=== PATIENT | female | born 1940 | race Two or more races ===

== ENCOUNTER 2016-11-09 11:54 | Emergency (ER) | payer MEDICARE, MEDICAID ==
[~2016-11-09] VITALS: Ht 165.1 cm; Wt 62.1 kg
[~2016-11-09 11:54] MED LIST: ACET-868 PO; AMIN30LI2 PO; ASCO500C16 PO; BISA10SU61 RC; CARB-93 PO; DEXT1CAP3 PO; DOCU-25 PO; LORA1TAB82 PO; MAGN400O6 PO; MULT-213 PO; NA P133E RC; PANT40TA4 PO; RISP0.253 PO; TYL2T PO; ZINC220C8 PO; [UNRECOGNIZED DRUG - CODE] TP
--- NOTE | 2016-11-09 12:20 | NUR ---
PT BBI PA C/O DISLODGED GTUBE THIS MORNING FROM SNF. NAD NOTED. NO COMPLAINTS. RESP EVEN UNLABORED. IN ER BED 11.
[2016-11-09 12:32] LABS: BASOPHILS % (AUTO) 0.4 % (0.0-2.0); EOSINOPHILS # (AUTO) 0.2 /CMM (0.0-0.7); EOSINOPHILS % (AUTO) 1.9 % (0.0-6.0); HEMATOCRIT 43 % (33-45); HEMOGLOBIN 14.2 g/dL (11.5-14.8); LYMPHOCYTES # (AUTO) 2.1 /CMM (0.8-4.8); LYMPHOCYTES % (AUTO) 21.7 % (20.0-44.0); MEAN CORPUSCULAR HEMOGLOBIN 28 PG (26.0-33.0); MEAN CORPUSCULAR HGB CONC 33 g/dl (31.0-36.0); MEAN CORPUSCULAR VOLUME 87 fL (82-100); MONOCYTES # (AUTO) 0.4 /CMM (0.1-1.30); MONOCYTES % (AUTO) 4.5 % (2.0-12.0); NEUTROPHILS % (AUTO) 71.5 % (43.0-81.0); PLATELET COUNT (AUTO) 339 /CMM (150-450); RDW COEFFICIENT OF VARIATION 14.2 (11.5-15.0); RED BLOOD CELL COUNT(AUTO) 5.01 MIL/uL (4.0-5.2); WHITE BLOOD COUNT (AUTO) 9.7 K/uL (4.3-11.0)
[2016-11-09 12:41] LABS: CALCIUM, SERUM 9.2 mg/dL (8.5-10.1); CREATININE 0.6 mg/dL (0.6-1.3); POTASSIUM 4.6 mmol/L (3.5-5.1)
[2016-11-09] MEDS ORDERED: DIATR MEGLU/DIATRIZOATE SODIUM 30 ML BOTTLE (GASTROGRAPHIN) ONE (13:16)
--- NOTE | 2016-11-09 13:19 | NUR ---
CALLED [facility] FOR TRANSPORT BACK TO SNF, ETA 1400
--- NOTE | 2016-11-09 13:30 | NUR ---
XRAY AT BEDSIDE FOR KUB
--- NOTE | 2016-11-09 13:49 | NUR ---
AWAITING TRANSPORT. NAD NOTED.
[2016-11-09 13:55] VITALS: BP 135/93
--- NOTE | 2016-11-09 13:56 | NUR ---
PT DISCHARGED TO SNF VIA MEDRESPONSE IN STABLE CONDITION
== END 2016-11-09 13:55 ==
LOC: ER 12:09
DX: Z43.1 Encounter for attention to gastrostomy (principal); I10 Essential (primary) hypertension; E03.9 Hypothyroidism, unspecified; K21.9 Gastro-esophageal reflux disease without esophagitis; F29 Unspecified psychosis not due to a substance or known physiological condition; I99.8 Other disorder of circulatory system; Z88.6 Allergy status to analgesic agent
CPT/HCPCS: 36415; 43760; 74000; 80048; 85025; 99285; A4606; Q9963; Z7610

== ENCOUNTER 2017-06-13 11:32 | Inpatient (IN) | payer MEDICARE, MEDICAID ==
[~2017-06-13] VITALS: Ht 165.1 cm; Wt 65.8 kg
--- NOTE | 2017-06-13 07:30 | NUR ---
MS RN CLOSING NOTE SBAR REPORT GIVEN AT THE BEDSIDE. PATIENT IS ASLEEP IN BED. BED IS LOCKED IN LOWEST POSITION, SIDE RAILS UP X3, BED ALARM ON. CALL LIGHT WITHIN REACH. PATIENT'S ROOM NEXT TO HE NURSES STATION WITH A CONSTANT OBSERVATION. PATIENT IS NON VERBAL, NON COHERENT, UNABLE TO UNDERSTAND. NO S/S OF PAIN/DISCOMFORT/DISTRESS. CHEST IS RISING EQUALLY BILATERALLY. SPO2 97 %RA. VS WNL. ENDORSED TO HYDRAULIC MECHANIC NURSE FOR JOE.
[~2017-06-13 11:32] MED LIST changes: +ACET-868 GT; -ACET-868 PO; +CARB-93 GT; -CARB-93 PO; +MAGN400O6 GT; -MAGN400O6 PO
--- NOTE | 2017-06-13 11:46 | NUR ---
BIB EMS [facility] SNF C/O HEMATURIA SINCE THIS MORNING. PLACED ON MONITOR . AWAITING MD ORDER
--- NOTE | 2017-06-13 12:00 | NUR ---
RAC #20 IV ACCESS. BLOOD SAMPLE COLLECTED SENT TO LAB
[2017-06-13 12:13] LABS: BASOPHILS # (AUTO) 0.3 /CMM (0.0-0.2); BASOPHILS % (AUTO) 2.6 % (0.0-2.0); EOSINOPHILS # (AUTO) 0.2 /CMM (0.0-0.7); EOSINOPHILS % (AUTO) 1.7 % (0.0-6.0); HEMATOCRIT 38 % (33-45); HEMOGLOBIN 12.3 g/dL (11.5-14.8); LYMPHOCYTES # (AUTO) 2.2 /CMM (0.8-4.8); LYMPHOCYTES % (AUTO) 20.1 % (20.0-44.0); MEAN CORPUSCULAR HEMOGLOBIN 28 PG (26.0-33.0); MEAN CORPUSCULAR HGB CONC 33 g/dl (31.0-36.0); MEAN CORPUSCULAR VOLUME 86 fL (82-100); MONOCYTES # (AUTO) 0.3 /CMM (0.1-1.30); MONOCYTES % (AUTO) 2.9 % (2.0-12.0); NEUTROPHILS % (AUTO) 72.7 % (43.0-81.0); PLATELET COUNT (AUTO) 379 /CMM (150-450); RDW COEFFICIENT OF VARIATION 15.6 (11.5-15.0); RED BLOOD CELL COUNT(AUTO) 4.39 MIL/uL (4.0-5.2)
[2017-06-13 12:20] LABS: CARBON DIOXIDE 28 mmol/L (21-32); CHLORIDE 95 mmol/L (98-107); CREATININE 0.6 mg/dL (0.6-1.3); GLUCOSE 106 mg/dL (74-106); POTASSIUM 4.3 mmol/L (3.5-5.1); SODIUM SERUM 131 mmol/L (136-145); UREA NITROGEN, BLOOD 21 mg/dL (7-18)
[2017-06-13 12:24] LABS: PROTHROMBIN TIME 10.4 SECS (9.5-12.7)
[2017-06-13 12:26] LABS: ALANINE AMINOTRANSFERASE 7 U/L (12-78); ALBUMIN 2.9 g/dL (3.4-5.0); ALKALINE PHOSPHATASE 102 U/L (46-116); ASPARTATE AMINOTRANSFERASE 39 U/L (15-37); BILIRUBIN,DIRECT 0.1 mg/dL (0.0-0.2); BILIRUBIN,TOTAL 0.4 mg/dL (0.2-1.0); TOTAL PROTEIN, SERUM 7.3 g/dL (6.4-8.2)
[2017-06-13] MEDS ORDERED: IV NS 0.9% 500 ML BAG IV ONE (12:30)
--- NOTE | 2017-06-13 13:12 | NUR ---
URINE SAMPLE COLLECTED SENT TO LAB
[2017-06-13 13:21] LABS: APPEARANCE,URINE Turbid (CLEAR); BILIRUBIN,URINE LARGE (NEGATIVE); BLOOD, URINE Large Ery/uL (NEGATIVE); COLOR,URINE Red (YELLOW); KETONES,URINE 40 (NEGATIVE); LEUKOCYTE ESTERASE ,URINE Large (NEGATIVE); NITRITE, URINE Positive (NEGATIVE); PH,URINE 8.5 (5.0-8.0); PROTEIN,URINE >=300 mg/dl (NEGATIVE); UGLUCOSE 100 MG/DL mg/dL (NEGATIVE); UROBILINOGEN,URINE >=8.0 EU/dL (0.2)
[2017-06-13 13:42] LABS: BACTERIA,URINE Moderate /HPF (None Seen); RBC,URINE TOO NUMEROUS TO COUN /HPF (0-2); SQUAMOUS EPITHELIAL CELL,UR Few /HPF (None Seen)
[2017-06-13] MEDS ORDERED: CHLO15MO2 MM (13:42)
[2017-06-13] MEDS ORDERED: FLUD0.1T GT (13:42)
[2017-06-13] MEDS ORDERED: DOCU50LI GT (13:42)
[2017-06-13] MEDS ORDERED: LACT-209 GT (13:42)
[2017-06-13 13:43] LABS: WBC,URINE 21-50 /HPF (0-3)
[2017-06-13] MEDS ORDERED: CEFTRIAXONE 1GM BAG (ER ONLY) 50 ML IV ONE (13:45)
[2017-06-13] MEDS ORDERED: CEFTRIAXONE 1 G in IV D5W 50 ML IV ONE (14:00)
--- NOTE | 2017-06-13 14:54 | NUR ---
[facility]. [facility] PAYNE ADMITTING TRANSFER VIA ACLS PROTOCOL
--- NOTE | 2017-06-13 14:56 | NUR ---
CTO REPORT NOTE RECEIVED PHONE REPORT FROM ER NURSE. AWAITING PATIENT'S ARRIVAL TO THE UNIT.
[2017-06-13 15:30] VITALS: BP 124/81
--- NOTE | 2017-06-13 15:30 | NUR ---
MS RN ADMITTING NOTE PATIENT ARRIVED TO THE UNIT VIA GURNEY ACCOMPANIED BY THE ER NURSE AND TECH. PATIENT WAS SAFELY ASSISTED/TRANSFERRED TO THE BED. BED IS LOCKED IN LOWEST POSITION, SIDE RAILS UP X3, BED ALARM ON. CALL LIGHT WITHIN REACH. PATIENT'S ROOM NEXT TO HE NURSES STATION WITH A CONSTANT OBSERVATION. PATIENT IS NON VERBAL, NON COHERENT, UNABLE TO UNDERSTAND. CONSERVED. CONSERVATOR SKYE SWEET . ADMISSION INFORMATION OBTAINED FROM [facility] NURSE. PATIENT PRESENTS WITH MULTIPLE SKIN ABRASIONS. PICTURES ARE TAKEN AND PLACED IN THE CHART. WOUND CONSULTATION REFERRAL IS INITIATED. PATIENT HAS A G-TUBE. REFERRED TO REGISTERED DIETITIAN FOR ENTERAL FEEDING CONSULT. NO S/S OF PAIN/DISCOMFORT/DISTRESS. CHEST IS RISING EQUALLY BILATERALLY. SPO2 97 %RA. VS WNL. WILL CONTINUE TO MONITOR ASSESS THROUGHOUT THE SHIFT.
[2017-06-13 16:00] VITALS: BP 123/81
[2017-06-13] MEDS ORDERED: ZOLPIDEM TARTRATE 5 MG TABLET PO PRN (16:30)
[2017-06-13] MEDS ORDERED: ONDANSETRON HCL/PF 4 MG/2 ML VIAL IVP PRN (16:30)
[2017-06-13] MEDS ORDERED: HYDROCODONE/APAP 5/325MG 1 EACH TABLET PO PRN ×2 (16:30→17:00)
[2017-06-13] MEDS ORDERED: FIBERSOURCE HN 1,000 ML BOTTLE GT PRN (16:30)
[2017-06-13] MEDS ORDERED: ACETAMINOPHEN 325 MG TABLET PO PRN (16:30)
[2017-06-13] MEDS ORDERED: BISACODYL SUPP (10 MG) 10 MG/SUPP.RECT SUPP.RECT RC PRN (16:30)
[2017-06-13] MEDS ORDERED: NA PHOS,M-B/NA PHOS,DI-BA 1 EA ENEMA RC PRN (16:30)
[2017-06-13] MEDS ORDERED: MAGNESIUM HYDROXIDE 30 ML UDC GT PRN (16:30)
[2017-06-13] MEDS ORDERED: Z GUARD REMEDY 2 OZ OINT TP PRN (16:30)
[2017-06-13] MEDS: CARBIDOPA/LEVODOPA 25/100 MG 1 UDTAB GT SCH (17:20)
[2017-06-13] MEDS: CHLORHEXIDINE GLUCONATE 15 ML UDC MM SCH (17:20)
[2017-06-13] MEDS: ENOXAPARIN SODIUM 40 MG/0.4 ML DISP.SYRIN SQ SCH (17:20)
[2017-06-13] MEDS: IV NS 0.9% 1,000 ML IV PRN (18:54)
[2017-06-13 20:59] VITALS: BP 115/72
[2017-06-13] MEDS: DOCUSATE SODIUM LIQ 100 MG/10 ML UDC GT SCH (21:22)
[2017-06-13 21:54] VITALS: BP 115/72
[2017-06-14] VITALS: BP 115/62
[2017-06-14] MEDS: IV NS 0.9% 1,000 ML IV PRN ×2 (06:09→22:15)
--- NOTE | 2017-06-14 06:47 | NUR ---
END OF SHIFT SUMMERY: Pt is non-verbal ,contracted . on room air,saturating well. VSS. no signs of pain noticed . no episodes of N/V noticed throughout shift. pt has a G-Tube in place ,receiving fibersource @30 ml/hr. pt is on IV fluid NS 0.9% @ 75 ml/hr. pt is repositioned q 2 hr and as needed. still mild to moderate bloody urine noticed. fall and safety measures are implemented. POC: lab studies, wound consult. no acute respiratory/cardiac distress noted, will endorse patient and POC to the next RN to continue the care.
[2017-06-14 07:24] LABS: BASOPHILS # (AUTO) 0.1 /CMM (0.0-0.2); BASOPHILS % (AUTO) 0.7 % (0.0-2.0); EOSINOPHILS # (AUTO) 0.3 /CMM (0.0-0.7); EOSINOPHILS % (AUTO) 4.2 % (0.0-6.0); HEMATOCRIT 36 % (33-45); HEMOGLOBIN 12.2 g/dL (11.5-14.8); LYMPHOCYTES # (AUTO) 1.7 /CMM (0.8-4.8); LYMPHOCYTES % (AUTO) 21.1 % (20.0-44.0); MEAN CORPUSCULAR HEMOGLOBIN 29 PG (26.0-33.0); MEAN CORPUSCULAR HGB CONC 34 g/dl (31.0-36.0); MEAN CORPUSCULAR VOLUME 87 fL (82-100); MONOCYTES # (AUTO) 0.4 /CMM (0.1-1.30); MONOCYTES % (AUTO) 5.4 % (2.0-12.0); NEUTROPHILS # (AUTO) 5.5 /CMM (1.8-8.9); NEUTROPHILS % (AUTO) 68.6 % (43.0-81.0); PLATELET COUNT (AUTO) 308 /CMM (150-450); RDW COEFFICIENT OF VARIATION 16.7 (11.5-15.0); RED BLOOD CELL COUNT(AUTO) 4.16 MIL/uL (4.0-5.2)
--- NOTE | 2017-06-14 07:30 | NUR ---
RN OPENING NOTES RECEIVED PATIENT IN BED. NO ACUTE DISTRESS, NO SOB NOTED. RESPIRATIONS EVEN AND UNLABORED. IV SITE INTACT AND PATENT. GTUBE IN PLACE, FEEDING FIBERSOURCE @ 30ML/HR. SAFETY MEASURES IMPLEMENTED. BED LOCKED, LOW POSITION, SIDERAILS UPX2. CALL LIGHT IN REACH. WILL CONTINUE TO MONITOR ACCORDINGLY.
[2017-06-14 07:38] LABS: CALCIUM, SERUM 8.5 mg/dL (8.5-10.1); CARBON DIOXIDE 27 mmol/L (21-32); CHLORIDE 104 mmol/L (98-107); CREATININE 0.5 mg/dL (0.6-1.3); GLUCOSE 91 mg/dL (74-106); MAGNESIUM 1.8 mg/dL (1.8-2.4); PHOSPHORUS 3.4 mg/dL (2.5-4.9); POTASSIUM 3.9 mmol/L (3.5-5.1); SODIUM SERUM 139 mmol/L (136-145); UREA NITROGEN, BLOOD 14 mg/dL (7-18)
[2017-06-14 07:50] LABS: CHOLESTEROL 108 mg/dL (<200); HDL CHOLESTEROL 33 mg/dL (40-60); LDL 62 mg/dL (0-99); THYROID STIMULATING HORMONE 2.806 uIU/mL (0.358-3.74); TRIGLYCERIDES 80 mg/dL (30-150)
[2017-06-14 08:00] VITALS: BP 134/73
--- NOTE | 2017-06-14 09:00 | NUR ---
RN NOTES PER LEAFLET OR NEWSPAPER DELIVERERMIMI, INCREASE TF TO 55ML/HR TOLERATED.
[2017-06-14] MEDS: CHLORHEXIDINE GLUCONATE 15 ML UDC MM SCH ×2 (10:21→16:55)
[2017-06-14] MEDS: FLUDROCORTISONE 0.1 MG TABLET GT SCH (10:21)
[2017-06-14] MEDS: CARBIDOPA/LEVODOPA 25/100 MG 1 UDTAB GT SCH ×3 (10:21→16:55)
[2017-06-14] MEDS: PANTOPRAZOLE 40 MG TABLET.DR PO SCH (10:22)
[2017-06-14] MEDS: CEFTRIAXONE 1 G in IV D5W 50 ML IV SCH (14:09)
[2017-06-14 16:00] VITALS: BP 126/70
--- NOTE | 2017-06-14 19:00 | NUR ---
RN CLOSING NOTES PATIENT IN BED RESTING. NO ACUTE DISTRESS, NO SOB NOTED. ALL NEEDS ATTENDED AND PROVIDED. REPOSITIONED AND TURNED PATIENT EVERY 2 HOURS. KEPT PATIENT SAFE AND COMFORTABLE. BED IN LOW POSITION,LOCKED, HEAD OF BED ELEVATED, SIDERAILS UPX2. CALL LIGHT IN REACH. ENDORSED TO QUARTER BACKER RN FOR JOE.
--- NOTE | 2017-06-14 19:30 | NUR ---
RN OPENING NOTES RECEIVED REPORT FROM [facility]. FOUND Pt ASLEEP IN BED. NO S/S OF ACUTE DISTRESS OR SOB NOTED. EQUAL CHEST RISE AND FALL, WITH UNLABORED BREATHING. Pt IS NON-VERBAL, BUT IS ABLE TO MOVE EYES AND OPEN AND CLOSE THEM. ON GTF FIBERSOURCE @55ML/HR. IV ACCESS ON RAC #20G, IVF NS @75ML/HR, INFUSING WELL. SAFETY MEASURES IN PLACE. BED LOW, LOCKED, HOB ELEVATED, SIDE RAILS UP, CALL LIGHT WITHIN REACH. WILL CONTINUE TO MONITOR Pt THROUGHOUT THE NIGHT FOR SAFETY. Addendum: 06/14/17 at 2031 by MENG SAINZ RN [facility].
[2017-06-14 20:00] VITALS: BP 127/69
[2017-06-14] MEDS: DOCUSATE SODIUM LIQ 100 MG/10 ML UDC GT SCH (22:09)
[2017-06-14] MEDS: ENOXAPARIN SODIUM 40 MG/0.4 ML DISP.SYRIN SQ SCH (22:12)
[2017-06-14] MEDS: FIBERSOURCE HN 1,000 ML BOTTLE GT PRN (23:00)
--- NOTE | 2017-06-15 06:40 | NUR ---
RN CLOSING NOTES NO SIGNIFICANT CHANGES IN Pt's CONDITION DURING THE SHIFT. Pt REMAINS STABLE. NO S/S OF ACUTE DISTRESS OR SOB NOTED DURING THE NIGHT. ALL NEEDS MET AND ATTENDED TO. SAFETY MEASURES IN PLACE. WILL ENDORSE TO DAYSHIFT RN FOR Pt's JOE.
[2017-06-15 08:00] VITALS: BP 117/72
--- NOTE | 2017-06-15 08:00 | NUR ---
MS RN OPENING NOTE PATIENT IS ALERT AND ORIENTED x1. NON-VERBAL. OPENS EYES AND SMILES TO NAME. NO FACIAL GRIMACING NOTED FOR PAIN. NO SOB OR DISTRESS NOTED. ON ROOM AIR SATURATING AT 96%. BEDREST. PATIENT IS CONTRACTED. PATIENT HAS G-TUBE INTACT AND PATENT NO REDNESS OR SWELLING NOTED. G-TUBE RUNNING AT THIS TIME, FIBERSOURCE AT 55 ML/HR. TOLERATING WELL NO RESIDUAL NOTED. IV ON RIGHT AC INTACT AND PATENT NO REDNESS OR SWELLING NOTED, IV FLUIDS RUNNING AT THIS TIME AT 75 ML/HR. WILL CONTINUE TO MONITOR PATIENT
[2017-06-15] MEDS: CHLORHEXIDINE GLUCONATE 15 ML UDC MM SCH ×2 (09:05→16:25)
[2017-06-15] MEDS: CARBIDOPA/LEVODOPA 25/100 MG 1 UDTAB GT SCH ×3 (09:05→16:25)
[2017-06-15] MEDS: PANTOPRAZOLE 40 MG TABLET.DR PO SCH (09:05)
[2017-06-15] MEDS: FLUDROCORTISONE 0.1 MG TABLET GT SCH (09:05)
[2017-06-15] MEDS: IV NS 0.9% 1,000 ML IV PRN (13:12)
[2017-06-15] MEDS: CEFTRIAXONE 1 G in IV D5W 50 ML IV SCH (13:12)
[2017-06-15 16:00] VITALS: BP 114/70
--- NOTE | 2017-06-15 18:57 | NUR ---
MS RN CLOSING NOTE PATIENT IS ALERT AND ORIENTED x1. NONVERBAL, SMILES AT RESPONSE. NO FACIAL GRIMACING NOTED FOR PAIN. NO SOB OR DISTRESS NOTED. CALL LIGHT WITHIN REACH AT ALL TIMES. SAFETY MEASURES IMPLEMENTED. ALL DUE MEDICATIONS GIVEN ORDERED. G-TUBE INTACT AND PATENT NO REDNESS OR SWELLING NOTED, G-TUBE IN PLACE. FEEDING RUNNING AT 55 ML/HR TOLERATING WELL NO RESIDUAL NOTED. IV ON RIGHT AC INTACT AND PATENT, IV FLUIDS RUNNING AT 75 ML/HR TOLERATING WELL. NO LABS FOR TOMORROW. WILL ENDORSE TO FIBERGLASS GRINDER NURSE FOR JOE
--- NOTE | 2017-06-15 19:40 | NUR ---
MS RN OPENING NOTE PATIENT IS ALERT AND ORIENTED x1. NON-VERBAL. OPENS EYES AND SMILES TO NAME AND WHEN ASKED TO. NO SOB OR DISTRESS NOTED, BREATHING EVENLY AND UNLABORED ON RA. BEDREST. PATIENT IS CONTRACTED. PATIENT HAS G-TUBE INTACT AND PATENT NO REDNESS OR SWELLING NOTED. G-TUBE RUNNING AT THIS TIME, FIBERSOURCE AT 55 ML/HR. TOLERATING WELL NO RESIDUAL NOTED. IV ON RIGHT AC INTACT AND PATENT NO REDNESS OR SWELLING NOTED, IV FLUIDS RUNNING AT THIS TIME AT 75 ML/HR. WILL CONTINUE TO MONITOR PATIENT
[2017-06-15] MEDS: FIBERSOURCE HN 1,000 ML BOTTLE GT PRN (19:49)
[2017-06-15 20:00] VITALS: BP 119/68
[2017-06-15] MEDS: DOCUSATE SODIUM LIQ 100 MG/10 ML UDC GT SCH (21:59)
[2017-06-15] MEDS: ENOXAPARIN SODIUM 40 MG/0.4 ML DISP.SYRIN SQ SCH (21:59)
[2017-06-16] MEDS: IV NS 0.9% 1,000 ML IV PRN (02:49)
--- NOTE | 2017-06-16 06:18 | NUR ---
MS RN CLOSING NOTES PT IS IN BED RESTING A/O X1. NO SIGNS OF SOB OR DISTRESS, BREATHING EVENLY AND UNLABORED ON RA. WOUND CARE WAS RENDERED. GTUBE IS INTACT AND PATENT WITH FIBERSOURCE AT 55 MLA/ HR. ALL NEEDS WERE ANTICIPATED AT MET. WILL ENDORSE TO DAYSHIFT.
--- NOTE | 2017-06-16 07:05 | NUR ---
MS RN OPENING NOTES RECEIVED PT FROM NIGHTSHIFT NURSE IN STABLE CONDITION. PT IS A/O X1, NON VERBAL, AND OPENS HER EYES SPONTANEOUSLY. NO SOB OR SIGNS OF DISTRESS NOTED. BREATHING IS EVEN AND UNLABORED. GTUBE NOTED INFUSING FIBERSOURCE @55ML/HR. SITE NOTED TO BE DRY AND INTACT. PLACEMENT VERIFIED VIA AUSCULTATION. PT IS TOLERATING FEEDING WELL. NO RESIDUALS ASPIRATED AT THIS TIME. IV NOTED ON RIGHT AC 20G INFUSING NS @75ML/HR. PT IS TOLERATING INFUSION WELL. NO REDNESS OR SIGNS OF INFILTRATION NOTED. BED IN LOW LOCKED POSITION, SIDE RAILS UP X3, BED ALARM ON, CALL LIGHT WITHIN REACH. WILL CONTINUE TO MONITOR.
[2017-06-16 08:00] VITALS: BP 140/67
[2017-06-16] MEDS: CHLORHEXIDINE GLUCONATE 15 ML UDC MM SCH (08:47)
[2017-06-16] MEDS: CARBIDOPA/LEVODOPA 25/100 MG 1 UDTAB GT SCH (08:47)
[2017-06-16] MEDS: PANTOPRAZOLE 40 MG TABLET.DR PO SCH (08:47)
[2017-06-16] MEDS: FLUDROCORTISONE 0.1 MG TABLET GT SCH (08:47)
[2017-06-16] MEDS: FIBERSOURCE HN 1,000 ML BOTTLE GT PRN (08:47)
[2017-06-16] MEDS ORDERED: CEPH-570 PO (11:27)
--- NOTE | 2017-06-16 13:47 | NUR ---
MS SIDE BOSS NOTES REPORT CALLED AND GIVEN TO SENA THE NURSING LOCK PLATER AT [facility]. DISCHARGE INSTRUCTIONS WERE GIVEN TO HER. PT UNABLE TO SIGN DISCHARGE PAPERWORK DUE TO MENTAL STATUS. MYSELF AND A FELLOW RN SIGNED ALL DISCHARGE PAPERWORK AND GAVE COPIES TO THE EMT STAFF TO GIVE TO THE FACILITY. PT LEFT VIA AMBULANCE TRANSPORT IN STABLE CONDITION. ALL NEEDS WERE MET DURING SHIFT AND ORDERS CARRIED OUT ACCORDINGLY.
== END 2017-06-16 13:45 | DRG 690 ==
LOC: ER 11:34 → MED 14:56
DX: N30.91 Cystitis, unspecified with hematuria (principal); G20 Parkinson's disease; F02.80 Dementia in other diseases classified elsewhere, unspecified severity, without behavioral disturbance, psychotic disturbance, mood disturbance, and anxiety; F20.9 Schizophrenia, unspecified; E86.0 Dehydration; E03.9 Hypothyroidism, unspecified; Z73.6 Limitation of activities due to disability; Z88.5 Allergy status to narcotic agent; K21.9 Gastro-esophageal reflux disease without esophagitis; I10 Essential (primary) hypertension
CPT/HCPCS: 36415; 80048-TC; 80061-TC; 80076-TC; 81000-TC; 83605-TC; 83735-TC; 84100-TC; 84443-TC; 85025-TC; 85730-TC; 87040-TC; 87081-TC; 87086-TC; J0696; J1650; J7030; J7040; J7060; Z7610

== ENCOUNTER 2017-07-29 19:16 | Inpatient (IN) | payer MEDICARE, MEDICAID ==
[~2017-07-29] VITALS: Ht 160 cm; Wt 53.5 kg
[~2017-07-29 19:16] MED LIST changes: -AMIN30LI2 PO; -ASCO500C16 PO; +CEPH-570 PO; +CHLO15MO2 MM; -DEXT1CAP3 PO; -DOCU-25 PO; +DOCU50LI GT; +FLUD0.1T GT; +LACT-209 GT; -LORA1TAB82 PO; -MULT-213 PO; -PANT40TA4 PO; -RISP0.253 PO; -TYL2T PO; -ZINC220C8 PO; -[UNRECOGNIZED DRUG - CODE] TP
--- NOTE | 2017-07-29 19:25 | NUR ---
BB PRIVATE EMS FROM [facility] FOR WHEEZING AND CONGESTION SINCE FRIDAY. ALBUTEROL GIVEN PER SNF AT 6PM. PER EMS CXRAY WAS NEGATIVE ON FRIDAY. PT NONVERBAL, RESPONSIVE TO PAINFUL STIMULI. RR EVEN AND UNLABORED. NO SOB NOTED. NO WHEEZING NOTED. PT ON 2L NC AT SNF. PT LLE CONTRACTED. GTUBE INTACT WITH ABD BINDER, GT PATENT NO S/S INFECTION NO RESIDUAL NOTED. NAD NOTED. NO NVD AT THIS TIME. PT GOWNED AND PLACED ON MONITOR. DR. ALBA AT BEDSIDE FOR EVAL.
[2017-07-29] MEDS ORDERED: IV NS 0.9% 1,000 ML BAG IV ONE ×2 (19:30→21:00)
--- NOTE | 2017-07-29 19:46 | NUR ---
IV STARTED ON LEFT WRIST 20G, INTACT AND PATENT, GOOD BLOOD RETURNED. BLOOD AND BLOOD CX DRAWN AND SENT TO LAB
--- NOTE | 2017-07-29 19:52 | NUR ---
RADIOLOGY AT BEDSIDE FOR CXRAY
[2017-07-29 19:55] LABS: BASOPHILS # (AUTO) 0.1 /CMM (0.0-0.2); BASOPHILS % (AUTO) 0.7 % (0.0-2.0); EOSINOPHILS # (AUTO) 0.3 /CMM (0.0-0.7); EOSINOPHILS % (AUTO) 2.2 % (0.0-6.0); HEMATOCRIT 40 % (33-45); HEMOGLOBIN 12.9 g/dL (11.5-14.8); LYMPHOCYTES # (AUTO) 3.5 /CMM (0.8-4.8); LYMPHOCYTES % (AUTO) 22.3 % (20.0-44.0); MEAN CORPUSCULAR HEMOGLOBIN 28 PG (26.0-33.0); MEAN CORPUSCULAR HGB CONC 33 g/dl (31.0-36.0); MEAN CORPUSCULAR VOLUME 86 fL (82-100); MONOCYTES # (AUTO) 0.7 /CMM (0.1-1.30); MONOCYTES % (AUTO) 4.7 % (2.0-12.0); NEUTROPHILS # (AUTO) 10.9 /CMM (1.8-8.9); NEUTROPHILS % (AUTO) 70.1 % (43.0-81.0); PLATELET COUNT (AUTO) 384 /CMM (150-450); RDW COEFFICIENT OF VARIATION 14.9 (11.5-15.0); RED BLOOD CELL COUNT(AUTO) 4.59 MIL/uL (4.0-5.2); WHITE BLOOD COUNT (AUTO) 15.5 K/uL (4.3-11.0)
--- NOTE | 2017-07-29 20:03 | NUR ---
URINE COLLECTED. CALLED LAB FOR PASSENGER BOOKING CLERK.
[2017-07-29 20:06] LABS: CALCIUM, SERUM 9.4 mg/dL (8.5-10.1); CARBON DIOXIDE 27 mmol/L (21-32); CHLORIDE 98 mmol/L (98-107); CREATININE 0.7 mg/dL (0.6-1.3); GLUCOSE 106 mg/dL (74-106); POTASSIUM 4.4 mmol/L (3.5-5.1); SODIUM SERUM 134 mmol/L (136-145); UREA NITROGEN, BLOOD 26 mg/dL (7-18)
[2017-07-29 20:10] LABS: INR 1.05 (0.87-1.13); PROTHROMBIN TIME 10.9 SECS (9.5-12.7)
[2017-07-29 20:13] LABS: APPEARANCE,URINE Cloudy (CLEAR); BILIRUBIN,URINE Negative (NEGATIVE); BLOOD, URINE Moderate Ery/uL (NEGATIVE); COLOR,URINE Yellow (YELLOW); KETONES,URINE Trace (NEGATIVE); LEUKOCYTE ESTERASE ,URINE Large (NEGATIVE); NITRITE, URINE Negative (NEGATIVE); PH,URINE 8.5 (5.0-8.0); PROTEIN,URINE >=300 mg/dl (NEGATIVE); UGLUCOSE Negative (NEGATIVE); UROBILINOGEN,URINE 0.2 EU/dL (0.2)
[2017-07-29 20:14] LABS: TROPONIN I < 0.017 ng/mL (0.00-0.056)
[2017-07-29 20:18] LABS: ALANINE AMINOTRANSFERASE 9 U/L (12-78); ALBUMIN 3.3 g/dL (3.4-5.0); ALKALINE PHOSPHATASE 94 U/L (46-116); ASPARTATE AMINOTRANSFERASE 22 U/L (15-37); B-TYPE NATRIURETIC PEPTIDE 108 PG/ML (0-125); BILIRUBIN,DIRECT 0.1 mg/dL (0.0-0.2); BILIRUBIN,TOTAL 0.5 mg/dL (0.2-1.0); TOTAL PROTEIN, SERUM 7.9 g/dL (6.4-8.2)
[2017-07-29 20:23] LABS: BACTERIA,URINE Many /HPF (None Seen); WBC,URINE TOO NUMEROUS TO COUN /HPF (0-3)
[2017-07-29 20:25] LABS: HYALINE CASTS, URINE Few /LPF (None Seen); SQUAMOUS EPITHELIAL CELL,UR Moderate /HPF (None Seen)
[2017-07-29] MEDS ORDERED: PIPERACILLIN /TAZOBACTAM 3.375 G in IV D5W 50 ML IV ONE (21:00)
[2017-07-29] MEDS ORDERED: PIPERACILLIN /TAZOBACTAM 3.375 G VIAL IV ONE (21:16)
[2017-07-29] MEDS ORDERED: ACETAMINOPHEN 325 MG TABLET PO PRN (22:00)
[2017-07-29] MEDS ORDERED: MAG HYDROX/AL HYDROX/SIMETH 30 ML UDC GT PRN (22:00)
[2017-07-29] MEDS ORDERED: Z GUARD REMEDY 2 OZ OINT TP PRN (22:00)
[2017-07-29] MEDS ORDERED: BISACODYL SUPP (10 MG) 10 MG/SUPP.RECT SUPP.RECT RC PRN (22:00)
[2017-07-29] MEDS ORDERED: HYDROCODONE/APAP 5/325MG 1 EACH TABLET GT PRN (22:00)
[2017-07-29] MEDS ORDERED: ONDANSETRON HCL/PF 4 MG/2 ML VIAL IVP PRN (22:00)
[2017-07-29] MEDS: DOCUSATE SODIUM LIQ 100 MG/10 ML UDC GT SCH (22:00)
[2017-07-29] MEDS ORDERED: MAGNESIUM HYDROXIDE 30 ML UDC GT PRN (22:00)
--- NOTE | 2017-07-29 22:09 | NUR ---
REPORT GIVEN TO MIGNON Ibarra NURSE.
[2017-07-29 22:28] LABS: BAND % (MANUAL) 2 % (0.0-5.0); EOSINOPHILS % (MANUAL) 2 % (0-4); LYMPHOCYTES % (MANUAL) 27 % (16-48); MONOCYTES % (MANUAL) 8 % (0-11.0); NEUTROPHILS % (MANUAL) 61 (42-76)
[2017-07-29] MEDS ORDERED: CEFTRIAXONE 1GM BAG (ER ONLY) 50 ML IV ONE (22:49)
[2017-07-29] MEDS: CEFTRIAXONE 1 G in IV D5W 50 ML IV SCH ×2 (22:50→22:54)
--- NOTE | 2017-07-29 22:53 | NUR ---
REPORT CALLED TO FLOOR. IV ROCEPHIN STARTED.
[2017-07-29] MEDS: IV NS 0.9% 1,000 ML IV PRN (23:23)
[2017-07-29 23:30] VITALS: BP 119/53
--- NOTE | 2017-07-29 23:30 | NUR ---
TELE MEDICAL AFFAIRS SPECIALIST INITIAL NOTES ADMIT PT FROM ER ALVARADO ACCOMPANIED BY ER NURSE AND TECH. DX OF SEPSIS. PT IS AWAKE BUT NON-VERBAL NOT IN ANY ACUTE DISTRESS NOTED. RESPIRATION EVEN AND NON-LABORED. SKIN WARM AND DRY TO TOUCH NOTICED SOME ABRASION AND DISCOLORATION. SHE ALSO HAVE GALINDO TO GRAVITY WITH CLEAR YELLOW OUTPUT NOTED. MUSCLE WEAKNESS AND ABNORMAL CONTRACTURE NOTED. . VITAL SIGNS STABLE. TELE SR HEART RATE 86 PER MONITOR. BED BATH RENDERED AND APPLIED Z-GUARD TO SOME AFFECTED AREA. WOUND CONSULT ORDERED. REPOSITION HER FOR COMFORT. STARTED IVF OF NS AT 60ML/HR ORDERED. DVT PUMP ALSO APPLIED. KEPT HER WARM AND COMFORTABLE AT ALL TIMES. WILL CONTINUE TO MONITOR.
[2017-07-30] VITALS: BP 119/53
--- NOTE | 2017-07-30 03:00 | NUR ---
LEATHER CUTTER/NOTES PT CHECKED NOTICED CONGESTED AND GURGLING ORAL SUCTION DONE TOLERATED AND DEEP SUCTION DID BY RT . O2 SAT 96% WITH O2 AT 2 LITERS VIA NASAL CANULA. TELE SR HEART RATE 78 PER MONITOR. KEPT HER HOB ELEVATED AND ASPIRATION PRECAUTION IMPLEMENTED AND OBSERVED. WILL CONTINUE MONITORING.
[2017-07-30 04:00] VITALS: BP 133/68
[2017-07-30 04:21] VITALS: BP 133/68
--- NOTE | 2017-07-30 05:53 | NUR ---
SCREEN CLEANER/NOTES PT RESTING AT THIS TIME WITH EYES CLOSED, BREATHING EVEN AND UN-LABORED NOT IN ANY ACUTE DISTRESS NOTED. IVF NS AT 60ML/HR INFUSING AT THIS TIME. WILL CONTINUE MONITORING. TELE SR.
[2017-07-30 06:58] LABS: BASOPHILS % (AUTO) 0.2 % (0.0-2.0); EOSINOPHILS # (AUTO) 0.4 /CMM (0.0-0.7); EOSINOPHILS % (AUTO) 2.9 % (0.0-6.0); HEMATOCRIT 38 % (33-45); HEMOGLOBIN 12.4 g/dL (11.5-14.8); LYMPHOCYTES # (AUTO) 1.7 /CMM (0.8-4.8); LYMPHOCYTES % (AUTO) 13.6 % (20.0-44.0); MEAN CORPUSCULAR HEMOGLOBIN 28 PG (26.0-33.0); MEAN CORPUSCULAR HGB CONC 33 g/dl (31.0-36.0); MEAN CORPUSCULAR VOLUME 87 fL (82-100); MONOCYTES # (AUTO) 0.6 /CMM (0.1-1.30); MONOCYTES % (AUTO) 4.6 % (2.0-12.0); NEUTROPHILS # (AUTO) 9.7 /CMM (1.8-8.9); NEUTROPHILS % (AUTO) 78.7 % (43.0-81.0); PLATELET COUNT (AUTO) 307 /CMM (150-450); RDW COEFFICIENT OF VARIATION 16.1 (11.5-15.0); RED BLOOD CELL COUNT(AUTO) 4.36 MIL/uL (4.0-5.2); WHITE BLOOD COUNT (AUTO) 12.3 K/uL (4.3-11.0)
--- NOTE | 2017-07-30 07:07 | NUR ---
TELE LINUX SOLARIS ADMINISTRATOR CLOSING NOTES 'PT RESTING AT THSI TIME, STILL BREATHING CESAR HER MOUTH, NOT IN ANY ACUTE DISTRESS NOTED. IVF STILL INFUSING AND DUE MEDS GIVEN. SUCTIONED NEEDED. SR ON TELE MONITOR, GALINDO TO GRAVITY WITH CLEAR YELLOW OUTPUT 800ML/ KEPT HER WARM AND COMFORTABLE AT ALL TIMES. ENDORSE TO AM NURSE.
[2017-07-30 07:12] LABS: CHOLESTEROL 116 mg/dL (<200); HDL CHOLESTEROL 40 mg/dL (40-60); LDL 69 mg/dL (0-99); THYROID STIMULATING HORMONE 1.389 uIU/mL (0.358-3.74); TRIGLYCERIDES 50 mg/dL (30-150)
[2017-07-30 07:14] LABS: CALCIUM, SERUM 9.2 mg/dL (8.5-10.1); CARBON DIOXIDE 27 mmol/L (21-32); CHLORIDE 100 mmol/L (98-107); CREATININE 0.6 mg/dL (0.6-1.3); GLUCOSE 96 mg/dL (74-106); MAGNESIUM 1.9 mg/dL (1.8-2.4); POTASSIUM 4.1 mmol/L (3.5-5.1); SODIUM SERUM 134 mmol/L (136-145); UREA NITROGEN, BLOOD 18 mg/dL (7-18)
--- NOTE | 2017-07-30 07:30 | NUR ---
RN OPENING NOTES RECEIVED PATIENT IN BED RESTING, RESPONSIVE, NONVERBAL. NO ACUTE DISTRESS, NO SOB NOTED. NO S/S OF PAIN OR DISCOMFORT. IV SITE INTACT AND PATENT. GALINDO IN PLACE, DRAINING CLEAR YELLOW URINE. GTUBE IN PLACE. BED IN LOW, LOCKED POSITION, HOB ELEVATED, SIDERAILS UPX2. CALL LIGHT IN REACH. WILL CONTINUE TO MONITOR ACCORDINGLY.
[2017-07-30 08:00] VITALS: BP 134/59
[2017-07-30] MEDS ORDERED: FIBERSOURCE HN 1,000 ML BOTTLE GT PRN (09:00)
[2017-07-30] MEDS: CARBIDOPA/LEVODOPA 25/100 MG 1 UDTAB GT SCH ×3 (09:39→17:35)
[2017-07-30] MEDS: FLUDROCORTISONE 0.1 MG TABLET GT SCH (09:45)
[2017-07-30] MEDS: CHLORHEXIDINE GLUCONATE 15 ML UDC MM SCH ×2 (09:46→17:35)
[2017-07-30] MEDS: ALBUTEROL FS 2.5 MG/0.5 ML VIAL.NEB NEB SCH ×4 (13:52→22:48)
[2017-07-30 16:00] VITALS: BP 117/68
--- NOTE | 2017-07-30 16:00 | NUR ---
RN NOTES FOLLOWED UP WITH DR KING ABOUT PATIENT'S FEEDING. PER MD, OK TO RESUME TUBE FEEDING.
--- NOTE | 2017-07-30 19:15 | NUR ---
MS/ OXIDATION OPERATOR; RECEIVED PT'S REPORTS FROM THE DAY SHIFT RN FOR CONTINUITY OF CARE. AT THIS TIME PT IS AWAKE, EYES ARE OPENED BUT NON VERBALLY RESPONSIVE. HOB AT 45 DEGREES. PT APPEARED SLIGHT CONGESTED. WITH O2 2L NC ON. IVF ON PROGRESS. FC INTACT WITH YELLOW URINE .BED ON LOWER POSITION AND LOCKED FOR SAFETY. SIDE RAILS ARE UP FOR SAFETY. WILL CONTINUE TO MONITOR. CALL LIGHT WITHIN REACH.
--- NOTE | 2017-07-30 19:27 | NUR ---
RN CLOSING NOTES PATIENT IN BED RESTING. ON O2 2LPM, SATURATION OF 96%. NO ACUTE DISTRESS, NO SOB NOTED. NO S/S OF PAIN OR DISCOMFORT. ALL NEEDS ATTENDED AND PROVIDED. SUCTIONED PATIENT'S SECRETION NEEDED, TURNED AND REPOSITIONED EVERY 2HRS. KEPT PATIENT SAFE AND COMFORTABLE. BED IN LOCKED, LOW POSITION, SIDERAILS UPX2, HOB ELEVATED, CALL LIGHT IN REACH. ENDORSED TO NIGHT RN FOR JOE.
[2017-07-30 20:00] VITALS: BP 104/68
--- NOTE | 2017-07-30 20:15 | NUR ---
MS/GRADUATE ADVISOR; RT HAS BEEN INFORMED TO DO DEEP SUCTIONING TO THE PT DUE CONGESTION. HOB UP ELEVATED AT ALL TIMES.
[2017-07-30] MEDS: FIBERSOURCE HN 1,000 ML BOTTLE GT PRN (21:28)
[2017-07-30] MEDS ORDERED: CEFTRIAXONE 1 G in IV D5W 50 ML IV SCH (22:00)
[2017-07-30] MEDS: DOCUSATE SODIUM LIQ 100 MG/10 ML UDC GT SCH (22:13)
--- NOTE | 2017-07-31 02:20 | NUR ---
MS/CHUCKING AND SAWING MACHINE OPERATOR; RT AGAIN WAS CALLED TO DO DEEP SUCTIONING TO THIS PT. BREATHING TREATMENT ADMINISTERED BY RT.
[2017-07-31] MEDS: ALBUTEROL FS 2.5 MG/0.5 ML VIAL.NEB NEB SCH ×6 (02:47→23:33)
[2017-07-31] MEDS: IV NS 0.9% 1,000 ML IV PRN (05:43)
--- NOTE | 2017-07-31 06:36 | NUR ---
MS/RADAR SCIENTIST; SLEPT FAIRLY. IVF ON PROGRESS. GT FEEDING ON GOING. NO RESIDUAL. GT SITE WITH SOME DRAINAGE KEPT CLEAN AND ABDOMINAL BINDER APPLIED. FC INTACT YELLOW URINE COLOR SLIGHT CLOUDY. CONTINUE TO MONITOR. WILL ENDORSE TO THE DAY SHIFT NURSE .
--- NOTE | 2017-07-31 07:48 | NUR ---
RN OPEN NOTES RECEIVED REPORT FROM SENIOR TRIAL ATTORNEY NURSE. PATIENT IS IN BED, WITH HER EYES CLOSED, EASILY AROUSED TO LIGHT TOUCH. NO SIGNS OR SYMPTOMS OF DISTRESS. JAC IN LOW POSITION, LOCKED AND TWO SIDE RAILS ARE UP. CALL LIGHT WITHIN REACH FOR SAFETY. GASTRIC TUBE SET TO 50ML/HR, IV SITE IS INTACT AND PATENT AND CURRENTLY RUNNING IV FLUID AT 40ML/HR. WILL CONTINUE TO MONITOR AND ASSESS PATIENT
[2017-07-31 08:00] VITALS: BP 113/56
[2017-07-31] MEDS: CHLORHEXIDINE GLUCONATE 15 ML UDC MM SCH ×2 (08:25→16:57)
[2017-07-31] MEDS: FLUDROCORTISONE 0.1 MG TABLET GT SCH (08:25)
[2017-07-31] MEDS: CARBIDOPA/LEVODOPA 25/100 MG 1 UDTAB GT SCH ×3 (08:25→16:57)
--- NOTE | 2017-07-31 14:43 | NUR ---
MRSA NARES POSITIVE FOR MRSA./ CHARGE NURSE MADE AWARE. WILL PLACED PATIENT ON ISOLATION AND MOVE HER TO 304-2
--- NOTE | 2017-07-31 15:15 | NUR ---
PATIENT MOVED TO ROOM 304-2. PLACED ON ISOLATION
--- NOTE | 2017-07-31 15:50 | NUR ---
PATIENT IS OFF THE FLOOR FOR CT SCAN
[2017-07-31 15:58] VITALS: BP 117/65
--- NOTE | 2017-07-31 16:30 | NUR ---
PATIENT RETURNED TO FLOOR FROM CT
--- NOTE | 2017-07-31 18:26 | NUR ---
RN CLOSING NOTES PATIENT IS IN BED RESTING, NON VERBAL. NO ACUTE CHANGES THROUGHOUT THE SHIFT. PLACED ON ISOLATION FOR MRSA OF THE NARES. NO SIGNS AND SYMPTOMS OF DISTRESS OR SHORT OF BREATH. IV ACCESS IS INTACT. ALL NEEDS WERE ANTICIPATED AND MET. PATIENT KEPT DRY AND CLEAN. GALINDO IS DRAINING WELL. GASTRIC TUBE IS PATENT. BED IS IN LOW AND LOCKED POSITION, 2 SIDE RAILS ARE UP AND CALL LIGHT WITHIN REACH FOR SAFETY. WILL ENDORSE TO EXTENSION CLERK.
--- NOTE | 2017-07-31 19:30 | NUR ---
RN NOTES RECEIVED PATIENT IN BED WITH EYES OPEN, RESPONDS TO TOUCH; NON-VERBAL. NO ACUTE DISTRESS NOTED. NO SIGNS OF PAIN NOTED. IV SITE PATENT, INTACT; FLUSHED. GT SITE PATENT, INTACT; IN PLACE VIA AUSCULTATION. GALINDO CATH PATENT, INTACT; DRAINING YELLOW URINE WITH SOME SEDIMENT. ON LOW BED WITH BILATERAL UPPER SIDE RAILS UP. CALL LIGHT WITHIN EASY REACH. WILL CONTINUE TO MONITOR.
[2017-07-31 20:00] VITALS: BP 127/68
[2017-07-31] MEDS: DOCUSATE SODIUM LIQ 100 MG/10 ML UDC GT SCH (21:35)
[2017-07-31] MEDS: MEROPENEM 500 MG in IV NS 0.9% 50 ML IV SCH (21:35)
[2017-08-01] MEDS: FIBERSOURCE HN 1,000 ML BOTTLE GT PRN ×2 (00:06→21:19)
[2017-08-01] MEDS: ALBUTEROL FS 2.5 MG/0.5 ML VIAL.NEB NEB SCH ×6 (04:09→23:22)
[2017-08-01] MEDS: MEROPENEM 500 MG in IV NS 0.9% 50 ML IV SCH ×3 (04:50→21:19)
--- NOTE | 2017-08-01 06:27 | NUR ---
RN NOTES PATIENT AWAKE. RESPIRATIONS EVEN. NO SIGNS OF PAIN NOTED. DUE MEDS GIVEN WITH NO ASE NOTED. PATIENT TOLERATING GT FEEDING. HOB RAISED. NEEDS ATTENDED. KEPT CLEAN AND DRY. SAFETY PRECAUTIONS AND COMFORT MEASURES IN PLACE. CONTACT ISOLATION FOR MRSA NARES AND ESBL POS ECOLI IN URINE MAINTAINED. WILL GIVE REPORT TO DAY SHIFT FOR CONTINUITY OF CARE.
[2017-08-01 06:46] LABS: EOSINOPHILS # (AUTO) 0.4 /CMM (0.0-0.7); EOSINOPHILS % (AUTO) 5.8 % (0.0-6.0); HEMATOCRIT 34 % (33-45); HEMOGLOBIN 11.2 g/dL (11.5-14.8); LYMPHOCYTES # (AUTO) 1.5 /CMM (0.8-4.8); LYMPHOCYTES % (AUTO) 19.9 % (20.0-44.0); MEAN CORPUSCULAR HEMOGLOBIN 29 PG (26.0-33.0); MEAN CORPUSCULAR HGB CONC 33 g/dl (31.0-36.0); MEAN CORPUSCULAR VOLUME 87 fL (82-100); MONOCYTES # (AUTO) 0.4 /CMM (0.1-1.30); MONOCYTES % (AUTO) 5.7 % (2.0-12.0); NEUTROPHILS # (AUTO) 5.3 /CMM (1.8-8.9); NEUTROPHILS % (AUTO) 68.6 % (43.0-81.0); PLATELET COUNT (AUTO) 245 /CMM (150-450); RDW COEFFICIENT OF VARIATION 15.9 (11.5-15.0); RED BLOOD CELL COUNT(AUTO) 3.89 MIL/uL (4.0-5.2); WHITE BLOOD COUNT (AUTO) 7.8 K/uL (4.3-11.0)
[2017-08-01 06:57] LABS: CALCIUM, SERUM 8.8 mg/dL (8.5-10.1); CARBON DIOXIDE 30 mmol/L (21-32); CHLORIDE 105 mmol/L (98-107); CREATININE 0.6 mg/dL (0.6-1.3); GLUCOSE 124 mg/dL (74-106); MAGNESIUM 1.9 mg/dL (1.8-2.4); PHOSPHORUS 2.7 mg/dL (2.5-4.9); POTASSIUM 3.9 mmol/L (3.5-5.1); SODIUM SERUM 140 mmol/L (136-145); UREA NITROGEN, BLOOD 20 mg/dL (7-18)
[2017-08-01 08:00] VITALS: BP 124/70
--- NOTE | 2017-08-01 08:00 | NUR ---
m/s finished cloth checker: initial assessment received pt in bed with eyes open, non-verbal and unable to comprehend. hob elevated. continue on g-tube feeding of fibersource at 65ml/hr. prerna. well. no residual obtained. placement patent. kept comfortable and repositioned. will continue to monitor.
[2017-08-01] MEDS: CARBIDOPA/LEVODOPA 25/100 MG 1 UDTAB GT SCH ×3 (08:53→17:23)
[2017-08-01] MEDS: FLUDROCORTISONE 0.1 MG TABLET GT SCH (08:53)
--- NOTE | 2017-08-01 09:49 | NUR ---
WOUND CARE CONSULT: PT PRESENTS WITH MULTIPLE DRY ABRASIONS AND SCARS. PT SCRATCHES HER SKIN. RECOMMENDATIONS MADE FOR SKIN PROTECTION. DISCUSSED WITH NURSING STAFF. PT ON ANKITA ISOFLEX LOW AIRLOSS BED. WILL SEE PRN. WILSON IN AGREEMENT WITH PLAN OF CARE. Addendum: 08/01/17 at 0950 by YUNG TRONCOSO WNDNU Amended: Links added.
[2017-08-01] MEDS: CHLORHEXIDINE GLUCONATE 15 ML UDC MM SCH ×2 (10:44→17:23)
--- NOTE | 2017-08-01 12:00 | NUR ---
m/s third steel pourer: notes turned and repositioned, kept comfortable. will continue to monitor.
[2017-08-01 16:00] VITALS: BP 120/69
--- NOTE | 2017-08-01 18:00 | NUR ---
m/s naval inspector: notes in bed with eyes open, remains non-verbal. turned and repositioned q2 hrs and prn. appears comfortable. needs attended. no apparent distress noted.
--- NOTE | 2017-08-01 19:30 | NUR ---
RN INITIAL NOTES: RECEIVED REPORT FROM CARY SILVESTRE. PT IN BED, AWAKE, NON VERBAL, ON 2L VIA NC, RESPIRATION EVEN AND UNLABORED, NO FACIAL GRIMACE NOTED, APPEARS CALM AND COMFORTABLE. LEFT WRIST IV ACCESS PATENT AND FLUSHING WELL, ON HL. PT HAS GTUBE IN PLACED CURRENTLY CLAMPED, FEEDING ORDERED FOR 20HRS, OFF AT 1500, ON AT 2100. PT NOTED TO HAVE CONTRACTURES ON BLE, AND RIGHT FOOT FOOTDROP,BLE KEPT OFFLOADED, SAFETY PRECAUTIONS FOR FALL INITIATED CALL LIGHT IN REACH, WILL CONTINUE TO MONITOR
[2017-08-01 20:00] VITALS: BP 121/76
--- NOTE | 2017-08-01 21:00 | NUR ---
GTUBE FEEDING RESTARTED: GTUBE FEEDING ADMINISTERED ORDERED, ON AT 2100, TO BE TURN OFF AT 1500. FIBERSOURCE HN [id number]
--- NOTE | 2017-08-01 21:20 | NUR ---
GTUBE RESIDUAL CHECK: ABDOMEN SOFT TO TOUVH WITH ACTIVE BOWEL SOUND HEARD UPON AUSCULTATION. NO GTUBE RESIDUAL OBTAINED, (0 ML), GTUBE FLUSHING WELL, NO RESISTANCE NOTED, NOTED GTUYBE SITE IRRITATION AND REDNESS, EXCORIATION, CLEANSED AREA WITH NS, PAT DRY, KEPT CLEAN AND DRY, 4X4 GAUZE APPLIED, RECEIVED WITH ABDOMINAL BINDER IN PLACED FOR PROTECTION, PT TENDS TO PULL GTUBE. DUE MEDS GIVEN, WILL CONTINUE TO MONITOR
--- NOTE | 2017-08-01 21:21 | NUR ---
RN NOTES: KEPT HOB 30 DEGREE TO PREVENT ASPIRATION
--- NOTE | 2017-08-01 21:30 | NUR ---
RN NOTES: DECIDED TO REMOVED ABDOMINAL BINDER BECAUSE ITS WET AND SMELLS , PT CURRENTLY CALM AND NOT PULLING ANYTHING, DECIDED TO PLACED A BATH TOWEL TO COVER FOR GTUBE, WILL CHECK ON PT Q2HRS AND NEEDED,
[2017-08-01] MEDS: MUPIROCIN OINT 2% 22 GM TUBE SCH (21:40)
--- NOTE | 2017-08-01 22:00 | NUR ---
RN NOTES: ORAL CARE PROVIDED, SUCTION SET UP SECURED
[2017-08-01] MEDS: DOCUSATE SODIUM LIQ 100 MG/10 ML UDC GT SCH (22:27)
[2017-08-02] MEDS: ALBUTEROL FS 2.5 MG/0.5 ML VIAL.NEB NEB SCH ×5 (03:03→19:34)
[2017-08-02] MEDS: MEROPENEM 500 MG in IV NS 0.9% 50 ML IV SCH ×3 (04:06→21:13)
--- NOTE | 2017-08-02 06:55 | NUR ---
RN CLOSING NOTES: PT IN BED, AWAKE, NO SOB NOTED, ON 2L VIA NC, REMAINS CALM AND COOPERATIVE THROUGHOUT THE SHIFT, NO FACIAL GRIMACE NOTED, APPEARS COMFORTABLE. IV ACCESS REMAINS PATENT AND FLUSHING WELL, ON HL. GTUBE FEEDING ONGOING ORDERED. HOB REMAINS 30 DEGREE. BLE KEPT OFFLOADED. VSS. NEEDS ATTENDED. SAFETY PRECAUTIONS FOR FALL REMAINS ENGAGED, CALL LIGHT IN REACH, POSSIBLE DC TODAY, EXIT CARE COMPLETED. WILL ENDORSE TO DAY RN FOR JOE.
--- NOTE | 2017-08-02 07:30 | NUR ---
MSRN RECEIVED PATIENT ON BED, NONVERBAL, NO DISTRESS NOTED, GTUBE FEEDING ON TOLERATED WELL, REPOSITIONED FOR COMFORT, WILL MONITOR PATIENT'S CONDITION.
[2017-08-02 08:00] VITALS: BP 141/79
--- NOTE | 2017-08-02 10:00 | NUR ---
MS RN DUE MEDS GIVEN VIA G TUBE,TOLERATED WELL W/O RESIDUAL.
[2017-08-02 10:12] LABS: BASOPHILS % (AUTO) 0.3 % (0.0-2.0); EOSINOPHILS # (AUTO) 0.3 /CMM (0.0-0.7); EOSINOPHILS % (AUTO) 3.1 % (0.0-6.0); HEMATOCRIT 37 % (33-45); HEMOGLOBIN 12.1 g/dL (11.5-14.8); LYMPHOCYTES # (AUTO) 1.6 /CMM (0.8-4.8); LYMPHOCYTES % (AUTO) 18.6 % (20.0-44.0); MEAN CORPUSCULAR HEMOGLOBIN 28 PG (26.0-33.0); MEAN CORPUSCULAR HGB CONC 32 g/dl (31.0-36.0); MEAN CORPUSCULAR VOLUME 87 fL (82-100); MONOCYTES # (AUTO) 0.4 /CMM (0.1-1.30); MONOCYTES % (AUTO) 4.8 % (2.0-12.0); NEUTROPHILS # (AUTO) 6.4 /CMM (1.8-8.9); NEUTROPHILS % (AUTO) 73.2 % (43.0-81.0); PLATELET COUNT (AUTO) 281 /CMM (150-450); RDW COEFFICIENT OF VARIATION 15.8 (11.5-15.0); RED BLOOD CELL COUNT(AUTO) 4.29 MIL/uL (4.0-5.2); WHITE BLOOD COUNT (AUTO) 8.8 K/uL (4.3-11.0)
[2017-08-02 10:31] LABS: CALCIUM, SERUM 9.6 mg/dL (8.5-10.1); CARBON DIOXIDE 30 mmol/L (21-32); CHLORIDE 105 mmol/L (98-107); CREATININE 0.5 mg/dL (0.6-1.3); GLUCOSE 108 mg/dL (74-106); POTASSIUM 4.4 mmol/L (3.5-5.1); SODIUM SERUM 142 mmol/L (136-145); UREA NITROGEN, BLOOD 16 mg/dL (7-18)
[2017-08-02] MEDS: CARBIDOPA/LEVODOPA 25/100 MG 1 UDTAB GT SCH ×3 (10:51→16:27)
[2017-08-02] MEDS: FLUDROCORTISONE 0.1 MG TABLET GT SCH (10:51)
[2017-08-02] MEDS: MUPIROCIN OINT 2% 22 GM TUBE SCH ×2 (10:52→21:13)
[2017-08-02] MEDS: CHLORHEXIDINE GLUCONATE 15 ML UDC MM SCH ×2 (11:11→16:27)
[2017-08-02 16:00] VITALS: BP 131/78
[2017-08-02] MEDS: FIBERSOURCE HN 1,000 ML BOTTLE GT PRN (16:30)
--- NOTE | 2017-08-02 18:31 | NUR ---
MS RN ON BED, NO DISTRESS NOTED, GTUBE ON TOLERATING WELL.WILL ENDORSE TO COOK CHILL TECHNICIAN FOR JOE.
--- NOTE | 2017-08-02 19:30 | NUR ---
RN NOTES RECEIVED PT. AWAKE ON BED, NON-VERBAL, G-TUBE FEEDING RUNNING @ 565ML/HR, NO PAIN NOTED, NO SOB, SIDERAILS UPX2, CONTINUE TO MONITOR
[2017-08-02 20:00] VITALS: BP 126/68
[2017-08-02] MEDS: DOCUSATE SODIUM LIQ 100 MG/10 ML UDC GT SCH (21:13)
--- NOTE | 2017-08-02 22:00 | NUR ---
RN NOTES ASKED RT TO DO DEEP SUCTION . NO SOB NOTED
[2017-08-03] MEDS: ALBUTEROL FS 2.5 MG/0.5 ML VIAL.NEB NEB SCH ×5 (00:03→15:04)
[2017-08-03] MEDS: MEROPENEM 500 MG in IV NS 0.9% 50 ML IV SCH ×2 (04:58→13:51)
--- NOTE | 2017-08-03 06:28 | NUR ---
RN NOTES AWAKE, G-TUBE FEEDING RUNNING - NO RESIDUAL NOTED, IV LINE PATENT NO REDNESS OR SWOLLEN, SUCTION THE PT., MORNING CARE RENDERED, SIDERAILSUPX2, PT. NEEDS ATTENDED
[2017-08-03 07:35] LABS: BASOPHILS % (AUTO) 0.3 % (0.0-2.0); EOSINOPHILS # (AUTO) 0.4 /CMM (0.0-0.7); EOSINOPHILS % (AUTO) 4.1 % (0.0-6.0); HEMATOCRIT 35 % (33-45); HEMOGLOBIN 11.4 g/dL (11.5-14.8); LYMPHOCYTES # (AUTO) 2.1 /CMM (0.8-4.8); LYMPHOCYTES % (AUTO) 19.7 % (20.0-44.0); MEAN CORPUSCULAR HEMOGLOBIN 28 PG (26.0-33.0); MEAN CORPUSCULAR HGB CONC 32 g/dl (31.0-36.0); MEAN CORPUSCULAR VOLUME 87 fL (82-100); MONOCYTES # (AUTO) 0.5 /CMM (0.1-1.30); MONOCYTES % (AUTO) 4.9 % (2.0-12.0); NEUTROPHILS # (AUTO) 7.5 /CMM (1.8-8.9); PLATELET COUNT (AUTO) 261 /CMM (150-450); RDW COEFFICIENT OF VARIATION 15.7 (11.5-15.0); RED BLOOD CELL COUNT(AUTO) 4.03 MIL/uL (4.0-5.2); WHITE BLOOD COUNT (AUTO) 10.6 K/uL (4.3-11.0)
[2017-08-03 07:55] LABS: CALCIUM, SERUM 9.3 mg/dL (8.5-10.1); CARBON DIOXIDE 31 mmol/L (21-32); CHLORIDE 103 mmol/L (98-107); CREATININE 0.5 mg/dL (0.6-1.3); GLUCOSE 132 mg/dL (74-106); SODIUM SERUM 139 mmol/L (136-145); UREA NITROGEN, BLOOD 18 mg/dL (7-18)
[2017-08-03 08:00] VITALS: BP 123/84
[2017-08-03 08:26] VITALS: BP 123/84
[2017-08-03] MEDS: CHLORHEXIDINE GLUCONATE 15 ML UDC MM SCH (09:21)
[2017-08-03] MEDS: FLUDROCORTISONE 0.1 MG TABLET GT SCH (09:21)
[2017-08-03] MEDS: CARBIDOPA/LEVODOPA 25/100 MG 1 UDTAB GT SCH ×2 (09:21→13:52)
[2017-08-03] MEDS: MUPIROCIN OINT 2% 22 GM TUBE SCH (09:22)
--- NOTE | 2017-08-03 10:32 | NUR ---
RN OPENING NOTES RECEIVED PT. PT IS STABLE AND RESTING IN BED. PT IS NON VERBAL. PT DOES NOT APPEAR TO BE IN PAIN AT THIS MOMENT. PT REQUIRES FREQUENT SUCTIONING IN ORDER TO MAINTAIN PATENT AIRWAY. PT IS ON GT FEEDING OF FIBERSOURCE AT 65 ML H/HR AND IS TO BE STOPPED AT 1500 AND RESTARTED AT 2100, PER INFUSION PHARMACIST REPORT. IV ACCESS LOCATED ON LEFT WRIST 20 G, CURRENTLY SL. SAFETY MEASURES IN PLACE, CALL LIGHT WITHIN REACH. WILL CONTINUE TO MONITOR.
[2017-08-03 15:45] VITALS: BP 125/85
--- NOTE | 2017-08-03 18:51 | NUR ---
DISCHARGE NOTE PT DISCHARGED TO [facility]. DISCHARGE INSTRUCTIONS AND PAPERWORK PROVIDED. PT CAN NOT VERBALIZE UNDERSTANDING OF D/C TEACHING. D/C INSTRUCTIONS AND BELONGINGS FORM SIGNED AND COPIED BY TWO RNS. COPIES PLACED IN PT'S CHART. IV ACCESS AND GALINDO CATH LEFT IN PLACE PER SNF REQUEST. PHOTOS OF WOUND TAKEN AND PLACED IN CHART. MED RECON PLACED IN PT DOCUMENTS. PT LEFT IN PRIVATE AMBULANCE TO SNF.
== END 2017-08-03 18:50 | DRG 871 ==
LOC: ER 19:18 → TELE 21:13 → MED 07-30 09:31
PROVIDERS: ADMIT Nurse Practitioner Acute Care; ATTEND Nurse Practitioner Acute Care
DX: A41.9 Sepsis, unspecified organism (principal); N17.0 Acute kidney failure with tubular necrosis; J96.00 Acute respiratory failure, unspecified whether with hypoxia or hypercapnia; G93.40 Encephalopathy, unspecified; R13.10 Dysphagia, unspecified; E87.2 Acidosis; E44.1 Mild protein-calorie malnutrition; E87.1 Hypo-osmolality and hyponatremia; N39.0 Urinary tract infection, site not specified; E03.9 Hypothyroidism, unspecified; I10 Essential (primary) hypertension; G20 Parkinson's disease; R65.20 Severe sepsis without septic shock; Z88.5 Allergy status to narcotic agent; Z79.899 Other long term (current) drug therapy; F02.80 Dementia in other diseases classified elsewhere, unspecified severity, without behavioral disturbance, psychotic disturbance, mood disturbance, and anxiety; B96.20 Unspecified Escherichia coli [E. coli] as the cause of diseases classified elsewhere; Z16.12 Extended spectrum beta lactamase (ESBL) resistance; Z22.322 Carrier or suspected carrier of Methicillin resistant Staphylococcus aureus; Z86.59 Personal history of other mental and behavioral disorders; E86.1 Hypovolemia
CPT/HCPCS: 31720; 36415; 70486-TC; 71010-TC; 80048-TC; 80061-TC; 80076-TC; 81000-TC; 83605-TC; 83735-TC; 83880; 84100-TC; 84443-TC; 84484-TC; 85025-TC; 85730-TC; 87040-TC; 87081-TC; 87086-TC; 87186-TC; 87400; 94799-TC; A4216; A4606; A6253; A6402; J0696; J2185; J2543; J7030; J7060

== ENCOUNTER 2017-09-13 21:58 | Emergency (ER) | payer MEDICARE, MEDICAID ==
[~2017-09-13] VITALS: Ht 160 cm; Wt 59.0 kg
[2017-09-13] MEDS ORDERED: DIATR MEGLU/DIATRIZOATE SODIUM 30 ML BOTTLE (GASTROGRAPHIN) ONE (22:22)
--- NOTE | 2017-09-13 22:25 | NUR ---
RADIOLOGY AT BEDSIDE FOR KUB
--- NOTE | 2017-09-13 22:51 | NUR ---
REQUESTED [facility] FOR TRANSPORT BACK TO [facility], ETA [phone]
--- NOTE | 2017-09-13 23:25 | NUR ---
CALLED NEO AT [facility] FOR REPORT
[2017-09-13 23:26] VITALS: BP 129/78
== END 2017-09-14 00:14 | disposition home or self-care (01) ==
LOC: ER 21:59
DX: Z43.1 Encounter for attention to gastrostomy (principal); E03.9 Hypothyroidism, unspecified; F03.90 Unspecified dementia, unspecified severity, without behavioral disturbance, psychotic disturbance, mood disturbance, and anxiety; I10 Essential (primary) hypertension; Z46.59 Encounter for fitting and adjustment of other gastrointestinal appliance and device; Z88.5 Allergy status to narcotic agent
CPT/HCPCS: 74018; A4606; Q9963; Z7610

== ENCOUNTER 2017-09-15 06:08 | Emergency (ER) | payer MEDICARE, MEDICAID ==
[~2017-09-15] VITALS: Ht 165.1 cm; Wt 45.4 kg
--- NOTE | 2017-09-15 06:23 | NUR ---
PT TO ER BED 7. PT BIBPA C/O PT PULLED OUT GTUBE, PT HERE YESTERDAY FOR SAME. PT PLACED ON IMPORT COORDINATOR. VSS/RESP EVEN UNLABORED/NAD NOTED/SKIN WARM AND DRY/DENIES N-V-D. AT BEDSIDE.
--- NOTE | 2017-09-15 06:27 | NUR ---
AT BEDSIDE FOR G TUBE PLACEMENT.
[2017-09-15] MEDS ORDERED: DIATR MEGLU/DIATRIZOATE SODIUM 30 ML BOTTLE (GASTROGRAPHIN) PO ONE (07:00)
--- NOTE | 2017-09-15 07:00 | NUR ---
XRAY AT BEDSIDE TO VERIFY GTUBE PLACEMENT.
--- NOTE | 2017-09-15 07:12 | NUR ---
ENDORSED TO MARIAA VELÁSQUEZ FOR JOE.
--- NOTE | 2017-09-15 07:13 | NUR ---
RECEIVED REPORT FOR JOE.
--- NOTE | 2017-09-15 08:01 | NUR ---
[facility]ICHO[facility] GLEASON, ETA 9-9:30. CONFIRMATION # [id number]
[2017-09-15 09:57] VITALS: BP 147/82
--- NOTE | 2017-09-15 09:58 | NUR ---
Patient discharged to SNF in stable condition. Written and verbal after care instructions given. Report EMT at bedside, left with ambulance.
== END 2017-09-15 09:58 ==
LOC: ER 06:10
DX: K94.23 Gastrostomy malfunction (principal); E03.9 Hypothyroidism, unspecified; F03.90 Unspecified dementia, unspecified severity, without behavioral disturbance, psychotic disturbance, mood disturbance, and anxiety; G20 Parkinson's disease; I10 Essential (primary) hypertension; F20.9 Schizophrenia, unspecified; Z88.5 Allergy status to narcotic agent
CPT/HCPCS: 74018; A4606; A6402; Q9963; Z7610

== ENCOUNTER 2017-10-08 06:32 | Emergency (ER) | payer MEDICARE, OTHER ==
[~2017-10-08] VITALS: Ht 160 cm; Wt 59.0 kg
--- NOTE | 2017-10-08 06:50 | NUR ---
PT BB PA FOR G-TUBE EVAL. G-TUBE IN PLACE WITH REDNESS/IRRITATION NOTED AT INSERTION SITE. PT IS AAOX0. PT IS BEDBOUND. RESP EVEN AND UNLABORED. SKIN WNL. NO S/S OF ACUTE DISTRESS NOTED. PT CATINA BY PA FROM FACILITY WITH NC 2L IN PLACE. VSS. BEDSIDE FOR EVAL.
--- NOTE | 2017-10-08 08:00 | NUR ---
[facility] ETA [phone]
--- NOTE | 2017-10-08 08:01 | NUR ---
Patient is resting comfortably in bed with eyes closed. Easily aroused. VSS
--- NOTE | 2017-10-08 08:56 | NUR ---
SPOKE WITH [facility] REGARDING DISCHARGE PLAN
--- NOTE | 2017-10-08 09:08 | NUR ---
Patient discharged to home VIA AMBULANCE in stable condition. Written and verbal after care instructions given. [facility] verbalized understanding of instruction.
[2017-10-08 09:09] VITALS: BP 100/62
== END 2017-10-08 08:52 | disposition home or self-care (01) ==
LOC: ER 06:33
DX: K94.21 Gastrostomy hemorrhage (principal); F79 Unspecified intellectual disabilities; F03.90 Unspecified dementia, unspecified severity, without behavioral disturbance, psychotic disturbance, mood disturbance, and anxiety; G20 Parkinson's disease; I10 Essential (primary) hypertension; E03.9 Hypothyroidism, unspecified; Z88.5 Allergy status to narcotic agent
CPT/HCPCS: 74018; A4606; A6403; Z7610

== ENCOUNTER 2017-10-13 09:37 | Inpatient (IN) | payer MEDICARE, OTHER ==
[~2017-10-13] VITALS: Ht 162.6 cm; Wt 49.9 kg
--- NOTE | 2017-10-13 09:54 | NUR ---
RECIEVED PT AT THIS TIME. BREANNE BARROW FROM [facility] FOR INFECTED GT STOMA. STOMA NOTED WITH REDNESS, NO DISCHARGE NOTED. PER EMS, THEY WERE CALLED INITIALLY FOR LOW BP IN THE SNF BUT BP WAS STABLE WHEN THEY ASSESSED THE PT. PT ASSISTED TO ED BED 09. GOWNED AND PLACED ON CONT MONITORING
--- NOTE | 2017-10-13 10:18 | NUR ---
CALLED PHARMACY FOR MELITON DELGADILLO
[2017-10-13 10:30] LABS: BASOPHILS % (AUTO) 0.3 % (0.0-2.0); EOSINOPHILS # (AUTO) 0.4 /CMM (0.0-0.7); EOSINOPHILS % (AUTO) 3.9 % (0.0-6.0); HEMATOCRIT 33 % (33-45); HEMOGLOBIN 11.1 g/dL (11.5-14.8); LYMPHOCYTES # (AUTO) 1.8 /CMM (0.8-4.8); LYMPHOCYTES % (AUTO) 18.8 % (20.0-44.0); MEAN CORPUSCULAR HEMOGLOBIN 28 PG (26.0-33.0); MEAN CORPUSCULAR HGB CONC 34 g/dl (31.0-36.0); MEAN CORPUSCULAR VOLUME 84 fL (82-100); MONOCYTES # (AUTO) 0.4 /CMM (0.1-1.30); MONOCYTES % (AUTO) 4.4 % (2.0-12.0); NEUTROPHILS % (AUTO) 72.6 % (43.0-81.0); PLATELET COUNT (AUTO) 315 /CMM (150-450); RDW COEFFICIENT OF VARIATION 15.7 (11.5-15.0); RED BLOOD CELL COUNT(AUTO) 3.91 MIL/uL (4.0-5.2); WHITE BLOOD COUNT (AUTO) 9.6 K/uL (4.3-11.0)
[2017-10-13] MEDS ORDERED: VANCOMYCIN 1 GM in IV D5W 250 ML IV ONE (10:30)
[2017-10-13] MEDS ORDERED: IV NS 0.9% 1,000 ML BAG IV ONE (10:30)
[2017-10-13 10:42] LABS: CALCIUM, SERUM 9.1 mg/dL (8.5-10.1); CARBON DIOXIDE 32 mmol/L (21-32); CHLORIDE 101 mmol/L (98-107); CREATININE 0.7 mg/dL (0.6-1.3); GLUCOSE 105 mg/dL (74-106); POTASSIUM 4.5 mmol/L (3.5-5.1); SODIUM SERUM 136 mmol/L (136-145); UREA NITROGEN, BLOOD 21 mg/dL (7-18)
[2017-10-13 10:44] LABS: INR 1.01 (0.85-1.15)
[2017-10-13 10:48] LABS: ALANINE AMINOTRANSFERASE 6 U/L (12-78); ALBUMIN 2.7 g/dL (3.4-5.0); ALKALINE PHOSPHATASE 83 U/L (46-116); ASPARTATE AMINOTRANSFERASE 38 U/L (15-37); BILIRUBIN,DIRECT 0.2 mg/dL (0.0-0.2); BILIRUBIN,TOTAL 0.4 mg/dL (0.2-1.0); TOTAL PROTEIN, SERUM 7.8 g/dL (6.4-8.2)
--- NOTE | 2017-10-13 12:08 | NUR ---
CALLED NURSE SUP FOR MEDSURG BED
--- NOTE | 2017-10-13 12:09 | NUR ---
PAGED EPIC FOR PANEL
[2017-10-13] MEDS ORDERED: ALBU2.5V38 IH (12:19)
[2017-10-13] MEDS ORDERED: CRAN450T3 GT (12:19)
--- NOTE | 2017-10-13 12:55 | NUR ---
208-[facility]
--- NOTE | 2017-10-13 13:52 | NUR ---
REPORT GIVEN TO MATIAS LEROY FOR CONT OF CARE
--- NOTE | 2017-10-13 14:03 | NUR ---
MS RN NOTES RECEIVED PT FROM ER NURSE IN STABLE CONDITION . PT IS OBTUNDED AND RESPONDS TO LIGHT PAIN. ROGELIO THE DOCUMENTUM CONSULTANT ALERTED OF ADMISSION. PT WILL BE ADMITTED FOR GTUBE CELLULITIS. GTUBE NOTED TO BE LEAKING. PLACEMENT VERIFIED VIA AUSCULTATION. MULTIPLE WOUND AND SKIN ISSUES NOTED. BED IN LOW LOCKED POSITION, SIDE RAILS UP X3, CALL LIGHT WITHIN REACH. WILL BEGIN ADMISSION PROCESS AND AWAIT FURTHER ORDERS FROM THE DOCUMENTUM CONSULTANT.
[2017-10-13] MEDS ORDERED: ONDANSETRON HCL/PF 4 MG/2 ML VIAL IVP PRN (16:30)
[2017-10-13] MEDS ORDERED: Z GUARD REMEDY 2 OZ OINT TP PRN (16:30)
[2017-10-13] MEDS ORDERED: ACETAMINOPHEN 325 MG TABLET PO PRN (16:30)
[2017-10-13] MEDS ORDERED: ZOLPIDEM TARTRATE 5 MG TABLET PO PRN (16:30)
[2017-10-13] MEDS ORDERED: HYDROCODONE/APAP 5/325MG 1 EACH TABLET PO PRN (16:30)
[2017-10-13] MEDS ORDERED: ZOLPIDEM TARTRATE 5 MG TABLET GT PRN (17:36)
--- NOTE | 2017-10-13 17:39 | NUR ---
MS RN CLOSING NOTES PT REMAINS STABLE SINCE ADMISSION. ALL NEEDS MET DURING SHIFT AND ORDERS CARRIED OUT ACCORDINGLY. GTUBE SITE WAS CLEANED AND NEW DRESSING APPLIED. IV PATENT AND INTACT INFUSING NS ORDERED. PT WAS CLEANED AND REPOSITIONED PER PROTOCOL. SAFETY MEASURE REMAIN IN PLACE. WILL ENDORSE TO NIGHTSHIFT NURSE FOR JOE
[2017-10-13] MEDS ORDERED: FEE PK DOSING 1 MIN EA MC ONE (17:48)
--- NOTE | 2017-10-13 19:15 | NUR ---
RN OPEN NOTES RECEIVED PATIENT RESTING IN BED, EASILY AROUSABLE. A/O X1. NON VERBAL. NO SIGNS OF DISTRESS OR DISCOMFORT. BREATHING EVEN AND UNLABORED. ON 2LPM O2 VIA NC. IV ACCESS IN RAC AND LFA WITH NS INFUSING, PATENT AND INTACT, NO SIGNS OF REDNESS OR INFILTRATION. BED IN LOW LOCKED POSITION WITH SIDE RAILS X2. CALL LIGHT WITHIN REACH. WILL CONTINUE TO MONITOR. Addendum: 10/14/17 at 0618 by OLAMIDE LUGO RN HAS YIUBE INTACT.
[2017-10-13] MEDS: IV NS 0.9% 1,000 ML IV PRN (19:36)
[2017-10-13] MEDS: CARBIDOPA/LEVODOPA 25/100 MG 1 UDTAB GT SCH (19:36)
[2017-10-13] MEDS: ENOXAPARIN SODIUM 40 MG/0.4 ML DISP.SYRIN SQ SCH (19:43)
[2017-10-13 20:00] VITALS: BP 133/69
[2017-10-13] MEDS: FIBERSOURCE HN 1,000 ML BOTTLE GT PRN (22:57)
[2017-10-14] MEDS: VANCOMYCIN 1 GM in IV D5W 250 ML IV SCH ×2 (05:52→22:38)
[2017-10-14 06:36] LABS: BASOPHILS % (AUTO) 0.3 % (0.0-2.0); EOSINOPHILS # (AUTO) 0.5 /CMM (0.0-0.7); EOSINOPHILS % (AUTO) 5.6 % (0.0-6.0); HEMATOCRIT 32 % (33-45); HEMOGLOBIN 10.8 g/dL (11.5-14.8); LYMPHOCYTES # (AUTO) 1.9 /CMM (0.8-4.8); LYMPHOCYTES % (AUTO) 22.6 % (20.0-44.0); MEAN CORPUSCULAR HEMOGLOBIN 29 PG (26.0-33.0); MEAN CORPUSCULAR HGB CONC 33 g/dl (31.0-36.0); MEAN CORPUSCULAR VOLUME 86 fL (82-100); MONOCYTES # (AUTO) 0.4 /CMM (0.1-1.30); NEUTROPHILS # (AUTO) 5.7 /CMM (1.8-8.9); NEUTROPHILS % (AUTO) 66.5 % (43.0-81.0); PLATELET COUNT (AUTO) 275 /CMM (150-450); RDW COEFFICIENT OF VARIATION 16.4 (11.5-15.0); RED BLOOD CELL COUNT(AUTO) 3.75 MIL/uL (4.0-5.2); WHITE BLOOD COUNT (AUTO) 8.6 K/uL (4.3-11.0)
[2017-10-14 06:40] LABS: CALCIUM, SERUM 8.7 mg/dL (8.5-10.1); CARBON DIOXIDE 28 mmol/L (21-32); CHLORIDE 104 mmol/L (98-107); CREATININE 0.5 mg/dL (0.6-1.3); GLUCOSE 116 mg/dL (74-106); MAGNESIUM 1.9 mg/dL (1.8-2.4); PHOSPHORUS 3.7 mg/dL (2.5-4.9); POTASSIUM 3.8 mmol/L (3.5-5.1); SODIUM SERUM 139 mmol/L (136-145); UREA NITROGEN, BLOOD 14 mg/dL (7-18)
[2017-10-14 06:42] LABS: APPEARANCE,URINE CLOUDY (CLEAR); BILIRUBIN,URINE NEGATIVE (NEGATIVE); BLOOD, URINE 1+ Ery/uL (NEGATIVE); COLOR,URINE YELLOW (YELLOW); KETONES,URINE NEGATIVE (NEGATIVE); LEUKOCYTE ESTERASE ,URINE 2+ (NEGATIVE); NITRITE, URINE NEGATIVE (NEGATIVE); PH,URINE 7.5 (5.0-8.0); PROTEIN,URINE NEGATIVE (NEGATIVE); UGLUCOSE NEGATIVE (NEGATIVE); UROBILINOGEN,URINE 0.2 EU/dL (0.2)
[2017-10-14 06:48] LABS: CHOLESTEROL 98 mg/dL (<200); HDL CHOLESTEROL 32 mg/dL (40-60); LDL 61 mg/dL (0-99); TRIGLYCERIDES 80 mg/dL (30-150)
--- NOTE | 2017-10-14 07:15 | NUR ---
RN CLOSING NOTES PATIENT RESTING IN BED, EASILY AROUSABLE. A/O X1. NON VERBAL. NO SIGNS OF DISTRESS OR DISCOMFORT. BREATHING EVEN AND UNLABORED. ON 2LPM O2 VIA NC. IV ACCESS IN RAC AND LFA WITH NS INFUSING, PATENT AND INTACT, NO SIGNS OF REDNESS OR INFILTRATION. HAS GTUBE INTACT, WITH FEEDING RUNNING, PATIENT TOLERATING WELL. ALL NEEDS MET. NO SIGNIFICANT CHANGES THROUGH THE NIGHT. PATIENT REPOSITIONED Q2H AND PRN. BED IN LOW LOCKED POSITION WITH SIDE RAILS X2. CALL LIGHT WITHIN REACH. WILL ENDORSE TO AM SHIFT FOR JOE.
--- NOTE | 2017-10-14 07:30 | NUR ---
MS RN NOTES RECEIVED PATIENT IN BED, ALERT ORIENTED X1, NON VERBAL. NO ACUTE DISTRESS NOTED. BREATHING UNLABORED. ON O2 2LPM VIA NC. IV ACCESS PATENT AND INTACT, NO REDNESS OR SWELLING ON THE SITE. G TUBE IN PLACE. HOB ELEVATED. SAFETY MEASURES IN PLACE. CALL LIGHT WITHIN REACH. WILL CONTINUE TO MONITOR ACCORDINGLY.
[2017-10-14 08:00] VITALS: BP 120/55
[2017-10-14 08:05] LABS: BACTERIA,URINE Few /HPF (None Seen); WBC,URINE 81-100 /HPF (0-3)
[2017-10-14 08:06] LABS: SQUAMOUS EPITHELIAL CELL,UR Many /HPF (None Seen)
[2017-10-14] MEDS: DOCUSATE SODIUM LIQ 100 MG/10 ML UDC GT SCH (09:30)
[2017-10-14] MEDS: CARBIDOPA/LEVODOPA 25/100 MG 1 UDTAB GT SCH ×3 (09:30→17:57)
[2017-10-14] MEDS: FLUDROCORTISONE 0.1 MG TABLET GT SCH (09:30)
[2017-10-14] MEDS: IV NS 0.9% 1,000 ML IV PRN (10:48)
[2017-10-14] MEDS: CEFTRIAXONE 1 G in IV D5W 50 ML IV SCH (14:26)
[2017-10-14 16:00] VITALS: BP 118/68
--- NOTE | 2017-10-14 17:58 | NUR ---
Patient resides at [facility] [phone], requires mod-max assist with adl's. Cynthia Padron is patient public guardian/conservator [phone] . Current plan is to dc back to SNF when discharge. Addendum: 10/14/17 at 1758 by SEAN JIM RN Amended: Links added.
--- NOTE | 2017-10-14 18:30 | NUR ---
MS RN NOTES PATIENT IN BED, ALERT ORIENTED X1, NON VERBAL. NO SOB NOTED.NO ACUTE DISTRESS NOTED. BREATHING UNLABORED. ON O2 2LPM VIA NC. IV ACCESS PATENT AND INTACT, NO REDNESS OR SWELLING ON THE SITE. G TUBE IN PLACE. DUE MEDICATIONS GIVEN, NO ASE NOTED. NEEDS ATTENDED AND ANTICIPATED. HOB ELEVATED. SAFETY MEASURES IN PLACE. CALL LIGHT WITHIN REACH. WILL CONTINUE TO MONITOR ACCORDINGLY.WILL ENDORSE TO FOX RAISER FOR CONTINUITY OF CARE.
--- NOTE | 2017-10-14 19:30 | NUR ---
RN NOTES RECEIVED PATIENT IN BED AWAKE, AO X 1, NONVERBAL. NO ACUTE DISTRESS NOTED. NO SIGNS OF PAIN NOTED. IV SITE PATENT, INTACT; IVF INFUSING ORDERED. GT PATENT, INTACT; IN PLACE VIA AUSCULTATION. 5 ML GTF RESIDUAL NOTED. ON LOW BED WITH BILATERAL UPPER SIDE RAILS UP. CALL OBANDO WITHIN EASY REACH. WILL CONTINUE TO MONITOR.
[2017-10-14 20:00] VITALS: BP 135/74
[2017-10-14] MEDS: PANTOPRAZOLE 40 MG VIAL IV SCH (21:18)
[2017-10-14] MEDS: ENOXAPARIN SODIUM 40 MG/0.4 ML DISP.SYRIN SQ SCH (21:23)
[2017-10-14] MEDS: FIBERSOURCE HN 1,000 ML BOTTLE GT PRN (23:06)
--- NOTE | 2017-10-15 07:54 | NUR ---
MS/RN OPENING NOTE PATIENT IN BED IN STABLE CONDITION. A/O X 1, NON VERBAL. NO SIGNS OF ACUTE DISTRESS. NO COMPLAIN OF PAIN OR DISCOMFORT. ON G TUBE FEEDING, TOLERATING WELL. HOB ELEVATED FOR ASPIRATION PRECAUTION. ALL NEEDS ATTENDED TO. CALL LIGHT WITHIN REACH. WILL CONTINUE TO MONITOR TO ENSURE SAFETY.
[2017-10-15 07:55] LABS: CALCIUM, SERUM 8.7 mg/dL (8.5-10.1); CARBON DIOXIDE 34 mmol/L (21-32); CHLORIDE 103 mmol/L (98-107); CREATININE 0.5 mg/dL (0.6-1.3); GLUCOSE 94 mg/dL (74-106); POTASSIUM 3.6 mmol/L (3.5-5.1); SODIUM SERUM 138 mmol/L (136-145); UREA NITROGEN, BLOOD 13 mg/dL (7-18)
[2017-10-15 08:00] VITALS: BP 120/57
[2017-10-15] MEDS: CARBIDOPA/LEVODOPA 25/100 MG 1 UDTAB GT SCH ×3 (09:32→17:07)
[2017-10-15] MEDS: NEOMY SULF/BACITRAC ZN/POLY 15 GM TUBE TP SCH (09:32)
[2017-10-15] MEDS: DOCUSATE SODIUM LIQ 100 MG/10 ML UDC GT SCH (09:33)
[2017-10-15] MEDS: FLUDROCORTISONE 0.1 MG TABLET GT SCH (09:33)
[2017-10-15] MEDS: CEFTRIAXONE 1 G in IV D5W 50 ML IV SCH (14:24)
[2017-10-15 16:00] VITALS: BP 130/70
[2017-10-15] MEDS: IV NS 0.9% 1,000 ML IV PRN (17:07)
[2017-10-15] MEDS: LACTOBACILLUS RHAMNOSUS GG 1 EACH CAP.SPRINK GT SCH (17:07)
[2017-10-15] MEDS: VANCOMYCIN 1 GM in IV D5W 250 ML IV SCH (17:07)
--- NOTE | 2017-10-15 17:57 | NUR ---
MS/RN NG TUBE INSERTION NG TUBE INSERTED. PATIENT TOLERATED WELL. CONFIRMED PLACEMENT, AWAITING FOR CXR RESULTS TO CONFIRM PLACEMENT.
--- NOTE | 2017-10-15 18:42 | NUR ---
MS/RN CLOSING NOTE PATIENT IN BED IN STABLE CONDITION. A/O X 1, NON VERBAL. NO SIGNS OF ACUTE DISTRESS. NO COMPLAIN OF PAIN OR DISCOMFORT. ON NG TUBE FEEDING. HOB ELEVATED FOR ASPIRATION PRECAUTION. AWAITING FOR PLACEMENT CONFIRMATION VIA CXR RESULTS. ALL NEEDS ATTENDED TO. CALL LIGHT WITHIN REACH. WILL ENDORSE TO NEXT SHIFT FOR CONTINUITY OF CARE.
--- NOTE | 2017-10-15 19:06 | NUR ---
MS/RN SPOKE WITH AUNDREA MUSIC DEPARTMENT CHAIR SPOKE WITH AUNDREA LING AND RECEIVED ORDER FOR NPO POST MIDNIGHT. OBTAIN CONSENT FOR EGD WITH PEG PROCEDURE FOR TOMORROW.
--- NOTE | 2017-10-15 19:10 | NUR ---
MS/RN OPENING NOTE RECEIVED PATIENT IN BED IN STABLE CONDITION. A/O X 1, NON VERBAL. NO SIGNS OF ACUTE DISTRESS. NO S/S OF PAIN OR DISCOMFORT. NGTF ON HOLD . HOB ELEVATED FOR ASPIRATION PRECAUTION. ALL NEEDS ATTENDED TO. CALL LIGHT WITHIN REACH. WILL ENDORSE TO NEXT SHIFT FOR JOE. Addendum: 10/16/17 at 0808 by TERRENCE WINTERS RN INCORRECT DOCUMENTATION
--- NOTE | 2017-10-15 19:10 | NUR ---
MS/RN OPENING NOTE RECEIVED PATIENT IN BED IN STABLE CONDITION. A/O X 1, NON VERBAL. NO SIGNS OF ACUTE DISTRESS. NO S/S OF PAIN OR DISCOMFORT. NGTF ON HOLD . HOB ELEVATED FOR ASPIRATION PRECAUTION. ALL NEEDS ATTENDED TO. CALL LIGHT WITHIN REACH. WILL CONTINUE TO MONITOR.
[2017-10-15 20:00] VITALS: BP 123/70
--- NOTE | 2017-10-15 20:55 | NUR ---
PLACED A CALL TO PT'S CONSERVATOR , MARTIN CHEUNG TO OBTAIN CONSENT FOR EGD WITH PEG PLACEMENT X 3 TO [phone] AND [phone], NO ANSWER. PLACED A CALL TO PT'S BROTHER JAMIE MILAN AND SPOKE WITH JAMIE'S , ACCDG TO THE JAMIE IS STILL AT WORK AND WILL BE HOME AFTER 9PM HOW EVER SHE WILL TELL JAMIE TO CALL US BACK.
[2017-10-15] MEDS: ENOXAPARIN SODIUM 40 MG/0.4 ML DISP.SYRIN SQ SCH (21:00)
--- NOTE | 2017-10-15 21:28 | NUR ---
RECEIVED A CALL BACK FROM JAMIE MILAN ( BROTHER), VERBAL CONSENT OBTAINED VIA PHONE FOR EGD WITH PEG PLACEMENT AND CONSENRT FOR BLOOD TRANSFUSION OBTAINED WELL. , VERIFIED AND WITNESSED BY MARIAA WAY.
[2017-10-15] MEDS: PANTOPRAZOLE 40 MG VIAL IV SCH (21:36)
[2017-10-15] MEDS: MUPIROCIN OINT 2% 22 GM TUBE SCH (21:37)
--- NOTE | 2017-10-16 06:50 | NUR ---
RN NOTES PATIENT IN BED IN STABLE CONDITION. A/O X 1, NON VERBAL. NO SIGNS OF ACUTE DISTRESS. NO S/S OF PAIN OR DISCOMFORT. NGTF ON HOLD . HOB ELEVATED FOR ASPIRATION PRECAUTION. ALL NEEDS ATTENDED TO. CALL LIGHT WITHIN REACH. WILL ENDORSE TO NEXT SHIFT FOR JOE.
[2017-10-16 07:11] LABS: CALCIUM, SERUM 8.7 mg/dL (8.5-10.1); CARBON DIOXIDE 31 mmol/L (21-32); CHLORIDE 105 mmol/L (98-107); CREATININE 0.6 mg/dL (0.6-1.3); GLUCOSE 90 mg/dL (74-106); POTASSIUM 3.2 mmol/L (3.5-5.1); SODIUM SERUM 142 mmol/L (136-145); UREA NITROGEN, BLOOD 12 mg/dL (7-18)
--- NOTE | 2017-10-16 07:43 | NUR ---
PLACED A CALL TO MARTIN CHEUNG CONSERVATOR. REGARDING CONSENT FOR EGD WITH PEG TUBE PLACEMENT, UNABLE TO OBTAIN CONSENT FOR EGD WITH PEG TUBE, VERIFIED WITH MARIAA ANDREA . PER MARTIN CHEUNG SHE STILL NEEDS TO GET A COURT APPROVAL AND NO EXACT DAYS WHEN IT WILL BE DONE BUT IF THE PROCEDURE IS AN EMERGENCY WE HAVE TO FOLLOW THE HOSPITAL PROTOCOL. FAX NUMBER GIVEN TO HER, SHE'LL FAX PAPERS TO US THAT'S NEED TO BE FILLED OUT. ENDORSED TO MARIAA ANDREA ACCORDINGLY. CALLED SURGERY/ OR AND INFORMED THEM THAT CONSENT WASN'T DONE YET.
[2017-10-16 08:00] VITALS: BP 139/74
[2017-10-16] MEDS: DOCUSATE SODIUM LIQ 100 MG/10 ML UDC GT SCH (08:44)
[2017-10-16] MEDS: LACTOBACILLUS RHAMNOSUS GG 1 EACH CAP.SPRINK GT SCH ×2 (08:45→17:04)
[2017-10-16] MEDS: CARBIDOPA/LEVODOPA 25/100 MG 1 UDTAB GT SCH ×3 (08:45→17:04)
[2017-10-16] MEDS: FLUDROCORTISONE 0.1 MG TABLET GT SCH (08:45)
[2017-10-16] MEDS: MUPIROCIN OINT 2% 22 GM TUBE SCH ×2 (09:09→21:14)
[2017-10-16] MEDS: NEOMY SULF/BACITRAC ZN/POLY 15 GM TUBE TP SCH (09:09)
[2017-10-16] MEDS: VANCOMYCIN 1 GM in IV D5W 250 ML IV SCH (11:07)
[2017-10-16] MEDS: CEFTRIAXONE 1 G in IV D5W 50 ML IV SCH (13:16)
[2017-10-16] MEDS: POTASSIUM CL. PREMIX PERIPHER. 50 ML IV SCH ×4 (14:15→17:52)
[2017-10-16 16:00] VITALS: BP 148/80
--- NOTE | 2017-10-16 19:16 | NUR ---
M/S RN - Notes Patient awake, alert to self, no s/s of pain, remain afebrile, no apparent distress, on 2 lpm via NC. IVF infusing well on the RFA with no s/s of infiltration. NGT in place on the left nostril, tolerating tube feeding well. Potassium repleted with KCl 10 meq IV x 4 bags. All needs anticipated and met. Fall and aspiration precautions maintained. Still awaiting for conservator to faxed the necessary documents for PEG placement for Md to fill out. GTube will be removed tomorrow by GI. Will continue with current treatment plan. Endorsed accordingly.
--- NOTE | 2017-10-16 19:22 | NUR ---
MS RN NOTES Received pt in bed, awake, alert to self, no s/s of pain, no apparent distress nor sob noted. on 2 lpm via NC. IVF infusing well on the RFA with no s/s of infiltration. NGT in place on the left nostril, patent and intact. ngtf to be turned on @ 11pm. All needs anticipated and met. Safety and aspiration precautions observed. Still awaiting for conservator to faxed the necessary documents for PEG placement for Md to fill out. Call light within reach. Will continue to monitor.
[2017-10-16 20:00] VITALS: BP 122/66
[2017-10-16] MEDS: PANTOPRAZOLE 40 MG VIAL IV SCH (21:14)
[2017-10-16] MEDS: ENOXAPARIN SODIUM 40 MG/0.4 ML DISP.SYRIN SQ SCH (21:15)
[2017-10-17] MEDS: VANCOMYCIN 1 GM in IV D5W 250 ML IV SCH ×2 (04:29→23:39)
[2017-10-17] MEDS: IV NS 0.9% 1,000 ML IV PRN (04:29)
[2017-10-17 06:26] LABS: BASOPHILS % (AUTO) 0.2 % (0.0-2.0); EOSINOPHILS # (AUTO) 0.4 /CMM (0.0-0.7); EOSINOPHILS % (AUTO) 4.7 % (0.0-6.0); HEMATOCRIT 32 % (33-45); HEMOGLOBIN 10.6 g/dL (11.5-14.8); LYMPHOCYTES # (AUTO) 1.3 /CMM (0.8-4.8); LYMPHOCYTES % (AUTO) 16.8 % (20.0-44.0); MEAN CORPUSCULAR HEMOGLOBIN 29 PG (26.0-33.0); MEAN CORPUSCULAR HGB CONC 33 g/dl (31.0-36.0); MEAN CORPUSCULAR VOLUME 86 fL (82-100); MONOCYTES # (AUTO) 0.4 /CMM (0.1-1.30); MONOCYTES % (AUTO) 5.3 % (2.0-12.0); NEUTROPHILS # (AUTO) 5.6 /CMM (1.8-8.9); PLATELET COUNT (AUTO) 289 /CMM (150-450); RED BLOOD CELL COUNT(AUTO) 3.71 MIL/uL (4.0-5.2); WHITE BLOOD COUNT (AUTO) 7.7 K/uL (4.3-11.0)
[2017-10-17 06:28] LABS: CALCIUM, SERUM 9.1 mg/dL (8.5-10.1); CARBON DIOXIDE 27 mmol/L (21-32); CHLORIDE 104 mmol/L (98-107); CREATININE 0.6 mg/dL (0.6-1.3); GLUCOSE 136 mg/dL (74-106); POTASSIUM 3.4 mmol/L (3.5-5.1); SODIUM SERUM 141 mmol/L (136-145); UREA NITROGEN, BLOOD 11 mg/dL (7-18)
--- NOTE | 2017-10-17 07:07 | NUR ---
MS RN NOTES Pt in bed, resting comfortably at this time, arouses easily alert to self, no s/s of pain, no apparent distress nor sob noted. IVF infusing well on the RFA with no s/s of infiltration. NGT in place on the left nostril, patent and intact. All needs anticipated and met. Safety and aspiration precautions observed. MD needs to fill out papers that conservator faxed for egd with peg placement. Call light within reach. Will endorse to day shift accordingly.
--- NOTE | 2017-10-17 07:30 | NUR ---
RN OPEN NOTES RECEIVED REPORT FROM PBX REPAIRER NURSE. PATIENT IS IN BED, NON-VERBAL. NG TUBE AT 65CM. BED IN LOW POSITION, LOCKED AND TWO SIDE RAILS ARE UP. CALL LIGHT WITHIN REACH FOR SAFETY. NO SIGNS AND SYMPTOMS OF DISTRESS. WILL CONTINUE TO MONITOR AND ASSESS PATIENT.
[2017-10-17 08:00] VITALS: BP 133/72
[2017-10-17] MEDS: FLUCONAZOLE (100 MG) 100 MG TABLET PO SCH (08:59)
[2017-10-17] MEDS: FLUDROCORTISONE 0.1 MG TABLET GT SCH (08:59)
[2017-10-17] MEDS: CARBIDOPA/LEVODOPA 25/100 MG 1 UDTAB GT SCH ×3 (08:59→16:37)
[2017-10-17] MEDS: LACTOBACILLUS RHAMNOSUS GG 1 EACH CAP.SPRINK GT SCH ×2 (08:59→16:38)
[2017-10-17] MEDS: NEOMY SULF/BACITRAC ZN/POLY 15 GM TUBE TP SCH (08:59)
[2017-10-17] MEDS: DOCUSATE SODIUM LIQ 100 MG/10 ML UDC GT SCH (08:59)
[2017-10-17] MEDS: MUPIROCIN OINT 2% 22 GM TUBE SCH ×2 (08:59→22:20)
[2017-10-17] MEDS: POTASSIUM CL. PREMIX PERIPHER. 50 ML IV SCH ×2 (12:03→13:15)
--- NOTE | 2017-10-17 12:24 | NUR ---
Pt. is awaiting peg placement, however needs consent for peg from public guardian's office. JACKI contacted Cynthia Padron public guardian , however, she is not available. JACKI then spoke to Martita who transferred JACKI's call to the custody officer. JACKI left a voicemail message for the custody officer requesting a call back. JACKI updated MARIAA Magana with the aforementioned information.
[2017-10-17] MEDS: CEFTRIAXONE 1 G in IV D5W 50 ML IV SCH (14:48)
--- NOTE | 2017-10-17 14:59 | NUR ---
JACKI contacted public Guardian Cynthia Padron and inquired as to why pt. needed this particular form completed by Doctor when other pt's who are conserved only required a consent. 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 JACKI updated MARIAA Magana and director of district office [facility] with the aforementioned information.
[2017-10-17 16:00] VITALS: BP 123/71
--- NOTE | 2017-10-17 19:42 | NUR ---
RN CLOSING NOTES REPORT GAVE TO MANAGER GARAGE NURSE FOR JOE. PATIENT KEPT CLEAN AND DRY AND SAFE. NO NEW CONCERNS DURING THE SHIFT. BED IN LOW POSITION, LOCKED AND TWO SIDE RAILS ARE UP. CALL LIGHT WITHIN REACH FOR SAFETY.
[2017-10-17 20:00] VITALS: BP 125/90
--- NOTE | 2017-10-17 20:19 | NUR ---
MS2/RN RECEIVED PATIENT AWAKE, ALERT, NON VERBAL, FLAT AFFECT, APPEAR COMFORTABLE, NO DISTRESS NOTED, HOB ELEVATED WITH NGT, POSITIVE PLACEMENT NOTED. WILL MONITOR.
[2017-10-17] MEDS: ENOXAPARIN SODIUM 40 MG/0.4 ML DISP.SYRIN SQ SCH (21:00)
[2017-10-17] MEDS: PANTOPRAZOLE 40 MG VIAL IV SCH (22:20)
--- NOTE | 2017-10-17 22:34 | NUR ---
upon scanning lovenox sq medication, shows [facility] number unknown. placed a call to ac, after hours pharmacy, according to her there's nothing that she can do at this time, we can administer the medication, and she'll put a note in their system regarding it, and to call our pharmacy in the morning and let them know as well.
--- NOTE | 2017-10-18 00:50 | NUR ---
MS2/RN NURSING CARE DONE. GOOD SKIN CARE DONE, TOTAL LINEN CHANGE RENDERED, MOUTH CARE DONE, REPOSITIONED TO SIDE LYING POSITION TO PREVENT SALIVA ASPIRATION. WILL CONTINUE TO MONITOR.
[2017-10-18] MEDS: FIBERSOURCE HN 1,000 ML BOTTLE GT PRN (01:54)
--- NOTE | 2017-10-18 03:23 | NUR ---
MS2/RN PATIENT IS SLEEPING AT THIS TIME, AROUSABLE, APPEAR COMFORTABLE, NO DISTRESS NOTED, HOB ELEVATED, WILL CONTINUE TO MONITOR.
[2017-10-18 04:00] VITALS: BP 128/71
[2017-10-18] MEDS: IV NS 0.9% 1,000 ML IV PRN (05:06)
--- NOTE | 2017-10-18 05:30 | NUR ---
MS2/RN FOUND IV AND NGT PULLED OUT. INSERTED NEW IV AT LEFT F/A G 22 AND RESTARTED THE IV. NGT INSERTED. AND HAVE STAT CXR DONE TO VERIFY PLACEMENT.
[2017-10-18 06:42] LABS: CALCIUM, SERUM 8.6 mg/dL (8.5-10.1); CARBON DIOXIDE 26 mmol/L (21-32); CHLORIDE 104 mmol/L (98-107); CREATININE 0.6 mg/dL (0.6-1.3); GLUCOSE 121 mg/dL (74-106); MAGNESIUM 1.8 mg/dL (1.8-2.4); POTASSIUM 3.2 mmol/L (3.5-5.1); SODIUM SERUM 139 mmol/L (136-145); UREA NITROGEN, BLOOD 12 mg/dL (7-18)
--- NOTE | 2017-10-18 07:30 | NUR ---
MS2/RN PATIENT SLEEPING AT THIS TIME, APPEAR COMFORTABLE, NO DISTRESS NOTED, ALL NEEDS ATTENDED AT THIS TIME. ENDORSED TO NEXT RN ABOUT NGT PLACEMENT AND CXR RESULT.
--- NOTE | 2017-10-18 07:35 | NUR ---
RN OPEN NOTES RECEIVED REPORT FROM TREE CUTTER NURSE. PATIENT IS IN BED, WITH HER EYES OPEN. NON VERBAL. PER PM NURSE, PATIENT PULLED HER IV AND NG TUBE. BOTH REINSERTED. BASED ON XRAY RESULT, NG TUBE NEEDS TO BE ADJUSTED. NO SIGNS AND SYMPTOMS OF DISTRESS. BREATHING IS NON LABOR AND EQUAL. BED IN LOW POSITION, LOCKED AND TWO SIDE RAILS ARE UP FOR SAFETY. CALL LIGHT WITHIN REACH. WILL CONTINUE TO MONITOR AND ASSESS PATIENT
--- NOTE | 2017-10-18 07:43 | NUR ---
NG ADJUSTED. CHEST XRAY ORDERED
[2017-10-18 08:00] VITALS: BP 122/70
--- NOTE | 2017-10-18 08:57 | NUR ---
PER CHEST XRAY: GASTRIC TUBE IS IN THE STOMACH. WILL RESUME FEEDING AND MEDICATION
[2017-10-18] MEDS: LACTOBACILLUS RHAMNOSUS GG 1 EACH CAP.SPRINK GT SCH ×2 (09:08→16:44)
[2017-10-18] MEDS: DOCUSATE SODIUM LIQ 100 MG/10 ML UDC GT SCH (09:08)
[2017-10-18] MEDS: CARBIDOPA/LEVODOPA 25/100 MG 1 UDTAB GT SCH ×3 (09:08→16:44)
[2017-10-18] MEDS: FLUDROCORTISONE 0.1 MG TABLET GT SCH (09:08)
[2017-10-18] MEDS: NEOMY SULF/BACITRAC ZN/POLY 15 GM TUBE TP SCH (09:09)
[2017-10-18] MEDS: FLUCONAZOLE (100 MG) 100 MG TABLET PO SCH (09:09)
[2017-10-18] MEDS: MUPIROCIN OINT 2% 22 GM TUBE SCH ×2 (09:09→20:54)
--- NOTE | 2017-10-18 10:00 | NUR ---
DMITRIY IS AT BEDSIDE. MADE AWARE OF POTASSIUM LEVEL.
[2017-10-18] MEDS: CEFTRIAXONE 1 G in IV D5W 50 ML IV SCH (13:33)
--- NOTE | 2017-10-18 15:13 | NUR ---
DRESSING CHANGE COMPLETED PER WOUND CARE INSTRUCTIONS AND HOSPITAL POLICY
[2017-10-18] MEDS: VANCOMYCIN 1 GM in IV D5W 250 ML IV SCH (16:44)
[2017-10-18] MEDS: POTASSIUM CL. PREMIX PERIPHER. 50 ML IV SCH ×4 (18:08→22:30)
--- NOTE | 2017-10-18 19:25 | NUR ---
MS/RN NOTES RECEIVED PT. LYING IN BED. PT. IS AWAKE AND NON-VERBAL. BREATHING EVEN AND UNLABORED ON 2LPM O2 VIA NC. NO SOB, RESPIRATORY DISTRESS OR S/S OF PAIN NOTED AT THIS TIME. PT. WITH NG TUBE PRESENT, PATENT AND INTACT ADMINISTERING TO PT. FIBERSOURCE @ 65 ML/HR. PT. TOLERATING FEEDING WELL. NO RESIDUAL NOTED AT THIS TIME. PT. WITH LEFT WRIST 20 GAUGE PERIPHERAL IV PRESENT, PATENT AND INTACT ADMINISTERING TO PT. NS @ 50ML/HR. PT. WITH LEFT FOREARM 22 GAUGE IV SALINE LOCK PRESENT, PATENT AND INTACT. PT. WITH BILATERAL SOFT WRIST RESTRAINTS PRESENT AND INTACT. CIRCULATION CHECK DONE. BED LOCKED AND IN LOWEST POSITION, SIDE RAILS UP X3, BED ALARM ON, WILL CONTINUE TO MONITOR.
--- NOTE | 2017-10-18 19:28 | NUR ---
RN CLOSING NOTES REPORT ENDORSED TO UNIFORM FORCE CAPTAIN NURSE. PATIENT IS IN BED. ALERT AND ORIENTED TO NAME, PLACE AND TIME. NO SIGNS AND SYMPTOMS OF DISTRESS. BREATHING IN NON LABOR AND EQUAL. PATIENT KEPT CLEAN DRY AND SAFE. ALL NURSING CARE ANTICIPATED AND ATTENDED FOR. BED IN LOW POSITION, LOCKED AND TWO SIDE RAILS ARE UP. CALL LIGHT WITHIN REACH FOR SAFETY. Addendum: 10/18/17 at 1929 by SHIMA ALMARAZ RN AMENDED RN CLOSING NOTES REPORT ENDORSED TO UNIFORM FORCE CAPTAIN NURSE. PATIENT IS IN BED. NON VERBAL. NG TUBE. NO SIGNS AND SYMPTOMS OF DISTRESS. BREATHING IN NON LABOR AND EQUAL. PATIENT KEPT CLEAN DRY AND SAFE. ALL NURSING CARE ANTICIPATED AND ATTENDED FOR. BED IN LOW POSITION, LOCKED AND TWO SIDE RAILS ARE UP. CALL LIGHT WITHIN REACH FOR SAFETY.
[2017-10-18 20:00] VITALS: BP 124/70
[2017-10-18] MEDS: PANTOPRAZOLE 40 MG VIAL IV SCH (20:54)
--- NOTE | 2017-10-18 22:21 | NUR ---
MS/RN NOTES CLARIFIED WITH EPIC BOAT MOTOR MECHANIC SUSHIL MECRADO ABOUT ADMINISTERING LOVENOX MEDICATION. PT. HAS ORDER TO OBTAIN CONSENT FOR EGD WITH PEG PLACEMENT, PT. IS NOT ON THE SURGERY SCHEDULE FOR TOMORROW AND PER FRESH FOODS CAKE DECORATOR NOTES DUE TO LEGAL ISSUES UNABLE TO OBTAIN CONSENT AT THIS TIME. PER SUSHIL MERCADO OK TO ADMINISTER TO PT. LOVENOX MEDICATION ORDERED. WILL ADMINISTER MEDICATION. WILL CONTINUE TO MONITOR.
[2017-10-18] MEDS: ENOXAPARIN SODIUM 40 MG/0.4 ML DISP.SYRIN SQ SCH (22:32)
[2017-10-19 04:00] VITALS: BP 147/81
[2017-10-19] MEDS: FIBERSOURCE HN 1,000 ML BOTTLE GT PRN (04:51)
[2017-10-19 06:43] LABS: CALCIUM, SERUM 8.9 mg/dL (8.5-10.1); CARBON DIOXIDE 28 mmol/L (21-32); CHLORIDE 107 mmol/L (98-107); CREATININE 0.5 mg/dL (0.6-1.3); GLUCOSE 110 mg/dL (74-106); POTASSIUM 3.4 mmol/L (3.5-5.1); SODIUM SERUM 145 mmol/L (136-145); UREA NITROGEN, BLOOD 10 mg/dL (7-18)
--- NOTE | 2017-10-19 06:50 | NUR ---
MS/RN NOTES PT. IS LYING IN BED, AWAKE AND NON-VERBAL. BREATHING EVEN AND UNLABORED ON 2LPM O2 VIA NC. NO SOB, RESPIRATORY DISTRESS OR S/S OF PAIN NOTED AT THIS TIME AND THROUGHOUT SHIFT. PT. WITH NG TUBE PRESENT, PATENT AND INTACT ADMINISTERING TO PT. FIBERSOURCE @ 65 ML/HR. PT. TOLERATING FEEDING WELL. NO RESIDUAL NOTED AT THIS TIME AND THROUGHOUT SHIFT. PT. WITH LEFT WRIST 20 GAUGE PERIPHERAL IV PRESENT, PATENT AND INTACT ADMINISTERING TO PT. NS @ 50ML/HR. PT. WITH LEFT FOREARM 22 GAUGE IV SALINE LOCK PRESENT, PATENT AND INTACT. PT. WITH BILATERAL SOFT WRIST RESTRAINTS PRESENT AND INTACT. CIRCULATION CHECK DONE. ALL PT. NEEDS MET. PT. OFFLOADED, TURNED AND REPOSITIONED Q2H AND NEEDED. BED LOCKED AND IN LOWEST POSITION, SIDE RAILS UP X3, BED ALARM ON, WILL ENDORSE TO DAYSHIFT NURSE FOR CONTINUITY OF CARE.
[2017-10-19 06:54] LABS: BASOPHILS % (AUTO) 0.2 % (0.0-2.0); EOSINOPHILS # (AUTO) 0.3 /CMM (0.0-0.7); HEMATOCRIT 32 % (33-45); HEMOGLOBIN 10.7 g/dL (11.5-14.8); LYMPHOCYTES # (AUTO) 1.5 /CMM (0.8-4.8); LYMPHOCYTES % (AUTO) 17.3 % (20.0-44.0); MEAN CORPUSCULAR HEMOGLOBIN 29 PG (26.0-33.0); MEAN CORPUSCULAR HGB CONC 33 g/dl (31.0-36.0); MEAN CORPUSCULAR VOLUME 86 fL (82-100); MONOCYTES # (AUTO) 0.5 /CMM (0.1-1.30); MONOCYTES % (AUTO) 5.3 % (2.0-12.0); NEUTROPHILS # (AUTO) 6.4 /CMM (1.8-8.9); NEUTROPHILS % (AUTO) 73.2 % (43.0-81.0); PLATELET COUNT (AUTO) 278 /CMM (150-450); RDW COEFFICIENT OF VARIATION 16.6 (11.5-15.0); RED BLOOD CELL COUNT(AUTO) 3.74 MIL/uL (4.0-5.2); WHITE BLOOD COUNT (AUTO) 8.8 K/uL (4.3-11.0)
--- NOTE | 2017-10-19 07:30 | NUR ---
RN OPEN NOTES RECEIVED REPORT FROM CASH MANAGEMENT ASSOCIATE NURSE. PATIENT IS AWAKE IN BED. NON VERBAL. NG TUBE FEEDING AT 65ML/HR, NS IS RUNNING AT 50ML/HR, IV SITE INTACT AND PATENT. NO SIGNS AND SYMPTOMS OF DISTRESS. BED IN LOW POSITION, LOCKED AND TWO SIDE RAILS ARE UP. CALL LIGHT WITHIN REACH FOR SAFETY. WILL CONTINUE TO MONITOR AND ASSESS PATIENT
[2017-10-19 08:00] VITALS: BP 147/72
[2017-10-19] MEDS: CARBIDOPA/LEVODOPA 25/100 MG 1 UDTAB GT SCH ×3 (08:13→16:50)
[2017-10-19] MEDS: FLUCONAZOLE (100 MG) 100 MG TABLET PO SCH (08:13)
[2017-10-19] MEDS: FLUDROCORTISONE 0.1 MG TABLET GT SCH (08:13)
[2017-10-19] MEDS: LACTOBACILLUS RHAMNOSUS GG 1 EACH CAP.SPRINK GT SCH ×2 (08:13→16:50)
[2017-10-19] MEDS: DOCUSATE SODIUM LIQ 100 MG/10 ML UDC GT SCH (08:13)
[2017-10-19] MEDS: NEOMY SULF/BACITRAC ZN/POLY 15 GM TUBE TP SCH (08:14)
[2017-10-19] MEDS: MUPIROCIN OINT 2% 22 GM TUBE SCH ×2 (08:14→21:47)
--- NOTE | 2017-10-19 09:52 | NUR ---
CALLED PHARMACY TO VERIFY VANCO DOSE SINCE LAST TROUGH WAS ON 10/17 AND NO NEW TROUGH SCHEDULED. PER PHARMACY, ADMINISTER THE VANCO SCHEDULED
[2017-10-19] MEDS ORDERED: POTASSIUM CHLORIDE 20 MEQ POWDER PACKET GT ONE (10:00)
[2017-10-19] MEDS: VANCOMYCIN 1 GM in IV D5W 250 ML IV SCH (10:00)
[2017-10-19] MEDS: IV NS 0.9% 1,000 ML IV PRN (10:55)
[2017-10-19] MEDS: CEFTRIAXONE 1 G in IV D5W 50 ML IV SCH (12:59)
[2017-10-19 16:00] VITALS: BP 138/70
--- NOTE | 2017-10-19 16:30 | NUR ---
DRESSING CHANGED COMPLETED PER WOUND CARE NURSE AND HOSPITAL POLICY
--- NOTE | 2017-10-19 18:35 | NUR ---
RN CLOSING NOTES PATIENT IN IN BED WITH HER EYES OPEN. NON-VERBAL. NG TUBE AT 58CM. NO SIGNS AND SYMPTOMS OF DISTRESS. BREATHING IS BILATERALLY EQUAL. KEPT PATIENT CLEAN, DRY AND SAFE. NO ACUTE CHANGES DURING MY SHIFT. ALL NURSING CARE ANTICIPATED AND ATTENDED FOR. BED IN LOW POSITION, LOCKED AND TWO SIDE RAILS ARE UP. CALL LIGHT WITHIN REACH FOR SAFETY. WILL ENDORSE TO MATERIALS SCIENTIST RN FOR JOE.
--- NOTE | 2017-10-19 19:15 | NUR ---
MS/RN NOTES RECEIVED PT. LYING IN BED, AWAKE WITH EYES OPEN AND PT. IS NON-VERBAL. BREATHING EVEN AND UNLABORED ON 2LPM O2 VIA NC. NO SOB, RESPIRATORY DISTRESS OR S/S OF PAIN NOTED AT THIS TIME. PT. WITH NG TUBE PRESENT, PATENT AND INTACT ADMINISTERING TO PT. FIBERSOURCE @ 65 ML/HR. PT. TOLERATING FEEDING WELL. NO RESIDUAL NOTED AT THIS TIME. PT. WITH LEFT WRIST 20 GAUGE PERIPHERAL IV PRESENT, PATENT AND INTACT ADMINISTERING TO PT. NS @ 50ML/HR. PT. WITH LEFT FOREARM 22 GAUGE IV SALINE LOCK PRESENT, PATENT AND INTACT. PT. WITH BILATERAL SOFT WRIST RESTRAINTS PRESENT AND INTACT. CIRCULATION CHECK DONE. BED LOCKED AND IN LOWEST POSITION, SIDE RAILS UP X3, BED ALARM ON, WILL CONTINUE TO MONITOR.
[2017-10-19 20:00] VITALS: BP 132/69
[2017-10-19] MEDS: PANTOPRAZOLE 40 MG VIAL IV SCH (21:47)
--- NOTE | 2017-10-19 22:57 | NUR ---
MS/RN NOTES CALLED [facility] RAILROAD BRAKE OPERATOR TO CLARIFY ADMINISTERING PT. 2100 LOVENOX. AWAITING CALL BACK FROM SUSHIL MERCADO. WILL CONTINUE TO MONITOR.
--- NOTE | 2017-10-19 23:32 | NUR ---
MS/RN NOTES CLARIFIED WITH EPIC SURFACING TECHNICIAN SUSHIL MERCADO ABOUT ADMINISTERING LOVENOX MEDICATION. PT. HAS ORDER TO OBTAIN CONSENT FOR EGD WITH PEG PLACEMENT, PT. IS NOT ON THE SURGERY SCHEDULE FOR TOMORROW AND PER PUNCH PRESS OPERATOR HELPER UNABLE TO OBTAIN CONSENT AT THIS TIME DUE TO LEGAL ISSUES. PER SUSHIL MERCADO OK TO ADMINISTER TO PT. LOVENOX MEDICATION ORDERED. WILL ADMINISTER MEDICATION. WILL CONTINUE TO MONITOR.
[2017-10-20] MEDS: ENOXAPARIN SODIUM 40 MG/0.4 ML DISP.SYRIN SQ SCH ×2 (00:13→21:27)
[2017-10-20] MEDS: VANCOMYCIN 1 GM in IV D5W 250 ML IV SCH ×2 (05:13→23:18)
[2017-10-20] MEDS: FIBERSOURCE HN 1,000 ML BOTTLE GT PRN (05:13)
[2017-10-20 06:48] LABS: CALCIUM, SERUM 8.6 mg/dL (8.5-10.1); CARBON DIOXIDE 30 mmol/L (21-32); CHLORIDE 102 mmol/L (98-107); CREATININE 0.6 mg/dL (0.6-1.3); GLUCOSE 165 mg/dL (74-106); SODIUM SERUM 137 mmol/L (136-145); UREA NITROGEN, BLOOD 10 mg/dL (7-18)
--- NOTE | 2017-10-20 06:59 | NUR ---
MS/RN NOTES PT. IS LYING IN BED, AWAKE WITH EYES OPEN AND PT. IS NON-VERBAL. BREATHING EVEN AND UNLABORED ON 2LPM O2 VIA NC. NO SOB, RESPIRATORY DISTRESS OR S/S OF PAIN NOTED AT THIS TIME. PT. WITH NG TUBE PRESENT, PATENT AND INTACT ADMINISTERING TO PT. FIBERSOURCE @ 65 ML/HR. PT. TOLERATING FEEDING WELL. NO RESIDUAL NOTED AT THIS TIME AND THROUGHOUT SHIFT. PT. WITH LEFT WRIST 20 GAUGE PERIPHERAL IV PRESENT, PATENT AND INTACT ADMINISTERING TO PT. NS @ 50ML/HR. PT. WITH LEFT FOREARM 22 GAUGE IV SALINE LOCK PRESENT, PATENT AND INTACT. PT. WITH BILATERAL SOFT WRIST RESTRAINTS PRESENT AND INTACT. CIRCULATION CHECK DONE. ALL PT. NEEDS MET. BED LOCKED AND IN LOWEST POSITION, SIDE RAILS UP X3, BED ALARM ON, WILL ENDORSE TO DAYSHIFT NURSE FOR CONTINUITY OF CARE.
[2017-10-20 08:00] VITALS: BP 148/87
--- NOTE | 2017-10-20 08:18 | NUR ---
MS RN: INITIAL NOTE RECEIVED PT AWAKE. NON-VERBAL. ON CONTACT ISOLATION FOR MRSA NARES. ON NG TUBE FEEDING. INCONTINENT. USES DIAPER. CONTRACTED IN LOWE EXTREMITIES. BED BOUND. NPI. ON FIBERSOURCE RUNNING AT 65ML/HR. NO DISTRESS NOTED. NO PAIN NOTED USING FLACC SCALE. NO SOB NOTED. RESTING COMFORTABLY IN BED.
[2017-10-20] MEDS: CARBIDOPA/LEVODOPA 25/100 MG 1 UDTAB GT SCH ×3 (08:55→16:18)
[2017-10-20] MEDS: DOCUSATE SODIUM LIQ 100 MG/10 ML UDC GT SCH (08:55)
[2017-10-20] MEDS: LACTOBACILLUS RHAMNOSUS GG 1 EACH CAP.SPRINK GT SCH ×2 (08:55→16:18)
[2017-10-20] MEDS: FLUCONAZOLE (100 MG) 100 MG TABLET PO SCH (08:55)
[2017-10-20] MEDS: FLUDROCORTISONE 0.1 MG TABLET GT SCH (08:55)
[2017-10-20] MEDS: NEOMY SULF/BACITRAC ZN/POLY 15 GM TUBE TP SCH (08:56)
[2017-10-20] MEDS: MUPIROCIN OINT 2% 22 GM TUBE SCH ×2 (08:56→21:15)
[2017-10-20] MEDS: IV NS 0.9% 1,000 ML IV PRN (09:04)
[2017-10-20] MEDS: POTASSIUM CHLORIDE 20 MEQ POWDER PACKET NG SCH ×3 (10:14→12:30)
[2017-10-20] MEDS: CEFTRIAXONE 1 G in IV D5W 50 ML IV SCH (14:28)
[2017-10-20 16:00] VITALS: BP 134/81
--- NOTE | 2017-10-20 18:39 | NUR ---
MS RN: CLOSING NOTE PT ON 2L NC. NONVERBAL. OPEN EYES. TURNED AND REPOSITIONED Q 2HOURS. INCONTINENT. USES DIAPER. WOUND CARE DONE ORDERED. NPO. ON NG TUNE RUNNING FIBERSOURCE AT 65ML/HR. SITE CLEAR AND PATENT. L FA HL RUNNING NS AT 50ML/HR. IV HL ON L WORST #22. SITES CLEAR AND PATENT. SOFT RESTRAINTS ON BUE. PROTOCOLS FOLLOWED ORDERED. RESTRAINTS WILL BE RENEWED PER MD ORDER AT 0700 TONIGHT. RESTING COMFORTABLY IN BED. CALL LIGHT WITHIN REACH.
--- NOTE | 2017-10-20 19:30 | NUR ---
RN NOTE; RECEIVED PT IN BED AWAKE . BREATHING EVENLY. NO OSB. NAD .SKIN WARM AND DRY. NG IN PLACE TF SERENITY WELL. HOB ELEVATED. BILAT SOFT WRIST IN PLACE W/ NO SKIN BREAK DOWN. NEEDS ATTENDED. BED LOW LOCKED. CALL LIGHT WITHIN REACH. SRX2. WILL CONT TO MONITOR AND WILL ENDORSE TO AM SHIFT FOR JOE.
[2017-10-20 20:00] VITALS: BP 128/66
[2017-10-20] MEDS: PANTOPRAZOLE 40 MG VIAL IV SCH (21:15)
[2017-10-21] MEDS: Magnesium 1GM/D5W 100ML PREMIX PIGGYBACK IV SCH ×3 (00:28→03:13)
[2017-10-21] MEDS: FIBERSOURCE HN 1,000 ML BOTTLE GT PRN (05:36)
[2017-10-21 06:51] LABS: CALCIUM, SERUM 8.3 mg/dL (8.5-10.1); CARBON DIOXIDE 28 mmol/L (21-32); CHLORIDE 99 mmol/L (98-107); CREATININE 0.6 mg/dL (0.6-1.3); GLUCOSE 116 mg/dL (74-106); POTASSIUM 3.3 mmol/L (3.5-5.1); SODIUM SERUM 134 mmol/L (136-145); UREA NITROGEN, BLOOD 9 mg/dL (7-18)
--- NOTE | 2017-10-21 06:55 | NUR ---
RN NOTE; PT IN BED . AWAKE. BREATHING EVENLY. NO SOB. NO ACUTE EVENT DURING THE NIGHT . NG TUBE IN PLACE. GTF SERENITY WELL. W/ MINIMAL DISCHARGE FROM THE OLD GT STOMA. NO S/S OF PAIN OR DISCOMFORT. NEEDS ATTENDED .CLEANED AND DRIED. REPOSITIONED ROUTINELY. BED LOW LOCKED . CALL LIGHT WITHIN REACH. HOB ELEVATED. WILL CONT TO MONITOR AND WILL ENDORSE TO AM SHIFT FOR JOE.
--- NOTE | 2017-10-21 07:51 | NUR ---
MS RN: INITIAL NOTE RECEIVED PT ON-VERBAL. OPENS EYES. INCONTINENT. BEDREST. TURNED AND REPOSITIONED Q 2HOURS. USES DIAPER. LFA #22 HL. L WRIST #20 RUNNING NS AT 50ML/HR. SITE CLEAR AND PATENT. NO REDNESS OR BLEEDING NOTED. NO DISTRESS NOTED. NO PAIN NOTED ON FLACC SCALE. NO SOB NOTED. ON2L NC SATING AT 100%. RESTING COMFORTABLY IN BED. CALL LIGHT WITHIN REACH.
[2017-10-21 08:00] VITALS: BP 136/75
[2017-10-21] MEDS: FLUCONAZOLE (100 MG) 100 MG TABLET PO SCH (09:11)
[2017-10-21] MEDS: FLUDROCORTISONE 0.1 MG TABLET GT SCH (09:11)
[2017-10-21] MEDS: LACTOBACILLUS RHAMNOSUS GG 1 EACH CAP.SPRINK GT SCH ×2 (09:11→16:55)
[2017-10-21] MEDS: DOCUSATE SODIUM LIQ 100 MG/10 ML UDC GT SCH (09:11)
[2017-10-21] MEDS: CARBIDOPA/LEVODOPA 25/100 MG 1 UDTAB GT SCH ×3 (09:11→16:56)
[2017-10-21] MEDS: IV NS 0.9% 1,000 ML IV PRN (09:12)
[2017-10-21] MEDS: NEOMY SULF/BACITRAC ZN/POLY 15 GM TUBE TP SCH (09:12)
[2017-10-21] MEDS: MUPIROCIN OINT 2% 22 GM TUBE SCH ×2 (09:12→21:06)
--- NOTE | 2017-10-21 09:35 | NUR ---
ADMINISTERED TYLENOL FOR SLIGHT FEVER OF 99.9. WILL REASSESS.
--- NOTE | 2017-10-21 10:35 | NUR ---
REASSESSED TEMPERATURE. REDUCED TO 98.7
[2017-10-21] MEDS ORDERED: POTASSIUM CHLORIDE 20 MEQ TAB.PRT.SR PO SCH (11:30)
[2017-10-21] MEDS: CEFTRIAXONE 1 G in IV D5W 50 ML IV SCH (13:32)
[2017-10-21 16:00] VITALS: BP 133/71
[2017-10-21] MEDS: VANCOMYCIN 1 GM in IV D5W 250 ML IV SCH (16:55)
--- NOTE | 2017-10-21 18:36 | NUR ---
MS RN: CLOSING NOTE ADMINISTERED ALL MEDICATIONS ON TIME. NO ADVERSE REACTIONS NOTED. NO PAIN NOTED PT NON-VERBAL. OPENS EYES, AWAKE. INCONTINENT. USES DIAPER. ON BEDREST. TURNED AND REPOSITIONED Q 2 HOURS. ON SOFT RESTRAINTS. BUE RESTRAINTS. ALL RESTRAINTS PROTOCOLS FOLLOWED AND DOCUMENTED. ON NG TUBE FEEDING. FIBERSOURCE AT 65ML/HR. SITE CLEAR AND PATENT. TO TURN OFF AT 0000 AND ON AT 0400AM EVERYDAY. L FA #22 RUNNING NS AT 50 ML.HR. SITE CLEAR AND PATENT. L WRIST #22 IV HL. SITE CLEAR AND PATENT. ON CONTACT ISOLATION FOR MRSA NARES. WOUND CARE DONE ORDERED. RESTRAINTS TO BE RENEWED Q 24 HRS AT 1900 EVERY DAY. RESTING COMFORTABLY IN BED. CALL LIGHT WITHIN REACH.
--- NOTE | 2017-10-21 19:45 | NUR ---
MS RN NOTES RECEIVED ON BED NON VERBAL.WITH NGT FEEDING FIBERSOURCE AT 65ML/HR RATE TOLERATED WELL.10ML RESIDUAL VOLUME.HOB ELEVATED.ISOLATION PRECAUTION FOR MRSA NARES AND WOUND.IVF NS AT 50ML/HR RATE IN PROGRESS VIA LEFT WRIST,SITE PATENT.ON BILATERAL SOFT WRIST RESTRAINT FOR SAFETY,AVOID PULLING OF TUBINGS.REPOSITION PER PROTOCOL.CALL LIGHT IN REACH,WILL CONTINUE TO MONITOR STATUS.
[2017-10-21 20:23] VITALS: BP 143/77
[2017-10-21] MEDS: PANTOPRAZOLE 40 MG VIAL IV SCH (21:05)
[2017-10-21] MEDS: ENOXAPARIN SODIUM 40 MG/0.4 ML DISP.SYRIN SQ SCH (21:12)
[2017-10-21 22:00] VITALS: BP 143/77
--- NOTE | 2017-10-22 | NUR ---
MS RN NOTES NGT FEEDING OFF AT THIS TIME.WILL RESUME AT 4AM
[2017-10-22] MEDS: FIBERSOURCE HN 1,000 ML BOTTLE GT PRN (03:59)
--- NOTE | 2017-10-22 04:00 | NUR ---
MS RN NOTES NGT FEEDING RESUMED.NO RESIDUAL VOLUME NOTED.HOB KEPT ELEVATED FOR ASPIRATION PRECAUTION.IV SITE REMAINS PATENT.STILL WAITING FOR CONSENT,PLANNED EGD WITH PEG TUBE PLACEMENT.AWAITING COURT APPROVAL PER STEVEN KAPLAN.WILL ENDORSE TO DAY NURSE FOR JOE.
[2017-10-22 06:46] LABS: CARBON DIOXIDE 28 mmol/L (21-32); CHLORIDE 102 mmol/L (98-107); CREATININE 0.6 mg/dL (0.6-1.3); GLUCOSE 150 mg/dL (74-106); SODIUM SERUM 138 mmol/L (136-145); UREA NITROGEN, BLOOD 12 mg/dL (7-18)
--- NOTE | 2017-10-22 07:30 | NUR ---
RN MS NOTES PT IN BED, AWAKE, NO SIGN OF PAIN OR DISTRESS, NGT FEEDING INFUSING WELL, IV FLUIDS INFUSING WELL, SUCTIONED ORAL SECRETIONS NEEDED, KEPT HOB ELEVATED, TURNED AND REPOSITIONED, KEPT WARM AND COMFORTABLE, ISOLATION PRECAUTIONS OBSERVED.
[2017-10-22 08:00] VITALS: BP 147/78
[2017-10-22] MEDS: CARBIDOPA/LEVODOPA 25/100 MG 1 UDTAB GT SCH ×3 (08:54→16:55)
[2017-10-22] MEDS: FLUCONAZOLE (100 MG) 100 MG TABLET PO SCH (08:54)
[2017-10-22] MEDS: LACTOBACILLUS RHAMNOSUS GG 1 EACH CAP.SPRINK GT SCH ×2 (08:54→16:55)
[2017-10-22] MEDS: DOCUSATE SODIUM LIQ 100 MG/10 ML UDC GT SCH (08:54)
[2017-10-22] MEDS: IV NS 0.9% 1,000 ML IV PRN (08:54)
[2017-10-22] MEDS: MUPIROCIN OINT 2% 22 GM TUBE SCH ×2 (08:59→20:54)
[2017-10-22] MEDS: NEOMY SULF/BACITRAC ZN/POLY 15 GM TUBE TP SCH (08:59)
[2017-10-22] MEDS: FLUDROCORTISONE 0.1 MG TABLET GT SCH (09:23)
[2017-10-22] MEDS: VANCOMYCIN 1 GM in IV D5W 250 ML IV SCH (11:19)
[2017-10-22] MEDS: POTASSIUM CHLORIDE 20 MEQ POWDER PACKET GT SCH ×3 (12:09→14:51)
--- NOTE | 2017-10-22 13:00 | NUR ---
RN MS NOTES PT IN BED, ASLEEP, EASY TO AROUSE, ALERT TO SELF, NON VERBAL, IV FLUIDS INFUSING WELL, TOLERATING NGT FEEDING WELL, TURNED AND REPOSITIONED Q2 HOURS, KEPT SKIN CLEAN AND DRY, KEPT RABBET OPERATOR BED, SUCTIONED ORAL SECRETIONS NEEDED, KEPT HOB ELEVATED.
[2017-10-22] MEDS: CEFTRIAXONE 1 G in IV D5W 50 ML IV SCH (13:20)
[2017-10-22 16:00] VITALS: BP 137/69
--- NOTE | 2017-10-22 18:19 | NUR ---
RN MS NOTES PT IN BED, SLEEPS INTERMITTENTLY, RESPIRATIONS REGULAR, NO SIGN OF PAIN OR DISTRESS, SECRETIONS SUCTIONED NEEDED, KEPT HOB ELEVATED, TOLERATING TUBE FEEDINGS WELL, TURNED AND REPISITIONED S2 HOURS, KEPT CLEAN AND DRY, PM MEDS GIVEN ORDERED, KEPT WARM AND COMFORTABLE IN BED, STILL AWAITING FOR CONSENT FOR EGD WITH PEG THROUGH CONSERVATOR, AUNDREA STOCK WETTER AWARE, ORDERED TO CONTINUE TUBE FEEDINGS.
--- NOTE | 2017-10-22 19:58 | NUR ---
MS RN NOTES ON BED WITH HOB ELEVATED, NGT FEEDING IN PROGRESS AT 65ML/HR RATE,TOLERATED WELL,NO RESIDUAL THIS TIME.IVF NS AT 50ML/HR RATE IN PROGRESS VIA IV PUMP.ON BILATERAL WRIST SOFT RESTRAINT FOR SAFETY,AVOID PULLING OF TUBINGS.REPOSITION PER PROTOCOL.WILL CONTINUE TO MONITOR STATUS.
[2017-10-22 20:00] VITALS: BP 135/70
[2017-10-22] MEDS: PANTOPRAZOLE 40 MG VIAL IV SCH (20:50)
[2017-10-22] MEDS: ENOXAPARIN SODIUM 40 MG/0.4 ML DISP.SYRIN SQ SCH (20:55)
--- NOTE | 2017-10-22 21:00 | NUR ---
MS RN NOTES EVENING CARE RENDERED,TOLERATED WELL.
--- NOTE | 2017-10-23 04:00 | NUR ---
MS RN NOTES VANCO THROUGH WAS 8,DUE VANCOMYCIN ADMINISTERED VIA NEW SALINE LOCK ON RIGHT AC #22.LEFT ARM SALINE LOCK REMOVED,INFILTRATED. WILL RE START NGT FEEDING.IN NO ACUTE DISTRESS.WILL ENDORSE TO DAY NURSE FOR JOE.
[2017-10-23 04:18] LABS: BASOPHILS % (AUTO) 0.3 % (0.0-2.0); EOSINOPHILS # (AUTO) 0.1 /CMM (0.0-0.7); EOSINOPHILS % (AUTO) 0.7 % (0.0-6.0); HEMATOCRIT 31 % (33-45); HEMOGLOBIN 10.4 g/dL (11.5-14.8); LYMPHOCYTES # (AUTO) 1.3 /CMM (0.8-4.8); LYMPHOCYTES % (AUTO) 14.3 % (20.0-44.0); MEAN CORPUSCULAR HEMOGLOBIN 28 PG (26.0-33.0); MEAN CORPUSCULAR HGB CONC 33 g/dl (31.0-36.0); MEAN CORPUSCULAR VOLUME 85 fL (82-100); MONOCYTES # (AUTO) 0.5 /CMM (0.1-1.30); MONOCYTES % (AUTO) 5.2 % (2.0-12.0); NEUTROPHILS # (AUTO) 7.3 /CMM (1.8-8.9); NEUTROPHILS % (AUTO) 79.5 % (43.0-81.0); PLATELET COUNT (AUTO) 252 /CMM (150-450); RDW COEFFICIENT OF VARIATION 16.5 (11.5-15.0); RED BLOOD CELL COUNT(AUTO) 3.68 MIL/uL (4.0-5.2); WHITE BLOOD COUNT (AUTO) 9.2 K/uL (4.3-11.0)
[2017-10-23 04:27] LABS: CALCIUM, SERUM 8.5 mg/dL (8.5-10.1); CARBON DIOXIDE 30 mmol/L (21-32); CHLORIDE 103 mmol/L (98-107); CREATININE 0.5 mg/dL (0.6-1.3); GLUCOSE 112 mg/dL (74-106); POTASSIUM 3.7 mmol/L (3.5-5.1); SODIUM SERUM 138 mmol/L (136-145); UREA NITROGEN, BLOOD 10 mg/dL (7-18)
[2017-10-23] MEDS: VANCOMYCIN 1 GM in IV D5W 250 ML IV SCH (04:47)
[2017-10-23] MEDS: FIBERSOURCE HN 1,000 ML BOTTLE GT PRN (04:50)
--- NOTE | 2017-10-23 07:32 | NUR ---
RN MS NOTES PT IN BED, ASLEEP, EASILY AROUSABLE, NOT IN DISTRESS, NO FACIAL GRIMACING OR MOANING, NGT FEEDING INFUSING WELL, TOLERATING WELL, IV FLUIDS INFUSING WELL, WITH BILATERAL SOFT WRIST RESTRAINT ON, CHECKED FOR SKIN INTEGRITY, KEPT HOB ELEVATED, REPOSITIONED FOR COMFORT.
[2017-10-23 08:00] VITALS: BP 123/67
[2017-10-23] MEDS: LACTOBACILLUS RHAMNOSUS GG 1 EACH CAP.SPRINK GT SCH ×2 (09:08→17:27)
[2017-10-23] MEDS: FLUDROCORTISONE 0.1 MG TABLET GT SCH (09:08)
[2017-10-23] MEDS: CARBIDOPA/LEVODOPA 25/100 MG 1 UDTAB GT SCH ×3 (09:08→17:27)
[2017-10-23] MEDS: FLUCONAZOLE (100 MG) 100 MG TABLET PO SCH (09:08)
[2017-10-23] MEDS: DOCUSATE SODIUM LIQ 100 MG/10 ML UDC GT SCH (09:08)
[2017-10-23] MEDS: NEOMY SULF/BACITRAC ZN/POLY 15 GM TUBE TP SCH (09:09)
[2017-10-23] MEDS: MUPIROCIN OINT 2% 22 GM TUBE SCH ×2 (09:09→22:04)
--- NOTE | 2017-10-23 13:00 | NUR ---
RN MS NOTES PT IN BED, SLEEPS INTERMITTENTLY, NOT IN DISTRESS, NO SIGN OF PAIN OR DISCOMFORT, TOLERATING CURRENT DIET WELL, SEEN BY AUBREE LING, TURNED AND REPOSITIONED Q2HRS.
[2017-10-23] MEDS: CEFTRIAXONE 1 G in IV D5W 50 ML IV SCH (14:13)
[2017-10-23 16:00] VITALS: BP 136/73
[2017-10-23] MEDS: VANCOMYCIN 0.75 GM in IV D5W 250 ML IV SCH (17:26)
[2017-10-23] MEDS: IV NS 0.9% 1,000 ML IV PRN (17:28)
--- NOTE | 2017-10-23 18:00 | NUR ---
RN MS NOTES PER IVONNE LYNNE, PHYSICIAN STATEMENT AND PSYCHIATRIST STATEMENT FORMS NEED TO BE SUBMITTED BACK TO [facility] DEPT OF MENTAL HEALTH TO BE ABLE TO PROCESS CONSENT FOR PEG PLACEMENT FOR PT, FORMS IN CHART.
--- NOTE | 2017-10-23 18:44 | NUR ---
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
--- NOTE | 2017-10-23 19:27 | NUR ---
MS/RN OPENING NOTE RECEIVED PATIENT IN BED IN STABLE CONDITION. A/O X 1, NON VERBAL. NO SIGNS OF ACUTE DISTRESS. NO S/S OF PAIN OR DISCOMFORT. NGTF ONGOING, SERENITY WELL. HOB ELEVATED FOR ASPIRATION PRECAUTION. ALL NEEDS ATTENDED TO. CALL LIGHT WITHIN REACH. WILL CONTINUE TO MONITOR.
[2017-10-23 20:00] VITALS: BP 136/85
[2017-10-23] MEDS: PANTOPRAZOLE 40 MG VIAL IV SCH (22:04)
[2017-10-23] MEDS: ENOXAPARIN SODIUM 40 MG/0.4 ML DISP.SYRIN SQ SCH (22:10)
[2017-10-24] MEDS: VANCOMYCIN 0.75 GM in IV D5W 250 ML IV SCH ×2 (05:47→16:48)
[2017-10-24] MEDS: FIBERSOURCE HN 1,000 ML BOTTLE GT PRN ×2 (05:49→16:48)
--- NOTE | 2017-10-24 06:40 | NUR ---
RN NOTES PATIENT IN BED IN STABLE CONDITION. A/O X 1, NON VERBAL. NO SIGNS OF ACUTE DISTRESS. NO S/S OF PAIN OR DISCOMFORT. NGTF ON HOLD . HOB ELEVATED FOR ASPIRATION PRECAUTION. ALL NEEDS ATTENDED TO. SAFETY PRECAUTIONS OBSERVED. CALL LIGHT WITHIN REACH. WILL ENDORSE TO NEXT SHIFT FOR JOE.
[2017-10-24 07:06] LABS: CALCIUM, SERUM 8.7 mg/dL (8.5-10.1); CARBON DIOXIDE 31 mmol/L (21-32); CHLORIDE 102 mmol/L (98-107); CREATININE 0.6 mg/dL (0.6-1.3); GLUCOSE 100 mg/dL (74-106); POTASSIUM 2.9 mmol/L (3.5-5.1); SODIUM SERUM 139 mmol/L (136-145); UREA NITROGEN, BLOOD 11 mg/dL (7-18)
[2017-10-24 08:00] VITALS: BP 136/69
[2017-10-24] MEDS: DOCUSATE SODIUM LIQ 100 MG/10 ML UDC GT SCH (08:35)
[2017-10-24] MEDS: LACTOBACILLUS RHAMNOSUS GG 1 EACH CAP.SPRINK GT SCH ×2 (08:35→16:48)
[2017-10-24] MEDS: CARBIDOPA/LEVODOPA 25/100 MG 1 UDTAB GT SCH ×3 (08:35→16:48)
[2017-10-24] MEDS: FLUCONAZOLE (100 MG) 100 MG TABLET PO SCH (08:35)
[2017-10-24] MEDS: FLUDROCORTISONE 0.1 MG TABLET GT SCH (08:35)
[2017-10-24] MEDS: MUPIROCIN OINT 2% 22 GM TUBE SCH ×2 (08:36→21:59)
[2017-10-24] MEDS: NEOMY SULF/BACITRAC ZN/POLY 15 GM TUBE TP SCH (08:36)
[2017-10-24] MEDS: POTASSIUM CHLORIDE 20 MEQ TAB.PRT.SR PO SCH ×3 (10:25→13:26)
[2017-10-24] MEDS: VALPROATE 125 MG in IV D5W 100 ML IV SCH ×2 (13:26→21:56)
[2017-10-24] MEDS: CEFTRIAXONE 1 G in IV D5W 50 ML IV SCH (14:59)
--- NOTE | 2017-10-24 15:23 | NUR ---
Social Work Note: Spoke with public guardian, Nikki Padron [phone], and she clarified that unless the attending psychiatrist completes the 7-point form their office will not be able to get a court order to authorize PEG or GTube. This bond writer asked if the attending law clerk could do this and the PG said it has to be the treating psychiatrist. This social research assistant left Dr Nguyen a voicemail message about this at 1515 and requested her help in facilitating this. Called and advised Bautista Sanchez, case therapist, and CNO, Wintson Norwood.at 1528, Dr Nguyen advsied this bond writer she will complete the form tomorrow morning.
[2017-10-24 16:00] VITALS: BP 130/71
--- NOTE | 2017-10-24 18:00 | NUR ---
M/S RN - Notes Patient awake, alert to self, no s/s of pain, remain afebrile, no apparent distress, on 2 lpm via NC. IVF infusing well on the RFA with no s/s of infiltration. NGT in place on the left nostril, tolerating tube feeding well. Potassium level 2.9, replaced. Wound treatment done as ordered. All needs anticipated and met. Fall and aspiration precautions maintained. Still awaiting consent for EGD with PEG. Will continue with current treatment plan. Endorsed accordingly.
--- NOTE | 2017-10-24 19:10 | NUR ---
MS/RN OPENING NOTE RECEIVED PATIENT RESTING IN BED, APPEARS COMFORTABLE. AROUSES EASILY, A/O X 1, NON VERBAL. NO SIGNS OF ACUTE DISTRESS. NO S/S OF PAIN OR DISCOMFORT. NGTF ONGOING, SERENITY WELL. HOB ELEVATED FOR ASPIRATION PRECAUTION. IV SITE ON RAC AND LEFT HAND INTACT AND PATENT. IVF CONNECTED TO LEFT HAND INFUSING WELL. NO S/S OF PAIN OR DISCOMFORT AT THIS TIME. SAFETY PRECAUTIONS OBSERVED. ALL NEEDS ATTENDED AND MET. CALL LIGHT WITHIN REACH. WILL CONTINUE TO MONITOR.
[2017-10-24 20:00] VITALS: BP_SYST 111; BP_DIAS 56; BP_DIAS 66
--- NOTE | 2017-10-24 20:45 | NUR ---
PLACED A CALL TO PHARMACY AND SPOKE WITH ROSARIO , REGARDING DEPACON IV MEDICATION , MEDICATION WAS NOT IN THE CASETTE AND MED ROOM, PER ROSARIO SHE'LL SEND THE MEDICINE.
[2017-10-24] MEDS: PANTOPRAZOLE 40 MG VIAL IV SCH (21:56)
[2017-10-24] MEDS: ENOXAPARIN SODIUM 40 MG/0.4 ML DISP.SYRIN SQ SCH (21:57)
[2017-10-25] MEDS: IV NS 0.9% 1,000 ML IV PRN (02:43)
[2017-10-25 04:51] LABS: CALCIUM, SERUM 8.7 mg/dL (8.5-10.1); CARBON DIOXIDE 30 mmol/L (21-32); CHLORIDE 101 mmol/L (98-107); CREATININE 0.5 mg/dL (0.6-1.3); GLUCOSE 97 mg/dL (74-106); POTASSIUM 3.3 mmol/L (3.5-5.1); SODIUM SERUM 138 mmol/L (136-145); UREA NITROGEN, BLOOD 11 mg/dL (7-18)
[2017-10-25] MEDS: VALPROATE 125 MG in IV D5W 100 ML IV SCH ×3 (05:00→21:28)
[2017-10-25] MEDS: VANCOMYCIN 0.75 GM in IV D5W 250 ML IV SCH ×2 (05:06→16:31)
[2017-10-25] MEDS ORDERED: VALPROATE 500 MG/5 ML VIAL IV ONE (05:07)
--- NOTE | 2017-10-25 06:53 | NUR ---
MS RN NOTES PATIENT RESTING IN BED, APPEARS COMFORTABLE. AROUSES EASILY, A/O X 1, NON VERBAL. NO SIGNS OF ACUTE DISTRESS. NO S/S OF PAIN OR DISCOMFORT. NGTF ONGOING, SERENITY WELL. ASPIRATION PRECAUTION OBSERVED. IV SITE ON RAC AND LEFT HAND INTACT AND PATENT. IVF CONNECTED TO LEFT HAND INFUSING WELL. NO S/S OF PAIN OR DISCOMFORT AT THIS TIME. SAFETY PRECAUTIONS OBSERVED. ALL DUE MEDS GIVEN, MORNING CARE DONE. ALL NEEDS ATTENDED AND MET. CALL LIGHT WITHIN REACH. WILL ENDORSE TO NEXT SHIFT FOR OJE.
--- NOTE | 2017-10-25 07:30 | NUR ---
AM RN NOTE Received patient sleeping comfortably in her bed, no acute distress noted. On O2 2L/min via NC. Resp even and non-labored. IV site intact and patent. Continue on NGT feeding tolerated well. Dar arms soft restraints on, will continue to monitor pt closely for safety.
[2017-10-25 08:00] VITALS: BP 129/63
[2017-10-25] MEDS: DOCUSATE SODIUM LIQ 100 MG/10 ML UDC GT SCH (08:21)
[2017-10-25] MEDS: FLUCONAZOLE (100 MG) 100 MG TABLET PO SCH (08:21)
[2017-10-25] MEDS: LACTOBACILLUS RHAMNOSUS GG 1 EACH CAP.SPRINK GT SCH ×2 (08:21→16:31)
[2017-10-25] MEDS: CARBIDOPA/LEVODOPA 25/100 MG 1 UDTAB GT SCH ×3 (08:21→16:31)
[2017-10-25] MEDS: MUPIROCIN OINT 2% 22 GM TUBE SCH ×2 (08:22→21:29)
[2017-10-25] MEDS: NEOMY SULF/BACITRAC ZN/POLY 15 GM TUBE TP SCH (08:22)
[2017-10-25] MEDS: FLUDROCORTISONE 0.1 MG TABLET GT SCH (08:26)
[2017-10-25] MEDS ORDERED: POTASSIUM CHLORIDE 20 MEQ POWDER PACKET GT SCH (14:00)
[2017-10-25] MEDS: CEFTRIAXONE 1 G in IV D5W 50 ML IV SCH (15:13)
[2017-10-25 16:00] VITALS: BP 121/70
--- NOTE | 2017-10-25 18:26 | NUR ---
AM RN NOTE Pt resting in her bed, no acute distress noted. All needs met and attended in timely manner. IV site intact and patent. NGT feeding tolerated well. Will endorse care to next shift.
--- NOTE | 2017-10-25 19:55 | NUR ---
MS RN NOTES ON BED A/O X1,OPEN EYES,NON VERBA,NGT TUBE IN PLACE,WITH FIBERSOURCE FEEDING [id number]/HR RATE TOLERATED WELL.O RESIDUAL VOLUME NOTED.HOB ELEVATED FOR ASPIRATION PRECAUTION.ABDOMEN OLD GT SITE WITH MEPILEX IN PLACE,CONTRACTED.O3 IN USED AT 2 LITERS TO KEEP O2 SAT ABOVE 90%.REPOSITION PER PROTOCOL.WILL CONTINUE TO MONITOR STATUS.
[2017-10-25 20:00] VITALS: BP 134/77
[2017-10-25] MEDS: PANTOPRAZOLE 40 MG VIAL IV SCH (21:29)
[2017-10-25] MEDS: ENOXAPARIN SODIUM 40 MG/0.4 ML DISP.SYRIN SQ SCH (21:33)
--- NOTE | 2017-10-26 | NUR ---
MS RN NOTES NGT FEEDING OFF AT THIS TIME.
[2017-10-26] MEDS: VANCOMYCIN 0.75 GM in IV D5W 250 ML IV SCH ×2 (04:17→17:44)
[2017-10-26] MEDS: FIBERSOURCE HN 1,000 ML BOTTLE GT PRN (04:22)
[2017-10-26] MEDS: IV NS 0.9% 1,000 ML IV PRN (04:31)
[2017-10-26] MEDS: VALPROATE 125 MG in IV D5W 100 ML IV SCH ×3 (05:19→20:59)
--- NOTE | 2017-10-26 07:11 | NUR ---
MS RN NOTES NO CHANGE IN STATUS.NEW SALINE LOCK PLACE ON RIGHT HAND #22,IVF INFUSING.NGT FEEDING TOLERATED WELL.HOB ELEVATED.AWAITING CONSENT FOR EGD/PEG PLACEMENT.CONSERVATOR MARTIN CHEUNG AWAITING COURT APPROVAL IN ORDER TO SIGN CONSENT.WILL ENDORSE TO DAY NURSE FOR JOE.
[2017-10-26 07:24] LABS: BASOPHILS % (AUTO) 0.1 % (0.0-2.0); EOSINOPHILS # (AUTO) 0.3 /CMM (0.0-0.7); EOSINOPHILS % (AUTO) 3.7 % (0.0-6.0); HEMATOCRIT 27 % (33-45); HEMOGLOBIN 8.9 g/dL (11.5-14.8); LYMPHOCYTES # (AUTO) 1.9 /CMM (0.8-4.8); LYMPHOCYTES % (AUTO) 24.7 % (20.0-44.0); MEAN CORPUSCULAR HEMOGLOBIN 29 PG (26.0-33.0); MEAN CORPUSCULAR HGB CONC 34 g/dl (31.0-36.0); MEAN CORPUSCULAR VOLUME 86 fL (82-100); MONOCYTES # (AUTO) 0.3 /CMM (0.1-1.30); MONOCYTES % (AUTO) 4.6 % (2.0-12.0); NEUTROPHILS # (AUTO) 5.1 /CMM (1.8-8.9); NEUTROPHILS % (AUTO) 66.9 % (43.0-81.0); PLATELET COUNT (AUTO) 259 /CMM (150-450); RDW COEFFICIENT OF VARIATION 16.1 (11.5-15.0); WHITE BLOOD COUNT (AUTO) 7.6 K/uL (4.3-11.0)
[2017-10-26 07:55] LABS: CALCIUM, SERUM 8.4 mg/dL (8.5-10.1); CARBON DIOXIDE 30 mmol/L (21-32); CHLORIDE 102 mmol/L (98-107); CREATININE 0.5 mg/dL (0.6-1.3); GLUCOSE 111 mg/dL (74-106); MAGNESIUM 1.8 mg/dL (1.8-2.4); PHOSPHORUS 3.1 mg/dL (2.5-4.9); SODIUM SERUM 140 mmol/L (136-145); UREA NITROGEN, BLOOD 10 mg/dL (7-18)
[2017-10-26 08:00] VITALS: BP 129/71
--- NOTE | 2017-10-26 08:00 | NUR ---
RN NOTES RECEIVED PATIENT IN THE BED , CONFUSED, NO VERBAL, ON NG TUBE , FEEDING FIBERSOURCE 65 ML/HR INTACT, PLACEMENT AND RESIDUAL CHECKED, PATIENT HAS NO RESPIRATORY DISTRESS, ON O2-2L NC, IV LINE ON RIGHT WRIST INFUSING NS AT 50 ML/HR, DRESSING CHANGED, ASSIST TURN AND REPOSTION Q 2 HR. PATIENT HAS A SOFT BILATERAL WRIST RESTRAIN CHECKED Q 2 HR FOR CIRCULATION, V/S STABLE, HOB KEEP ELEVATED. PATIENT ON MRSA OF NARES, CONTINUED MONITORING.
[2017-10-26 08:14] LABS: POTASSIUM 2.8 mmol/L (3.5-5.1)
[2017-10-26] MEDS: FLUCONAZOLE (100 MG) 100 MG TABLET PO SCH (09:59)
[2017-10-26] MEDS: DOCUSATE SODIUM LIQ 100 MG/10 ML UDC GT SCH (09:59)
[2017-10-26] MEDS: LACTOBACILLUS RHAMNOSUS GG 1 EACH CAP.SPRINK GT SCH ×2 (09:59→17:42)
[2017-10-26] MEDS: FLUDROCORTISONE 0.1 MG TABLET GT SCH (09:59)
[2017-10-26] MEDS: CARBIDOPA/LEVODOPA 25/100 MG 1 UDTAB GT SCH ×3 (09:59→17:42)
[2017-10-26] MEDS: MUPIROCIN OINT 2% 22 GM TUBE SCH ×2 (10:00→21:00)
[2017-10-26] MEDS: NEOMY SULF/BACITRAC ZN/POLY 15 GM TUBE TP SCH (10:00)
--- NOTE | 2017-10-26 12:00 | NUR ---
RN NOTES PATIENT STABLE AT THIS TIME, SCHEDULED MEDICATION GIVEN VIA NG TUBE, PATIENT TOLERATED WELL, ASSIST TURN AND REPOSTION Q 2 HR. CONTINUED MONITORING.
[2017-10-26] MEDS: POTASSIUM CHLORIDE 20 MEQ POWDER PACKET NG SCH ×2 (12:04→12:28)
[2017-10-26] MEDS: CEFTRIAXONE 1 G in IV D5W 50 ML IV SCH (15:57)
[2017-10-26 16:00] VITALS: BP 120/81
--- NOTE | 2017-10-26 17:00 | NUR ---
RN NOTES SCHEDULED MEDICATION ADMINISTERED, V/S STABLE CONCERT OR LECTURE HALL MANAGER FEEDING FIBERSOURCE 65 ML.HR, ALSO IV ON RIGHT WRIST INTACT, ASSIST TURN AND REPOSTION Q 2HR, CHECKED BILATERAL SOFT RESTRAIN FOR CIRCULATION Q 2 HR. CALL LIGHT WITHIN TO REACH, CONTINUED MONITORING.
--- NOTE | 2017-10-26 18:30 | NUR ---
RN NOTES PATIENT STABLE AT THIS TIME , NO RESPIRATORY DISTRESS, ENDORSED ONCOMING NURSE FOR JOE.
--- NOTE | 2017-10-26 19:30 | NUR ---
RN NOTES RECEIVED PATIENT IN BED AWAKE, NON-VERBAL, OPENS EYES SPONTANEOUSLY. NO ACUTE DISTRESS NOTED. NO SIGNS OF PAIN NOTED. IV SITE PATENT, INTACT; IVF INFUSING ORDERED. NGT PATENT, INTACT; IN PLACE VIA AUSCULTATION; FLUSHED. NO RESIDUAL ASPIRATED. ON LOW BED WITH BILATERAL UPPER SIDE RAILS UP. ON CONTACT ISOLATION FOR MRSA. WILL CONTINUE TO MONITOR.
[2017-10-26 20:00] VITALS: BP 146/84
[2017-10-26] MEDS: PANTOPRAZOLE 40 MG VIAL IV SCH (20:59)
[2017-10-26] MEDS: ENOXAPARIN SODIUM 40 MG/0.4 ML DISP.SYRIN SQ SCH (22:00)
[2017-10-27] MEDS: VANCOMYCIN 0.75 GM in IV D5W 250 ML IV SCH ×2 (04:18→17:57)
[2017-10-27] MEDS: FIBERSOURCE HN 1,000 ML BOTTLE GT PRN (04:31)
[2017-10-27] MEDS: VALPROATE 125 MG in IV D5W 100 ML IV SCH ×3 (05:50→20:45)
[2017-10-27 06:34] LABS: EOSINOPHILS # (AUTO) 0.3 /CMM (0.0-0.7); EOSINOPHILS % (AUTO) 4.1 % (0.0-6.0); HEMATOCRIT 26 % (33-45); HEMOGLOBIN 8.8 g/dL (11.5-14.8); LYMPHOCYTES # (AUTO) 1.5 /CMM (0.8-4.8); LYMPHOCYTES % (AUTO) 19.9 % (20.0-44.0); MEAN CORPUSCULAR HEMOGLOBIN 29 PG (26.0-33.0); MEAN CORPUSCULAR HGB CONC 34 g/dl (31.0-36.0); MEAN CORPUSCULAR VOLUME 85 fL (82-100); MONOCYTES # (AUTO) 0.4 /CMM (0.1-1.30); NEUTROPHILS # (AUTO) 5.2 /CMM (1.8-8.9); PLATELET COUNT (AUTO) 281 /CMM (150-450); RDW COEFFICIENT OF VARIATION 16.1 (11.5-15.0); RED BLOOD CELL COUNT(AUTO) 3.07 MIL/uL (4.0-5.2); WHITE BLOOD COUNT (AUTO) 7.3 K/uL (4.3-11.0)
[2017-10-27 06:47] LABS: CARBON DIOXIDE 33 mmol/L (21-32); CHLORIDE 100 mmol/L (98-107); CREATININE 0.5 mg/dL (0.6-1.3); GLUCOSE 172 mg/dL (74-106); MAGNESIUM 1.6 mg/dL (1.8-2.4); PHOSPHORUS 2.6 mg/dL (2.5-4.9); POTASSIUM 3.1 mmol/L (3.5-5.1); SODIUM SERUM 137 mmol/L (136-145); UREA NITROGEN, BLOOD 9 mg/dL (7-18)
[2017-10-27 06:56] LABS: CALCIUM, SERUM 8.2 mg/dL (8.5-10.1)
--- NOTE | 2017-10-27 07:02 | NUR ---
RN NOTES PATIENT ASLEEP, EASILY AROUSABLE. RESPIRATIONS EVEN. NO SIGNS OF PAIN NOTED. DUE MEDS GIVEN WITH NO ASE NOTED. NEEDS ATTENDED. SAFETY PRECAUTIONS AND COMFORT MEASURES IN PLACE. WILL GIVE REPORT TO DAY SHIFT FOR CONTINUITY OF CARE.
[2017-10-27 07:25] LABS: INR 1.12 (0.87-1.13)
[2017-10-27 08:00] VITALS: BP 147/74
--- NOTE | 2017-10-27 08:00 | NUR ---
RN NOTES RECEIVED PATIENT IN THE BED ON O2- 2LNC, NO ACUTE DISTRESS, NON VERBAL, TOTAL CARE, NG TUBE FEEDING FIBERSOURCE 65 ML/HR, IV LINE ON RIGHT WRIST AT 50 ML/HR, SCHEDULED MEDICATION ADMINISTERED, V/S STABLE, ASSIST TURN AND REPOSTION Q 2 HR. DRESSING CHANGED, CALL LIGHT WITHIN TO REACH, CONTINUED MONITORING.
[2017-10-27] MEDS: NEOMY SULF/BACITRAC ZN/POLY 15 GM TUBE TP SCH (10:50)
[2017-10-27] MEDS: Magnesium 1GM/D5W 100ML PREMIX 100 ML IV SCH ×2 (10:50→11:25)
[2017-10-27] MEDS: MUPIROCIN OINT 2% 22 GM TUBE SCH ×2 (10:50→20:46)
--- NOTE | 2017-10-27 11:00 | NUR ---
RN NOTES PATIENT STABLE AT THIS TIME, ASSIST TURN AND REPOSITION Q 2 HR, PATIENT TOLERATED NG TUBBING, HOB KEEP ELEVATED, PATIENT ASPIRATION PRECAUTION, CONTINUED MONITORING.
[2017-10-27] MEDS: LACTOBACILLUS RHAMNOSUS GG 1 EACH CAP.SPRINK GT SCH ×2 (11:24→16:41)
[2017-10-27] MEDS: DOCUSATE SODIUM LIQ 100 MG/10 ML UDC GT SCH (11:24)
[2017-10-27] MEDS: POTASSIUM CHLORIDE 20 MEQ POWDER PACKET GT SCH ×2 (11:24→11:28)
[2017-10-27] MEDS: FLUCONAZOLE (100 MG) 100 MG TABLET PO SCH (11:24)
[2017-10-27] MEDS: FLUDROCORTISONE 0.1 MG TABLET GT SCH (11:24)
[2017-10-27] MEDS: CARBIDOPA/LEVODOPA 25/100 MG 1 UDTAB GT SCH ×3 (11:24→16:41)
[2017-10-27] MEDS: IV NS 0.9% 1,000 ML IV PRN (11:40)
[2017-10-27] MEDS: CEFTRIAXONE 1 G in IV D5W 50 ML IV SCH (14:12)
--- NOTE | 2017-10-27 14:14 | NUR ---
as per MD and SUSHIL King, patient will require emergency PEG placement for feedings and nutrition.Currently patient is NPO,has NGT for temporary use. Public guardian Cytnhia Padron is out of office today. Spoke with Pola Brown [phone] duty worker covering , stated that the procedure is considered invasive and thus require court approval that usually takes months process. But if the procedure is considered emergent need, it wont need approval and hospital has to follow hospital protocol. Pola Brown at [facility] provided faxed copy of the policy for emergency medical treatment. Addendum: 10/27/17 at 1415 by SEAN JIM RN Amended: Links added.
[2017-10-27 16:00] VITALS: BP 115/74
--- NOTE | 2017-10-27 17:57 | NUR ---
RN NOTES PER PHARMACIST KHOI OH TO ADMINISTERED VANCOMYCIN 250 MG/ML IV DRIP AT THIS TIME. , VANCOMYCIN TROUGH WILL DONE TOMORROW BY LAB. CONTINUED MONITORING.
--- NOTE | 2017-10-27 18:51 | NUR ---
RN NOTES PATIENT IN THE BED, NO ACUTE RESPIRATORY DISTRESS, PATIENT ASPIRATION PRECAUTION, NG TUBE FEEDING TOLERATED WELL, HOB KEEP ELEVATED, INFUSING NS AT 50 ML/HR, NEEDS ATTENDED AND ANTICIPATED, ASSIST TURN AND REPOSTION Q 2 HR, CALL LIGHT WITHIN TO REACH, CONTINUED MONITORING. ENDORSED ONCOMING NURSE FOR JOE.
--- NOTE | 2017-10-27 19:34 | NUR ---
MS RN OPENING NOTES: RECEIVED PT IN BED IN SEMI MARROQUIN'S POSITION. PT ON 2LPM VIA NC. PT ON CONTACT ISOLATION WELL. PT HAS BILATERAL SOFT WRIST RESTRAINTS. PT HAS NGTUBE NOTED. PT TO BE RESUMED ON FIBERSOURCE AT 65ML/HR. PT HAS IV ON R WRIST #22G AND IS BEING INFUSED WITH NS AT 50ML/HR. BED ALARM ACTIVATED. CALL LIGHT WITHIN PT'S REACH. BED KEPT IN LOW, LOCKED POSITION, AND SIDE RAILS X 2UP. WILL CONTINUE TO MONITOR PT.
[2017-10-27 20:00] VITALS: BP 143/66
--- NOTE | 2017-10-27 20:03 | NUR ---
MS RN NOTES: DR. MANN AT BEDSIDE.
--- NOTE | 2017-10-27 20:43 | NUR ---
MS RN NOTES: PER ALTHEA SYED TO GIVE LOVENOX FOR TONIGHT.
[2017-10-27] MEDS: PANTOPRAZOLE 40 MG VIAL IV SCH (20:56)
[2017-10-27] MEDS: ENOXAPARIN SODIUM 40 MG/0.4 ML DISP.SYRIN SQ SCH (21:28)
[2017-10-27] MEDS: IPRATROPIUM NEB FS 0.5 MG/2.5 ML AMPUL.NEB NEB PRN (22:31)
[2017-10-27] MEDS: ALBUTEROL FS 2.5 MG/0.5 ML VIAL.NEB NEB PRN (22:31)
[2017-10-28] MEDS: VALPROATE 125 MG in IV D5W 100 ML IV SCH (04:02)
[2017-10-28] MEDS: VANCOMYCIN 0.75 GM in IV D5W 250 ML IV SCH (05:13)
[2017-10-28 05:40] LABS: CALCIUM, SERUM 9.1 mg/dL (8.5-10.1); CARBON DIOXIDE 30 mmol/L (21-32); CHLORIDE 99 mmol/L (98-107); CREATININE 0.5 mg/dL (0.6-1.3); GLUCOSE 133 mg/dL (74-106); MAGNESIUM 2.3 mg/dL (1.8-2.4); POTASSIUM 3.4 mmol/L (3.5-5.1); SODIUM SERUM 138 mmol/L (136-145); UREA NITROGEN, BLOOD 9 mg/dL (7-18)
--- NOTE | 2017-10-28 07:20 | NUR ---
RN NOTES PT IS SLEEPING IN BED WITH HOB ELEVATED. PT ON 2L O2, RESPIRATIONS ARE EVEN AND UNLABORED. IV ON R HAND INTACT AND RUNNING NS @ 50ML/HR. N-G TUBE IS IN PLACE, FEEDING HELD FOR POSSIBLE SURGERY. SAFETY MEASURES ARE IN PLACE, CALL LIGHT IS IN REACH. WILL CONTINUE TO MONITOR.
--- NOTE | 2017-10-28 07:32 | NUR ---
MS RN CLOSING NOTES: ALL NEEDS WERE ATTENDED AND ANTICIPATED FOR. PT NOTED WITH NG TUBE FEEDING. PT ON 2LPM VIA NC AND IS TOLERATING WELL. CONTACT ISOLATION PRECAUTIONS MADE. PT HAS BILATERAL SOFT WRIST RESTRAINTS. 2 HOUR CHECKS WERE PERFORMED. PT TURNED AND REPOSITIONED Q2HRS. WOUND TREATMENT PERFORMED ORDERED. PT HAS IV AND IS BEING INFUSED WITH NS AT 50ML/HR. BED ALARM ACTIVATED. CALL LIGHT WITHIN PT'S REACH. BED KEPT IN LOW, LOCKED POSITION, AND SIDE RAILS X 2UP. ENDORSED TO AM NURSE FOR JOE.
[2017-10-28 08:00] VITALS: BP 150/78
[2017-10-28] MEDS: DOCUSATE SODIUM LIQ 100 MG/10 ML UDC GT SCH (08:16)
[2017-10-28] MEDS: LACTOBACILLUS RHAMNOSUS GG 1 EACH CAP.SPRINK GT SCH ×2 (08:16→16:27)
[2017-10-28] MEDS: FLUCONAZOLE (100 MG) 100 MG TABLET PO SCH (08:17)
[2017-10-28] MEDS: CARBIDOPA/LEVODOPA 25/100 MG 1 UDTAB GT SCH ×3 (08:17→16:27)
[2017-10-28] MEDS: FLUDROCORTISONE 0.1 MG TABLET GT SCH (08:17)
[2017-10-28] MEDS: NEOMY SULF/BACITRAC ZN/POLY 15 GM TUBE TP SCH (08:26)
[2017-10-28] MEDS: MUPIROCIN OINT 2% 22 GM TUBE SCH ×2 (08:26→21:15)
--- NOTE | 2017-10-28 10:04 | NUR ---
RN NOTES SPOKE WITH ROGELIO HERNANDEZ NP ABOUT PEG PLACEMENT. POSSIBLE PLACEMENT FOR TOMORROW WITH DR. MANN. WILL FOLLOW UP
[2017-10-28] MEDS ORDERED: POTASSIUM CHLORIDE 20 MEQ POWDER PACKET GT SCH (12:00)
[2017-10-28] MEDS: VALPROIC ACID 250 MG/5 ML UDC GT SCH ×2 (12:02→21:15)
--- NOTE | 2017-10-28 13:00 | NUR ---
RN NOTES NG TUBE PLACEMENT CHECKED BY AUSCULTATION PRIOR TO ADMINISTERING MEDICATIONS THROUGH IT AND STARTING THE FEEDING.
[2017-10-28] MEDS: ALBUTEROL FS 2.5 MG/0.5 ML VIAL.NEB NEB PRN (13:09)
[2017-10-28] MEDS: IPRATROPIUM NEB FS 0.5 MG/2.5 ML AMPUL.NEB NEB PRN (13:10)
--- NOTE | 2017-10-28 14:00 | NUR ---
RN NOTES PT STOMA SITE WAS LEAKING FEEDING GIVEN. MAGDALENA TECHNICIAN SUBMARINE CABLE EQUIPMENT AND AUNDREA TECHNICIAN SUBMARINE CABLE EQUIPMENT WERE MADE AWARE. COLOSTOMY BAG WAS PLACED OVER STOMA SITE TO CONTROL LEAKING AND FEEDING WAS STOPPED.
[2017-10-28 16:00] VITALS: BP 132/68
[2017-10-28] MEDS: IV NS 0.9% 1,000 ML IV PRN (16:27)
--- NOTE | 2017-10-28 18:33 | NUR ---
RN NOTES PT IS SITTING UP IN BED, RESTING COMFORTABLY. PT ON 2L O2, RESPIRATIONS ARE EVEN AND UNLABORED. N-G TUBE PLACEMENT CHECKED THROUGHOUT THE DAY, PATENT. PT NPO PER AUNDREA FIRE SPRINKLER INSPECTOR DUE TO LEAKING STOMA. IV ON R HAND INTACT AND RUNNING NS @ 50ML/HR. BREATHING TX DONE PRN AND DEEP SUCTION WELL ORAL SUCTIONING. PT WAS KEPT CLEAN AND REPOSITIONED Q2HRS THROUGHOUT THE SHIFT. SOFT WRIST RESTRAINTS ARE ON, SKIN CHECKED AND NO SIGNS OF SKIN BREAKDOWN OR IRRITATION NOTED. STOMA COVERED WITH COLOSTOMY TO PREVENT LEAKING ONTO PT. SAFETY MEASURES ARE IN PLACE, CALL LIGHT IS IN REACH. WILL ENDORSE TO GEOGRAPHIC AREA INTELLIGENCE OFFICER RN FOR CONTINUITY OF CARE.
--- NOTE | 2017-10-28 19:00 | NUR ---
RN NOTES RECEIVE PT IN BED OPENS EYES, NON VERBAL, NO S/S OF DISTRESS, STABLE, SAFETY MEASURES IN PLACE, CALL LIGHT WITHIN REACH, WILL CONTINUE TO MONITOR.
[2017-10-28 20:00] VITALS: BP 148/76
[2017-10-28] MEDS: ENOXAPARIN SODIUM 40 MG/0.4 ML DISP.SYRIN SQ SCH (21:00)
[2017-10-28] MEDS: PANTOPRAZOLE 40 MG VIAL IV SCH (21:15)
--- NOTE | 2017-10-28 22:00 | NUR ---
NON ADMINISTRATION OF LOVENOX PER HOSPITALIST SPOKE TO SAAD LEGGETT, SUSHIL HOLD FOR TONIGHT'S DOSE. POSSIBLE PEG PLACEMENT TOMORROW 10/29/17
[2017-10-29] MEDS: VALPROIC ACID 250 MG/5 ML UDC GT SCH ×3 (04:58→21:10)
--- NOTE | 2017-10-29 05:24 | NUR ---
HOLD FOR NOW (NON ADMINISTRATION) OF VALPROIC ACID SCHEDULED AT 0500 TODAY PAGED HOSPITALIST SPOKE TO SAAD LEGGETT, SUSHIL POSSIBLE SURGERY TODAY PER SAAD HOLD MEDICATION NPO SURGERY
--- NOTE | 2017-10-29 06:18 | NUR ---
MS RN CLOSING NOTES PT ASLEEP IN BED AND EASILY AWAKEN, HEAD OF BED ELEVATED AT ALL TIMES FOR BETTER LUNG EXPANSION AND GOOD CIRCULATION ON 2LPM VIA NC 02 SAT AT 98% . AFEBRILE. NOT IN RESPIRATORY DISTRESS, STABLE, NURSING CARE RENDERED. NEEDS ATTENDED AND ANTICIPATED. KEPT CLEAN AND DRY AND COMFORTABLE. SOFT WRIST RESTRAINTS ARE ON, SKIN CHECKED AND NO SIGNS OF SKIN BREAKDOWN OR IRRITATION NOTED. STOMA COVERED WITH COLOSTOMY TO PREVENT LEAKING ONTO PT. ASSISTED REPOSITION PT Q2H. TREATMENT ORDERED. GOOD SKIN CARE PROVIDED. ON LOW BED TO ENSURE SAFETY, CALL LIGHT WITHIN REACH, WILL ENDORSE TO THE NEXT SHIFT CONTINUE PLAN OF CARE
[2017-10-29 07:22] LABS: BASOPHILS % (AUTO) 0.3 % (0.0-2.0); EOSINOPHILS # (AUTO) 0.3 /CMM (0.0-0.7); EOSINOPHILS % (AUTO) 3.5 % (0.0-6.0); HEMATOCRIT 31 % (33-45); HEMOGLOBIN 10.1 g/dL (11.5-14.8); LYMPHOCYTES # (AUTO) 1.4 /CMM (0.8-4.8); LYMPHOCYTES % (AUTO) 18.9 % (20.0-44.0); MEAN CORPUSCULAR HEMOGLOBIN 29 PG (26.0-33.0); MEAN CORPUSCULAR HGB CONC 33 g/dl (31.0-36.0); MEAN CORPUSCULAR VOLUME 86 fL (82-100); MONOCYTES # (AUTO) 0.5 /CMM (0.1-1.30); NEUTROPHILS # (AUTO) 5.4 /CMM (1.8-8.9); NEUTROPHILS % (AUTO) 71.3 % (43.0-81.0); PLATELET COUNT (AUTO) 330 /CMM (150-450); RDW COEFFICIENT OF VARIATION 15.9 (11.5-15.0); RED BLOOD CELL COUNT(AUTO) 3.57 MIL/uL (4.0-5.2); WHITE BLOOD COUNT (AUTO) 7.5 K/uL (4.3-11.0)
[2017-10-29 07:38] LABS: CARBON DIOXIDE 33 mmol/L (21-32); CHLORIDE 100 mmol/L (98-107); CREATININE 0.5 mg/dL (0.6-1.3); GLUCOSE 92 mg/dL (74-106); POTASSIUM 3.1 mmol/L (3.5-5.1); SODIUM SERUM 141 mmol/L (136-145); UREA NITROGEN, BLOOD 8 mg/dL (7-18)
--- NOTE | 2017-10-29 07:44 | NUR ---
MS/RN OPENING NOTE PATIENT IN BED IN STABLE CONDITION . A/O X 1, NO SIGNS OF ACUTE DISTRESS. NO COMPLAIN OF PAIN OR DISCOMFORT. ON ISOLATION FOR MRSA NARES AND WOUND. TOLERATING WELL. ON NG TUBE, NPO AT THIS TIME SECONDARY TO POSSIBLE PROCEDURE SCHEDULED TODAY AND ALSO NOTED FEEDING LEAKING FROM PREVIOUS G TUBE STOMA SITE. ALL NEEDS ATTENDED TO. CALL LIGHT WITHIN REACH. WILL CONTINUE TO MONITOR TO ENSURE SAFETY.
[2017-10-29 08:00] VITALS: BP 138/78
[2017-10-29] MEDS: MUPIROCIN OINT 2% 22 GM TUBE SCH ×2 (08:40→21:10)
[2017-10-29] MEDS: NEOMY SULF/BACITRAC ZN/POLY 15 GM TUBE TP SCH (08:40)
[2017-10-29] MEDS: LACTOBACILLUS RHAMNOSUS GG 1 EACH CAP.SPRINK GT SCH ×2 (08:47→16:22)
[2017-10-29] MEDS: FLUCONAZOLE (100 MG) 100 MG TABLET PO SCH (08:47)
[2017-10-29] MEDS: FLUDROCORTISONE 0.1 MG TABLET GT SCH (08:47)
[2017-10-29] MEDS: DOCUSATE SODIUM LIQ 100 MG/10 ML UDC GT SCH (08:47)
[2017-10-29] MEDS: CARBIDOPA/LEVODOPA 25/100 MG 1 UDTAB GT SCH ×3 (08:47→16:23)
--- NOTE | 2017-10-29 10:30 | NUR ---
MS/RN SPOKE WITH SUSHIL GUILLAUME SPOKE WITH SUSHIL GUILLAUME IN REGARDS IF PATIENT IS SCHEDULE TO HAVE G TUBE PLACEMENT AND MADE AWARE PATIENT NPO STATUS AT THIS TIME. PER SUSHIL GUILLAUME KEEP NPO AND PLACING G TUBE IS THE PLAN FOR TODAY, WILL UPDATE FOR FURTHER ORDERS.
[2017-10-29] MEDS: Potassium Chloride 10 MEQ in IV D5W 50 ML IV SCH ×4 (12:22→15:36)
[2017-10-29] MEDS: IV NS 0.9% 1,000 ML IV PRN (14:21)
[2017-10-29 16:00] VITALS: BP 139/69
[2017-10-29] MEDS ORDERED: ANESTHESIA TRAY IN PYXIS 1 EA TRAY MC ONE (17:53)
--- NOTE | 2017-10-29 18:50 | NUR ---
MS/RN CLOSING NOTE PATIENT IN BED IN STABLE CONDITION. A/O X 1, NON VERBAL, OPEN EYES. NO SIGNS OF ACUTE DISTRESS. NO COMPLAIN OF PAIN OR DISCOMFORT. NPO SECONDARY TO G TUBE REPLACEMENT PROCEDURE SCHEDULED. ALL NEEDS ATTENDED TO. CALL LIGHT WITHIN REACH. WILL ENDORSE TO NEXT SHIFT FOR CONTINUITY OF CARE.
[2017-10-29 20:00] VITALS: BP 141/69
--- NOTE | 2017-10-29 20:00 | NUR ---
MS RN NOTES RECEIVED ON BED SLEEPING,AROUSABLE TO VERBAL STIMULI.OPEN EYES,NON VERBAL,NGT IN PLACE,FEEDING ON HOLD,GOING FOR EGD WITH PEG PLACEMENT TOMORROW,THREE DOCTORS AGREED FOR THE PROCEDURES,DR SADIE SANTORO,ROGELIO HERNANDEZ ACNP, AND DR DIPAK SIMMS,[facility] PROTOCOL.WITH SEVEN POINT LETTERS AND EMERGENCY CONSENT PROCEDURES FROM DEPARTMENT OF HEALTH ON CHART.KEPT NPO ORDERED.ISOLATION PRECAUTION FOR MRSA NARES AND WOUND.PRESENT IVF NS AT 50ML/HR RATE IN PROGRESS ON THE RIGHT HAND VIA IV PUMP.REPOSITION PER PROTOCOL.WILL CONTINUE TO MONITOR STATUS.
[2017-10-29] MEDS: ENOXAPARIN SODIUM 40 MG/0.4 ML DISP.SYRIN SQ SCH (21:00)
[2017-10-29] MEDS: PANTOPRAZOLE 40 MG VIAL IV SCH (21:10)
[2017-10-30] MEDS: VALPROIC ACID 250 MG/5 ML UDC GT SCH ×3 (04:40→21:10)
[2017-10-30 06:30] LABS: CALCIUM, SERUM 9.3 mg/dL (8.5-10.1); CARBON DIOXIDE 34 mmol/L (21-32); CHLORIDE 101 mmol/L (98-107); CREATININE 0.5 mg/dL (0.6-1.3); GLUCOSE 78 mg/dL (74-106); POTASSIUM 3.6 mmol/L (3.5-5.1); SODIUM SERUM 143 mmol/L (136-145); UREA NITROGEN, BLOOD 10 mg/dL (7-18)
--- NOTE | 2017-10-30 07:21 | NUR ---
MS RN NOTES KEPT NPO ORDERED.NGT FEEDING HELD.IVF INFUSING.POSSIBLE EGD WITH PEG TODAY.IN NO ACUTE DISTRESS.ENDORSED TO AFSATU RN FOR JOE.
--- NOTE | 2017-10-30 07:22 | NUR ---
MS RN OPENING NOTES RECEIVED PT FROM NIGHTSHIFT NURSE IN STABLE CONDITION. PT IS OBTUNDENT. NO SOB OR SIGNS OF DISTRESS NOTED. BREATHING IS EVEN AND UNLABORED. PT IS ON 2 L VIA NC AND SATING WELL. NG TUBE NOTED. FEEDINGS HELD AT THIS TIME PT IS SCHEDULED FOR AND EGD AND PEG PLACEMENT LATER THIS AFTERNOON. IV TO RIGHT HAND NOTED TO BE PATENT AND INTACT. NO REDNESS OR SIGNS OF INFILTRATION NOTED. BED IN LOW LOCKED POSITION, SIDE RAILS UP X3, CALL LIGHT WITHIN REACH, BED ALARM ON. WILL CONTINUE TO MONITOR
[2017-10-30 08:00] VITALS: BP 140/85
[2017-10-30] MEDS: DOCUSATE SODIUM LIQ 100 MG/10 ML UDC GT SCH ×2 (08:06→10:39)
[2017-10-30] MEDS: LACTOBACILLUS RHAMNOSUS GG 1 EACH CAP.SPRINK GT SCH ×3 (08:06→17:18)
[2017-10-30] MEDS: CARBIDOPA/LEVODOPA 25/100 MG 1 UDTAB GT SCH ×4 (08:07→17:18)
[2017-10-30] MEDS: FLUDROCORTISONE 0.1 MG TABLET GT SCH ×2 (08:07→09:00)
[2017-10-30] MEDS: FLUCONAZOLE (100 MG) 100 MG TABLET PO SCH ×2 (08:07→10:39)
[2017-10-30] MEDS: MUPIROCIN OINT 2% 22 GM TUBE SCH ×2 (09:47→21:10)
[2017-10-30] MEDS: NEOMY SULF/BACITRAC ZN/POLY 15 GM TUBE TP SCH (09:47)
--- NOTE | 2017-10-30 10:12 | NUR ---
MS RN NOTES Hugo PAREDES CALLED TO INFORM THAT PT WILL NOT BE SCHEDULED FOR PEG PROCEDURE TODAY. IT WILL BE TOMORROW. WILL RESUME FEEDINGS AND MEDICATION ADMINISTRATION
--- NOTE | 2017-10-30 11:15 | NUR ---
MS RN NOTES PT'S TUBE FEEDINGS WERE DISCONTINUED. ROGELIO THE PROCESS ARTIST NOTIFIED AND GAVE TELEPHONE ORDER TO RESUME FIBERSOURCE @ 65ML/HR.
[2017-10-30] MEDS: FIBERSOURCE HN 1,000 ML BOTTLE GT PRN (12:45)
[2017-10-30 16:00] VITALS: BP 120/69
[2017-10-30] MEDS: IV NS 0.9% 1,000 ML IV PRN (17:19)
--- NOTE | 2017-10-30 18:43 | NUR ---
MS RN CLOSING NOTES PT REMAINS IN STABLE CONDITION. ALL NEEDS WERE ANTICIPATED FOR AND MET THROUGHOUT SHIFT. WOUND AND SKIN CARE WAS RENDERED ORDERED. ALL DUE MEDS GIVEN. TUBE FEEDINGS RESUMED PER MD ORDER. PT WILL BE NPO POST MIDNIGHT FOR EGD/PEG PLACEMENT TOMORROW. PT TOLERATED FEEDINGS WELL. NO RESIDUALS ASPIRATED AT THIS TIME AND NO EPISODES OF DIARRHEA. NG TUBE REMAINS IN PLACE, PATENT, AND INTACT. IV TO RIGHT FOREARM REMAINS PATENT AND INTACT. NO REDNESS OR SIGNS OF INFILTRATION NOTED. PT WAS REPOSITIONED AND TURNED Q2HRS PER PROTOCOL. BILATERAL SOFT WRIST RESTRAINTS REMAIN ON PT IS PULLING AT INVASIVE LINES. RESTRAINT PROTOCOL FOLLOWED THROUGHOUT SHIFT. SAFETY MEASURES REMAIN IN PLACE. WILL ENDORSE TO NIGHTSHIFT NURSE FOR JOE.
--- NOTE | 2017-10-30 19:40 | NUR ---
MS RN NOTES ON BED,OPEN EYES TO VERBAL STIMULI,NO VERBAL.NGT TUBE IN PLACE FOR FEEDING,PLANNED EGD WITH PEG CANCELLED TODAY,RE SCHEDULED FOR TOMORROW.NPO POST MIDNIGHT.ISOLATION PRECAUTION PRECAUTION FOR MRSA NARES AND WOUND,REPOSITION PER PROTOCOL,HOB ELEVATED FOR ASPIRATION PRECAUTION.CALL LIGHT IN REACH.WILL CONTINUE TO MONITOR STATUS.
[2017-10-30 20:00] VITALS: BP 126/63
[2017-10-30] MEDS: ENOXAPARIN SODIUM 40 MG/0.4 ML DISP.SYRIN SQ SCH (21:00)
[2017-10-30] MEDS: PANTOPRAZOLE 40 MG VIAL IV SCH (21:09)
--- NOTE | 2017-10-30 21:30 | NUR ---
MS RN NOTES REPOSITION TO LEFT SIDE,HOB ELEVATED.DUE DEPAKENE SYRUP 125MG/GT GIVEN.LOVENOX HELD,GOING FOR PEG PLACEMENT TOMORROW.
[2017-10-31] MEDS: VALPROIC ACID 250 MG/5 ML UDC GT SCH ×2 (05:00→12:08)
--- NOTE | 2017-10-31 06:24 | NUR ---
MS RN NOTES KEPT NPO FOR PEG PLACEMENT TODAY AROUND NOONTIME BY DR QUESADA.ORAL SUCTION NEEDED.REPOSITION PER PROTOCOL.CALL LIGHT IN REACH,NEEDS ATTENDED.WILL ENDORSE TO DAY NURSE FOR JOE.
--- NOTE | 2017-10-31 07:21 | NUR ---
MS RN OPENING NOTES RECEIVED PT FROM NIGHTSHIFT NURSE IN STABLE CONDITION. PT IS OBTUNDENT. NO SOB OR SIGNS OF DISTRESS NOTED. BREATHING IS EVEN AND UNLABORED. PT IS ON 3 L VIA NC AND SATING WELL. NG TUBE NOTED. FEEDINGS HELD AT THIS TIME PT IS SCHEDULED FOR AND EGD AND PEG PLACEMENT LATER AT 12:30. IV TO RIGHT FOREARM NOTED TO BE PATENT AND INTACT. NO REDNESS OR SIGNS OF INFILTRATION NOTED. BED IN LOW LOCKED POSITION, SIDE RAILS UP X3, CALL LIGHT WITHIN REACH, BED ALARM ON. WILL CONTINUE TO MONITOR
[2017-10-31 08:00] VITALS: BP 153/83
[2017-10-31] MEDS: CARBIDOPA/LEVODOPA 25/100 MG 1 UDTAB GT SCH ×3 (08:34→17:00)
[2017-10-31] MEDS: DOCUSATE SODIUM LIQ 100 MG/10 ML UDC GT SCH (08:34)
[2017-10-31] MEDS: FLUDROCORTISONE 0.1 MG TABLET GT SCH (08:34)
[2017-10-31] MEDS: LACTOBACILLUS RHAMNOSUS GG 1 EACH CAP.SPRINK GT SCH ×2 (08:34→17:00)
[2017-10-31] MEDS: FLUCONAZOLE (100 MG) 100 MG TABLET PO SCH (08:35)
[2017-10-31] MEDS: NEOMY SULF/BACITRAC ZN/POLY 15 GM TUBE TP SCH (09:31)
[2017-10-31] MEDS: MUPIROCIN OINT 2% 22 GM TUBE SCH ×2 (09:31→20:54)
--- NOTE | 2017-10-31 11:35 | NUR ---
MS RN NOTE OR NURSE CALLED AND STATED THE PT WILL BE PICKED UP AROUND 12:15 FOR SCHEDULED PROCEDURE. CONSENTS ARE COMPLETE, ALONG WITH SURGICAL CHECKLIST. PT STABLE AND READY FOR PROCEDURE
--- NOTE | 2017-10-31 13:03 | NUR ---
MS RN NOTES OR WAS CALLED IN REGARDS TO PT'S PROCEDURE IT IS NOW ALMOST AN HR PASSED THE SCHEDULED TIME. PER OR NURSE "DR GRANT HAD AN EMERGENCY CASE AND HAS RESCHEDULED THE PROCEDURE FOR 1430". MADE AWARE
--- NOTE | 2017-10-31 15:09 | NUR ---
MS RN NOTES OR CALLED AGAIN IN REGARDS TO PROCEDURE. PER OR NURSE "DR. GRANT HAS PUSHED BACK THE PROCEDURE TO 1530 NOW"
--- NOTE | 2017-10-31 15:59 | NUR ---
RN NOTES PT TAKEN TO OR IN STABLE CONDITION
[2017-10-31 17:12] VITALS: BP 126/74
--- NOTE | 2017-10-31 17:13 | NUR ---
MS RN NOTES PT BACK FROM PEG PROCEDURE IN STABLE CONDITION. ABDOMINAL BINDER NOTED TO KEEP PEG IN PLACE AND PREVENT PT FROM PULLING IT OUT. VITALS STABLE AT THIS TIME. PT IN NO DISTRESS. NO NEW ORDERS FROM DR. GRANT. ROGELIO THE MANAGER RFID MADE AWARE. PER ROGELIO "START FEEDINGS AND MEDICATION ADMINISTRATION 6 HRS POST OP". WILL INPUT MISCELLANEOUS ORDER FOR INCOMING NURSE.
[2017-10-31] MEDS: IV NS 0.9% 1,000 ML IV PRN (18:05)
--- NOTE | 2017-10-31 18:50 | NUR ---
MS RN CLOSING NOTES PT REMAINS IN STABLE CONDITION AFTER PROCEDURE. VITALS STABLE. ALL NEEDS WERE ANTICIPATED FOR AND MET THROUGHOUT SHIFT. WOUND AND SKIN CARE WAS RENDERED ORDERED. ALL DUE MEDS GIVEN. ABDOMINAL BINDER REMAINS IN PLACE. IV TO RIGHT FOREARM REMAINS PATENT AND INTACT. NO REDNESS OR SIGNS OF INFILTRATION NOTED. PT WAS REPOSITIONED AND TURNED Q2HRS PER PROTOCOL. BILATERAL SOFT WRIST RESTRAINTS REMAIN ON PT IS PULLING AT INVASIVE LINES. RESTRAINT PROTOCOL FOLLOWED THROUGHOUT SHIFT. SAFETY MEASURES REMAIN IN PLACE. WILL ENDORSE TO NIGHTSHIFT NURSE FOR JOE.
--- NOTE | 2017-10-31 19:50 | NUR ---
RN INITIAL NOTES: RECEIVED REPORT FROM AFSATU, PT S/P PEG PLACEMENT TODAY, GTUBE CURRENTLY CLAMPED, ABDOMEN SOFT TO TOUCH WITH ACTIVE BOWEL SOUND NOTED, ABDOMINAL BINDER IN PLACED, PATIENT AWAKE, NON VERBAL ON 3L VIA NC. RESPIRATION EVEN AND UNLABORED, IV ACCESS NOTED TO BE INFILTRATED WILL START NEW IV. BILATERAL SOFT WRIST RESTRAINT IN PLACED, NOTED WITH GOOD CAPILLARY, AND RADIAL PULSES PALPABLE AND INTACT, RESTRAINT PROTOCOL FOLLOWED, NO S/S OF IMPEDIMENT IN CIRCULATION NOTED. BLE OFFLOADED. SAFETY PRECAUTIONS FOR FALL INITIATED, CALL LIGHT IN REACH, WILL CONTINUE TO MONITOR
[2017-10-31 20:00] VITALS: BP 131/82
[2017-10-31] MEDS: PANTOPRAZOLE 40 MG VIAL IV SCH (20:54)
[2017-10-31] MEDS: ENOXAPARIN SODIUM 40 MG/0.4 ML DISP.SYRIN SQ SCH (21:01)
[2017-11-01] MEDS: VALPROIC ACID 250 MG/5 ML UDC GT SCH ×3 (00:31→13:07)
--- NOTE | 2017-11-01 00:32 | NUR ---
LATE ADMIN OF DEPAKENE: PT S/P PEG PLACEMENT WITH ORDER FROM MD TO RESUME EMERGENCY MEDICAL TECHNICIAN/DRIVER VIA PEG 6HRS POST OP,
--- NOTE | 2017-11-01 04:00 | NUR ---
AM CARE/WOUND CARE: BED BATH PROVIDED TO THE PT, WOUND CARE DONE ORDERED
[2017-11-01] MEDS: FIBERSOURCE HN 1,000 ML BOTTLE GT PRN (04:51)
--- NOTE | 2017-11-01 04:52 | NUR ---
RN NOTES: RESTARTED GTUBE FEEDING, FIBERSOURCE AT 30CC/HR, NO RESIDUAL OBTAINED PRIOR TO ADMINISTRATION OF FEEDING, ABDOMEN SOFT TOT OUCH WITH ACTIVE BOWEL SOUND NOTED, NO BLEEDING ON GTUBE SITE, WILL INCREASE AT DESIRED RATE WHEN PT TOLERATED GTUBE FEEDS, GOAL IS 65ML/HR.
--- NOTE | 2017-11-01 05:02 | NUR ---
NON ADMIN OF DEPAKENE FOR 0500AM: DEPAKENE NOT ADMINISTERED AT THIS TIME, LAST DEPAKENE ADMINISTERED AT 0000MN,PT S/P PEG AND OKAY TO CONTINUE MEDS 6HRS AFTER PROCEDURE, MEDS IS Q8HRS, NEXT DUE SHOULD BE 0800AM, WILL RELAY TO PHARMACY
[2017-11-01 06:26] LABS: BASOPHILS % (AUTO) 0.2 % (0.0-2.0); EOSINOPHILS # (AUTO) 0.1 /CMM (0.0-0.7); EOSINOPHILS % (AUTO) 1.3 % (0.0-6.0); HEMATOCRIT 30 % (33-45); HEMOGLOBIN 10.1 g/dL (11.5-14.8); LYMPHOCYTES # (AUTO) 1.5 /CMM (0.8-4.8); LYMPHOCYTES % (AUTO) 22.3 % (20.0-44.0); MEAN CORPUSCULAR HEMOGLOBIN 28 PG (26.0-33.0); MEAN CORPUSCULAR HGB CONC 33 g/dl (31.0-36.0); MEAN CORPUSCULAR VOLUME 85 fL (82-100); MONOCYTES # (AUTO) 0.4 /CMM (0.1-1.30); MONOCYTES % (AUTO) 5.7 % (2.0-12.0); NEUTROPHILS # (AUTO) 4.8 /CMM (1.8-8.9); NEUTROPHILS % (AUTO) 70.5 % (43.0-81.0); PLATELET COUNT (AUTO) 329 /CMM (150-450); RDW COEFFICIENT OF VARIATION 15.8 (11.5-15.0); RED BLOOD CELL COUNT(AUTO) 3.55 MIL/uL (4.0-5.2); WHITE BLOOD COUNT (AUTO) 6.8 K/uL (4.3-11.0)
--- NOTE | 2017-11-01 06:42 | NUR ---
RN CLOSING NOTES: PT PEG REMAINS PATENT AND FLUSHING WELL, INFUSING WITH FIBERSOURCE AT 30ML/HR, NO RESIDUAL NOTED SO FAR, WILL INCREASE RATE AT 65ML/HR (GOAL) ONCE PT TOLERATED FEEDING, ABDOMEN SOFT TO TOUCH WITH ACTIVE BOWEL SOUND NOTED, ABDOMINAL BINDER IN PLACED, PATIENT AWAKE, NON VERBAL ON 3L VIA NC. RESPIRATION EVEN AND UNLABORED, IV ACCESS REMAINS INFUSING WITH NS AT 50ML/HR. BILATERAL SOFT WRIST RESTRAINT IN PLACED, NOTED WITH GOOD CAPILLARY, AND RADIAL PULSES PALPABLE AND INTACT, RESTRAINT PROTOCOL FOLLOWED, NO S/S OF IMPEDIMENT IN CIRCULATION NOTED. BLE OFFLOADED. SAFETY PRECAUTIONS FOR FALL INITIATED, CALL LIGHT IN REACH, VS REMAINS STABLE, NEEDS ATTENDED, WILL ENDORSE TO DAY RN FOR JOE.
[2017-11-01 06:49] LABS: CALCIUM, SERUM 8.6 mg/dL (8.5-10.1); CARBON DIOXIDE 33 mmol/L (21-32); CHLORIDE 101 mmol/L (98-107); CREATININE 0.5 mg/dL (0.6-1.3); GLUCOSE 81 mg/dL (74-106); MAGNESIUM 1.6 mg/dL (1.8-2.4); SODIUM SERUM 144 mmol/L (136-145); UREA NITROGEN, BLOOD 7 mg/dL (7-18)
[2017-11-01 06:57] LABS: POTASSIUM 2.7 mmol/L (3.5-5.1)
--- NOTE | 2017-11-01 07:00 | NUR ---
CRITICAL LAB K 2.7: RECEIVED CRITICAL LAB RESULT FOR K 2.7, REPORTED BY JOSIAS FROM LAB, CONTACTED [facility] FIBERGLASS TUBE MOLDER, AWAITING FOR CALLBACK
--- NOTE | 2017-11-01 07:15 | NUR ---
REPORT RECEIVED AT THE BEDSIDE. PATIENT IS SLEEPING. NO SOB OR DISTRESS NOTED AT THIS TIME. PATIENT DOES NOT APPEAR TO BE IN PAIN, NO FACIAL GRIMACE NOTED. BED IN A LOW POSITION, CALL LIGHT WITHIN PATIENT REACH. WILL CONTINUE TO MONITOR. Addendum: 11/01/17 at 0744 by JAVON MATTHEWS RN NICHOLE MERCADO NP TO REPORT CRITICAL LAB VALUE. WAITING FOR RETURN CALL.
[2017-11-01 08:00] VITALS: BP 128/72
--- NOTE | 2017-11-01 08:10 | NUR ---
SPOKE TO SUSHIL MERCADO, VIA PHONE AND INFORMED HER OF MAG AND POTASSIUM VALUES. SUSHIL STATES TO GIVE 60 OF POTASSIUM VIA GTUBE AND 3G MAG IV. ORDERS PLACED, WILL CARRY OUT.
[2017-11-01] MEDS ORDERED: POTASSIUM CHLORIDE 20 MEQ TAB.PRT.SR PO ONE (08:30)
[2017-11-01] MEDS: Magnesium 1GM/D5W 100ML PREMIX 100 ML IV SCH ×3 (08:32→10:59)
[2017-11-01] MEDS: LACTOBACILLUS RHAMNOSUS GG 1 EACH CAP.SPRINK GT SCH ×2 (08:33→17:07)
[2017-11-01] MEDS: FLUCONAZOLE (100 MG) 100 MG TABLET PO SCH (08:33)
[2017-11-01] MEDS: DOCUSATE SODIUM LIQ 100 MG/10 ML UDC GT SCH (08:33)
[2017-11-01] MEDS: CARBIDOPA/LEVODOPA 25/100 MG 1 UDTAB GT SCH ×3 (08:33→17:07)
[2017-11-01] MEDS: FLUDROCORTISONE 0.1 MG TABLET GT SCH (08:33)
[2017-11-01] MEDS: MUPIROCIN OINT 2% 22 GM TUBE SCH (08:34)
[2017-11-01] MEDS: NEOMY SULF/BACITRAC ZN/POLY 15 GM TUBE TP SCH (08:34)
[2017-11-01] MEDS ORDERED: LACT1CAP72 GT (13:33)
[2017-11-01] MEDS ORDERED: Fibersource Hn GT (13:33)
[2017-11-01] MEDS ORDERED: NEOM15OI3 TP (13:33)
[2017-11-01] MEDS ORDERED: VALP250S22 GT (13:33)
--- NOTE | 2017-11-01 13:46 | NUR ---
CALLED ROGELIO AND INFORMED HER THAT THE RESIDUAL CHECK, TWO HOURS POST INCREASE OF FEEDING FROM 40 TO 50 ML/HR, IS 120ML. FIELD SALES SPECIALIST STATES TO RETURN THE CONTENTS AND CONTINUE THE FEEDING SHE WILL ADD REGLAN TO THE PATIENT'S MEDICATIONS.
[2017-11-01] MEDS ORDERED: METO10TA3 PO (15:17)
[2017-11-01 16:00] VITALS: BP 148/76
[2017-11-01] MEDS ORDERED: METOCLOPRAMIDE HCL 10 MG TABLET PO SCH (18:00)
--- NOTE | 2017-11-01 18:40 | NUR ---
DISCHARGE REPORT CALLED TO [facility], MARIAA BERNAL. BELONGINGS LIST CHECKED AND NO BELONGINGS. PAPERWORK SIGNED BY TWO RNS. INFORMED GABE OF PATIENT CONDITION, WOUNDS, AND MEDICATION. GTUBE FLUSHED AND CLAMPED FOR TRANSPORT. IV REMOVED AND PRESSURE APPLIED, NO BLEEDING NOTED AT THE SITE. PNEUMONIA SHOT GIVEN IN 2014. COUND NOT CONFIRM PATIENT FLU VACCINATION STATUS. PATIENT LEFT IN STABLE CONDITION, VIA AMBULANCE. NO SOB OR DISTRESS NOTED.
== END 2017-11-01 18:30 | DRG 393 ==
LOC: ER 09:39 → MEDSG2 13:33
PROC: 3E0G76Z Introduction of Nutritional Substance into Upper GI, Via Natural or Artificial Opening (ICD-10-PCS; 2017-10-31)
PROC: 0DH63UZ Insertion of Feeding Device into Stomach, Percutaneous Approach (ICD-10-PCS; principal; 2017-10-31 12:30)
DX: K94.22 Gastrostomy infection (principal); R53.2 Functional quadriplegia; R65.20 Severe sepsis without septic shock; A41.9 Sepsis, unspecified organism; G93.41 Metabolic encephalopathy; K31.6 Fistula of stomach and duodenum; L89.229 Pressure ulcer of left hip, unspecified stage; E44.0 Moderate protein-calorie malnutrition; E87.2 Acidosis; G81.91 Hemiplegia, unspecified affecting right dominant side; L03.311 Cellulitis of abdominal wall; D68.59 Other primary thrombophilia; N39.0 Urinary tract infection, site not specified; F05 Delirium due to known physiological condition; G20 Parkinson's disease; F02.80 Dementia in other diseases classified elsewhere, unspecified severity, without behavioral disturbance, psychotic disturbance, mood disturbance, and anxiety; E03.9 Hypothyroidism, unspecified; D63.8 Anemia in other chronic diseases classified elsewhere; E78.5 Hyperlipidemia, unspecified; E87.6 Hypokalemia; I10 Essential (primary) hypertension; R13.10 Dysphagia, unspecified; Z86.73 Personal history of transient ischemic attack (TIA), and cerebral infarction without residual deficits; Z88.5 Allergy status to narcotic agent; F20.9 Schizophrenia, unspecified; Z79.899 Other long term (current) drug therapy; Z73.6 Limitation of activities due to disability; M24.571 Contracture, right ankle; L89.892 Pressure ulcer of other site, stage 2; Y83.3 Surgical operation with formation of external stoma as the cause of abnormal reaction of the patient, or of later complication, without mention of misadventure at the time of the procedure; Y82.9 Unspecified medical devices associated with adverse incidents; Y92.129 Unspecified place in nursing home as the place of occurrence of the external cause; X83.8XXA Intentional self-harm by other specified means, initial encounter; L98.9 Disorder of the skin and subcutaneous tissue, unspecified; Z22.322 Carrier or suspected carrier of Methicillin resistant Staphylococcus aureus; B37.2 Candidiasis of skin and nail; B96.4 Proteus (mirabilis) (morganii) as the cause of diseases classified elsewhere
CPT/HCPCS: 36415; 71045-TC; 80048-TC; 80061-TC; 80076-TC; 80164-TC; 80202-TC; 81000-TC; 83605-TC; 83735-TC; 84100-TC; 85025-TC; 85730-TC; 86850-TC; 87040-TC; 87070-TC; 87081-TC; 87086-TC; 87186-TC; 94799-TC; A4606; A6253; A6402; A6403; C9113; J0696; J1650; J3370; J3475; J3480; J3490; J7030; J7060; J8597; Z7610

== ENCOUNTER 2017-11-10 10:53 | Inpatient (IN) | payer MEDICARE, OTHER ==
[~2017-11-10] VITALS: Ht 152.4 cm; Wt 54.9 kg
[2017-11-10] VITALS (19 sets, daily range): BP systolic 80–122; BP diastolic 45–80
[~2017-11-10 10:53] MED LIST changes: -BISA10SU61 RC; -CEPH-570 PO; -CHLO15MO2 MM; +CRAN450T3 GT; +Fibersource Hn GT; +LACT1CAP72 GT; -MAGN400O6 GT; +METO10TA3 PO; -NA P133E RC; +NEOM15OI3 TP; +VALP250S22 GT
[2017-11-10] MEDS ORDERED: ROCURONIUM BROMIDE 50 MG/5 ML IV ONE (10:55)
[2017-11-10] MEDS ORDERED: ETOMIDATE 2 MG/ML VIAL IV ONE (10:55)
--- NOTE | 2017-11-10 11:00 | NUR ---
ASSUME PT CARE. BIBRA FROM SNF TO ER BED 15. PER REPORT, ACUTE RESPIRATORY DISTRESS PROGRESSIVELY GETTING WORST SINCE THIS MORNING. PT IS ON A NON REBREATHER AT 15L/MIN EXERCISE PHYSIOLOGIST SATTING AT LOW 80'S. GOWNED AND PLACED ON MONITOR. AWAITING MD CHING.
--- NOTE | 2017-11-10 11:10 | NUR ---
PT CODED, DR SOMERS AT BEDSIDE. CPR INITIATED. 1113- EPI GIVEN 1113- PT INTUBATED, USING ET 7.0, 25 AT THE LIP, POSITIVE COLOR CHANGE ON THE CAPNOMETER. EQUAL CHEST RISE AND FALL NOTED.
--- NOTE | 2017-11-10 11:12 | NUR ---
SEE CODE BLUE SHEET
[2017-11-10] MEDS ORDERED: MIDAZOLAM HCL 5 MG/5ML VIAL ONE (11:21)
[2017-11-10] MEDS ORDERED: VANCOMYCIN 1 GM in IV D5W 250 ML IV ONE (11:30)
[2017-11-10] MEDS ORDERED: PIPERACILLIN /TAZOBACTAM 3.375 G in IV D5W 50 ML IV ONE (11:30)
[2017-11-10] MEDS ORDERED: IV NS 0.9% 1,000 ML BAG IV ONE (11:30)
--- NOTE | 2017-11-10 11:38 | NUR ---
RADIOLOGY AT BEDSIDE FOR CHEST XRAY.
[2017-11-10 11:39] LABS: BASOPHILS # (AUTO) 0.1 /CMM (0.0-0.2); BASOPHILS % (AUTO) 0.4 % (0.0-2.0); EOSINOPHILS % (AUTO) 0.5 % (0.0-6.0); HEMATOCRIT 28 % (33-45); HEMOGLOBIN 9.4 g/dL (11.5-14.8); LYMPHOCYTES # (AUTO) 3.6 /CMM (0.8-4.8); LYMPHOCYTES % (AUTO) 22.3 % (20.0-44.0); MEAN CORPUSCULAR HGB CONC 33 g/dl (31.0-36.0); MEAN CORPUSCULAR VOLUME 84 fL (82-100); MONOCYTES # (AUTO) 0.7 /CMM (0.1-1.30); MONOCYTES % (AUTO) 4.5 % (2.0-12.0); NEUTROPHILS # (AUTO) 11.6 /CMM (1.8-8.9); NEUTROPHILS % (AUTO) 72.3 % (43.0-81.0); PLATELET COUNT (AUTO) 415 /CMM (150-450); RDW COEFFICIENT OF VARIATION 15.4 (11.5-15.0); RED BLOOD CELL COUNT(AUTO) 3.35 MIL/uL (4.0-5.2); WHITE BLOOD COUNT (AUTO) 16.1 K/uL (4.3-11.0)
[2017-11-10 11:51] LABS: CALCIUM, SERUM 8.7 mg/dL (8.5-10.1); CARBON DIOXIDE 26 mmol/L (21-32); CHLORIDE 101 mmol/L (98-107); CREATININE 0.9 mg/dL (0.6-1.3); GLUCOSE 257 mg/dL (74-106); POTASSIUM 3.6 mmol/L (3.5-5.1); SODIUM SERUM 139 mmol/L (136-145); UREA NITROGEN, BLOOD 21 mg/dL (7-18)
[2017-11-10 11:55] LABS: APPEARANCE,URINE Cloudy (CLEAR); BILIRUBIN,URINE Negative (NEGATIVE); BLOOD, URINE Moderate Ery/uL (NEGATIVE); COLOR,URINE Yellow (YELLOW); KETONES,URINE Negative (NEGATIVE); LEUKOCYTE ESTERASE ,URINE Large (NEGATIVE); NITRITE, URINE Positive (NEGATIVE); PROTEIN,URINE 100 mg/dl (NEGATIVE); UGLUCOSE Negative (NEGATIVE)
[2017-11-10 11:56] LABS: INR 1.09 (0.85-1.15)
[2017-11-10 11:57] LABS: ALANINE AMINOTRANSFERASE 20 U/L (12-78); ALBUMIN 2.3 g/dL (3.4-5.0); ALKALINE PHOSPHATASE 70 U/L (46-116); ASPARTATE AMINOTRANSFERASE 137 U/L (15-37); BILIRUBIN,DIRECT 0.1 mg/dL (0.0-0.2); BILIRUBIN,TOTAL 0.3 mg/dL (0.2-1.0); TOTAL PROTEIN, SERUM 7.5 g/dL (6.4-8.2)
[2017-11-10] MEDS ORDERED: VALP250S3 GT (11:58)
[2017-11-10] MEDS ORDERED: METO-295 GT (11:58)
[2017-11-10] MEDS ORDERED: SACC250C PO (11:58)
[2017-11-10] MEDS ORDERED: MAGN400O6 GT (11:58)
[2017-11-10 11:59] LABS: TROPONIN I < 0.017 ng/mL (0.00-0.056)
[2017-11-10] MEDS ORDERED: BISA10SU8 RC (11:59)
[2017-11-10] MEDS ORDERED: NA P133E RC (11:59)
[2017-11-10] MEDS ORDERED: PROPOFOL 100 ML IV PRN ×2 (12:00→16:30)
[2017-11-10 12:08] LABS: BACTERIA,URINE Many /HPF (None Seen); SQUAMOUS EPITHELIAL CELL,UR Many /HPF (None Seen); WBC,URINE TOO NUMEROUS TO COUN /HPF (0-3)
--- NOTE | 2017-11-10 12:11 | NUR ---
Ivelisse salgado in [facility] - 11/10/17 at 1213 by HEYDI ET CANDELARIO ADJUSTED 27 TO THE LIP.
--- NOTE | 2017-11-10 12:13 | NUR ---
ET TUBE ADJUSTED. 23 TO THE LIP.
[2017-11-10] MEDS ORDERED: PROPOFOL 100 ML ONE (12:17)
--- NOTE | 2017-11-10 12:21 | NUR ---
RT NOTE PT INTUBATED PER MD ORDER. 7.0 ETT 23 CM @ LIP. SETTINGS FOLLOW AC 16 400 +5. ALARMS SET PER PROTOCOL AND AUDIBLE. VENT PLUGGED IN TO RED OUTLET. AMBU BAG AT BED SIDE. Addendum: 11/10/17 at 1223 by MIGDALIA UREÑA RT Amended: Links added.
--- NOTE | 2017-11-10 12:24 | NUR ---
[id number]
--- NOTE | 2017-11-10 12:47 | NUR ---
REPORT GIVEN TO NICK LEROY. PPT AWAITING TRANSFER TO FLOOR.
--- NOTE | 2017-11-10 13:08 | NUR ---
PT TAKEN TO RADIOLOGY FOR HEAD CT SCAN.
[2017-11-10] MEDS ORDERED: MIDAZOLAM HCL 2 MG/2ML VIAL IV ONE (13:30)
--- NOTE | 2017-11-10 14:07 | NUR ---
PT TRANSFERED TO ICU. STABLE GUARDED.
--- NOTE | 2017-11-10 14:30 | NUR ---
ICU/RN: Pt received, intubated with ETT 7.0 at 23cm lip line, tolerating current vent settings, sedated, opens eyes to tactile stimuli, unable to follow commands. Pt reaching for ETT and lines. Bilat lower ext weakness noted, L leg contracted. For full assessment, refer to flowsheet. IV HL patent, flushed. FC draining min urine to gravity. Alarm sounds audible. Will cont to monitor pt.
--- NOTE | 2017-11-10 15:18 | NUR ---
PATIENT REC'D TRANSFER FROM ER, ORALLY INTUBATED WITH A 7.0 ETT SECURED AT 22CM MID LIP VIA ANCHOR FAST. VENT SETTINGS SET PER MD ORDER SERENITY WELL. FIO2 TITRATED TO 50% RN AWARE. VENT ALARMS CHECKED + AUDIBLE. CUFF PRESSURE CHECKED FLOUR WORKER. SUCTIONED AIRWAY WITH SMALL MEDINA SEMITHICK SECRETIONS. AMBU BAG AT [facility]. PATIENT SEDATED AND IN NO DISTRESS AT THIS TIME. Addendum: 11/10/17 at 1520 by SUSAN LACKEY RT Amended: Links added.
[2017-11-10] MEDS ORDERED: METOCLOPRAMIDE HCL 10 MG/10 ML UDC GT PRN (16:30)
[2017-11-10] MEDS ORDERED: ONDANSETRON 4 MG TAB.RAPDIS GT PRN (17:00)
[2017-11-10] MEDS ORDERED: ONDANSETRON 4 MG TAB.RAPDIS PO PRN (17:00)
[2017-11-10] MEDS: CARBIDOPA/LEVODOPA 25/100 MG 1 UDTAB GT SCH (17:01)
[2017-11-10] MEDS: PROPOFOL 100 ML IV PRN (17:02)
[2017-11-10] MEDS: ENOXAPARIN SODIUM 40 MG/0.4 ML DISP.SYRIN SQ SCH (17:02)
[2017-11-10] MEDS ORDERED: IV NS 0.9% 500 ML BAG IV ONE (17:30)
[2017-11-10] MEDS ORDERED: NOREPINEPHRINE 8 MG in IV D5W 500 ML IV PRN (17:30)
--- NOTE | 2017-11-10 17:30 | NUR ---
ICU/RN: Pt noted with gradual drop in SBP from 100's to 80's, Kj Bedolla, SECURITY PATROL DRIVER notified with orders to give NS 500 ml bolus x1, and to start levophed if bolus ineffective. Improvement in SBP noted in 100's upon reassessment. air surveillance operator updated.
[2017-11-10] MEDS ORDERED: FEE PK DOSING 1 MIN EA MC ONE (17:59)
[2017-11-10] MEDS ORDERED: IV NS 0.9% 500 ML IV ONE (18:00)
[2017-11-10 18:20] LABS: ABG BASE EXCESS 2.9 mmol/L; ABG OXYGEN SATURATION 99.1 % (92.0-98.5); ABG PCO2 38.5 mmHg (35.0-45.0); ABG PH 7.462 (7.350-7.450); AaDO2 125.2 mmHg; MetHb 0.3 % (0.0-1.5); O2Hb 97.8 % (94.0-97.0); PEEP,BG 5 cm H2O; SITE, ABG Right Radial; VENT MODE, BG AC 16 400 50% +5; VT, ABG 400 mL
[2017-11-10] MEDS: IV NS 0.9% 1,000 ML IV PRN (18:42)
--- NOTE | 2017-11-10 19:17 | NUR ---
ICU/RN: Pt remains in stable condition, no distress noted, awaiting delivery of TF. Bedside report given to Maura LEROY for JOE.
--- NOTE | 2017-11-10 19:20 | NUR ---
RN NOTES PT RESTING ON BED. WITH ETT @ LIP CONNECTED TO VENT SETTING AC 16 TV 400 FIO2 40% PEEP 5 TOLERATED WELL NO ACUTE RESP DISTRESS. SR HR 63 ON TELE MONITOR. SATING 100% IV SITE ON LH G 20 WITH DIPRIVAN @ 5 MCG/KG/MIN, RAC G 18 RUNNING WITH NS @ 75 CC/HR AND RIGHT WRIST G 22 INTACT AND PATENT. WITH GT INTACT PATENCY CHECKED NO RESIDUAL PRESENT. . WITH GALINDO CATH DRAINED VIA GRAVITY WITH YELLOW COLOR URINE. BILATERAL WRIST RESTRAINT KEPT ON CIRCULATION CHECKED. WITH 2 FINGERS SPACE NO BRUISES. OFFLOADED EXT WITH PILLOWS. LATEST SBP 115. KEPT PT CLEAN AND COMFORTABLE IN BED. REPOSITIONED FOR SKIN MANAGEMENT PT COMFORTABLE. WILL CLOSELY MONITOR.
[2017-11-10] MEDS: ZOSYN IVPB 2.25 G in IV D5W 50ml IV SCH (20:50)
[2017-11-10] MEDS: VALPROIC ACID 250 MG/5 ML UDC GT SCH (20:52)
[2017-11-10] MEDS ORDERED: PIPERACILLIN /TAZOBACTAM 3.375 G in IV D5W 100 ML IV SCH (21:00)
[2017-11-10] MEDS: FIBERSOURCE HN 1,000 ML BOTTLE GT PRN (21:41)
[2017-11-11] VITALS (37 sets, daily range): BP systolic 86–127; BP diastolic 46–84
[2017-11-11] MEDS: VANCOMYCIN 0.75 GM in IV NS 0.9% 250 ML IV SCH ×2 (01:03→15:12)
[2017-11-11] MEDS: ZOSYN IVPB 2.25 G in IV D5W 50ml IV SCH ×4 (02:08→20:29)
[2017-11-11] MEDS: IV NS 0.9% 1,000 ML IV PRN ×2 (04:05→17:18)
[2017-11-11 05:05] LABS: BASOPHILS % (AUTO) 0.2 % (0.0-2.0); EOSINOPHILS % (AUTO) 1.2 % (0.0-6.0); HEMATOCRIT 23 % (33-45); HEMOGLOBIN 7.6 g/dL (11.5-14.8); LYMPHOCYTES # (AUTO) 1.2 /CMM (0.8-4.8); LYMPHOCYTES % (AUTO) 16.6 % (20.0-44.0); MEAN CORPUSCULAR HGB CONC 33 g/dl (31.0-36.0); MEAN CORPUSCULAR VOLUME 85 fL (82-100); MONOCYTES # (AUTO) 0.7 /CMM (0.1-1.30); MONOCYTES % (AUTO) 9.3 % (2.0-12.0); NEUTROPHILS # (AUTO) 5.4 /CMM (1.8-8.9); NEUTROPHILS % (AUTO) 72.7 % (43.0-81.0); PLATELET COUNT (AUTO) 240 /CMM (150-450); RDW COEFFICIENT OF VARIATION 16.6 (11.5-15.0); RED BLOOD CELL COUNT(AUTO) 2.72 MIL/uL (4.0-5.2); WHITE BLOOD COUNT (AUTO) 7.4 K/uL (4.3-11.0)
[2017-11-11] MEDS: VALPROIC ACID 250 MG/5 ML UDC GT SCH ×3 (05:16→20:29)
[2017-11-11 05:36] LABS: CHOLESTEROL 82 mg/dL (<200); HDL CHOLESTEROL 31 mg/dL (40-60); LDL 49 mg/dL (0-99); THYROID STIMULATING HORMONE 1.173 uIU/mL (0.358-3.74); TRIGLYCERIDES 68 mg/dL (30-150)
[2017-11-11 05:38] LABS: ALANINE AMINOTRANSFERASE 29 U/L (12-78); ALBUMIN 1.9 g/dL (3.4-5.0); ALKALINE PHOSPHATASE 56 U/L (46-116); ASPARTATE AMINOTRANSFERASE 76 U/L (15-37); BILIRUBIN,TOTAL 0.4 mg/dL (0.2-1.0); CARBON DIOXIDE 29 mmol/L (21-32); CHLORIDE 105 mmol/L (98-107); CREATININE 0.6 mg/dL (0.6-1.3); GLUCOSE 94 mg/dL (74-106); MAGNESIUM 1.9 mg/dL (1.8-2.4); PHOSPHORUS 2.7 mg/dL (2.5-4.9); POTASSIUM 3.1 mmol/L (3.5-5.1); SODIUM SERUM 140 mmol/L (136-145); TOTAL PROTEIN, SERUM 6.1 g/dL (6.4-8.2); UREA NITROGEN, BLOOD 23 mg/dL (7-18)
[2017-11-11] MEDS: PROPOFOL 100 ML IV PRN ×2 (06:42→17:17)
--- NOTE | 2017-11-11 07:10 | NUR ---
RN NOTES PT STILL ON DIPRIVAN FOR SEDATION @ 20 MCG/KG/MIN. PT SEDATED AT THIS TIME. NO SIGNIFICANT CHANGE OF CONDITION TOLERATED ETT AND VENT SETTING ORDERED. KEPT CLEAN AND DRY. F/C DRAINED WELL VIA GRAVITY. ENDORSED CONTINUITY OF CARE TO AM NURSE.
--- NOTE | 2017-11-11 07:15 | NUR ---
TEAM SUPERVISOR NOTES RECEIVED PATIENT SEDATED , RESPONSIVE TO TACTILE STIMULI , OPENS EYES , DOESNT FOLLOW COMMANDS , NOT IN ACUTE DISTRESS , RESPIRATIONS EVEN AND UNLABORED WITH SPO2 OF 100% VIA MECHANICAL VENTILATOR SETTINGS ORDERED , ETT 7.0 / IN PLACE , SR 68 ON BEDSIDE MONITOR , FC DRAINING VIA GRAVITY , BILATERAL SOFT WRIST RESTRAINTS IN PLACE , GT PATENT AND INTACT WITH FIBERSOURCE @ 60ML/HR INFUSING WELL WITH NO RESIDUALS NOTED , L HAND # 20 PATENT AND INTACT WITH DIPRIVAN @ 20MCG/KG/MIN INFUSING WELL , R AC # 18 PATENT AND INTACT WITH NS @ 75ML/HR , ALL NEEDS ATTENDED , BED ON LOW AND LOCKED POSITION , SIDE RAILS X2 ,CALL LIGHT WITHIN REACH , HOB @ 45 , WILL CONTINUE TO MONITOR .
--- NOTE | 2017-11-11 07:31 | NUR ---
ELECTRIC HOIST OPERATOR NOTES RECEIVED A CALL FROM [facility] URINE CULTURE IS GROWING WITH 8 ORGANISM , RECOMMENDING TO RE DO URINE COLLECTION ORDERED .
--- NOTE | 2017-11-11 07:32 | NUR ---
PT ORALLY INTUBATED VIA A 7.0 ETT SECURE BY AN ANCHOR FAST AT 22CM AT THE LIP. VENT SETTINGS CHARTED. VENT ALARMS SET AND AUDIBLE PER POLICY. SX'D SMALL AMT OF SEMI-THICK, CLEAR/WHITE SECRETIONS. VENT PLUGGED INTO RED OUTLET. AMBU BAG AT [facility]. NO RESP. DISTRESS NOTED AT THIS TIME. Addendum: 11/11/17 at 0737 by NICOLE SHORT RT Amended: Links added.
--- NOTE | 2017-11-11 07:58 | NUR ---
WOUND CARE CONSULT: PT PRESENTS WITH LOWER EXTREMITY CONTRACTURES, IMMOBILITY, INTUBATED WITH LEFT FOOT DEEP TISSUE INJURY (INTACT) AND ESCHAR, PRESENT ON ADMISSION. PT HAS MULTIPLE SCARS TO LOWER EXTREMITES, HEELS, ANKLES AND SACRAL/BUTTOCKS AREAS. CURRENT DAVID SCORE IS 12. PT ON FIRST STEP MATTRESS. ALL SKIN PROTECTION AND WOUND CARE RECOMMENDATIONS DISCUSSED WITH NURSING STAFF. WILL SEE PRN. WILSON IN AGREEMENT WITH PLAN OF CARE. Addendum: 11/11/17 at 0800 by YUNG TRONCOSO WNDNU Amended: Links added.
[2017-11-11] MEDS: CARBIDOPA/LEVODOPA 25/100 MG 1 UDTAB GT SCH ×3 (08:12→16:12)
[2017-11-11] MEDS: FLUDROCORTISONE 0.1 MG TABLET GT SCH (08:12)
--- NOTE | 2017-11-11 09:00 | NUR ---
FIELD AIDE NOTES SEDATION VACATION ON GOING , PT OPENS EYES , DOESN'T FOLLOW COMMANDS , NOT IN ACUTE DISTRESS , TOLERATING CURRENT VENT SETTINGS WITH SPO2 OF 100% , BILATERAL SOFT WRIST RESTRAINS IN PLACE , WILL CONTINUE TO MONITOR
--- NOTE | 2017-11-11 09:38 | NUR ---
FLATWORK TIER NOTES SEEN AND EVALUATED BY DR CHASE , DISCUSSED HISOTRY AND CHIEF COMPLAIN , LABS , CHEST XRAY , CURRENT V/S , AFEBRILE , TOLERATING CURRENT VENT SETTINGS WITH SPO2 OF 100% , OFF SEDATION @ 0900 , OPENS EYES , DOESN'T FOLLOW COMMANDS , WITH GOOD URINE OUTPUT , TOLERATING GT FEEDING , MD AWARE .
[2017-11-11] MEDS: POTASSIUM CHLORIDE 20 MEQ POWDER PACKET NG SCH ×2 (10:20→12:32)
[2017-11-11] MEDS: NEOMY SULF/BACITRAC ZN/POLY 15 GM TUBE TP SCH (14:37)
[2017-11-11] MEDS: IPRATROPIUM NEB FS 0.5 MG/2.5 ML AMPUL.NEB NEB SCH ×2 (15:54→19:39)
[2017-11-11] MEDS: ALBUTEROL HALF STRENGTH 1.25 MG/3 ML VIAL.NEB NEB SCH ×2 (15:54→19:39)
[2017-11-11] MEDS: LACTOBACILLUS RHAMNOSUS GG 1 EACH CAP.SPRINK PO SCH (16:12)
[2017-11-11] MEDS: FIBERSOURCE HN 1,000 ML BOTTLE GT PRN (17:17)
--- NOTE | 2017-11-11 19:25 | NUR ---
RN NOTES PT ON BED. OPEND EYES BUT NOT FOLLOWING COMMAND. RESPONSIVE TO PAIN .WITH ETT @ LIP CONNECTED TO VENT SETTING AC 16 TV 400 FIO2 40% PEEP 5 TOLERATED WELL NO ACUTE RESP DISTRESS. SR HR 660'S ON TELE MONITOR. SATING 100% IV SITE ON LH G 20 WITH DIPRIVAN @ 5 MCG/KG/MIN, RAC G 18 WITH NS @ 75 CC/HR AND RIGHT WRIST G 22 INTACT AND PATENT. WITH GTF FIBERSOURCE INTACT , PATENCY CHECKED NO RESIDUAL PRESENT. GALINDO CATH DRAINED VIA GRAVITY WITH YELLOW COLOR URINE. BILATERAL WRIST RESTRAINT KEPT ON CIRCULATION CHECKED. NO BRUISES. OFFLOADED EXT WITH PILLOWS. WILL CLOSELY MONITOR.
[2017-11-11] MEDS: ENOXAPARIN SODIUM 40 MG/0.4 ML DISP.SYRIN SQ SCH (20:30)
--- NOTE | 2017-11-11 21:43 | NUR ---
PT RECEIVED INTUBATED ON VENT. 7.0 ETT SECURED AT 22CM AT THE LIP. PT TOLERATING VENT SETTINGS. SX'D FOR MOD AMT OF THICK TINGED SECRETIONS. VENT ALARMS SET AND AUDIBLE. AMBU BAG AT [facility]. VENT PLUGGED INTO RED OUTLET. WILL CONTINUE TO MONITOR. Addendum: 11/11/17 at 2146 by DARYA ROA RT Amended: Links added.
[2017-11-12] VITALS (52 sets, daily range): BP systolic 90–145; BP diastolic 23–94
[2017-11-12] MEDS: ALBUTEROL HALF STRENGTH 1.25 MG/3 ML VIAL.NEB NEB SCH ×4 (00:57→19:42)
[2017-11-12] MEDS: IPRATROPIUM NEB FS 0.5 MG/2.5 ML AMPUL.NEB NEB SCH ×4 (00:57→19:42)
[2017-11-12] MEDS: ZOSYN IVPB 2.25 G in IV D5W 50ml IV SCH ×4 (02:06→20:05)
[2017-11-12] MEDS: VANCOMYCIN 0.75 GM in IV NS 0.9% 250 ML IV SCH (02:07)
[2017-11-12] MEDS: PROPOFOL 100 ML IV PRN (02:22)
[2017-11-12 05:16] LABS: CALCIUM, SERUM 7.8 mg/dL (8.5-10.1); CARBON DIOXIDE 26 mmol/L (21-32); CHLORIDE 106 mmol/L (98-107); CREATININE 0.6 mg/dL (0.6-1.3); GLUCOSE 146 mg/dL (74-106); SODIUM SERUM 138 mmol/L (136-145); UREA NITROGEN, BLOOD 19 mg/dL (7-18)
[2017-11-12] MEDS: VALPROIC ACID 250 MG/5 ML UDC GT SCH ×3 (05:53→20:05)
--- NOTE | 2017-11-12 07:15 | NUR ---
RN NOTES PT REMAINED IN SEDATION ON DIPRIVAN 20 MCG/KG/MIN. ETT WITH VENT TOLERATED WELL SATING >92% NO RESP DISTRESS. NO SIGNIFICANT CHANGES SHOWS. REMAINED ON SR HR ON 60'S. OGTF TOLERATED WELL NO N/V/D/. AFEBRILE THROUGHOUT THE SHIFT. F/C DRAINED WELL WITH ADEQUATE OUTPUT. IV SITE INTACT AND PATENT. WILL ENDORSED CONTINUITY OF CARE TO AM NURSE.
--- NOTE | 2017-11-12 07:39 | NUR ---
RT PT RECEIVED ORALLY INTUBATED WITH A 7.0 ETT SECURED AT 22CM AT THE LIP LINE ON THE VENT WITH NOTED SETTINGS. PT IS CURRENTLY SEDATED AT THIS TIME. VENT ALARMS ARE SET AND AUDIBLE WITH BVM BY BEDSIDE. MILK CONDENSER CUFF PRESSURE NOTED. VENT IS PLUGGED INTO RED OUTLET. NO RESPIRATORY DISTRESS NOTED AT THIS TIME, WILL CONTINUE TO MONITOR. Addendum: 11/12/17 at 1808 by AUGUSTINE MENENDEZ RT Amended: Links added.
--- NOTE | 2017-11-12 08:00 | NUR ---
DIPRIVAN TITRATED OFF PER PROTOCOL FOR SIMV MODE TRIAL.
[2017-11-12] MEDS ORDERED: POTASSIUM CHLORIDE 20 MEQ POWDER PACKET GT ONE ×2 (08:30→14:00)
[2017-11-12] MEDS: CARBIDOPA/LEVODOPA 25/100 MG 1 UDTAB GT SCH ×3 (08:32→17:07)
[2017-11-12] MEDS: FLUDROCORTISONE 0.1 MG TABLET GT SCH (08:32)
[2017-11-12] MEDS: LACTOBACILLUS RHAMNOSUS GG 1 EACH CAP.SPRINK PO SCH ×2 (08:32→17:07)
[2017-11-12] MEDS: NEOMY SULF/BACITRAC ZN/POLY 15 GM TUBE TP SCH (08:36)
--- NOTE | 2017-11-12 09:20 | NUR ---
RT PT IS OFF SEDATION AND WAKING UP, PT SWITCHED TO WEANING. TOLERATING WELL AT THIS TIME, WILL CONTINUE TO MONITOR. Addendum: 11/12/17 at 1809 by AUGUSTINE MENENDEZ RT Amended: Links added.
[2017-11-12 10:45] LABS: ABG BASE EXCESS 2.1 mmol/L; ABG OXYGEN SATURATION 98.4 % (92.0-98.5); ABG PCO2 35.6 mmHg (35.0-45.0); ABG PH 7.476 (7.350-7.450); ABG PO2 130.1 mmHg (75.0-100.0); AaDO2 114.2 mmHg; MetHb 0.5 % (0.0-1.5); O2Hb 96.9 % (94.0-97.0); PEEP,BG 5 cm H2O; SITE, ABG Right Radial; VENT MODE, BG SIMV 4 / PS 12; VT, ABG 400 mL
[2017-11-12] MEDS: MORPHINE SULFATE INJ 4 MG/ML DISP.SYRIN IV PRN (13:10)
[2017-11-12] MEDS: FIBERSOURCE HN 1,000 ML BOTTLE GT PRN (13:27)
[2017-11-12] MEDS: IV NS 0.9% 1,000 ML IV PRN (13:28)
--- NOTE | 2017-11-12 13:30 | NUR ---
PT FAWNING FREQUENTLY. PT PREMEDICATED FOR BED/BATH AND SKIN CARE WITH 2 MG OF MORPHINE. WAIST WITNESSED BY MARIAA AYALA. THE VIAL ACCIDENTALLY DISCARDED INTO PHARMACEUTICAL WEST CONTAINER BEFORE SCANNING.
[2017-11-12] MEDS: VANCOMYCIN 500 MG in IV NS 0.9% 100 ML IV SCH (15:36)
[2017-11-12] MEDS: ENOXAPARIN SODIUM 40 MG/0.4 ML DISP.SYRIN SQ SCH (20:06)
--- NOTE | 2017-11-12 20:26 | NUR ---
received pt from day shift, alert, does not follow commands, SR, on the vent, SIMV mode, tolerates well, lungs partially congested, no edema, GT to feeding tolerates well, f/c good output, restraints on, v/s stable, no pain, pt turned and repositioned.
[2017-11-13] VITALS (43 sets, daily range): BP systolic 78–177; BP diastolic 51–86
--- NOTE | 2017-11-13 | NUR ---
pt is resting in the bed, v/s stable, no pain, pt turned and repositioned q2hrs.
[2017-11-13] MEDS: IPRATROPIUM NEB FS 0.5 MG/2.5 ML AMPUL.NEB NEB SCH ×4 (01:12→19:52)
[2017-11-13] MEDS: ALBUTEROL HALF STRENGTH 1.25 MG/3 ML VIAL.NEB NEB SCH ×4 (01:12→19:52)
[2017-11-13] MEDS: ZOSYN IVPB 2.25 G in IV D5W 50ml IV SCH ×2 (01:26→08:10)
[2017-11-13] MEDS: VANCOMYCIN 500 MG in IV NS 0.9% 100 ML IV SCH ×2 (02:30→15:25)
--- NOTE | 2017-11-13 04:07 | NUR ---
pt is resting in the bed, SR, no acute distress overnight, tolerates feeding, good urine output, v/s stable, no pain, pt cleaned, changed and repositioned q2hrs.
[2017-11-13] MEDS: VALPROIC ACID 250 MG/5 ML UDC GT SCH ×3 (04:23→20:34)
[2017-11-13] MEDS: MORPHINE SULFATE INJ 4 MG/ML DISP.SYRIN IV PRN (04:54)
[2017-11-13 05:40] LABS: CALCIUM, SERUM 7.6 mg/dL (8.5-10.1); CARBON DIOXIDE 28 mmol/L (21-32); CHLORIDE 107 mmol/L (98-107); CREATININE 0.5 mg/dL (0.6-1.3); GLUCOSE 94 mg/dL (74-106); POTASSIUM 3.7 mmol/L (3.5-5.1); SODIUM SERUM 141 mmol/L (136-145); UREA NITROGEN, BLOOD 11 mg/dL (7-18)
[2017-11-13] MEDS: IV NS 0.9% 1,000 ML IV PRN ×2 (06:03→23:18)
--- NOTE | 2017-11-13 07:40 | NUR ---
ICU/RN PT IS INTUBATED ON THE VENT SIMV MODE.V/S STABLE,AFEBRILE.OPEN EYES.QUADRIPLEGIC,STATUS POST CVA,CARDIO-PULMONARY ARREST.IV INFUSING ORDERED.G-TUBE INFUSING WITH FIBERSOURCE,NO RESIDUAL NOTED.SUCTION PROVIDED.REPOSITION FOR COMFORT.
[2017-11-13] MEDS: CARBIDOPA/LEVODOPA 25/100 MG 1 UDTAB GT SCH ×3 (08:10→16:38)
[2017-11-13] MEDS: FLUDROCORTISONE 0.1 MG TABLET GT SCH (08:10)
[2017-11-13] MEDS: LACTOBACILLUS RHAMNOSUS GG 1 EACH CAP.SPRINK PO SCH ×2 (08:10→16:38)
[2017-11-13] MEDS: Z GUARD REMEDY 2 OZ OINT TP PRN (08:11)
[2017-11-13] MEDS: NEOMY SULF/BACITRAC ZN/POLY 15 GM TUBE TP SCH (08:11)
--- NOTE | 2017-11-13 09:30 | NUR ---
ICU/RN DUE MEDS ARE GIVEN ORDERED.PT PLACE ON COOL AEROSOL FIO2-40%.CONTINUE MONITORING.
[2017-11-13] MEDS: FIBERSOURCE HN 1,000 ML BOTTLE GT PRN (10:52)
--- NOTE | 2017-11-13 10:58 | NUR ---
ICU/RN PT UNABLE TO TOLERATE T-TUBE ,PLACED BACK ON THE VENT SIMV MODE.
[2017-11-13] MEDS: PIPERACILLIN /TAZOBACTAM 3.375 G in IV D5W 50 ML IV SCH ×3 (11:33→23:10)
--- NOTE | 2017-11-13 20:09 | NUR ---
received pt from day shift, alert, does not follow commands, SR, on the vent, SIMV mode, tolerates well, lungs partially congested, no edema, GT to feeding, tolerates well, f/c good output, restraints on, v/s stable, no pain, pt turned and repositioned.
[2017-11-13] MEDS: ENOXAPARIN SODIUM 40 MG/0.4 ML DISP.SYRIN SQ SCH (20:35)
[2017-11-14] VITALS (29 sets, daily range): BP systolic 115–156; BP diastolic 61–107
--- NOTE | 2017-11-14 00:15 | NUR ---
pt is resting in the bed, v/s stable, no pain, pt turned and repositioned q2hrs.
[2017-11-14] MEDS: IPRATROPIUM NEB FS 0.5 MG/2.5 ML AMPUL.NEB NEB SCH ×4 (02:14→20:15)
[2017-11-14] MEDS: ALBUTEROL HALF STRENGTH 1.25 MG/3 ML VIAL.NEB NEB SCH ×4 (02:14→20:15)
[2017-11-14] MEDS: VANCOMYCIN 500 MG in IV NS 0.9% 100 ML IV SCH ×2 (02:54→15:39)
--- NOTE | 2017-11-14 04:09 | NUR ---
pt is resting in the bed, no acute distress overnight, alert, does not follow commands, SR, v/s stable, no pain, tolerates feeding, good urine output, pt cleaned, changed and repositioned q2hrts.
[2017-11-14] MEDS: VALPROIC ACID 250 MG/5 ML UDC GT SCH ×3 (04:14→20:49)
[2017-11-14 04:43] LABS: BASOPHILS % (AUTO) 0.1 % (0.0-2.0); EOSINOPHILS % (AUTO) 2.9 % (0.0-6.0); HEMATOCRIT 22 % (33-45); HEMOGLOBIN 7.4 g/dL (11.5-14.8); LYMPHOCYTES # (AUTO) 1.3 /CMM (0.8-4.8); LYMPHOCYTES % (AUTO) 17.5 % (20.0-44.0); MEAN CORPUSCULAR HGB CONC 33 g/dl (31.0-36.0); MEAN CORPUSCULAR VOLUME 85 fL (82-100); MONOCYTES # (AUTO) 0.4 /CMM (0.1-1.30); MONOCYTES % (AUTO) 5.2 % (2.0-12.0); NEUTROPHILS # (AUTO) 5.7 /CMM (1.8-8.9); NEUTROPHILS % (AUTO) 74.3 % (43.0-81.0); PLATELET COUNT (AUTO) 240 /CMM (150-450); RDW COEFFICIENT OF VARIATION 16.7 (11.5-15.0); RED BLOOD CELL COUNT(AUTO) 2.62 MIL/uL (4.0-5.2); WHITE BLOOD COUNT (AUTO) 7.7 K/uL (4.3-11.0)
[2017-11-14 04:59] LABS: CALCIUM, SERUM 7.7 mg/dL (8.5-10.1); CARBON DIOXIDE 32 mmol/L (21-32); CHLORIDE 104 mmol/L (98-107); CREATININE 0.5 mg/dL (0.6-1.3); GLUCOSE 133 mg/dL (74-106); MAGNESIUM 1.7 mg/dL (1.8-2.4); PHOSPHORUS 3.1 mg/dL (2.5-4.9); SODIUM SERUM 141 mmol/L (136-145); UREA NITROGEN, BLOOD 9 mg/dL (7-18)
[2017-11-14] MEDS: PIPERACILLIN /TAZOBACTAM 3.375 G in IV D5W 50 ML IV SCH ×4 (05:01→23:59)
--- NOTE | 2017-11-14 05:03 | NUR ---
PT RECEIVED ORALLY INTUBATED 7.0 ETT SECURED AT 22CM AT THE LIP. NO RESP DISTRESS NOTED. PT TOERATING VENT SETTINGS. VENT ALARMS SET AND AUDIBLE. AMBU BAG AT BEDSIDE. VENT PLUGGED INTO RED OUTLET. WILL CONTINUE TO MONITOR. Addendum: 11/14/17 at 0532 by MAURICE MALDONADO RT Amended: Links added.
[2017-11-14 05:45] LABS: POTASSIUM 2.6 mmol/L (3.5-5.1)
[2017-11-14] MEDS ORDERED: POTASSIUM CL. PREMIX PERIPHER. 50 ML ONE (06:08)
[2017-11-14] MEDS: POTASSIUM CL. PREMIX PERIPHER. 50 ML IV SCH ×6 (06:11→12:57)
--- NOTE | 2017-11-14 07:30 | NUR ---
ICU/RN: Pt received in bed, intubated, no distress, breathing even and unlabored, tolerating current vent settings with periods of restlessness. IVF infusing well. Awaiting delivery of remainder of IV KCL replacement doses.
--- NOTE | 2017-11-14 07:55 | NUR ---
Intubated pt received on mechanical vent. Pt 7.0 ETT is secured at 22cm@ the lip. Vent is plugged into a red outlet, alarms are set and audible, and BVM is at bedside. Addendum: 11/14/17 at 1124 by KATHERIN GILLESPIE RT Amended: Links added.
[2017-11-14] MEDS: FLUDROCORTISONE 0.1 MG TABLET GT SCH (08:14)
[2017-11-14] MEDS: CARBIDOPA/LEVODOPA 25/100 MG 1 UDTAB GT SCH ×3 (08:14→16:30)
[2017-11-14] MEDS: FIBERSOURCE HN 1,000 ML BOTTLE GT PRN (08:14)
[2017-11-14] MEDS: NEOMY SULF/BACITRAC ZN/POLY 15 GM TUBE TP SCH (08:15)
[2017-11-14] MEDS: LACTOBACILLUS RHAMNOSUS GG 1 EACH CAP.SPRINK PO SCH ×2 (08:15→16:30)
--- NOTE | 2017-11-14 08:45 | NUR ---
ICU/RN: Dr Ambrose at bedside, updated on pt status; currently on SIMV mode.
[2017-11-14] MEDS: Magnesium 1GM/D5W 100ML PREMIX 100 ML IV SCH ×2 (09:37→10:37)
[2017-11-14 10:17] LABS: ABG BASE EXCESS 9.3 mmol/L; ABG OXYGEN SATURATION 98.3 % (92.0-98.5); ABG PCO2 41.5 mmHg (35.0-45.0); ABG PH 7.518 (7.350-7.450); AaDO2 108.5 mmHg; COHb 0.7 % (0.5-1.5); MetHb 0.3 % (0.0-1.5); O2Hb 97.3 % (94.0-97.0); SITE, ABG Right Brachial; VENT MODE, BG CPAP 5 PS 12 40%
--- NOTE | 2017-11-14 10:30 | NUR ---
ICU/RN: Pt ABGs reviewed with Dr Gonsales s/p vent change to SIMV. Pt placed on cool aerosol per MD order. Pt awake, alert responds to name and touch, tracks but unable to follow commands. Airway cleared of moderate amount of thick clear secretions. Will cont to monitor pt.
--- NOTE | 2017-11-14 15:00 | NUR ---
ICU/RN: Bed bath, wound care rendered. Pt tolerated well. Needs frequent suctioning.
--- NOTE | 2017-11-14 19:10 | NUR ---
ICU/RN: Pt tolerating cool aerosol well. Airway suctioned from secretions. Awakens to name and touch. Care endorsed to PM RN for JOE.
[2017-11-14] MEDS: ENOXAPARIN SODIUM 40 MG/0.4 ML DISP.SYRIN SQ SCH (20:50)
[2017-11-15] VITALS (26 sets, daily range): BP systolic 129–164; BP diastolic 62–94
[2017-11-15] MEDS: IPRATROPIUM NEB FS 0.5 MG/2.5 ML AMPUL.NEB NEB SCH ×4 (01:38→20:13)
[2017-11-15] MEDS: ALBUTEROL HALF STRENGTH 1.25 MG/3 ML VIAL.NEB NEB SCH ×4 (01:38→20:13)
[2017-11-15] MEDS: VANCOMYCIN 500 MG in IV NS 0.9% 100 ML IV SCH ×2 (03:28→16:26)
[2017-11-15] MEDS: IV NS 0.9% 1,000 ML IV PRN (03:37)
[2017-11-15 05:22] LABS: CALCIUM, SERUM 8.3 mg/dL (8.5-10.1); CARBON DIOXIDE 33 mmol/L (21-32); CHLORIDE 100 mmol/L (98-107); CREATININE 0.5 mg/dL (0.6-1.3); GLUCOSE 119 mg/dL (74-106); SODIUM SERUM 140 mmol/L (136-145); UREA NITROGEN, BLOOD 7 mg/dL (7-18)
[2017-11-15 05:33] LABS: POTASSIUM 2.4 mmol/L (3.5-5.1)
[2017-11-15] MEDS: PIPERACILLIN /TAZOBACTAM 3.375 G in IV D5W 50 ML IV SCH ×3 (06:08→16:54)
[2017-11-15] MEDS: VALPROIC ACID 250 MG/5 ML UDC GT SCH ×3 (06:12→22:17)
--- NOTE | 2017-11-15 06:30 | NUR ---
ICU/RN END NOTE:TOLERATING T-TUBE WELL ON 40% FIO2.SUCTIONED FOR COPIOUS AMT SECRETIONS ORALLY AND SCANT AMT.FROM MOUTH,ORAL CARE DONE.REPOSITIONED AND TURNED Q2HRS.TOLERATING TUBE FEEDING WELL,ABDOMEN SOFT.
[2017-11-15] MEDS ORDERED: POTASSIUM CL. PREMIX PERIPHER. 50 ML IV SCH (07:30)
[2017-11-15] MEDS: FLUDROCORTISONE 0.1 MG TABLET GT SCH (08:48)
[2017-11-15] MEDS: NEOMY SULF/BACITRAC ZN/POLY 15 GM TUBE TP SCH (08:48)
[2017-11-15] MEDS: CARBIDOPA/LEVODOPA 25/100 MG 1 UDTAB GT SCH ×3 (08:48→16:58)
[2017-11-15] MEDS: POTASSIUM CL. PREMIX PERIPHER. 50 ML IV SCH ×6 (09:00→16:09)
[2017-11-15] MEDS: FIBERSOURCE HN 1,000 ML BOTTLE GT PRN (09:12)
[2017-11-15] MEDS: LACTOBACILLUS RHAMNOSUS GG 1 EACH CAP.SPRINK PO SCH ×2 (09:24→16:58)
--- NOTE | 2017-11-15 14:20 | NUR ---
ICU/TYPEWRITER RIBBON WINDER PERIPHERAL IV WAS PLACED HOWEVER PT IS A DIFFICULT STICK, WILL GET ORDER FOR MIDLINE. IVPB WAS STARTED AGAIN OF POTASSIUM.
--- NOTE | 2017-11-15 16:30 | NUR ---
ICU/MISSING PERSONS INVESTIGATOR GOT ORDER FOR MIDLINE DUE TO 3 PERIPHERAL LINES NOT WORKING PROPERLY. CHARGE NURSE AWARE OF THIS ORDER. ILIANA OLIVA AVAILABLE AT 1900.
--- NOTE | 2017-11-15 18:46 | NUR ---
ICU/SECURITY PATROL OFFICER CALLED MD TO GET ORDER FOR POTASSIUM REPEAT LEVEL IS 2.9 AFTER 6 BAGS OF POTASSIUM. AWAIT ANY NEW ORDERS.
--- NOTE | 2017-11-15 20:00 | NUR ---
ICU/RN RECEIVED PT W/ EYES OPEN,DOES NOT TRACK,DOES NOT FOLLOW COMMANDS.ON T-PIECE VIA ORAL ETT.PAULINE ALEJANDRO RETURNED CALL,INFORMED OF POTASSIUM OF 2.9 AND NEED FOR MIDLINE.WILL BE IN LATER.
[2017-11-15] MEDS: ENOXAPARIN SODIUM 40 MG/0.4 ML DISP.SYRIN SQ SCH (21:59)
[2017-11-16] VITALS (26 sets, daily range): BP systolic 82–169; BP diastolic 32–82
[2017-11-16] MEDS: PIPERACILLIN /TAZOBACTAM 3.375 G in IV D5W 50 ML IV SCH ×5 (00:04→23:35)
[2017-11-16] MEDS ORDERED: POTASSIUM CL. PREMIX PERIPHER. 200 ML ONE (00:48)
[2017-11-16] MEDS: POTASSIUM CL. PREMIX PERIPHER. 50 ML IV SCH ×4 (00:58→04:15)
[2017-11-16] MEDS: ALBUTEROL HALF STRENGTH 1.25 MG/3 ML VIAL.NEB NEB SCH ×4 (02:25→19:56)
[2017-11-16] MEDS: IPRATROPIUM NEB FS 0.5 MG/2.5 ML AMPUL.NEB NEB SCH ×4 (02:25→19:56)
[2017-11-16] MEDS: VANCOMYCIN 500 MG in IV NS 0.9% 100 ML IV SCH ×2 (02:59→15:44)
[2017-11-16] MEDS: VALPROIC ACID 250 MG/5 ML UDC GT SCH ×3 (04:46→21:11)
[2017-11-16 05:00] LABS: BASOPHILS % (AUTO) 0.1 % (0.0-2.0); EOSINOPHILS % (AUTO) 2.1 % (0.0-6.0); HEMATOCRIT 25 % (33-45); HEMOGLOBIN 8.3 g/dL (11.5-14.8); LYMPHOCYTES # (AUTO) 1.5 /CMM (0.8-4.8); LYMPHOCYTES % (AUTO) 20.1 % (20.0-44.0); MEAN CORPUSCULAR HGB CONC 33 g/dl (31.0-36.0); MEAN CORPUSCULAR VOLUME 84 fL (82-100); MONOCYTES # (AUTO) 0.5 /CMM (0.1-1.30); MONOCYTES % (AUTO) 6.8 % (2.0-12.0); NEUTROPHILS # (AUTO) 5.4 /CMM (1.8-8.9); NEUTROPHILS % (AUTO) 70.9 % (43.0-81.0); PLATELET COUNT (AUTO) 285 /CMM (150-450); RDW COEFFICIENT OF VARIATION 15.9 (11.5-15.0); WHITE BLOOD COUNT (AUTO) 7.6 K/uL (4.3-11.0)
[2017-11-16 05:13] LABS: CARBON DIOXIDE 36 mmol/L (21-32); CHLORIDE 100 mmol/L (98-107); CREATININE 0.5 mg/dL (0.6-1.3); GLUCOSE 124 mg/dL (74-106); POTASSIUM 3.2 mmol/L (3.5-5.1); SODIUM SERUM 139 mmol/L (136-145); UREA NITROGEN, BLOOD 10 mg/dL (7-18)
[2017-11-16] MEDS: IV NS 0.9% 1,000 ML IV PRN ×2 (06:03→23:35)
--- NOTE | 2017-11-16 07:12 | NUR ---
RN INITIAL NOTES: REC'D PT ON BED, OPENS EYES SPONTANEOUSLY, NOT IN ANY DISTRESS. HAS ETT 7 LEVEL 22, ON T-PIECE W/ FIO2 40%, SATING AT 98% THOUGH TACHYPNEIC. ON TELEMONITOR, SR W/ HR 90 BPM. HAS GT PATENT & INTACT, ON CONT TF FIBERSOURCE X 60 CC/HR INFUSING WELL, NO RESIDUAL NOTED UPON CHECKING. HAS FC DRAINING TO ADEQUATE URINE OUTPUT. HAS 2 IV LINES: DIYA MIDLINE W/ NS X 75 CC/HR AND LFA G20, SL, BOTH PATENT & INTACT W/ NO S/SX OF INFECTION/INFILTRATION NOTED. PROVIDED COMFORT & SAFETY MEASURES. BED KEPT LOW & IN LOCKED POS. CALL LIGHT PLACED W/IN REACH. WILL CONTINUE TO MONITOR & ATTEND PT NEEDS.
[2017-11-16] MEDS: NEOMY SULF/BACITRAC ZN/POLY 15 GM TUBE TP SCH (09:15)
[2017-11-16] MEDS: CARBIDOPA/LEVODOPA 25/100 MG 1 UDTAB GT SCH ×3 (09:15→16:59)
[2017-11-16] MEDS: LACTOBACILLUS RHAMNOSUS GG 1 EACH CAP.SPRINK PO SCH ×2 (09:15→16:59)
[2017-11-16] MEDS: FLUDROCORTISONE 0.1 MG TABLET GT SCH (09:15)
[2017-11-16] MEDS: Z GUARD REMEDY 2 OZ OINT TP PRN (09:15)
[2017-11-16] MEDS: FIBERSOURCE HN 1,000 ML BOTTLE GT PRN (11:32)
--- NOTE | 2017-11-16 11:43 | NUR ---
RN NOTES: PT SEEN & EXAMINED BY DR. ROD W/ ORDERS MADE & CARRIED OUT.
[2017-11-16] MEDS: POTASSIUM CHLORIDE 20 MEQ POWDER PACKET GT SCH (12:41)
--- NOTE | 2017-11-16 14:30 | NUR ---
RN NOTES: RT NICOLE CONFIRMED W/ DR. SANABRIA (ON-CALL PULMO) THAT PT DOESN'T NEED ABG TODAY.
--- NOTE | 2017-11-16 19:00 | NUR ---
RN CLOSING NOTES: NO ACUTE CHANGES NOTED W/IN SHIFT. PT TOLERATED T-PIECE W/ FIO2 40% VIA ETT. TELEMONITOR, STILL SR. GT KEPT PATENT & INTACT, TOLERATED CONT TF FIBERSOURCE X 60 CC/HR, NO RESIDUAL W/IN SHIFT. FC KEPT PATENT & INTACT. 2 IV LINES: DIYA MIDLINE W/ NS X 75 CC/HR AND LFA G20, SL, BOTH KEPT PATENT & INTACT W/ NO S/SX OF INFECTION/INFILTRATION NOTED. KEPT WELL RESTED. SUCTIONED SECRETIONS. WOUND CARE DONE. BED KEPT LOW & IN LOCKED POS. CALL LIGHT PLACED W/IN REACH. ENDORSED TO PM RN FOR JOE.
--- NOTE | 2017-11-16 19:30 | NUR ---
SECURITY AND COMPLIANCE ANALYST INITIAL NOTES: RECEIVED PATIENT ON BED, ABLE TO OPEN EYES SPONTANEOUSLY, NOT IN ANY DISTRESS. PATIENT ORALLY INTUBATED, ETT 7, 22CM AT LIP, ON T-PIECE W/ FIO2 40%, SATTING AT 98%. ON TELEMETRY MONITORING, REVEALING SR, HR 89 BPM. HAS GT PATENT & INTACT, ON CONT TF FIBERSOURCE X 60 CC/HR INFUSING WELL, NO GASTRIC RESIDUAL NOTED AT THIS TIME. ALSO NOTED WITH FC, DRAINING CLEAR YELLOW URINE VIA GRAVITY TO ATTACHED DRAINAGE BAG. PATIENT NOTED WITH 2 IV LINES; DIYA MIDLINE WITH NS X 75 CC/HR AND LFA G20, SL, BOTH PATENT & INTACT W/ NO S/SX OF INFECTION/INFILTRATION NOTED. CALL LIGHT LEFT WITHIN EASY REACH, BED IN LOWEST AND LOCKED POSITION WITH SR UP X3. WILL CONTINUE TO CLOSELY MONITOR
[2017-11-16] MEDS: ENOXAPARIN SODIUM 40 MG/0.4 ML DISP.SYRIN SQ SCH (21:12)
[2017-11-17] VITALS (24 sets, daily range): BP systolic 102–163; BP diastolic 30–91
[2017-11-17] MEDS: ALBUTEROL HALF STRENGTH 1.25 MG/3 ML VIAL.NEB NEB SCH ×4 (01:17→19:43)
[2017-11-17] MEDS: IPRATROPIUM NEB FS 0.5 MG/2.5 ML AMPUL.NEB NEB SCH ×4 (01:17→19:43)
[2017-11-17] MEDS: VANCOMYCIN 500 MG in IV NS 0.9% 100 ML IV SCH ×2 (02:59→15:14)
[2017-11-17] MEDS: VALPROIC ACID 250 MG/5 ML UDC GT SCH ×3 (06:08→20:39)
[2017-11-17] MEDS: PIPERACILLIN /TAZOBACTAM 3.375 G in IV D5W 50 ML IV SCH ×3 (06:09→17:58)
[2017-11-17 06:17] LABS: CALCIUM, SERUM 7.8 mg/dL (8.5-10.1); CARBON DIOXIDE 35 mmol/L (21-32); CHLORIDE 104 mmol/L (98-107); CREATININE 0.6 mg/dL (0.6-1.3); GLUCOSE 126 mg/dL (74-106); POTASSIUM 3.1 mmol/L (3.5-5.1); SODIUM SERUM 142 mmol/L (136-145); UREA NITROGEN, BLOOD 11 mg/dL (7-18)
--- NOTE | 2017-11-17 06:30 | NUR ---
BODY FINISHER CLOSING NOTES PATIENT RESTING IN BED, APPEARS COMFORTABLE AT THIS TIME. ALL NEED MET THROUGHOUT THE SHIFT. WILL ENDORSE THE PATIENT TO THE AM SHIFT NURSE FOR JOE
[2017-11-17] MEDS: POTASSIUM CHLORIDE 20 MEQ POWDER PACKET GT SCH (08:18)
[2017-11-17] MEDS: LACTOBACILLUS RHAMNOSUS GG 1 EACH CAP.SPRINK PO SCH ×2 (08:19→16:16)
[2017-11-17] MEDS: CARBIDOPA/LEVODOPA 25/100 MG 1 UDTAB GT SCH ×3 (08:19→16:16)
[2017-11-17] MEDS: FLUDROCORTISONE 0.1 MG TABLET GT SCH (08:19)
[2017-11-17] MEDS: NEOMY SULF/BACITRAC ZN/POLY 15 GM TUBE TP SCH (08:19)
[2017-11-17 09:01] LABS: ABG OXYGEN SATURATION 95.2 % (92.0-98.5); ABG PCO2 43.7 mmHg (35.0-45.0); ABG PH 7.509 (7.350-7.450); ABG PO2 85.3 mmHg (75.0-100.0); AaDO2 149.6 mmHg; COHb 0.3 % (0.5-1.5); MetHb 1.4 % (0.0-1.5); O2Hb 93.6 % (94.0-97.0); SITE, ABG Right Femoral
[2017-11-17] MEDS: FIBERSOURCE HN 1,000 ML BOTTLE GT PRN (09:11)
[2017-11-17] MEDS ORDERED: POTASSIUM CHLORIDE 20 MEQ POWDER PACKET GT ONE (14:00)
[2017-11-17] MEDS: MORPHINE SULFATE INJ 4 MG/ML DISP.SYRIN IV PRN (14:02)
[2017-11-17] MEDS: POTASSIUM CL. PREMIX PERIPHER. 50 ML IV SCH ×2 (15:38→16:15)
[2017-11-17] MEDS: IV NS 0.9% 1,000 ML IV PRN (18:29)
--- NOTE | 2017-11-17 19:30 | NUR ---
FURNACE INSTALLER INITIAL NOTES: RECEIVED PATIENT ON BED, ABLE TO OPEN EYES SPONTANEOUSLY, NOT IN ANY DISTRESS. PATIENT ORALLY INTUBATED, ETT 7, 22CM AT LIP, ON T-PIECE W/ FIO2 40%, SATTING WELL AT 98%. ON TELEMETRY MONITORING, REVEALING SR, HR 93 BPM. HAS GT PATENT & INTACT, ON CONT TF FIBERSOURCE X 60 CC/HR INFUSING WELL, NO GASTRIC RESIDUAL NOTED AT THIS TIME. ALSO NOTED WITH FC, DRAINING CLEAR YELLOW URINE VIA GRAVITY TO ATTACHED DRAINAGE BAG. PATIENT NOTED WITH 2 IV LINES; DIYA MIDLINE WITH NS X 75 CC/HR AND LFA G20, SL, BOTH PATENT & INTACT W/ NO S/SX OF INFECTION/INFILTRATION NOTED. CALL LIGHT LEFT WITHIN EASY REACH, BED IN LOWEST AND LOCKED POSITION WITH SR UP X3. WILL CONTINUE TO CLOSELY MONITOR
[2017-11-17] MEDS: ENOXAPARIN SODIUM 40 MG/0.4 ML DISP.SYRIN SQ SCH (20:43)
[2017-11-18] VITALS (25 sets, daily range): BP systolic 105–150; BP diastolic 55–87
[2017-11-18] MEDS: PIPERACILLIN /TAZOBACTAM 3.375 G in IV D5W 50 ML IV SCH ×5 (00:09→23:25)
[2017-11-18] MEDS: IPRATROPIUM NEB FS 0.5 MG/2.5 ML AMPUL.NEB NEB SCH ×4 (00:50→19:35)
[2017-11-18] MEDS: ALBUTEROL HALF STRENGTH 1.25 MG/3 ML VIAL.NEB NEB SCH ×4 (00:50→19:35)
[2017-11-18] MEDS: VANCOMYCIN 500 MG in IV NS 0.9% 100 ML IV SCH ×2 (04:06→16:08)
[2017-11-18] MEDS: VALPROIC ACID 250 MG/5 ML UDC GT SCH ×3 (05:56→21:40)
[2017-11-18] MEDS: FIBERSOURCE HN 1,000 ML BOTTLE GT PRN (05:56)
--- NOTE | 2017-11-18 07:00 | NUR ---
BEAD STRINGER CLOSING NOTES PATIENT RESTING IN BED APPEARS COMFORTABLE. NO ACUTE CHANGES THROUGHOUT THE SHIFT. WILL ENDORSE THE PATIENT TO THE AM SHIFT NURSE FOR CONTINUITY OF CARE
[2017-11-18 07:15] LABS: CALCIUM, SERUM 8.3 mg/dL (8.5-10.1); CARBON DIOXIDE 33 mmol/L (21-32); CHLORIDE 103 mmol/L (98-107); CREATININE 0.6 mg/dL (0.6-1.3); GLUCOSE 121 mg/dL (74-106); POTASSIUM 3.2 mmol/L (3.5-5.1); SODIUM SERUM 142 mmol/L (136-145); UREA NITROGEN, BLOOD 12 mg/dL (7-18)
--- NOTE | 2017-11-18 08:28 | NUR ---
rn notes received pt orally intubated, t piece in place @ 10 L /min with FI O2 @ 40% and well tolerated. pt on sr on the monitor, no indication of sob or any discomfort noted. on going gt feeding and well tolerated; hob kept elevated. with coe cath draining thru gravity with clear yellow colored output noted. popsitioned for comofrt with bsr up; will monitor accordingly.
[2017-11-18] MEDS: CARBIDOPA/LEVODOPA 25/100 MG 1 UDTAB GT SCH ×3 (08:50→16:07)
[2017-11-18] MEDS: POTASSIUM CHLORIDE 20 MEQ POWDER PACKET GT SCH (08:50)
[2017-11-18] MEDS: FLUDROCORTISONE 0.1 MG TABLET GT SCH (08:50)
[2017-11-18] MEDS: LACTOBACILLUS RHAMNOSUS GG 1 EACH CAP.SPRINK PO SCH ×2 (08:50→16:07)
[2017-11-18] MEDS: NEOMY SULF/BACITRAC ZN/POLY 15 GM TUBE TP SCH (08:56)
[2017-11-18 09:12] LABS: ABG BASE EXCESS 9.5 mmol/L; ABG OXYGEN SATURATION 96.3 % (92.0-98.5); ABG PCO2 43.4 mmHg (35.0-45.0); ABG PH 7.505 (7.350-7.450); ABG PO2 88.5 mmHg (75.0-100.0); AaDO2 146.8 mmHg; COHb 0.3 % (0.5-1.5); MetHb 0.4 % (0.0-1.5); O2Hb 95.6 % (94.0-97.0); SITE, ABG Right Radial; VENT MODE, BG COOL AEROSOL
[2017-11-18] MEDS: MORPHINE SULFATE INJ 4 MG/ML DISP.SYRIN IV PRN (10:53)
[2017-11-18] MEDS: IV NS 0.9% 1,000 ML IV PRN (16:07)
--- NOTE | 2017-11-18 18:53 | NUR ---
rn closing notes no significant events or changes during this shift. turned and repositioned pt with both heels kept offloaded. hob kept elevated at all times. all meds given thru patent gt, remains sinus rhythm on the monitor. no sob . will endorse to next shift for continuity of care in stable condition
--- NOTE | 2017-11-18 20:04 | NUR ---
MAINTENANCE MECHANIC MILLWRIGHT. INITIAL ASSESSMENT. RECEIVED THE PT REST ON THE BED. OPEN EYES. DOES NOT FOLLOW COMMANDS. RAILWAY PATROL OFFICER SHOWING NSR. ORALLY INTUBATED. OXYGEN CONNECTED TO ETT. SAT 98%.ETT #7, LIP 22CM,,T PIECE 10L. SAT 98%. NO ACUTE DISTRESS NOTED. RAILWAY PATROL OFFICER SHOWING NSR. IV LT UPPER ARM MID LINE .IVF NS 75ML/H. FC PATENT. SUNITA SOFT WRIST RESTRAINT CHECKED AND RELEASED. NO INJURY OR REDNESS NOTED. HOB ELEVATED. GT INTACT. FIBER SOURCE 60 ML/H. TURN AND REPOSITION Q2H. PT IS CONTRACTED. WILL CONTINUE TO MONITOR VITALS.
[2017-11-18] MEDS: ENOXAPARIN SODIUM 40 MG/0.4 ML DISP.SYRIN SQ SCH (21:41)
[2017-11-19] VITALS (24 sets, daily range): BP systolic 111–192; BP diastolic 51–139
[2017-11-19] MEDS: ALBUTEROL HALF STRENGTH 1.25 MG/3 ML VIAL.NEB NEB SCH ×4 (01:54→19:55)
[2017-11-19] MEDS: IPRATROPIUM NEB FS 0.5 MG/2.5 ML AMPUL.NEB NEB SCH ×4 (01:54→19:55)
[2017-11-19] MEDS: VANCOMYCIN 500 MG in IV NS 0.9% 100 ML IV SCH ×2 (03:23→15:00)
[2017-11-19] MEDS: FIBERSOURCE HN 1,000 ML BOTTLE GT PRN (03:24)
[2017-11-19 04:45] LABS: EOSINOPHILS % (AUTO) 4.5 % (0.0-6.0); HEMATOCRIT 26 % (33-45); HEMOGLOBIN 8.8 g/dL (11.5-14.8); LYMPHOCYTES # (AUTO) 2.3 /CMM (0.8-4.8); LYMPHOCYTES % (AUTO) 21.7 % (20.0-44.0); MEAN CORPUSCULAR HGB CONC 33 g/dl (31.0-36.0); MEAN CORPUSCULAR VOLUME 85 fL (82-100); MONOCYTES # (AUTO) 0.7 /CMM (0.1-1.30); MONOCYTES % (AUTO) 6.4 % (2.0-12.0); NEUTROPHILS # (AUTO) 7.3 /CMM (1.8-8.9); NEUTROPHILS % (AUTO) 67.4 % (43.0-81.0); PLATELET COUNT (AUTO) 304 /CMM (150-450); RDW COEFFICIENT OF VARIATION 16.5 (11.5-15.0); RED BLOOD CELL COUNT(AUTO) 3.12 MIL/uL (4.0-5.2); WHITE BLOOD COUNT (AUTO) 10.8 K/uL (4.3-11.0)
[2017-11-19 05:06] LABS: CALCIUM, SERUM 8.5 mg/dL (8.5-10.1); CARBON DIOXIDE 34 mmol/L (21-32); CHLORIDE 100 mmol/L (98-107); CREATININE 0.6 mg/dL (0.6-1.3); GLUCOSE 102 mg/dL (74-106); MAGNESIUM 1.9 mg/dL (1.8-2.4); PHOSPHORUS 3.6 mg/dL (2.5-4.9); POTASSIUM 3.2 mmol/L (3.5-5.1); SODIUM SERUM 140 mmol/L (136-145); UREA NITROGEN, BLOOD 12 mg/dL (7-18)
[2017-11-19] MEDS: VALPROIC ACID 250 MG/5 ML UDC GT SCH ×3 (05:31→21:21)
[2017-11-19] MEDS: PIPERACILLIN /TAZOBACTAM 3.375 G in IV D5W 50 ML IV SCH ×3 (05:32→17:36)
[2017-11-19] MEDS: CARBIDOPA/LEVODOPA 25/100 MG 1 UDTAB GT SCH ×3 (09:08→17:36)
[2017-11-19] MEDS: POTASSIUM CHLORIDE 20 MEQ POWDER PACKET GT SCH (09:08)
[2017-11-19] MEDS: FLUDROCORTISONE 0.1 MG TABLET GT SCH (09:08)
[2017-11-19] MEDS: NEOMY SULF/BACITRAC ZN/POLY 15 GM TUBE TP SCH (09:08)
[2017-11-19] MEDS: LACTOBACILLUS RHAMNOSUS GG 1 EACH CAP.SPRINK PO SCH ×2 (09:08→17:36)
[2017-11-19 09:22] LABS: ABG BASE EXCESS 8.4 mmol/L; ABG OXYGEN SATURATION 97.2 % (92.0-98.5); ABG PCO2 38.6 mmHg (35.0-45.0); ABG PH 7.532 (7.350-7.450); ABG PO2 95.9 mmHg (75.0-100.0); AaDO2 144.9 mmHg; COHb 0.6 % (0.5-1.5); MetHb 0.2 % (0.0-1.5); O2Hb 96.4 % (94.0-97.0); SITE, ABG Right Brachial; VENT MODE, BG COOL AEROSOL 40%
[2017-11-19] MEDS ORDERED: POTASSIUM CHLORIDE 20 MEQ POWDER PACKET GT ONE (11:00)
--- NOTE | 2017-11-19 11:02 | NUR ---
RT ETT PULLED BACK FROM 22CM TO 19CM AT THE LIP LINE PER DR. SALVATORE COPELAND. BAG LOADER CUFF PRESSURE APPLIED. EQUAL BILATERAL BREATHE SOUNDS AND CHEST RISE. NO SIGNS OF RESPIRATORY DISTRESS NOTED AT THIS TIME, WILL CONTINUE TO MONITOR. Addendum: 11/19/17 at 1116 by AUGUSTINE MENENDEZ RT Amended: Links added.
[2017-11-19] MEDS: IV NS 0.9% 1,000 ML IV PRN (11:05)
--- NOTE | 2017-11-19 14:04 | NUR ---
RN NOTE REPORT GIVEN TO MARIAA GENTILE FOR JOE, PT STABLE.
--- NOTE | 2017-11-19 18:00 | NUR ---
PT ASSISTED WITH BED, BATH ,SKIN CARE. ONE LARGE BM. GTF DECREASED 55ML/H PER RD RECOMMENDATIONS AT 1400.
--- NOTE | 2017-11-19 20:00 | NUR ---
received pt from day shift, alert, does not follow commands, SR, on T tube at 40% fi02, sat well, lung diminished, no edema, GT to feeding tolerates well, f/c good output, L wrist restraints on, v/s stable, no pain, pt turned and repositioned.
[2017-11-19] MEDS: ENOXAPARIN SODIUM 40 MG/0.4 ML DISP.SYRIN SQ SCH (21:23)
[2017-11-20] VITALS (24 sets, daily range): BP systolic 95–138; BP diastolic 46–73
[2017-11-20] MEDS: PIPERACILLIN /TAZOBACTAM 3.375 G in IV D5W 50 ML IV SCH ×5 (00:03→23:18)
--- NOTE | 2017-11-20 00:35 | NUR ---
pt is resting in the bed, v/s stable, no pain, pt turned and repositioned q2hrs.
[2017-11-20] MEDS: IPRATROPIUM NEB FS 0.5 MG/2.5 ML AMPUL.NEB NEB SCH ×4 (01:13→20:16)
[2017-11-20] MEDS: ALBUTEROL HALF STRENGTH 1.25 MG/3 ML VIAL.NEB NEB SCH ×4 (01:14→20:16)
[2017-11-20] MEDS: VANCOMYCIN 500 MG in IV NS 0.9% 100 ML IV SCH ×2 (02:04→15:17)
--- NOTE | 2017-11-20 04:24 | NUR ---
pt is resting in the bed, no acute distress overnight, tolerates feeding, v/s stable, no pain, pt cleaned, changed and repositioned q2hrs.
[2017-11-20] MEDS: VALPROIC ACID 250 MG/5 ML UDC GT SCH ×3 (05:05→21:33)
[2017-11-20 05:14] LABS: BASOPHILS % (AUTO) 0.3 % (0.0-2.0); EOSINOPHILS % (AUTO) 2.6 % (0.0-6.0); HEMATOCRIT 28 % (33-45); HEMOGLOBIN 9.2 g/dL (11.5-14.8); LYMPHOCYTES # (AUTO) 2.2 /CMM (0.8-4.8); LYMPHOCYTES % (AUTO) 19.5 % (20.0-44.0); MEAN CORPUSCULAR HGB CONC 33 g/dl (31.0-36.0); MEAN CORPUSCULAR VOLUME 84 fL (82-100); MONOCYTES # (AUTO) 0.6 /CMM (0.1-1.30); MONOCYTES % (AUTO) 5.4 % (2.0-12.0); NEUTROPHILS % (AUTO) 72.2 % (43.0-81.0); PLATELET COUNT (AUTO) 343 /CMM (150-450); RDW COEFFICIENT OF VARIATION 16.2 (11.5-15.0); WHITE BLOOD COUNT (AUTO) 11.1 K/uL (4.3-11.0)
[2017-11-20 05:41] LABS: CALCIUM, SERUM 8.9 mg/dL (8.5-10.1); CARBON DIOXIDE 37 mmol/L (21-32); CHLORIDE 100 mmol/L (98-107); CREATININE 0.6 mg/dL (0.6-1.3); GLUCOSE 96 mg/dL (74-106); PHOSPHORUS 3.7 mg/dL (2.5-4.9); POTASSIUM 3.1 mmol/L (3.5-5.1); SODIUM SERUM 140 mmol/L (136-145); UREA NITROGEN, BLOOD 10 mg/dL (7-18)
--- NOTE | 2017-11-20 07:57 | NUR ---
INITIAL FOOTWEAR STITCHER NOTE RCVD PT INTUBATED ETT 7.0 19 AT LIP OFF SEDATION. UNABLE TO RESPOND TO NAME ON EITHER SERBIAN/BELARUSIAN OR FOLLOW SIMPLE COMMANDS. PT ABLE TO OPEN EYES/GRIMACE TO PAINFUL STIMULI. SR ON TELE. RECEIVING O2 VIA T-PIECE TOLERATING WELL. G-TUBE PLACEMENT VERIFIED BY AUSCULTATION/ASPIRATION. NO RESIDUAL OBTAINED. GALINDO TO GRAVITY DRAINING CLEAR, PALE YELLOW URINE. IV SITES C/D/I/PATENT. NO S/O INFILTRATION/PHLEBITIS OBSERVED UPON FLUSHING. WILL CONTINUE TO MONITOR PT FOR SAFETY AND COMFORT. CALL LIGHT WITHIN REACH. BED IN LOW AND LOCKED POSITION.
[2017-11-20] MEDS: FLUDROCORTISONE 0.1 MG TABLET GT SCH (08:14)
[2017-11-20] MEDS: CARBIDOPA/LEVODOPA 25/100 MG 1 UDTAB GT SCH ×3 (08:14→17:07)
[2017-11-20] MEDS: POTASSIUM CHLORIDE 20 MEQ POWDER PACKET GT SCH (08:14)
[2017-11-20] MEDS: LACTOBACILLUS RHAMNOSUS GG 1 EACH CAP.SPRINK PO SCH ×2 (08:14→17:07)
[2017-11-20] MEDS: NEOMY SULF/BACITRAC ZN/POLY 15 GM TUBE TP SCH (08:15)
[2017-11-20] MEDS ORDERED: POTASSIUM CHLORIDE 20 MEQ POWDER PACKET GT ONE (11:00)
--- NOTE | 2017-11-20 14:17 | NUR ---
RENTAL SALES AGENT NOTE DR. CHASE, DR. NOEL, AND DR. BARBOUR AGREE THAT PT NEEDS TRACHEOSTOMY PLACEMENT ON AN EMERGENT BASIS. DR. ESCUDERO CONSULTED FOR TRACH PLACEMENT TO OCCUR TOMORROW. FABIANO GALLEGOS AWARE DR. CHASE AND DR. ESCUDERO TO SIGN CONSENT ON BEHALF OF PT TO UNDERGO PROCEDURE IN TOMORROW. WILL ENDORSE TO PM RN.
--- NOTE | 2017-11-20 18:14 | NUR ---
DOUGH MIXER OPERATOR NOTE PT REMAINS STABLE NO CHANGE IN MENTAL STATUS, SR ON TELE. TOLERATING O2 VIA T-PIECE AND TUBE FEEDING VIA G-TUBE. GALINDO TO GRAVITY DRAINING PALE, YELLOW URINE. IV SITES REMAIN C/D/I/PATENT. NO S/O INFILTRATION/PHLEBITIS OBSERVED. PT'S CARE WILL BE ENDORSED TO GROUP DIRECTOR RN FOR CONTINUITY OF CARE. CALL LIGHT WITHIN REACH. BED IN LOW AND LOCKED POSITION.
--- NOTE | 2017-11-20 20:00 | NUR ---
received pt from day shift, alert, does not follow commands, SR, on T tube at 40% fi02, sat well, lung diminished/congested, no edema, GT to feeding tolerates well, f/c good output, L wrist restraints on, v/s stable, no pain, pt turned and repositioned.
[2017-11-20] MEDS: ENOXAPARIN SODIUM 40 MG/0.4 ML DISP.SYRIN SQ SCH (21:34)
[2017-11-21] VITALS (30 sets, daily range): BP systolic 93–149; BP diastolic 49–88
--- NOTE | 2017-11-21 00:47 | NUR ---
pt is resting in the bed, v/s stable, no pain, pt turned and repositioned q2hrs.
[2017-11-21] MEDS: IPRATROPIUM NEB FS 0.5 MG/2.5 ML AMPUL.NEB NEB SCH ×4 (01:36→19:49)
[2017-11-21] MEDS: ALBUTEROL HALF STRENGTH 1.25 MG/3 ML VIAL.NEB NEB SCH ×4 (01:36→19:49)
[2017-11-21] MEDS: VANCOMYCIN 500 MG in IV NS 0.9% 100 ML IV SCH (02:06)
--- NOTE | 2017-11-21 04:32 | NUR ---
pt is resting in the bed, no acute distress overnight, tolerates feeding, good urine output, v/s stable, no pain, pt cleaned, changed and repositioned q2hrs.
[2017-11-21] MEDS: VALPROIC ACID 250 MG/5 ML UDC GT SCH ×3 (05:15→21:07)
[2017-11-21] MEDS: PIPERACILLIN /TAZOBACTAM 3.375 G in IV D5W 50 ML IV SCH (05:15)
[2017-11-21 05:23] LABS: CARBON DIOXIDE 30 mmol/L (21-32); CHLORIDE 101 mmol/L (98-107); CREATININE 0.6 mg/dL (0.6-1.3); GLUCOSE 87 mg/dL (74-106); POTASSIUM 3.7 mmol/L (3.5-5.1); SODIUM SERUM 137 mmol/L (136-145); UREA NITROGEN, BLOOD 14 mg/dL (7-18)
[2017-11-21 05:24] LABS: INR 1.09 (0.87-1.13)
[2017-11-21] MEDS ORDERED: ANESTHESIA TRAY IN PYXIS 1 EA TRAY MC ONE (07:15)
--- NOTE | 2017-11-21 07:15 | NUR ---
ICU/RN: Pt sent to OR in stable condition, on T-Piece, accompanied by RN. Airway cleared of secretions prior to transfer. Report received from MARIAA Rajput for JOE.
[2017-11-21] MEDS ORDERED: FENTANYL PF 100MCG/2ML AMPUL ONE (07:28)
[2017-11-21] MEDS ORDERED: LIDOCAINE 1%-EPI 1:100,000 20 ML VIAL IJ ONE (07:30)
[2017-11-21] MEDS ORDERED: ROCURONIUM BROMIDE 50 MG/5 ML ONE (07:32)
[2017-11-21] MEDS ORDERED: CELLULOSE,OXIDIZED 1 EA PACK MC ONE (08:00)
[2017-11-21] MEDS ORDERED: MORPHINE SULFATE INJ 4 MG/ML DISP.SYRIN ONE (08:30)
--- NOTE | 2017-11-21 08:30 | NUR ---
ICU/RN: Pt received from property and supply officer, no distress noted, breathing even and unlabored with coughing spells. Lung sounds equal bilat, stat CXR ordered, VSS. FC draining well to gravity. Pt on mShiley 8 AC 12, TV 500 FIO2 100% PEEP 5; will titrate down FiO2 as tolerated. Will cont to monitor pt. Addendum: 11/21/17 at 0933 by ADRIÁN PELAEZ RN Lidocaine and Morphine doses on EMAR administered by Dr Simmons, OR staff.
[2017-11-21] MEDS: FIBERSOURCE HN 1,000 ML BOTTLE GT PRN (08:58)
[2017-11-21] MEDS: FLUDROCORTISONE 0.1 MG TABLET GT SCH (08:58)
[2017-11-21] MEDS: CARBIDOPA/LEVODOPA 25/100 MG 1 UDTAB GT SCH ×3 (08:59→16:10)
[2017-11-21] MEDS: POTASSIUM CHLORIDE 20 MEQ POWDER PACKET GT SCH (08:59)
[2017-11-21] MEDS: LACTOBACILLUS RHAMNOSUS GG 1 EACH CAP.SPRINK PO SCH ×2 (08:59→16:11)
[2017-11-21] MEDS: NEOMY SULF/BACITRAC ZN/POLY 15 GM TUBE TP SCH (08:59)
--- NOTE | 2017-11-21 12:00 | NUR ---
ICU/RN: Pt tolerating TF at 60cc/hr with no residual noted. Turned and repositioned for comfort. Breathing even and unlabored, no distress noted. Will cont to monitor pt
--- NOTE | 2017-11-21 12:30 | NUR ---
ICU/RN: Dr Gonsales at bedside; updated, s/p trach, vent settings reviewed, orders for weaning to cool aerosol tomorrow.
[2017-11-21] MEDS ORDERED: CELLULOSE,OXIDIZED 1 EACH EACH MC ONE (15:10)
--- NOTE | 2017-11-21 15:15 | NUR ---
ICU/RN: Pt noted with bleeding around trach site, approx 50-75 cc out. senior support engineer and Dr Gonsales at bedside with orders for surgicel if bleeding does not stop with pressure. Pressure applied x5 mins to good effect. Site kept clean and dry. Will cont to monitor.
[2017-11-21] MEDS ORDERED: CELLULOSE,OXIDIZED 1 PKT EACH MC ONE (16:30)
--- NOTE | 2017-11-21 19:07 | NUR ---
ICU/RN: Pt in stable condition, no distress noted, no active bleeding noted for trach, bedside report given to pm RN for JOE
[2017-11-21] MEDS: ENOXAPARIN SODIUM 40 MG/0.4 ML DISP.SYRIN SQ SCH (20:48)
[2017-11-22] VITALS (30 sets, daily range): BP systolic 94–158; BP diastolic 54–83
[2017-11-22] MEDS: ALBUTEROL HALF STRENGTH 1.25 MG/3 ML VIAL.NEB NEB SCH ×4 (02:16→19:29)
[2017-11-22] MEDS: IPRATROPIUM NEB FS 0.5 MG/2.5 ML AMPUL.NEB NEB SCH ×4 (02:16→19:28)
[2017-11-22 04:47] LABS: EOSINOPHILS % (AUTO) 5.2 % (0.0-6.0); HEMATOCRIT 24 % (33-45); LYMPHOCYTES % (AUTO) 23.1 % (20.0-44.0); MEAN CORPUSCULAR HGB CONC 34 g/dl (31.0-36.0); MEAN CORPUSCULAR VOLUME 84 fL (82-100); MONOCYTES # (AUTO) 0.7 /CMM (0.1-1.30); NEUTROPHILS # (AUTO) 5.6 /CMM (1.8-8.9); NEUTROPHILS % (AUTO) 63.7 % (43.0-81.0); PLATELET COUNT (AUTO) 310 /CMM (150-450); RDW COEFFICIENT OF VARIATION 17.1 (11.5-15.0); RED BLOOD CELL COUNT(AUTO) 2.82 MIL/uL (4.0-5.2); WHITE BLOOD COUNT (AUTO) 8.8 K/uL (4.3-11.0)
[2017-11-22 05:00] LABS: CALCIUM, SERUM 8.3 mg/dL (8.5-10.1); CARBON DIOXIDE 32 mmol/L (21-32); CHLORIDE 101 mmol/L (98-107); CREATININE 0.6 mg/dL (0.6-1.3); GLUCOSE 96 mg/dL (74-106); PHOSPHORUS 4.1 mg/dL (2.5-4.9); SODIUM SERUM 137 mmol/L (136-145); UREA NITROGEN, BLOOD 17 mg/dL (7-18)
[2017-11-22] MEDS: VALPROIC ACID 250 MG/5 ML UDC GT SCH ×3 (05:05→21:27)
[2017-11-22] MEDS: FIBERSOURCE HN 1,000 ML BOTTLE GT PRN (05:31)
--- NOTE | 2017-11-22 07:30 | NUR ---
OVEN LOADER RECEIVED PATIENT AWAKE ON MECHANICAL VENTILATORY SUPPORT SATUYRTAING 100% UNDETERMINED ORIENTATION, OPENS EYES SPONTANEOUSLY AFEBRILE WARM TO TOUCH BLEEDING AROUND HER TRACHEAL AREA, DRESSING MILDLY SOAKED WTIH BRIGHT RED BLOOD MAINTAINED D ON FEEDING TUBE, TOLERATING WELL IV INTACT AND PATIENT, HD CATH INTACT AND PATENT WELL GALINDO CATHETER INTACT
[2017-11-22] MEDS: LACTOBACILLUS RHAMNOSUS GG 1 EACH CAP.SPRINK PO SCH ×2 (09:00→16:27)
[2017-11-22] MEDS: CARBIDOPA/LEVODOPA 25/100 MG 1 UDTAB GT SCH ×3 (09:00→16:27)
[2017-11-22] MEDS: POTASSIUM CHLORIDE 20 MEQ POWDER PACKET GT SCH (09:01)
[2017-11-22] MEDS: FLUDROCORTISONE 0.1 MG TABLET GT SCH (09:04)
[2017-11-22] MEDS: NEOMY SULF/BACITRAC ZN/POLY 15 GM TUBE TP SCH (09:05)
[2017-11-22 09:57] LABS: ABG BASE EXCESS 8.9 mmol/L; ABG OXYGEN SATURATION 97.5 % (92.0-98.5); ABG PCO2 41.9 mmHg (35.0-45.0); ABG PO2 106.3 mmHg (75.0-100.0); AaDO2 130.7 mmHg; COHb 0.7 % (0.5-1.5); MetHb 0.1 % (0.0-1.5); O2Hb 96.7 % (94.0-97.0); SITE, ABG Right Radial; VENT MODE, BG CPAP 5 / PS 12
[2017-11-22 11:29] LABS: ABG BASE EXCESS 6.3 mmol/L; ABG OXYGEN SATURATION 94.1 % (92.0-98.5); ABG PCO2 42.4 mmHg (35.0-45.0); ABG PH 7.474 (7.350-7.450); ABG PO2 75.2 mmHg (75.0-100.0); AaDO2 161.2 mmHg; COHb 0.3 % (0.5-1.5); MetHb 0.2 % (0.0-1.5); O2Hb 93.6 % (94.0-97.0); SITE, ABG Right Radial; VENT MODE, BG COOL AEROSOL 40%
--- NOTE | 2017-11-22 12:00 | NUR ---
MEDICAL INSTRUMENT CABLE FABRICATOR PLACED PATIENT ON CPAP EARLIER THE COOL AEROSOL, SATURATION 98% ABG 1 HOUR AFTER COOL AEROSOL, ABG RESULT OK, AWAITING CRYSTAL ATTACHER TO SEE PATIENT STILL HAS MODERATE AMENT OF BLOOD OOZING AT THE TRACH AREA
[2017-11-22] MEDS: ENOXAPARIN SODIUM 40 MG/0.4 ML DISP.SYRIN SQ SCH (21:28)
[2017-11-23] VITALS (17 sets, daily range): BP systolic 96–156; BP diastolic 53–85
[2017-11-23] MEDS: ALBUTEROL HALF STRENGTH 1.25 MG/3 ML VIAL.NEB NEB SCH ×4 (01:00→19:51)
[2017-11-23] MEDS: IPRATROPIUM NEB FS 0.5 MG/2.5 ML AMPUL.NEB NEB SCH ×4 (01:00→19:50)
[2017-11-23] MEDS: VALPROIC ACID 250 MG/5 ML UDC GT SCH ×3 (04:32→21:44)
[2017-11-23] MEDS: FIBERSOURCE HN 1,000 ML BOTTLE GT PRN (04:39)
[2017-11-23] MEDS: IV NS 0.9% 250 ML IV PRN (04:40)
[2017-11-23 05:11] LABS: CALCIUM, SERUM 8.5 mg/dL (8.5-10.1); CARBON DIOXIDE 32 mmol/L (21-32); CHLORIDE 99 mmol/L (98-107); CREATININE 0.6 mg/dL (0.6-1.3); GLUCOSE 94 mg/dL (74-106); MAGNESIUM 1.9 mg/dL (1.8-2.4); PHOSPHORUS 3.6 mg/dL (2.5-4.9); POTASSIUM 3.5 mmol/L (3.5-5.1); SODIUM SERUM 137 mmol/L (136-145); UREA NITROGEN, BLOOD 13 mg/dL (7-18)
[2017-11-23 05:18] LABS: BASOPHILS % (AUTO) 0.2 % (0.0-2.0); HEMATOCRIT 26 % (33-45); HEMOGLOBIN 8.8 g/dL (11.5-14.8); LYMPHOCYTES # (AUTO) 2.7 /CMM (0.8-4.8); LYMPHOCYTES % (AUTO) 20.8 % (20.0-44.0); MEAN CORPUSCULAR HGB CONC 33 g/dl (31.0-36.0); MEAN CORPUSCULAR VOLUME 84 fL (82-100); MONOCYTES # (AUTO) 1.2 /CMM (0.1-1.30); MONOCYTES % (AUTO) 9.4 % (2.0-12.0); NEUTROPHILS # (AUTO) 8.7 /CMM (1.8-8.9); NEUTROPHILS % (AUTO) 67.6 % (43.0-81.0); PLATELET COUNT (AUTO) 329 /CMM (150-450); RDW COEFFICIENT OF VARIATION 17.1 (11.5-15.0); RED BLOOD CELL COUNT(AUTO) 3.12 MIL/uL (4.0-5.2); WHITE BLOOD COUNT (AUTO) 12.9 K/uL (4.3-11.0)
--- NOTE | 2017-11-23 07:47 | NUR ---
ICU/RN INITIAL NOTES,AM RECEIVED REPORT FROM NIGHT NURSE. PT DOES NOT FOLLOW COMMANDS, OPENS EYES DOES NOT TRACK. TRACH SHILEY 8, ON COOL AEROSOL,TOLERATING WELL, NO ACUTE RESPIRATORY DISTRESS NOTED AT THIS TIME. PT ON TELE, SINUS. PEG IN PLACE, TUBE FEEDING INFUSING ORDERED, TOLERATING WELL. PIV PATENT AND INTACT, NO S/S OF INFECTION OR INFILTRATION NOTED, TKO INFUSING. POSSIBLE DOWNGRADE TO TELE THIS AM, WAITING FOR MD ORDERS. ALL NEEDS WILL BE ATTENDED TO, SAFETY MEASURES TAKEN, BED IN LOW POSITION, SIDE RAILS UP, CALL LIGHT WITHIN REACH. WILL CONTINUE CARE.
[2017-11-23] MEDS: CARBIDOPA/LEVODOPA 25/100 MG 1 UDTAB GT SCH ×3 (08:50→16:02)
[2017-11-23] MEDS: FLUDROCORTISONE 0.1 MG TABLET GT SCH (08:50)
[2017-11-23] MEDS: POTASSIUM CHLORIDE 20 MEQ POWDER PACKET GT SCH (08:50)
[2017-11-23] MEDS: LACTOBACILLUS RHAMNOSUS GG 1 EACH CAP.SPRINK PO SCH ×2 (08:50→16:02)
[2017-11-23] MEDS: NEOMY SULF/BACITRAC ZN/POLY 15 GM TUBE TP SCH (08:51)
--- NOTE | 2017-11-23 12:50 | NUR ---
ICU/RN: REPORT ENDORSED TO MARIAA ZARAGOZA. PT TRANSFERRED TO ROOM 106. ALL BELONGINGS AND CHART SENT WITH PT. PT CONTINUES ON COOL AEROSOL TO TRACH, NO DISTRESS. VSS. ALL NEEDS ATTENDED TO, PT TURNED AND REPOSITIONED, SAFETY MEASURES TAKEN, BED IN LOW POSITION, SIDE RIALS UP, CALL LIGHT WITHIN REACH.
--- NOTE | 2017-11-23 13:06 | NUR ---
GLORIA RN NOTE RECEIVED PATIENT FROM ICU AWAKE BUT NON VERBAL, UNABLE TO FOLLOW NEO COMMAND. BOTH EYES OPEN . PACED ON TELE MONITOR ST 103, ON G TUBE FEEDING ORDERED KEEP HOB ELEVATED AT ALL TIME, ON COOLER AEROSOL 40% 10L ,NO SOB NOTED WITH TRACH WITH BLEEDING AROUND THE STOMA SUTURES INTACT ,KEEP CLEAN DRY , LT UPPER ARM MID LINE TKO NO S\S INFECTION NOTED , ON KCI MATRASS ORDERED,WITH GALINDO CATH TO GRAVITY WITH YELLOW CLEAR URINE , VS TAKEN .BED IN LOWEST AND LOCKED POSITING. RT AT \BEDSIDE, ALL NEEDS ATTENDED
--- NOTE | 2017-11-23 16:50 | NUR ---
T GLORIA RN NOTE ALL NEEDS ATTENDED TRACH AND ORAL SUCTION DONE , ALL NEEDS ATTENDED NOT IN ACUTE DISTRESS WILL CONT TO MONITOR CLOSELY
--- NOTE | 2017-11-23 17:44 | NUR ---
SUPERVISOR PLATING AND POINT ASSEMBLY NOTE SEEN BY DR POLLOCK MACHINE HEDDLE CLEANER AWARE THAT PATIENT WITH TRACH TO COOLER AEROSOL , NEW ORDER GIVEN AT THIS TIME ,WILL F\U
--- NOTE | 2017-11-23 18:41 | NUR ---
ELECTRICAL LOGGER NOTE ,PATIENT IN BED , ALL NEEDS ATTENDED, WITH TRACH TO COLLER AEROSOL, ORDERED ON 10 L OF 02 ,O2 40% , ON KCI MATRASS FOR SKIN MANAGEMENT, BED IN LOWEST AND LOCKED POSITION , NOT IN ACUTE DISTRESS
--- NOTE | 2017-11-23 20:00 | NUR ---
GLORIA RN NOTES PATIENT IN BED, WITH TRACH TO COLLER AEROSOL, ORDERED ON 10 L OF 02 ,O2 40% WITH SATURATION OF 97%. SAFETY MEASURES ARE IMPLEMENTED, BED IS LOCKED IN LOWEST POSITION, CALL LIGHT IN REACH.WILL CONTINUE MONITORING.
[2017-11-23] MEDS: ENOXAPARIN SODIUM 40 MG/0.4 ML DISP.SYRIN SQ SCH (21:44)
[2017-11-24] VITALS: BP 115/60
[2017-11-24] MEDS: IPRATROPIUM NEB FS 0.5 MG/2.5 ML AMPUL.NEB NEB SCH ×4 (00:32→20:08)
[2017-11-24] MEDS: ALBUTEROL HALF STRENGTH 1.25 MG/3 ML VIAL.NEB NEB SCH ×4 (00:32→20:08)
[2017-11-24] MEDS: FIBERSOURCE HN 1,000 ML BOTTLE GT PRN (03:43)
[2017-11-24] MEDS: IV NS 0.9% 250 ML IV PRN (03:57)
[2017-11-24 04:27] VITALS: BP 119/60
[2017-11-24] MEDS: VALPROIC ACID 250 MG/5 ML UDC GT SCH ×3 (05:32→20:52)
[2017-11-24 06:28] LABS: BASOPHILS % (AUTO) 0.3 % (0.0-2.0); EOSINOPHILS % (AUTO) 2.8 % (0.0-6.0); HEMATOCRIT 25 % (33-45); HEMOGLOBIN 8.1 g/dL (11.5-14.8); LYMPHOCYTES # (AUTO) 1.9 /CMM (0.8-4.8); MEAN CORPUSCULAR HGB CONC 33 g/dl (31.0-36.0); MEAN CORPUSCULAR VOLUME 84 fL (82-100); MONOCYTES # (AUTO) 0.6 /CMM (0.1-1.30); MONOCYTES % (AUTO) 6.6 % (2.0-12.0); NEUTROPHILS # (AUTO) 6.7 /CMM (1.8-8.9); NEUTROPHILS % (AUTO) 70.3 % (43.0-81.0); PLATELET COUNT (AUTO) 331 /CMM (150-450); RDW COEFFICIENT OF VARIATION 17.3 (11.5-15.0); RED BLOOD CELL COUNT(AUTO) 2.91 MIL/uL (4.0-5.2); WHITE BLOOD COUNT (AUTO) 9.6 K/uL (4.3-11.0)
[2017-11-24 06:34] LABS: CALCIUM, SERUM 8.3 mg/dL (8.5-10.1); CARBON DIOXIDE 34 mmol/L (21-32); CHLORIDE 102 mmol/L (98-107); CREATININE 0.6 mg/dL (0.6-1.3); GLUCOSE 125 mg/dL (74-106); MAGNESIUM 2.1 mg/dL (1.8-2.4); PHOSPHORUS 3.8 mg/dL (2.5-4.9); POTASSIUM 3.8 mmol/L (3.5-5.1); SODIUM SERUM 138 mmol/L (136-145); UREA NITROGEN, BLOOD 19 mg/dL (7-18)
[2017-11-24 08:00] VITALS: BP 125/77
--- NOTE | 2017-11-24 08:00 | NUR ---
GLORIA RN INITIAL NOTE RN RECEIVED PATIENT IN BED RESTING COMFORTABLY NON VERBAL EASILY AROUSBLE, UNABLE TO FOLLOW NEO COMMAND. PT CURRENTLY PACED ON TELE MONITOR ST 120'S, ON G TUBE FEEDING ORDERED KEEP HOB ELEVATED AT ALL TIME, ON COOLER AEROSOL 40% 10L ,NO SOB NOTED WITH TRACH WITH BLEEDING AROUND THE STOMA SUTURES INTACT, LT UPPER ARM MID LINE TKO NO S\S INFECTION NOTED , ON KCI MATRASS ORDERED,WITH GALINDO CATH TO GRAVITY WITH YELLOW CLEAR URINE .BED IN LOWEST AND LOCKED POSITING. RN WILL CONTINUE TO FOLLOW PATIENT THROUGHOUT THE DAY
[2017-11-24] MEDS: FLUDROCORTISONE 0.1 MG TABLET GT SCH (09:01)
[2017-11-24] MEDS: POTASSIUM CHLORIDE 20 MEQ POWDER PACKET GT SCH (09:01)
[2017-11-24] MEDS: NEOMY SULF/BACITRAC ZN/POLY 15 GM TUBE TP SCH (09:01)
[2017-11-24] MEDS: LACTOBACILLUS RHAMNOSUS GG 1 EACH CAP.SPRINK PO SCH ×2 (09:01→16:11)
[2017-11-24] MEDS: CARBIDOPA/LEVODOPA 25/100 MG 1 UDTAB GT SCH ×3 (09:01→16:11)
--- NOTE | 2017-11-24 11:52 | NUR ---
RN NOTE RN SPOKE WITH CORPORATE QUALITY ASSURANCE MANAGER STUDENT FOLLOWING MD OLIVA IN REGARDS TO PATIENT PLAN OF CARE , RN WILL CONTINUE TO FOLLOW
[2017-11-24 12:00] VITALS: BP 107/56
[2017-11-24 16:00] VITALS: BP 119/65
[2017-11-24] MEDS: ACETAMINOPHEN 325 MG TABLET MC PRN (16:11)
[2017-11-24] MEDS ORDERED: LACTOBACILLUS RHAMNOSUS GG 1 EACH CAP.SPRINK PO SCH (17:00)
[2017-11-24 20:00] VITALS: BP 139/67
--- NOTE | 2017-11-24 20:09 | NUR ---
RN NOTE NOTIFIED ROGELIO HERNANDEZ EXECUTIVE CREATIVE DIRECTOR RG NA [id number], NO NEW ORDERS GIVEN AT THIS TIME
[2017-11-24] MEDS: ENOXAPARIN SODIUM 40 MG/0.4 ML DISP.SYRIN SQ SCH (20:51)
[2017-11-24] MEDS ORDERED: TRAMADOL HCL 50 MG TABLET PO ONE (22:00)
[2017-11-25] VITALS (7 sets, daily range): BP systolic 95–144; BP diastolic 43–73
[2017-11-25] MEDS: ALBUTEROL HALF STRENGTH 1.25 MG/3 ML VIAL.NEB NEB SCH ×4 (01:53→19:51)
[2017-11-25] MEDS: IPRATROPIUM NEB FS 0.5 MG/2.5 ML AMPUL.NEB NEB SCH ×4 (01:53→19:51)
[2017-11-25] MEDS: VALPROIC ACID 250 MG/5 ML UDC GT SCH ×3 (06:00→21:03)
[2017-11-25] MEDS: FIBERSOURCE HN 1,000 ML BOTTLE GT PRN (06:09)
--- NOTE | 2017-11-25 07:27 | NUR ---
RN NOTE NO CHANGES NOTED, PATIENT IS STABLE, NO RESPIRATORY DISTRESS NOTED, NO PAIN OR DISCOMFORT NOTED, ALL SAFETY MEASURES TAKEN, CALL LIGHT WITHIN REACH, ALL BELONGINGS WITHIN REACH, BED IN THE LOWEST POSITION, ENDORSED TO AM SHIFT FOR JOE
--- NOTE | 2017-11-25 07:39 | NUR ---
GLORIA RN NOTE RECIVED
--- NOTE | 2017-11-25 07:39 | NUR ---
GLORIA RN NOTE PATIENT IN BED TRACH IN PLACE REMAINS MIDLINE INTACT, MINIMAL AMOUNT OF DRY BLOOD PRESENT , CALL CARE RENDERED LARGE BM TODAY , ALL NEEDS ATTENDED ORAL CARE RENDERED, PATIENT IN STABLE CONDITION AT THIS TIME. RN ENDORSED CONTINUATION OF CARE TO PM
--- NOTE | 2017-11-25 07:40 | NUR ---
GLORIA RN NOTE RECEIVED PATIENT IN BED ,OBTUNDED WITH TRACH TO COOLER AEROSOL SETTING ORDERED SAT 98% WITH GALINDO CATH TO GRAVITY WITH YELLOW COLOR URINE, ON G TUBE FEEDING ORDERED KEEP HOB ELEVATED AT ALL TIME , NO RESIDUAL NOTED , LT UPPER ARM MID LINE IN PLACE, NO S\S INFECTION NOTED ON KCI MATRES, BED IN LOWEST AND LOCKED POSITION , NO SOB NOTED ,RT AT BEDSIDE TRACH SUCTION DONE , KEEP CLEAN DRY , WILL CONT TO MONITOR CLOSELY
[2017-11-25] MEDS: CARBIDOPA/LEVODOPA 25/100 MG 1 UDTAB GT SCH ×3 (09:20→16:34)
[2017-11-25] MEDS: POTASSIUM CHLORIDE 20 MEQ POWDER PACKET GT SCH (09:20)
[2017-11-25] MEDS: LACTOBACILLUS RHAMNOSUS GG 1 EACH CAP.SPRINK PO SCH ×2 (09:20→16:34)
[2017-11-25] MEDS: FLUDROCORTISONE 0.1 MG TABLET GT SCH (09:20)
[2017-11-25] MEDS: NEOMY SULF/BACITRAC ZN/POLY 15 GM TUBE TP SCH (09:21)
--- NOTE | 2017-11-25 12:47 | NUR ---
WINDOW TRIMMER NOTE NOTED THAT PATIENT GRIMACING WHEN GIVE G TUBE MED ALSO NOTED LEAKAGE AROUND G TUBE SITE ,SPOKE WITH SAAD RN APPLICATION PROGRAMMER ANALYST STATED THAT WILL CHECK IT OUT
--- NOTE | 2017-11-25 13:46 | NUR ---
STONE CUTTER NOTE SAAD SEEN AND EXAMINED PATIENT, NO ABDOMINAL DISCOMFORT AT THIS TIME , NO DRAINAGE AT G TUBE SITE,STATED TO MONITOR, NO NEW ORDER NADINE AT THIS TIME
--- NOTE | 2017-11-25 16:38 | NUR ---
CITY BAILIFF NOTE PER DIETARY OK TO CHANGE FIBERSOURCE AT 55 N ML PER HOUR
--- NOTE | 2017-11-25 19:00 | NUR ---
PORCELAIN ENAMEL REPAIRER NOTE ALL NEEDS ATTENDED CONT TRACH TO COOLER AEROSOL, NOT IN DISTRESS
--- NOTE | 2017-11-25 20:00 | NUR ---
TELE 1 RN NOTE PT IN BED WITH EYES OPEN. NON VERBAL , T PIECE SHIELY 8, COOL AEROSOL 10 L FIO2 40% FIO2 97%. ON TELE MONITOR SR HR 99. F/C INTACT AND PATENT DRAINING YELLOWISH COLOR URINE. ON GT FEEDING FIBERSOURCE 55 ML/HR, 0 ML RESIDUAL NOTED. REPOSITION HER FOR SKIN MANAGEMENT. SIDE RAILS UP X 3 AND CALL LIGHT WITHIN REACH. VSS. CONTINUE TO MONITOR HER.
[2017-11-25] MEDS: ENOXAPARIN SODIUM 40 MG/0.4 ML DISP.SYRIN SQ SCH (21:04)
[2017-11-26] VITALS (7 sets, daily range): BP systolic 116–155; BP diastolic 62–81
[2017-11-26] MEDS: ALBUTEROL HALF STRENGTH 1.25 MG/3 ML VIAL.NEB NEB SCH ×4 (01:35→20:09)
[2017-11-26] MEDS: IPRATROPIUM NEB FS 0.5 MG/2.5 ML AMPUL.NEB NEB SCH ×4 (01:35→20:09)
[2017-11-26] MEDS: FIBERSOURCE HN 1,000 ML BOTTLE GT PRN (03:19)
[2017-11-26] MEDS: VALPROIC ACID 250 MG/5 ML UDC GT SCH ×3 (05:26→20:20)
[2017-11-26] MEDS: IV NS 0.9% 250 ML IV PRN (05:27)
--- NOTE | 2017-11-26 06:51 | NUR ---
TELE 1 RN NOTE PT IN BED WITH EYES OPEN. NO CHANGE IN CONDITION. NO DISTRESS OR DISCOMFORT NOTED. NO S/S OF PAIN NOTED. ON TELE SR HR 98. DIYA WITH MIDLINE NS TKO, NO S/S OF INFILTRATION NOTED. GTF FIBERSOURCE INFUSING WELL AT 55 ML/HR, 0 ML RESIDUAL NOTED. SIDE RAILS UP X 2 AND CALL LIGHT WITHIN REACH. WILL ENDORSE TO DAY SHIFT NURSE FOR CONTINUE TO CARE.
--- NOTE | 2017-11-26 07:40 | NUR ---
RN NOTE RECEIVED PATIENT IN BED WITH EYES OPEN UPON LIGHT TOUCH. NON VERBAL. PATIENT IS ON A T PIECE SHIELY 8, COOL AEROSOL 10 L FIO2 40% FIO2 99%. ON REGISTERED NURSE STEP DOWN SR HR OF 95. F/C INTACT AND PATENT ADEQUATE FLOW OF URINE. GT SITE INTACT AND PATENT WITH ONGOING FEEDING OF FIBERSOURCE 55 ML/HR WELL TOLERATED AND NO RESIDUAL NOTED. BED IN LOW POSITION, LOCKED, PLACED CALL LIGHT WITHIN REACH. WILL CONTINUE TO MONITOR CONTINUITY OF CARE.
[2017-11-26] MEDS: FLUDROCORTISONE 0.1 MG TABLET GT SCH (08:28)
[2017-11-26] MEDS: CARBIDOPA/LEVODOPA 25/100 MG 1 UDTAB GT SCH ×3 (08:28→17:21)
[2017-11-26] MEDS: NEOMY SULF/BACITRAC ZN/POLY 15 GM TUBE TP SCH (08:29)
[2017-11-26] MEDS: POTASSIUM CHLORIDE 20 MEQ POWDER PACKET GT SCH (08:29)
[2017-11-26] MEDS: LACTOBACILLUS RHAMNOSUS GG 1 EACH CAP.SPRINK PO SCH ×2 (08:29→17:21)
[2017-11-26] MEDS: ACETAMINOPHEN 325 MG TABLET MC PRN ×2 (19:14→23:44)
--- NOTE | 2017-11-26 19:18 | NUR ---
RN NOTE PATIENT NOTED WITH ELEVATED TEMP OF 102, PRN TYLENOL GIVEN VIA GT. COOLING MEASURES PROVIDED. AUTOMATIC HEMMER MD NOTIFIED. WILL ENDORSE TO NEXT SHIFT TO FOLLOW UP.
--- NOTE | 2017-11-26 19:30 | NUR ---
RN NOTE RECEIVED PATIENT IN THE BED, ON TELE MONITOR SINUS TACHYCARDIA 130 BEATS/MIN, TEMPERATURE OF 102.3, TYLENOL WAS GIVEN, COOLING MEASURES PROVIDED, SPOKE TO ITALIA KING DELIVERY ASSOCIATE, NEW ORDERS OF CBC, LACTIC ACID,BLOOD CULTURE WAS GIVEN AND CARRIED OUT
[2017-11-26 20:13] LABS: BASOPHILS # (AUTO) 0.2 /CMM (0.0-0.2); BASOPHILS % (AUTO) 1.4 % (0.0-2.0); EOSINOPHILS % (AUTO) 0.2 % (0.0-6.0); HEMATOCRIT 25 % (33-45); HEMOGLOBIN 8.7 g/dL (11.5-14.8); LYMPHOCYTES # (AUTO) 0.5 /CMM (0.8-4.8); LYMPHOCYTES % (AUTO) 3.3 % (20.0-44.0); MEAN CORPUSCULAR HGB CONC 35 g/dl (31.0-36.0); MEAN CORPUSCULAR VOLUME 83 fL (82-100); MONOCYTES # (AUTO) 0.6 /CMM (0.1-1.30); MONOCYTES % (AUTO) 4.5 % (2.0-12.0); NEUTROPHILS # (AUTO) 12.8 /CMM (1.8-8.9); NEUTROPHILS % (AUTO) 90.6 % (43.0-81.0); PLATELET COUNT (AUTO) 363 /CMM (150-450); RDW COEFFICIENT OF VARIATION 15.7 (11.5-15.0); RED BLOOD CELL COUNT(AUTO) 3.06 MIL/uL (4.0-5.2); WHITE BLOOD COUNT (AUTO) 14.1 K/uL (4.3-11.0)
[2017-11-26] MEDS: ENOXAPARIN SODIUM 40 MG/0.4 ML DISP.SYRIN SQ SCH (20:21)
[2017-11-26 21:47] LABS: BILIRUBIN,DIRECT 0.1 mg/dL (0.0-0.2); BILIRUBIN,TOTAL 0.3 mg/dL (0.2-1.0); CREATININE 0.8 mg/dL (0.6-1.3)
--- NOTE | 2017-11-26 21:50 | NUR ---
RN NOTE LACTIC ACID 2.0. WBC 14.1, NEW ORDER OF ANTIBIOTIC AND NS 0.9% AT 100 ML/HR Addendum: 11/26/17 at 2158 by RAMIREZ BANKS RN ORDER WAS GIVEN BY FERNANDO De La O NP
[2017-11-26] MEDS ORDERED: CEFTRIAXONE 1 G VIAL ONE (21:58)
[2017-11-26] MEDS: CEFTRIAXONE 1 G in IV NS 0.9% 50 ML IV SCH (22:03)
[2017-11-26] MEDS: IV NS 0.9% 1,000 ML BAG IV PRN (22:04)
[2017-11-26] MEDS: LORAZEPAM INJ 2 MG/ML VIAL IV PRN (23:22)
[2017-11-26 23:41] LABS: ABG BASE EXCESS -2.9 mmol/L; ABG OXYGEN SATURATION 98.9 % (92.0-98.5); ABG PCO2 33.2 mmHg (35.0-45.0); ABG PH 7.419 (7.350-7.450); AaDO2 377.5 mmHg; COHb 0.4 % (0.5-1.5); MetHb 0.3 % (0.0-1.5); O2Hb 98.2 % (94.0-97.0); SITE, ABG Right Brachial; VENT MODE, BG C/A 80% FIO2
[2017-11-27] VITALS (7 sets, daily range): BP systolic 94–190; BP diastolic 41–95
--- NOTE | 2017-11-27 00:05 | NUR ---
RN NOTE SO2 DROPPED TO 78%, INCREASED OXYGEN, ELEVATED HOB, SO2 87%, BP 190/95, HR 140, RES 30, TEMP 99.5F, BS 107,NOTIFIED FERNANDO De La O NP, NEW ORDERS GIVEN AND CARRIED OUT
--- NOTE | 2017-11-27 00:15 | NUR ---
RN NOTE NOTIFIED SUSHIL KING REGARDING ABG's RESULT, NO NEW ORDERS GIVEN AT THIS TIME
[2017-11-27] MEDS ORDERED: TRAMADOL HCL 50 MG TABLET PO PRN (00:30)
[2017-11-27] MEDS ORDERED: IV NS 0.9% 1,000 ML IV ONE (00:30)
[2017-11-27] MEDS ORDERED: hydrALAZINE HCL IV 20 MG VIAL IV PRN (00:30)
[2017-11-27] MEDS ORDERED: MORPHINE SULFATE INJ 4 MG/ML DISP.SYRIN IV PRN (00:30)
--- NOTE | 2017-11-27 00:30 | NUR ---
RN NOTE SO2 99%, NO RESPIRATORY DISTRESS AT THIS TIME
[2017-11-27] MEDS: IPRATROPIUM NEB FS 0.5 MG/2.5 ML AMPUL.NEB NEB SCH ×4 (01:25→19:31)
[2017-11-27] MEDS: ALBUTEROL HALF STRENGTH 1.25 MG/3 ML VIAL.NEB NEB SCH ×4 (01:26→19:31)
[2017-11-27] MEDS: FIBERSOURCE HN 1,000 ML BOTTLE GT PRN (01:37)
[2017-11-27] MEDS: IV NS 0.9% 1,000 ML BAG IV PRN (03:21)
[2017-11-27] MEDS: IV NS 0.9% 1,000 ML IV PRN ×3 (03:44→22:10)
[2017-11-27] MEDS: VALPROIC ACID 250 MG/5 ML UDC GT SCH ×3 (05:02→22:09)
--- NOTE | 2017-11-27 06:32 | NUR ---
RN NOTE NO RESPIRATORY DISTRESS NOTED, AFEBRILE, PATIENT IS ASLEEP, OPEN EYES AT TIMES, NO PAIN OR DISCOMFORT NOTED, SINUS RYTHM ON THE TELE MONITOR, ON 10 L/MIN,T-PIECE, FIO2 40, TOLERATES WELL NOW, GALINDO CATHETER IS INTACT, AND DRAINS URINE WELL, YELLOW, BED REST, TOLERATES G-TUBE FEEDING WELL, NO RESIDUAL NOTED, LEFT UPPER MIDLINE, LEFT FOREARM 20 GAUGE, IV SITES ARE INTACT, NO S/S OF INFECTION/INFILTRATION NOTED, WOUND CARE PROVIDED ORDERED, TURNED AND REPOSITION Q 2 HOURS, OFFLOADED EXTREMITIES, ALL SAFETY MEASURES TAKEN, BED IN THE LOWEST POSITION, CALL LIGHT WITHIN REACH, SIDE RAILS UP X 2, WILL ENDORSE TO AM SHIFT FOR JOE
--- NOTE | 2017-11-27 07:45 | NUR ---
RN NOTE RECEIVED PATIENT IN BED WITH EYES OPEN UPON LIGHT TOUCH. NON VERBAL. PATIENT IS ON A T PIECE SHIELY 8, COOL AEROSOL 10 L FIO2 40% FIO2 99%. ON ACCOUNTS RECEIVABLE EXECUTIVE SR HR OF 81. F/C INTACT AND PATENT ADEQUATE FLOW OF URINE. PATIENT IS AFEBRILE AND IS NOT IN ANY DISTRESS. GT SITE INTACT AND PATENT WITH ONGOING FEEDING OF FIBERSOURCE 55 ML/HR WELL TOLERATED AND NO RESIDUAL NOTED. BED IN LOW POSITION, LOCKED, PLACED CALL LIGHT WITHIN REACH. WILL CONTINUE TO MONITOR CONTINUITY OF CARE.
[2017-11-27] MEDS: FLUDROCORTISONE 0.1 MG TABLET GT SCH (08:15)
[2017-11-27] MEDS: LACTOBACILLUS RHAMNOSUS GG 1 EACH CAP.SPRINK PO SCH ×2 (08:15→16:37)
[2017-11-27] MEDS: CARBIDOPA/LEVODOPA 25/100 MG 1 UDTAB GT SCH ×3 (08:15→16:37)
[2017-11-27] MEDS: POTASSIUM CHLORIDE 20 MEQ POWDER PACKET GT SCH (08:16)
[2017-11-27] MEDS: NEOMY SULF/BACITRAC ZN/POLY 15 GM TUBE TP SCH (08:19)
[2017-11-27] MEDS ORDERED: FENTANYL PF 100MCG/2ML AMPUL IV PRN (09:30)
--- NOTE | 2017-11-27 18:59 | NUR ---
RN NOTE PATIENT IN BED WITH HOB ELEVATED. NO DISTRESS OR ACUTE CHANGES NOTED DURING SHIFT. ON CANVAS SHOP LABORER OF SR HR 81. DIYA WITH MIDLINE RUNNING NS 100ML/HR WITH NO S/SX OF INFILTRATION NOTED. GT SITE INTACT AND PATENT WITH ONGOING TUBE FEEDING OF FIBERSOURCE INFUSING AT 55 ML/HR WELL TOLERATED. NO RESIDUAL NOTED. ALL MEDS GIVEN ORDERED THROUGHOUT SHIFT. BED LOCKED AND LOW POSITION, PLACED CALL LIGHT WITHIN REACH. WILL ENDORSE TO NEXT SHIFT TO CONTINUE CONTINUITY OF CARE.
--- NOTE | 2017-11-27 20:38 | NUR ---
RN TEL INITIAL NOTE RECEIVED PATIENT IN BED WITH EYES OPEN UPON LIGHT TOUCH. NON VERBAL. PATIENT IS ON A T PIECE SHIELY 8, COOL AEROSOL 10 L FIO2 40% FIO2 99%. ON EXPLORATION GEOLOGIST SR HR OF 81. F/C INTACT AND PATENT ADEQUATE FLOW OF URINE. PATIENT IS AFEBRILE AND IS NOT IN ANY DISTRESS. GT SITE INTACT AND PATENT WITH ONGOING FEEDING OF FIBERSOURCE 55 ML/HR WELL TOLERATED AND NO RESIDUAL NOTED. BED IN LOW POSITION, LOCKED, PLACED CALL LIGHT WITHIN REACH. WILL CONTINUE TO MONITOR CONTINUITY OF CARE.
[2017-11-27] MEDS: CEFTRIAXONE 1 G in IV NS 0.9% 50 ML IV SCH (22:09)
[2017-11-27] MEDS: ENOXAPARIN SODIUM 40 MG/0.4 ML DISP.SYRIN SQ SCH (22:17)
[2017-11-27] MEDS: LORAZEPAM INJ 2 MG/ML VIAL IV PRN (22:23)
[2017-11-28] VITALS: BP 105/50
[2017-11-28] MEDS: IPRATROPIUM NEB FS 0.5 MG/2.5 ML AMPUL.NEB NEB SCH ×4 (01:22→19:59)
[2017-11-28] MEDS: ALBUTEROL HALF STRENGTH 1.25 MG/3 ML VIAL.NEB NEB SCH ×4 (01:22→19:59)
[2017-11-28] MEDS: FIBERSOURCE HN 1,000 ML BOTTLE GT PRN (02:02)
[2017-11-28 04:00] VITALS: BP 135/77
[2017-11-28] MEDS: VALPROIC ACID 250 MG/5 ML UDC GT SCH ×3 (04:48→20:56)
--- NOTE | 2017-11-28 06:20 | NUR ---
RN TEL CLOSING NOTE ENDORSED PATIENT IN BED WITH EYES OPEN UPON LIGHT TOUCH. NON VERBAL. PATIENT IS ON A T PIECE SHIELY 8, COOL AEROSOL 10 L FIO2 40% FIO2 99%. ON FONDANT COOKER SR HR OF 81. F/C INTACT AND PATENT ADEQUATE FLOW OF URINE. PATIENT IS AFEBRILE AND IS NOT IN ANY DISTRESS. GT SITE INTACT AND PATENT WITH ONGOING FEEDING OF FIBERSOURCE 55 ML/HR WELL TOLERATED AND NO RESIDUAL NOTED. BED IN LOW POSITION, LOCKED, PLACED CALL LIGHT WITHIN REACH. WILL CONTINUE TO MONITOR CONTINUITY OF CARE.
[2017-11-28 06:45] LABS: BASOPHILS # (AUTO) 0.1 /CMM (0.0-0.2); BASOPHILS % (AUTO) 0.7 % (0.0-2.0); EOSINOPHILS % (AUTO) 1.8 % (0.0-6.0); HEMATOCRIT 24 % (33-45); HEMOGLOBIN 7.9 g/dL (11.5-14.8); LYMPHOCYTES # (AUTO) 1.6 /CMM (0.8-4.8); LYMPHOCYTES % (AUTO) 18.6 % (20.0-44.0); MEAN CORPUSCULAR HGB CONC 33 g/dl (31.0-36.0); MEAN CORPUSCULAR VOLUME 83 fL (82-100); MONOCYTES # (AUTO) 0.6 /CMM (0.1-1.30); MONOCYTES % (AUTO) 6.6 % (2.0-12.0); NEUTROPHILS # (AUTO) 6.3 /CMM (1.8-8.9); NEUTROPHILS % (AUTO) 72.3 % (43.0-81.0); PLATELET COUNT (AUTO) 129 /CMM (150-450); RDW COEFFICIENT OF VARIATION 16.5 (11.5-15.0); RED BLOOD CELL COUNT(AUTO) 2.84 MIL/uL (4.0-5.2); WHITE BLOOD COUNT (AUTO) 8.7 K/uL (4.3-11.0)
--- NOTE | 2017-11-28 07:47 | NUR ---
TRAINING LEAD NOTE: RECEIVED PATIENT IN BED, ASLEEP, BUT OPEN HER EYES WHEN CALLING HER NAME AND W/ TACTILE STIMULI. ON COOL AEROSOL W/ 10.0 L/MIN OXYGEN AND SATURATING 100%. NO FACIAL GRIMACING NOTED. ON LOG LOADER, SR HR= 84. ON GT FEEDING OF FIBERSOURCE @55CC/HR NO RESIDUAL NOTED. (L) UA MIDLINE INFUSING W/ NS@100CC/HR. GALINDO CATHETER IN PLACED W/ YELLOW URINE DRAINING TO GRAVITY. HOB ELEVATED. BED ALARM AND LOCKED AT ALL TIMES. CALL LIGHT WITHIN REACH. NEEDS ANTICIPATED.
[2017-11-28 08:00] VITALS: BP 151/65
[2017-11-28] MEDS: NEOMY SULF/BACITRAC ZN/POLY 15 GM TUBE TP SCH (08:35)
[2017-11-28] MEDS: FLUDROCORTISONE 0.1 MG TABLET GT SCH (08:36)
[2017-11-28] MEDS: CARBIDOPA/LEVODOPA 25/100 MG 1 UDTAB GT SCH ×3 (08:36→17:48)
[2017-11-28] MEDS: LACTOBACILLUS RHAMNOSUS GG 1 EACH CAP.SPRINK PO SCH ×2 (08:36→17:48)
[2017-11-28 08:38] LABS: CALCIUM, SERUM 7.5 mg/dL (8.5-10.1); CARBON DIOXIDE 31 mmol/L (21-32); CHLORIDE 105 mmol/L (98-107); CREATININE 0.5 mg/dL (0.6-1.3); GLUCOSE 98 mg/dL (74-106); POTASSIUM 3.4 mmol/L (3.5-5.1); SODIUM SERUM 139 mmol/L (136-145); UREA NITROGEN, BLOOD 13 mg/dL (7-18)
[2017-11-28] MEDS: IV NS 0.9% 1,000 ML IV PRN (08:44)
[2017-11-28] MEDS: POTASSIUM CHLORIDE 20 MEQ POWDER PACKET GT SCH (09:22)
--- NOTE | 2017-11-28 09:48 | NUR ---
FF. UP BLOOD CULTURE RESULT STILL PENDING.
[2017-11-28] MEDS ORDERED: POTASSIUM CHLORIDE 20 MEQ TAB.PRT.SR PO SCH (10:00)
[2017-11-28 10:09] LABS: BAND % (MANUAL) 3 % (0.0-5.0); EOSINOPHILS % (MANUAL) 3 % (0-4); LYMPHOCYTES % (MANUAL) 12 % (16-48); MONOCYTES % (MANUAL) 10 % (0-11.0); NEUTROPHILS % (MANUAL) 72 (42-76)
[2017-11-28] MEDS: LORAZEPAM INJ 2 MG/ML VIAL IV PRN ×2 (10:10→20:56)
[2017-11-28 16:00] VITALS: BP 110/52
--- NOTE | 2017-11-28 19:50 | NUR ---
ROTATING EQUIPMENT ENGINEER NOTE: PATIENT IN BED, ASLEEP, BUT OPEN HER EYES WHEN CALLING HER NAME AND W/ TACTILE STIMULI. ON COOL AEROSOL W/ 10.0 L/MIN OXYGEN AND SATURATING 98-100%. NO FACIAL GRIMACING NOTED. ON GT FEEDING OF FIBERSOURCE @55CC/HR NO RESIDUAL NOTED. (L) UA MIDLINE INFUSING W/ NS@100CC/HR. GALINDO CATHETER IN PLACED W/ YELLOW URINE DRAINING TO GRAVITY. HOB ELEVATED. BED ALARM AND LOCKED AT ALL TIMES. CALL LIGHT WITHIN REACH. REPORT GVEN TO PM SHIFT NURSE FOR CONTINUITY OF CARE.
[2017-11-28 20:00] VITALS: BP 131/63
[2017-11-28] MEDS: ENOXAPARIN SODIUM 40 MG/0.4 ML DISP.SYRIN SQ SCH (20:57)
[2017-11-28] MEDS: CEFTRIAXONE 1 G in IV NS 0.9% 50 ML IV SCH (21:01)
[2017-11-29] MEDS: IV NS 0.9% 1,000 ML IV PRN ×2 (01:14→11:30)
[2017-11-29] MEDS: IPRATROPIUM NEB FS 0.5 MG/2.5 ML AMPUL.NEB NEB SCH ×3 (01:28→13:48)
[2017-11-29] MEDS: ALBUTEROL HALF STRENGTH 1.25 MG/3 ML VIAL.NEB NEB SCH ×3 (01:28→13:48)
[2017-11-29] MEDS: FIBERSOURCE HN 1,000 ML BOTTLE GT PRN (03:29)
[2017-11-29] MEDS: LORAZEPAM INJ 2 MG/ML VIAL IV PRN (03:36)
[2017-11-29 04:00] VITALS: BP 127/64
[2017-11-29] MEDS: VALPROIC ACID 250 MG/5 ML UDC GT SCH ×2 (05:07→12:04)
[2017-11-29 06:39] LABS: CARBON DIOXIDE 29 mmol/L (21-32); CHLORIDE 105 mmol/L (98-107); CREATININE 0.5 mg/dL (0.6-1.3); GLUCOSE 104 mg/dL (74-106); POTASSIUM 3.2 mmol/L (3.5-5.1); SODIUM SERUM 140 mmol/L (136-145); UREA NITROGEN, BLOOD 9 mg/dL (7-18)
[2017-11-29 08:00] VITALS: BP 123/53
[2017-11-29] MEDS: LACTOBACILLUS RHAMNOSUS GG 1 EACH CAP.SPRINK PO SCH ×2 (08:45→16:10)
[2017-11-29] MEDS: POTASSIUM CHLORIDE 20 MEQ POWDER PACKET GT SCH (08:45)
[2017-11-29] MEDS: CARBIDOPA/LEVODOPA 25/100 MG 1 UDTAB GT SCH ×3 (08:45→16:10)
[2017-11-29] MEDS: FLUDROCORTISONE 0.1 MG TABLET GT SCH (08:45)
[2017-11-29] MEDS: NEOMY SULF/BACITRAC ZN/POLY 15 GM TUBE TP SCH (08:46)
[2017-11-29] MEDS: Z GUARD REMEDY 2 OZ OINT TP PRN (09:15)
[2017-11-29 16:00] VITALS: BP 122/64
--- NOTE | 2017-11-29 19:18 | NUR ---
MS RN NOTE: SPOKE W/ MARIAA DAI FROM [facility] AND GAVE REPORT TO HER REGARDING THE PATIENT'S CONDITION AND ALL DISCHARGE INSTRUCTIONS. INCLUDED IN THE DISCHARGE INSTRUCTION IS THE CONTINUATION FOR ROCEPHIN 1GM IV DAILY X 10 DAYS. (L) ua MIDLINE WAS REMAINED INTACT AND PATENT UPON DISCHARGE. ALL PAPERWORK WAS GIVEN TO THE ATTENDING ANESTHESIOLOGIST OF [facility]. PATIENT WAS TRANSPORTED VIA AMBULANCE AND REMAINED ON STABLE CONDITION.
== END 2017-11-29 19:18 | DRG 4 ==
LOC: ER 10:54 → ICU 12:29 → TELE-TD 11-23 12:39 → TELE1 11-25 08:47 → MEDSG1 11-28 09:02
PROVIDERS: ADMIT Nurse Practitioner Acute Care; ATTEND Nurse Practitioner Acute Care
PROC: 5A1955Z Respiratory Ventilation, Greater than 96 Consecutive Hours (ICD-10-PCS; principal; 2017-11-10)
PROC: 0BH18EZ Insertion of Endotracheal Airway into Trachea, Via Natural or Artificial Opening Endoscopic (ICD-10-PCS; 2017-11-10)
PROC: 05HY33Z Insertion of Infusion Device into Upper Vein, Percutaneous Approach (ICD-10-PCS; 2017-11-16)
PROC: 0B113F4 Bypass Trachea to Cutaneous with Tracheostomy Device, Percutaneous Approach (ICD-10-PCS; 2017-11-21)
DX: A41.9 Sepsis, unspecified organism (principal); J69.0 Pneumonitis due to inhalation of food and vomit; N17.0 Acute kidney failure with tubular necrosis; I46.9 Cardiac arrest, cause unspecified; G93.40 Encephalopathy, unspecified; E87.2 Acidosis; E44.0 Moderate protein-calorie malnutrition; J90 Pleural effusion, not elsewhere classified; R53.2 Functional quadriplegia; J96.01 Acute respiratory failure with hypoxia; G81.91 Hemiplegia, unspecified affecting right dominant side; D68.59 Other primary thrombophilia; N39.0 Urinary tract infection, site not specified; R13.10 Dysphagia, unspecified; F20.9 Schizophrenia, unspecified; D63.8 Anemia in other chronic diseases classified elsewhere; E03.9 Hypothyroidism, unspecified; E78.5 Hyperlipidemia, unspecified; F03.90 Unspecified dementia, unspecified severity, without behavioral disturbance, psychotic disturbance, mood disturbance, and anxiety; G20 Parkinson's disease; D72.829 Elevated white blood cell count, unspecified; Z93.1 Gastrostomy status; M24.571 Contracture, right ankle; Y33.XXXA Other specified events, undetermined intent, initial encounter; Y92.89 Other specified places as the place of occurrence of the external cause; F09 Unspecified mental disorder due to known physiological condition; E87.6 Hypokalemia; E83.42 Hypomagnesemia; Z87.891 Personal history of nicotine dependence; N18.9 Chronic kidney disease, unspecified; M24.574 Contracture, right foot; I12.9 Hypertensive chronic kidney disease with stage 1 through stage 4 chronic kidney disease, or unspecified chronic kidney disease; S91.302A Unspecified open wound, left foot, initial encounter
CPT/HCPCS: 31720; 36415; 36569; 36600; 70450-TC; 71045-TC; 80048-TC; 80053-TC; 80061-TC; 80076-TC; 80164-TC; 80202-TC; 81000-TC; 82247-TC; 82248-TC; 82565-TC; 82803-TC; 82962-TC; 83605-TC; 83735-TC; 84100-TC; 84132-TC; 84443-TC; 84484-TC; 85025-TC; 85730-TC; 87040-TC; 87081-TC; 87086-TC; 87186-TC; 93307-TC; 94002-TC; 94003-TC; 94640-TC; 94760-TC; 94762-TC; A4216; A4606; A6402; A6403; A7526; C1751; J0690; J0696; J1650; J2060; J2250; J2270; J2543; J2704; J3010; J3370; J3475; J3480; J3490; J7030; J7040; J7050; J7060; Z7610

== ENCOUNTER 2017-12-06 12:41 | Inpatient (IN) | payer MEDICARE, OTHER ==
[~2017-12-06] VITALS: Ht 172.7 cm; Wt 54.0 kg
[~2017-12-06 12:41] MED LIST changes: +BISA10SU8 RC; -Fibersource Hn GT; -LACT1CAP72 GT; +MAGN400O6 GT; +METO-295 GT; -METO10TA3 PO; +NA P133E RC; -NEOM15OI3 TP; +SACC250C PO; -VALP250S22 GT; +VALP250S3 GT
--- NOTE | 2017-12-06 12:52 | NUR ---
BB PRIVATE EMS FROM [facility] FOR MALFUNCTIONING GTUBE. PER REPORT, PATIENT'S GT IS CLOGGED. TRIED FLUSHONG GT WITH WATER BUT NOTED WITH RESISTANT. MD MOON
--- NOTE | 2017-12-06 13:33 | NUR ---
CALLED NURSING SUP. FOR MS BED
--- NOTE | 2017-12-06 13:34 | NUR ---
ISAMAR PAGED, REPORTS ANALYSIS MANAGER
[2017-12-06 13:42] LABS: BASOPHILS # (AUTO) 0.1 /CMM (0.0-0.2); BASOPHILS % (AUTO) 0.5 % (0.0-2.0); EOSINOPHILS # (AUTO) 0.2 /CMM (0.0-0.7); EOSINOPHILS % (AUTO) 1.5 % (0.0-6.0); HEMATOCRIT 23 % (33-45); HEMOGLOBIN 8.5 g/dL (11.5-14.8); LYMPHOCYTES # (AUTO) 2.3 /CMM (0.8-4.8); LYMPHOCYTES % (AUTO) 23.2 % (20.0-44.0); MEAN CORPUSCULAR HEMOGLOBIN 30 PG (26.0-33.0); MEAN CORPUSCULAR HGB CONC 37 g/dl (31.0-36.0); MEAN CORPUSCULAR VOLUME 82 fL (82-100); MONOCYTES # (AUTO) 0.6 /CMM (0.1-1.30); MONOCYTES % (AUTO) 5.8 % (2.0-12.0); NEUTROPHILS # (AUTO) 6.8 /CMM (1.8-8.9); PLATELET COUNT (AUTO) 438 /CMM (150-450); RDW COEFFICIENT OF VARIATION 17.3 (11.5-15.0); RED BLOOD CELL COUNT(AUTO) 2.84 MIL/uL (4.0-5.2)
[2017-12-06 13:46] LABS: CALCIUM, SERUM 9.1 mg/dL (8.5-10.1); CARBON DIOXIDE 31 mmol/L (21-32); CHLORIDE 100 mmol/L (98-107); CREATININE 0.5 mg/dL (0.6-1.3); GLUCOSE 108 mg/dL (74-106); POTASSIUM 3.5 mmol/L (3.5-5.1); SODIUM SERUM 136 mmol/L (136-145); UREA NITROGEN, BLOOD 14 mg/dL (7-18)
[2017-12-06] MEDS ORDERED: MAGNESIUM HYDROXIDE 30 ML UDC PO PRN ×2 (14:00→14:15)
[2017-12-06] MEDS ORDERED: ZOLPIDEM TARTRATE 5 MG TABLET PO PRN ×2 (14:00→14:15)
[2017-12-06] MEDS ORDERED: HYDROCODONE/APAP 5/325MG 1 EACH TABLET PO PRN ×2 (14:00→14:15)
[2017-12-06] MEDS ORDERED: ACETAMINOPHEN 325 MG TABLET PO PRN ×2 (14:00→14:15)
[2017-12-06] MEDS ORDERED: Z GUARD REMEDY 2 OZ OINT TP PRN ×2 (14:00→14:15)
[2017-12-06] MEDS ORDERED: MAG HYDROX/AL HYDROX/SIMETH 30 ML UDC PO PRN ×2 (14:00→14:15)
[2017-12-06] MEDS ORDERED: ONDANSETRON HCL/PF 4 MG/2 ML VIAL IVP PRN ×2 (14:00→14:15)
[2017-12-06 14:01] LABS: ALANINE AMINOTRANSFERASE 14 U/L (12-78); ALBUMIN 2.4 g/dL (3.4-5.0); ALKALINE PHOSPHATASE 91 U/L (46-116); ASPARTATE AMINOTRANSFERASE 15 U/L (15-37); BILIRUBIN,TOTAL 0.3 mg/dL (0.2-1.0); TOTAL PROTEIN, SERUM 7.9 g/dL (6.4-8.2)
[2017-12-06] MEDS ORDERED: TRAM50TA2 PO (14:03)
[2017-12-06] MEDS ORDERED: HYDR-4075 GT (14:03)
--- NOTE | 2017-12-06 14:04 | NUR ---
MS 307-2
--- NOTE | 2017-12-06 14:10 | NUR ---
REPORT GIVEB TO MARIAA MARTINEZ FOR JOE
--- NOTE | 2017-12-06 15:00 | NUR ---
MS RN NOTES PATIENT ADMITTED TO UNIT, ARRIVED AT 1440 FROM ER. ARRIVED VIA GURNEY, PATIENT ALERT, APHASIC, OPENS EYES WITH VERBAL AND TACTILE STIMULI. ON TRACH, SHILEY 8 WITH COOL AEROSOL AT 8L/MIN. NO SOB ORA CUTE DISTRESS NOTED AT THIS TIME. PATIENT AFEBRILE, SKIN DRY AND WARM TO TOUCH. PATIENT WITH ADMITTING DX OF GT MALFUNCTION. UNABLE TO ASPIRATE OR FLUSH GT. PER RN REPORT, ER DEPARTMENT AND ER PHYSICIAN ATTEMPTED TO FLUSH AND ASPIRATE GT WELL BUT TO NO SUCCESS. SKIN ASSESSMENT DONE, PICTURES TAKEN. MAINTAINED ASPIRATION PRECAUTION. ELEVATED HOB AT 45. SIDERAILS PADDED. PATIENT ADMITTED UNDER SUPERVISION OF DR. LEE, AWARE OF PATIENT ADMISSION. WILL CONTINUE TO MONITOR. BED LOCKED AND IN LOW POSITION. BILATERAL UPPER SIDE RAILS UP AND LOCKED. CALL LIGHT WITHIN EASY REACH.
[2017-12-06 16:00] VITALS: BP 118/58
[2017-12-06] MEDS ORDERED: TRAMADOL HCL 50 MG TABLET PO PRN (18:30)
[2017-12-06] MEDS ORDERED: FIBERSOURCE HN 1,000 ML BOTTLE GT SCH (18:30)
[2017-12-06] MEDS ORDERED: MAGNESIUM HYDROXIDE 30 ML UDC GT PRN (18:30)
[2017-12-06] MEDS: LACTOBACILLUS RHAMNOSUS GG 1 EACH CAP.SPRINK PO SCH (18:30)
[2017-12-06] MEDS ORDERED: NA PHOS,M-B/NA PHOS,DI-BA 1 EA ENEMA RC PRN (18:30)
[2017-12-06] MEDS ORDERED: BISACODYL SUPP (10 MG) 10 MG/SUPP.RECT SUPP.RECT RC PRN (18:30)
--- NOTE | 2017-12-06 18:34 | NUR ---
MS RN NOTES PATIENT WITH ORDER FOR CULTURELLE FROM DR. LEE. PATIENT NPO STATUS WITH GT MALFUNCTION, DR. LEE PRESENT AT UNIT AND MADE AWARE, GAVE OK FOR NON-ADMIN OF MEDICATION. WILL CONTINUE TO MONITOR
[2017-12-06] MEDS: ENOXAPARIN SODIUM 40 MG/0.4 ML DISP.SYRIN SQ SCH (18:54)
--- NOTE | 2017-12-06 18:58 | NUR ---
MS RN NOTES PATIENT NOTED WITH ORDER FROM DR LEE FOR LOVENOX SQ WITH NOTE TO BE GIVEN AT 2100. NOTED AT [facility] THAT MEDICATION IS DUR FOR 1830. PLACED CALL TO PHARMACY AND VERIFIED ORDER. PER PHARMACY, DOSE FOR TODAY TO BE GIVEN AT 1830, NEXT DOSE WILL BE GIVEN AT 12/07/17 AT 2100. MEDICATION ADMINISTERED ORDERED. WILL CONTINUE TO MONITOR
--- NOTE | 2017-12-06 19:03 | NUR ---
MS RN NOTES PATIENT RESTING INSIDE ROOM. AWAKE, OPENS EYES TO VERBAL AND TACTILE STIMULI. BREATHING EVEN AND UNLABORED. DENIES ANY PAIN OR DISCOMFORT. NO FACIAL GRIMACE NOTED AT THIS TIME. PATIENT REMAINS AFEBRILE, SKIN DRY AND WARM TO TOUCH. NO CHANGES IN LOC NOTED. PATIENT CALM AND RELAXED. MIDLINE ON DIYA INTACT AND PATENT. NO BLEEDING OR SWELLING NOTED AT THIS TIME. WILL ENDORSE TO INCOMING SHIFT FOR JOE. BED LOCKED AND IN LOW POSITION. BILATERAL UPPER SIDE RAILS UP AND LOCKED. CALL LIGHT WITHIN EASY REACH
--- NOTE | 2017-12-06 19:40 | NUR ---
MS RN OPENING NOTES RECEIVED PT IN BED, AWAKE. TRACH PATENT, COOL AEROSOL , O2 AT 5L/MIN, RESPIRATIONS EVEN, UNLABORED, NO APPARENT DISTRESS NOTED. NO S/SX OF PAIN OR DISCOMFORT NOTED. IV SITE DIYA MIDLINE INTACT, PATENT. BED LOCKED IN LOWEST POSITION. ATTENDED ALL NEEDS. WILL CONTINUE TO MONITOR ACCORDINGLY.
[2017-12-06 20:00] VITALS: BP 113/58
[2017-12-06] MEDS ORDERED: DIVALPROEX SODIUM 125 MG CAP.SPRINK GT SCH (21:00)
--- NOTE | 2017-12-06 21:10 | NUR ---
MS RN NOTE PT SEEN BY AUNDREA JEFF, NOTIFIED REGARDING GT MALFUNCTION AND ORDERS TO ADMINISTER MEDICATIONS VIA GT. GAVE VERBAL ORDER TO INSERT NGT, INITIATE NGT FEEDING AND RESUME MEDICATIONS.
[2017-12-06 22:00] VITALS: BP 100/58
[2017-12-06] MEDS: hydrALAZINE HCL 10 MG TABLET GT SCH (22:00)
--- NOTE | 2017-12-06 22:00 | NUR ---
MS RN NOTE ATTEMPTED TO INSERT NGT X 3 BY TWO LICENSED NURSES,NOT SUCCESSFUL. NOTIFIED DR PAYNE, STATED TO HOLD INSERTION OF THE NGT AND TO CALL THE PHARMACY REGARDING IV ADMINISTRATION AND SUBSTITUTION OF DEPACOTE.CALLED PHARMACY SPOKE WITH NANCY REGARDING DEPACOTE WITH RECOMMENDATION OF VALPROIC ACID 125MG IV Q8H. DR PAYNE NOTIFIED. WILL CONTINUE TO MONITOR ACCORDINGLY.
[2017-12-07] MEDS ORDERED: PANTOPRAZOLE 40 MG VIAL IV SCH (01:00)
[2017-12-07] MEDS ORDERED: VALPROATE 500 MG/5 ML VIAL IV ONE (01:51)
--- NOTE | 2017-12-07 04:00 | NUR ---
MS RN NOTE UNABLE TO SCAN VALPROATE 125MG VERIFIED BY 2 RNS, VALPROATE 125 MG IV ADMINISTERED ORDERED. CHARGE NURSE NOTIFIED.
[2017-12-07] MEDS: hydrALAZINE HCL 10 MG TABLET GT SCH (04:44)
--- NOTE | 2017-12-07 04:45 | NUR ---
MS RN NOTE APRESOLINE HELD BP 98/66 PT CURRENTLY WITH MALFUNCTIONING GT. NO S/SX OF PAIN OR DISCOMFORT NOTED. WILL CONTINUE TO MONITOR ACCORDINGLY.
[2017-12-07] MEDS ORDERED: VALPROATE 250 MG in IV D5W 100 ML IV SCH (05:00)
[2017-12-07] MEDS: IV D5/ 0.9% NACL 1,000 ML IV SCH ×2 (05:36→16:47)
[2017-12-07] MEDS: PANTOPRAZOLE 40 MG VIAL IV SCH (05:36)
--- NOTE | 2017-12-07 06:16 | NUR ---
MS RN NOTE PT IN BED RESTING COMFORTABLY. TRACH PATENT, NO RESPIRATORY DISTRESS NOTED. ON IV D5 NS AT 100ML/HR. IV SITE DIYA MIDLINE INTACT, PATENT. NO S/SX OF PAIN OR DISCOMFORT NOTED. TRACH CARE DONE.KEPT CLEAN AND COMFORTABLE. ATTENDED ALL NEEDS. WILL ENDORSE TO THE DAY SHIFT FOR CONTINUITY OF CARE
--- NOTE | 2017-12-07 07:32 | NUR ---
MS RN OPENING NOTE RECEIVED BEDSIDE SBAR REPORT ON THE PATIENT. PATIENT IS OBTUNDED. ASLEEP. OPENS EYES TO LIGHTLY PAINFUL STIMULI.IN BED. BED IS LOCKED IN LOWEST POSITION, SIDE RAILS UP X3. BED ALARM IS ON. TRACH/COOL AEROSOL. NO S/S OF PAIN/DISCOMFORT AT THIS TIME. CHEST IS RISING EQUALLY BILATERALLY. SPO2 100% ON 5 L OXYGEN. CALL LIGHT WITHIN REACH. PATIENT REPOSITIONED FOR FUNCTIONAL ALIGNMENT OF THE LIMBS. NPO. LAUNDRY PRESS OPERATOR NOTIFIED OF NPO STATUS. G-TUBE STILL MALFUNCTIONING. PER NITRIC ACID CONCENTRATOR OPERATOR NURSE 3 UNSUCCESSFUL ATTEMPT WERE MADE TO INSERT NG TUBE LAST NIGHT. PER DR. PAYNE'S ORDER ATTEMPTS WERE STOPPED UNTIL GI EVALUATION. WILL CONTINUE TO ASSESS/MONITOR THROUGHOUT THE SHIFT.
[2017-12-07 08:00] VITALS: BP 124/57
[2017-12-07] MEDS: DOCUSATE SODIUM LIQ 100 MG/10 ML UDC GT SCH (09:00)
[2017-12-07] MEDS: FLUDROCORTISONE 0.1 MG TABLET GT SCH (09:00)
[2017-12-07] MEDS: LACTOBACILLUS RHAMNOSUS GG 1 EACH CAP.SPRINK PO SCH ×2 (09:00→17:00)
[2017-12-07] MEDS: CARBIDOPA/LEVODOPA 25/100 MG 1 UDTAB GT SCH ×3 (09:00→17:00)
--- NOTE | 2017-12-07 09:05 | NUR ---
G-tube not functioning. Unable to administer 9 am medications at this time. Md notified.
--- NOTE | 2017-12-07 11:06 | NUR ---
9 AM MEDICATIONS NOT ADMINISTERED DUE TO G-TUBE NOT FUNCTIONING. CALLED PHARMACY FOR LEVADOPA/CARBIDOPA. PER PHARMACY MEDICATION NOT AVAILABLE IN IV FORM.
[2017-12-07] MEDS: VALPROATE 125 MG in IV D5W 100 ML IV SCH ×2 (13:55→20:23)
--- NOTE | 2017-12-07 14:16 | NUR ---
PATIENT'S BP NOTED TO BE ELEVATED AT 158/[address] LEE TO OBTAIN AN ORDER FOR IV HYDRALAZINE. AWAITING FOR A RESPONSE.
--- NOTE | 2017-12-07 14:32 | NUR ---
RECEIVED TELEPHONE ORDER FROM DR. LEE FOR IV HYDRALAZINE AND TELE MONITORING FOR OBSERVATION. WILL FOLLOW ORDERS RECEIVED.
[2017-12-07] MEDS ORDERED: hydrALAZINE HCL IV 20 MG VIAL IV PRN (15:00)
[2017-12-07 16:00] VITALS: BP 121/63
--- NOTE | 2017-12-07 16:51 | NUR ---
CHANGE PATIENT'S DIET TO NPO IN [facility] UNTIL TUBE FEEDING IS AALIBLE POST PEG PLACEMENT.
--- NOTE | 2017-12-07 17:28 | NUR ---
PATIENT'S G-TUBE STILL NOT FUNCTIONAL. HOLDING GT MEDS AT THIS TIME.
--- NOTE | 2017-12-07 18:59 | NUR ---
PER AUNDREA BUSINESS EDUCATION TEACHER ATTEMPTED TO FLUSH THE G-TUBE UNSUCCESSFULLY. RECEIVED VERBAL ORDER FRO AUNDREA FOR ABDOMINAL CT WITHOUT CONTRAST.
--- NOTE | 2017-12-07 19:00 | NUR ---
MS RN CLOSING NOTE GAVE BEDSIDE SBAR REPORT ON THE PATIENT. PATIENT IS AWAKE, RESPONDS TO SOUND AND TOUCH BY OPENING EYES AND LOOKING IN THE DIRECTION OF SOUND. IN BED. BED IS LOCKED IN LOWEST POSITION, SIDE RAILS UP X3. BED ALARM IS ON. TRACH/COOL AEROSOL. NO S/S OF PAIN/DISCOMFORT AT THIS TIME. CHEST IS RISING EQUALLY BILATERALLY. SPO2 100% ON 8 L OXYGEN. CALL LIGHT WITHIN REACH. PATIENT REPOSITIONED EVERY TWO HOURS FOR FUNCTIONAL ALIGNMENT OF THE LIMBS. NPO. PANTS CUTTER NOTIFIED OF NPO STATUS. G-TUBE STILL MALFUNCTIONING. CT ABD W/O CONTRAST PENDING IN THE AM. ENDORSED TO THE BUSINESS SERVICES OFFICER NURSE FOR JOE.
--- NOTE | 2017-12-07 19:15 | NUR ---
MS RN OPENING NOTE RECEIVED PATIENT IN BED, PATIENT IS AWAKE, OBTUNDED. FOLLOWS WITH EYES. TRACH/COOL AEROSOL. RESPIRATIONS EVEN AND UNLABORED, IN NO APPARENT DISTRESS OR DISCOMFORT AT THIS TIME. SPO2 100% ON 5 L OXYGEN. ON NPO STATUS. PHOTOTYPESETTING EQUIPMENT MONITOR NOTIFIED OF NPO STATUS. G-TUBE STILL MALFUNCTIONING. PER AM SHIFT NURSE 3 UNSUCCESSFUL ATTEMPTS WERE MADE TO INSERT NG TUBE LAST NIGHT. PER DR. PAYNE'S ORDER ATTEMPTS WERE STOPPED UNTIL GI EVALUATION. PATIENT IS INCONTINENT WITH DIAPER. DIYA MIDLINE PATENT AND INTACT. WITH D5NS RUNNING AT 100ML/HR. SAFETY MEASURES IN PLACE, BED IN LOW LOCKED POSITION, SIDE RAILS UP X2, BED ALARM ON, CALL LIGHT WITHIN EASY REACH. WILL CONTINUE TO ASSESS/MONITOR THROUGHOUT THE SHIFT.
[2017-12-07 20:00] VITALS: BP 126/81
[2017-12-07] MEDS: ENOXAPARIN SODIUM 40 MG/0.4 ML DISP.SYRIN SQ SCH (20:24)
[2017-12-07] MEDS ORDERED: DIATR MEGLU/DIATRIZOATE SODIUM 30 ML BOTTLE (GASTROGRAPHIN) ONE (20:57)
--- NOTE | 2017-12-07 21:30 | NUR ---
PATIENT IS BEING TRANSFERRED TO RADIOLOGY FOR ABDOMINAL CT, ACCOMPANIED BY RN AND RT.
--- NOTE | 2017-12-07 21:59 | NUR ---
RT NOTE PT TRANSFERRED TO AND FROM CT WITH NO COMPLICATIONS.
--- NOTE | 2017-12-07 22:00 | NUR ---
PATIENT WAS BROUGHT BACK TO THE UNIT FROM RADIOLOGY AFTER PERFORMING CT OF ABDOMEN. NO COMPLICATIONS NOTED, PATIENT IN STABLE CONDITION.
[2017-12-08] VITALS: BP_SYST 131; BP_SYST 143; BP_DIAS 65; BP_DIAS 73
[2017-12-08] MEDS: IV D5/ 0.9% NACL 1,000 ML IV SCH ×3 (01:40→21:46)
[2017-12-08 04:00] VITALS: BP 143/65
[2017-12-08] MEDS: VALPROATE 125 MG in IV D5W 100 ML IV SCH ×3 (04:11→20:48)
[2017-12-08] MEDS: PANTOPRAZOLE 40 MG VIAL IV SCH (04:11)
[2017-12-08 07:13] LABS: CALCIUM, SERUM 8.9 mg/dL (8.5-10.1); CARBON DIOXIDE 29 mmol/L (21-32); CHLORIDE 105 mmol/L (98-107); CREATININE 0.6 mg/dL (0.6-1.3); GLUCOSE 94 mg/dL (74-106); SODIUM SERUM 141 mmol/L (136-145); UREA NITROGEN, BLOOD 10 mg/dL (7-18)
--- NOTE | 2017-12-08 07:30 | NUR ---
MS RN CLOSING NOTE PATIENT IN BED, PATIENT IS AWAKE, OBTUNDED. FOLLOWS WITH EYES. TRACH/COOL AEROSOL. RESPIRATIONS EVEN AND UNLABORED, IN NO APPARENT DISTRESS OR DISCOMFORT AT THIS TIME. SPO2 99% ON 8 L OXYGEN. ON NPO STATUS. G-TUBE STILL MALFUNCTIONING. SEIZURE PRECAUTIONS OBSERVED. PATIENT IS INCONTINENT WITH DIAPER. DIYA MIDLINE, PATENT AND INTACT, WITH D5NS RUNNING AT 100ML/HR. PATIENT KEPT CLEAN AND COMFORTABLE, ALL NEEDS ATTENDED TURNED AND REPOSITIONED EVERY [address]ETY MEASURES IN PLACE, BED IN LOW LOCKED POSITION, SIDE RAILS UP X2, BED ALARM ON, CALL LIGHT WITHIN EASY REACH. WILL ENDORSE TO AM NURSE FOR JOE.
--- NOTE | 2017-12-08 07:45 | NUR ---
MS/RN OPENING NOTE PATIENT IN BED IN STABLE CONDITION. A/O X 1, NON VERBAL, TRACH DEPENDENT. ON COOL AEROSOL TOLERATING WELL. NPO STATUS FOR POSSIBLE G TUBE REPLACEMENT. NO SIGNS OF ACUTE DISTRESS. NO COMPLAIN OF PAIN OR DISCOMFORT. ALL NEEDS ATTENDED TO. CALL LIGHT WITHIN REACH. WILL CONTINUE TO MONITOR TO ENSURE SAFETY.
[2017-12-08 07:54] LABS: BASOPHILS % (AUTO) 0.3 % (0.0-2.0); EOSINOPHILS # (AUTO) 0.3 /CMM (0.0-0.7); EOSINOPHILS % (AUTO) 2.8 % (0.0-6.0); HEMATOCRIT 25 % (33-45); HEMOGLOBIN 8.4 g/dL (11.5-14.8); LYMPHOCYTES # (AUTO) 2.4 /CMM (0.8-4.8); LYMPHOCYTES % (AUTO) 23.7 % (20.0-44.0); MEAN CORPUSCULAR HEMOGLOBIN 28 PG (26.0-33.0); MEAN CORPUSCULAR HGB CONC 34 g/dl (31.0-36.0); MEAN CORPUSCULAR VOLUME 83 fL (82-100); MONOCYTES # (AUTO) 0.6 /CMM (0.1-1.30); MONOCYTES % (AUTO) 5.6 % (2.0-12.0); NEUTROPHILS # (AUTO) 6.9 /CMM (1.8-8.9); NEUTROPHILS % (AUTO) 67.6 % (43.0-81.0); PLATELET COUNT (AUTO) 394 /CMM (150-450); RDW COEFFICIENT OF VARIATION 17.3 (11.5-15.0); RED BLOOD CELL COUNT(AUTO) 2.97 MIL/uL (4.0-5.2); WHITE BLOOD COUNT (AUTO) 10.2 K/uL (4.3-11.0)
[2017-12-08 08:00] VITALS: BP 137/92
[2017-12-08] MEDS: CARBIDOPA/LEVODOPA 25/100 MG 1 UDTAB GT SCH ×3 (08:00→16:01)
[2017-12-08] MEDS: DOCUSATE SODIUM LIQ 100 MG/10 ML UDC GT SCH (08:00)
[2017-12-08] MEDS: LACTOBACILLUS RHAMNOSUS GG 1 EACH CAP.SPRINK PO SCH ×2 (08:00→16:01)
[2017-12-08] MEDS: FLUDROCORTISONE 0.1 MG TABLET GT SCH (08:00)
[2017-12-08] MEDS: POTASSIUM CL. PREMIX PERIPHER. 50 ML IV SCH ×6 (10:05→17:08)
[2017-12-08 16:00] VITALS: BP 157/91
--- NOTE | 2017-12-08 18:16 | NUR ---
MS/RN CLOSING NOTE PATIENT IN BED IN STABLE CONDITION. NO SIGNS OF ACUTE DISTRESS. NO COMPLAIN OF PAIN OR DISCOMFORT. ON TRACH DEPENDENT, TOLERATING WELL. STILL AWAITING FOR TELEPHONE CONSENT FROM CONSERVATOR FOR EGD WITH PEG TUBE PLACEMENT. NPO STATUS ON D5 NS AT 100 MLS/HR, TOLERATING WELL. ALL NEEDS ATTENDED TO. CALL LIGHT WITHIN REACH. WILL ENDORSE TO NEXT SHIFT FOR CONTINUITY OF CARE.
[2017-12-08] MEDS ORDERED: NA PHOS,M-B/NA PHOS,DI-BA 1 EA ENEMA RC ONE (19:00)
--- NOTE | 2017-12-08 19:15 | NUR ---
RN OPENING NOTES RECEIVED PATIENT IN BED, NON VERBAL, ON TRACH ON COOL AEROSOL, NO SOB, IN NO ACUTE DISTRESS. PATIENT CONTINUES TO RECEIVE IVF ORDERED. ALL PATIENT'S NEEDS ATTENDED TO AT THIS TIME. WILL CONTINUE TO MONITOR PATIENT.
[2017-12-08 19:58] VITALS: BP 121/67
--- NOTE | 2017-12-08 20:44 | NUR ---
RN NOTES NG TUBE INSERTED. PATIENT TOLERATED PROCEDURE WELL, POSITIVE FOR GURGLING SOUND UPON FLUSHING OF AIR VIA NG TUBE. AWAITNG FOR CXR TO BE DONE FOR NG TUBE PLACEMENT CONFIRMATION. WILL CONTINUE TO MONITOR PT.
[2017-12-08] MEDS: ENOXAPARIN SODIUM 40 MG/0.4 ML DISP.SYRIN SQ SCH (21:12)
[2017-12-09] MEDS ORDERED: FIBERSOURCE HN 1,000 ML BOTTLE GT PRN (01:30)
--- NOTE | 2017-12-09 01:30 | NUR ---
RN NOTE NG TUBE PLACEMENT CONFIRMED VIA CXR. NG TUBE FEEDING STARTED ORDERED. WILL CONTINUE TO MONITOR PT.
[2017-12-09] MEDS: VALPROATE 125 MG in IV D5W 100 ML IV SCH (04:31)
[2017-12-09] MEDS: PANTOPRAZOLE 40 MG VIAL IV SCH (05:14)
[2017-12-09 06:24] LABS: BASOPHILS % (AUTO) 0.1 % (0.0-2.0); EOSINOPHILS # (AUTO) 0.2 /CMM (0.0-0.7); EOSINOPHILS % (AUTO) 1.9 % (0.0-6.0); HEMATOCRIT 27 % (33-45); HEMOGLOBIN 8.7 g/dL (11.5-14.8); LYMPHOCYTES % (AUTO) 23.5 % (20.0-44.0); MEAN CORPUSCULAR HEMOGLOBIN 28 PG (26.0-33.0); MEAN CORPUSCULAR HGB CONC 33 g/dl (31.0-36.0); MEAN CORPUSCULAR VOLUME 84 fL (82-100); MONOCYTES # (AUTO) 0.6 /CMM (0.1-1.30); MONOCYTES % (AUTO) 6.4 % (2.0-12.0); NEUTROPHILS # (AUTO) 5.9 /CMM (1.8-8.9); NEUTROPHILS % (AUTO) 68.1 % (43.0-81.0); PLATELET COUNT (AUTO) 393 /CMM (150-450); RDW COEFFICIENT OF VARIATION 18.2 (11.5-15.0); RED BLOOD CELL COUNT(AUTO) 3.17 MIL/uL (4.0-5.2); WHITE BLOOD COUNT (AUTO) 8.6 K/uL (4.3-11.0)
--- NOTE | 2017-12-09 06:30 | NUR ---
RN CLOSING NOTES PATIENT IN BED, ASLEEP BUT EASILY AROUSABLE, NON VERBAL WITH EYES OPEN. NOTED WITH NO FACIAL GRIMACING. IN NO ACUTE DISTRESS. PATIENT WITH ONGOING NG-TUBE FEEDING, PATIENT TOLERATING WELL WITH NO RESIDUAL AND NO ABDOMINAL DISTENTION NOTED. PT CONTINUES TO RECEIVE IVF ORDERED VIA [facility], ON TRACH ON COOL AEROSOL. ALL PATIENT'S NEEDS ATTENDED TO THROUGHOUT THE SHIFT, PLACED BE DIN LOW POSITION AND LOCKED IN PLACE. CALL LIGHT PLACED WITHIN EASY REACH. WILL ENDORSE TO AM SHIFT NURSE FOR CONTINUITY OF CARE.
[2017-12-09 06:39] LABS: CALCIUM, SERUM 8.7 mg/dL (8.5-10.1); CARBON DIOXIDE 28 mmol/L (21-32); CHLORIDE 103 mmol/L (98-107); CREATININE 0.6 mg/dL (0.6-1.3); GLUCOSE 116 mg/dL (74-106); POTASSIUM 3.3 mmol/L (3.5-5.1); SODIUM SERUM 137 mmol/L (136-145); UREA NITROGEN, BLOOD 6 mg/dL (7-18)
[2017-12-09 06:46] LABS: OCCULT BLOOD STOOL NEGATIVE (NEGATIVE)
[2017-12-09] MEDS ORDERED: TRAMADOL HCL 50 MG TABLET GT PRN (07:00)
[2017-12-09] MEDS ORDERED: MAG HYDROX/AL HYDROX/SIMETH 30 ML UDC GT PRN (07:02)
[2017-12-09] MEDS ORDERED: ACETAMINOPHEN 650 MG/20.3 ML UDC GT PRN (07:30)
--- NOTE | 2017-12-09 07:36 | NUR ---
MS/RN OPENING NOTE PATIENT IN BED IN STABLE CONDITION. A/O X 1, NON VERBAL. NO SIGNS OF ACUTE DISTRESS. NO COMPLAIN OF PAIN OR DISCOMFORT. TRACH DEPENDENT, TOLERATING WELL. ON NG TUBE FEEDING FIBERSOURCE AT 55 ML/HR TOLERATING WELL. HOB ELEVATED FOR ASPIRATION PRECAUTION. ALL NEEDS ATTENDED TO. CALL LIGHT WITHIN REACH. WILL CONTINUE TO MONITOR TO ENSURE SAFETY.
[2017-12-09 08:00] VITALS: BP 109/52
[2017-12-09] MEDS: NEOMY SULF/BACITRAC ZN/POLY 15 GM TUBE TP SCH (09:00)
[2017-12-09] MEDS: DOCUSATE SODIUM LIQ 100 MG/10 ML UDC GT SCH (09:00)
[2017-12-09] MEDS: FLUDROCORTISONE 0.1 MG TABLET GT SCH (09:00)
[2017-12-09] MEDS: LACTOBACILLUS RHAMNOSUS GG 1 EACH CAP.SPRINK PO SCH ×2 (09:00→16:45)
[2017-12-09] MEDS: CARBIDOPA/LEVODOPA 25/100 MG 1 UDTAB GT SCH ×3 (09:00→16:45)
[2017-12-09] MEDS: IV D5/ 0.9% NACL 1,000 ML IV SCH (09:01)
[2017-12-09] MEDS ORDERED: POTASSIUM CHLORIDE 20 MEQ POWDER PACKET NG SCH (09:30)
[2017-12-09] MEDS ORDERED: JEVITY 1.2 CAL 1,000 ML BOTTLE GT PRN (10:00)
--- NOTE | 2017-12-09 10:00 | NUR ---
MS/RN TRACH CARE TRACH CARE DONE, CHANGE DRESSING, SITE CLEAN, DRY AND INTACT, SUCTION Q 2 HRS AND PRN. TOLERATED WELL. WILL CONTINUE TO MONITOR FOR FURTHER CHANGES.
[2017-12-09] MEDS: VALPROIC ACID 250 MG/5 ML UDC GT SCH ×2 (12:13→22:50)
[2017-12-09 16:00] VITALS: BP 145/88
--- NOTE | 2017-12-09 18:30 | NUR ---
MS/RN CLOSING NOTE PATIENT IN BED IN STABLE CONDITION. A/O X 1, NON VERBAL. NO SIGNS OF ACUTE DISTRESS. NO COMPLAIN OF PAIN OR DISCOMFORT. ON TRACH DEPENDENT. TOLERATING WELL. ON NG TUBE FEEDING FIBERSOURCE AT 55 ML/HR X 20 HRS. TOLERATING WELL. HOB ELEVATED FOR ASPIRATION PRECAUTION. STILL AWAITING FOR CONSENT FROM CONSERVATOR FOR EGD WITH PEG TUBE PLACEMENT. ALL NEEDS ATTENDED TO. CALL LIGHT WITHIN REACH. WILL ENDORSE TO NEXT SHIFT FOR CONTINUITY OF CARE.
--- NOTE | 2017-12-09 19:40 | NUR ---
RN OPENING NOTES RECEIVED REPORT FROM [facility] MAR[facility] MAR[facility]. FOUND Pt AWAKE, RESTING IN BED. Pt IS OBTUNDED, NONVERBAL, WITH OPEN EYES, SHOWS SIGNS OF WITHDRAWAL FROM PAIN. NO S/S OF ACUTE DISTRESS OR SOB NOTED AT THIS TIME. ON COOL AEROSOL ON FIO2 35% WITH TRACH SHILEY #8. NGT LEFT NARE IN PLACE. WILL FINISH FIBERSOURCE TONIGHT AND WILL START ON JEVITY @55ML/HR STARTING AT 0100 FOR 20HR. IV ACCESS ON DIYA, MIDLINE, SL. SAFETY MEASURES IN PLACE. BED LOW, LOCKED, HOB ELEVATED, & SIDE RAILS UP. WILL CONTINUE TO MONITOR Pt THROUGHOUT THE NIGHT FOR SAFETY.
[2017-12-09 20:00] VITALS: BP 127/68
[2017-12-09] MEDS: ENOXAPARIN SODIUM 40 MG/0.4 ML DISP.SYRIN SQ SCH (22:51)
[2017-12-10] MEDS: JEVITY 1.2 CAL 1,000 ML BOTTLE GT PRN ×2 (00:49→22:06)
[2017-12-10] MEDS: VALPROIC ACID 250 MG/5 ML UDC GT SCH ×3 (05:35→21:11)
[2017-12-10] MEDS: PANTOPRAZOLE 40 MG VIAL IV SCH (05:35)
--- NOTE | 2017-12-10 06:46 | NUR ---
CONSERVATOR MARTIN CHEUNG CALLED @ [phone]. DID NOT DIAGNOSTIC TECH, LEFT A MESSAGE IN REGARDS TO Pt NEEDING A CONSENT FOR EGD & G TUBE REPLACEMENT.
--- NOTE | 2017-12-10 06:47 | NUR ---
RN CLOSING NOTES NO SIGNIFICANT CHANGES IN Pt's CONDITION. Pt REMAINED STABLE THROUGHOUT THE SHIFT. NO S/S OF ACUTE DISTRESS OR SEVERE SOB NOTED DURING THE NIGHT. ALL NEEDS MET AND ATTENDED TO. SAFETY MEASURES IN PLACE. CALLED CONSERVATOR MARTIN CHEUNG, LEFT A MESSAGE IN REGARDS TO NEEDING A CONSENT. WILL ENDORSE TO DAYSHIFT RN FOR Pt's JOE.
--- NOTE | 2017-12-10 07:05 | NUR ---
REPORT RECEIVED AT THE BEDSIDE. NO SOB OR DISTRESS NOTED AT THIS TIME. PATIENT DOES NOT APPEAR TO BE IN PAIN, NO FACIAL GRIMACE NOTED. BED IN A LOW POSITION, CALL LIGHT WITHIN PATIENT REACH, TUBE FEEDING RUNNING AND TOLERATED WELL. CALLED NUMBER FOR DPOA OFFICE AND LEFT A MESSAGE FOR CALL BACK. AWAITING RETURN CALL.
[2017-12-10 08:00] VITALS: BP 119/58
[2017-12-10] MEDS: DOCUSATE SODIUM LIQ 100 MG/10 ML UDC GT SCH (09:14)
[2017-12-10] MEDS: CARBIDOPA/LEVODOPA 25/100 MG 1 UDTAB GT SCH ×3 (09:14→16:19)
[2017-12-10] MEDS: FLUDROCORTISONE 0.1 MG TABLET GT SCH (09:14)
[2017-12-10] MEDS: LACTOBACILLUS RHAMNOSUS GG 1 EACH CAP.SPRINK PO SCH ×2 (09:14→16:19)
[2017-12-10] MEDS: NEOMY SULF/BACITRAC ZN/POLY 15 GM TUBE TP SCH (09:14)
--- NOTE | 2017-12-10 15:16 | NUR ---
SUSHIL GUILLAUME, ON FLOOR. INFORMED WARP KNITTING MACHINE OPERATOR THAT DR NOEL AND SUSHIL LEIVA ARE WILLING TO SIGN OFF ON PEG PLACEMENT. SHE STATES SHE WILL TALK TO DR GALVEZ AND ARRANGE PEG PLACEMENT TIME.
[2017-12-10 16:00] VITALS: BP 139/68
--- NOTE | 2017-12-10 19:30 | NUR ---
INSTRUMENT SPECIALIST NOTES RECEIVED PATIENT IN BED AWAKE , EASILY AROUSABLE , OBTUNDED, EYES OPEN , RESPIRATIONS EVEN AND UNLABORED, TRACH INTACT 02 AT 8 LITERS, NGT INTACT, RUNNING ORDERED PRIOR TO NPO STATUS, LEFT UPPER ARM MIDLINE, INTACT AND PATENT, NO REDNESS NO INFILTRATION PRESENT, HEAD OF BED ELEVATED FOR ASPIRATION PRECAUTIONS, NO FACIAL GRIMACING PRESENT AT THIS TIME,SAFETY MEASURES IN PLACE, CALL LIGHT KEPT WITHIN REACH WILL CONTINUE TO MONITOR. Addendum: 12/10/17 at 1950 by LEONEL HARTMANN RN OPENING NOTES Addendum: 12/10/17 at 1959 by LEONEL HARTMANN RN MARIAA ANTHOYNSUUNRULY OPENING NOTES
[2017-12-10 20:00] VITALS: BP 107/76
[2017-12-10] MEDS: ENOXAPARIN SODIUM 40 MG/0.4 ML DISP.SYRIN SQ SCH (21:00)
--- NOTE | 2017-12-10 21:28 | NUR ---
RN MS NOTES CALLED AND SPOKE TO SUSHIL Engel, REGARDING LOVENOX. NEW ORDER TO HOLD TONIGHTS DOSE PATIENT FOR PROCEDURE TOMORROW. DOSE HELD.
[2017-12-11] MEDS: VALPROIC ACID 250 MG/5 ML UDC GT SCH ×3 (04:55→20:54)
[2017-12-11] MEDS: PANTOPRAZOLE 40 MG VIAL IV SCH (04:55)
--- NOTE | 2017-12-11 06:39 | NUR ---
RN MS CLOSING NOTES PATIENT IN BED AWAKE , EASILY AROUSABLE , OBTUNDED, EYES OPEN , RESPIRATIONS EVEN AND UNLABORED, TRACH INTACT 02 AT 8 LITERS, NGT INTACT, RUNNING ORDERED PRIOR TO NPO STATUS, LEFT UPPER ARM MIDLINE, INTACT AND PATENT, NO REDNESS NO INFILTRATION PRESENT, HEAD OF BED ELEVATED FOR ASPIRATION PRECAUTIONS,WOUND DRESSINGS CHANGED INTACT AND CLEAN, NO FACIAL GRIMACING PRESENT AT THIS TIME,SAFETY MEASURES IN PLACE, CALL LIGHT KEPT WITHIN REACH WILL CONTINUE TO MONITOR AND AND ENDORSE TO NEXT SHIFT.
--- NOTE | 2017-12-11 07:30 | NUR ---
MSRN OPENING NOTES. PT RECEIVED NION VERBAL EYES, OPEN AND UNABLE TO INDICATE UNDERSTANDING. PT NPO FROM 12 MIDNIGHT R/T G TUBE MALFUNCTION. PT WITH COOL AEROSOL VIA TRACH AT 8L/PM AND 35%. PT SAO2 94%. PT WITH SHALLOW, REGULAR, EVEN AND UNLABORED RESPIRATIONS. TRACH WITH SHIELY NO8, CHANGED AND CARE COMPLETED WITH RT. PT REPOSITIONED. PT WITH S/S OF DISTRESS OR DISCOMFORT. PT WITH G TUBE NAD AT SITE. PT WOUNDS INSPECTED. PT BED IN LOWEST LOCKED POSITION WITH HANDRAILSX4. WILL CONTINUE TO MONITOR.
[2017-12-11 08:00] VITALS: BP 125/61
[2017-12-11] MEDS: LACTOBACILLUS RHAMNOSUS GG 1 EACH CAP.SPRINK PO SCH ×2 (08:57→16:14)
[2017-12-11] MEDS: FLUDROCORTISONE 0.1 MG TABLET GT SCH (08:57)
[2017-12-11] MEDS: DOCUSATE SODIUM LIQ 100 MG/10 ML UDC GT SCH (08:57)
[2017-12-11] MEDS: CARBIDOPA/LEVODOPA 25/100 MG 1 UDTAB GT SCH ×3 (08:57→16:14)
[2017-12-11] MEDS: NEOMY SULF/BACITRAC ZN/POLY 15 GM TUBE TP SCH (08:58)
--- NOTE | 2017-12-11 11:00 | NUR ---
MSRN NOTES. PT TRACH CARE COMPLETED IC REPLACED. ORAL CARE COMPLETED BUT PT REQUIRES CONTINUE INTENSIVE ORAL CARE.
--- NOTE | 2017-12-11 12:00 | NUR ---
MSRN NOTES. PLASMA SPECIALIST CN OK TO HOLD FEEDING UNTIL POST G TUBE REPLACEMENT. PLASMA SPECIALIST REQUESTING PM LOVENOX TO BE HELD. ORDERS PLACED, WILL ENDORSE TO NIGHT NURSE.
[2017-12-11 16:00] VITALS: BP 118/63
[2017-12-11 16:48] LABS: CALCIUM, SERUM 8.9 mg/dL (8.5-10.1); CARBON DIOXIDE 31 mmol/L (21-32); CHLORIDE 102 mmol/L (98-107); CREATININE 0.5 mg/dL (0.6-1.3); GLUCOSE 85 mg/dL (74-106); POTASSIUM 3.4 mmol/L (3.5-5.1); SODIUM SERUM 140 mmol/L (136-145); UREA NITROGEN, BLOOD 15 mg/dL (7-18)
[2017-12-11 17:06] LABS: INR 1.1 (0.87-1.13)
--- NOTE | 2017-12-11 18:05 | NUR ---
MSRN CLOSING NOTES. PT REMAINS NON VERBAL EYES, OPEN AND UNABLE TO INDICATE UNDERSTANDING. PT TO BE NPO FROM 12 MIDNIGHT R/T G TUBE REPLACEMENT IN AM. PT WITH COOL AEROSOL VIA SHIELY TRACH WITH 8L AT 35%. PT SAO2 WNL%. PT REQUIRED SUCTIONING Q1HR, APPROX 80ML THICK MUCUS RETURNED. PT RESPS SHALLOW, REGULAR, EVEN AND UNLABORED. PT TRACH, ORAL AND WOUND CARE COMPLETED. PT REPOSITIONED Q2HR. PT WITHOUT S/S OF DISTRESS OR DISCOMFORT. PT BED IN LOWEST LOCKED POSITION WITH HANDRAILSX4. ALL DAY NURSE DUTIES ATTENDED TO, WILL ENDORSE TO NIGHT NURSE AT BEDSIDE FOR JOE.
[2017-12-11 18:12] LABS: BASOPHILS % (AUTO) 0.1 % (0.0-2.0); EOSINOPHILS # (AUTO) 0.2 /CMM (0.0-0.7); HEMATOCRIT 25 % (33-45); HEMOGLOBIN 8.6 g/dL (11.5-14.8); LYMPHOCYTES # (AUTO) 2.1 /CMM (0.8-4.8); MEAN CORPUSCULAR HEMOGLOBIN 29 PG (26.0-33.0); MEAN CORPUSCULAR HGB CONC 35 g/dl (31.0-36.0); MEAN CORPUSCULAR VOLUME 83 fL (82-100); MONOCYTES # (AUTO) 0.5 /CMM (0.1-1.30); MONOCYTES % (AUTO) 5.2 % (2.0-12.0); NEUTROPHILS % (AUTO) 68.7 % (43.0-81.0); PLATELET COUNT (AUTO) 359 /CMM (150-450); RDW COEFFICIENT OF VARIATION 17.1 (11.5-15.0); RED BLOOD CELL COUNT(AUTO) 2.98 MIL/uL (4.0-5.2); WHITE BLOOD COUNT (AUTO) 8.8 K/uL (4.3-11.0)
--- NOTE | 2017-12-11 19:30 | NUR ---
RN MS OPENING NOTES RECEIVED PATIENT IN BED AWAKE , EASILY AROUSABLE , OBTUNDED, EYES OPEN, NON VERBAL , RESPIRATIONS EVEN AND UNLABORED, TRACH INTACT 02 AT 8 LITERS, NGT INTACT, RUNNING ORDERED PRIOR TO NPO STATUS, LEFT UPPER ARM MIDLINE, INTACT AND PATENT, NO REDNESS NO INFILTRATION PRESENT, HEAD OF BED ELEVATED FOR ASPIRATION PRECAUTIONS, NO FACIAL GRIMACING PRESENT AT THIS TIME, SUCTIONED ORDERED, TOLERATED WELL,SAFETY MEASURES IN PLACE, LOWER EXTREMITIES OFFLOADING FOR SKIN MANAGEMENT , WILL CONTINUE TO REPOSITION, CALL LIGHT KEPT WITHIN REACH WILL CONTINUE TO MONITOR
[2017-12-11 20:00] VITALS: BP_SYST 109; BP_SYST 128; BP_DIAS 57; BP_DIAS 59
--- NOTE | 2017-12-11 20:00 | NUR ---
RN MS NOTES NGT PLACEMENT CHECKED WHOOSHING SOUND PRESENT, INTACT.PROPER PLACEMENT
[2017-12-11] MEDS: ENOXAPARIN SODIUM 40 MG/0.4 ML DISP.SYRIN SQ SCH (20:55)
[2017-12-11] MEDS ORDERED: POTASSIUM CHLORIDE 20 MEQ TAB.PRT.SR PO ONE (21:00)
[2017-12-11] MEDS: JEVITY 1.2 CAL 1,000 ML BOTTLE GT PRN (23:53)
[2017-12-12] MEDS: PANTOPRAZOLE 40 MG VIAL IV SCH (04:45)
[2017-12-12] MEDS: VALPROIC ACID 250 MG/5 ML UDC GT SCH ×3 (04:45→20:51)
--- NOTE | 2017-12-12 04:58 | NUR ---
RN MS NOTES WOUND DRESSINGS CHANGED INTACT DRY, GTUBE DRESSING CHANGED AND DRESSING TO TRACH CHANGED, REMAINS CLEAN AND DRY AT THIS TIME.
--- NOTE | 2017-12-12 07:07 | NUR ---
RN MS CLOSING NOTES PATIENT IN BED AWAKE , EASILY AROUSABLE , OBTUNDED, EYES OPEN, NON VERBAL , RESPIRATIONS EVEN AND UNLABORED, TRACH INTACT 02 AT 8 LITERS, NGT INTACT, RUNNING ORDERED PRIOR TO NPO STATUS, LEFT UPPER ARM MIDLINE, INTACT AND PATENT, NO REDNESS NO INFILTRATION PRESENT, HEAD OF BED ELEVATED FOR ASPIRATION PRECAUTIONS, NO FACIAL GRIMACING PRESENT AT THIS TIME, SUCTIONED ORDERED, TOLERATED WELL,SAFETY MEASURES IN PLACE, LOWER EXTREMITIES OFFLOADING FOR SKIN MANAGEMENT , CALL LIGHT KEPT WITHIN REACH WILL CONTINUE TO MONITOR AND ENDORSE TO NEXT SHIFT.
--- NOTE | 2017-12-12 07:48 | NUR ---
MS RN OPENING NOTES RECEIVED PT FROM NIGHTSKSFT NURSE IN STABLE CONDITION. PT IS OBTUNDED, NONVERBAL, RESPONSIVE TO TOUCH, AND EASILY AROUSABLE. NO SOB OR SIGNS OF DISTRESS NOTED. BREATHING IS EVEN AND UNLABORED. TRACH NOTED TO BE INTACT. PT SATIN WELL ON 8L. NG TUBE NOTED TO BE PATENT AND INTACT. PLACEMENT VERIFIED VIA AUSCULTATION. PT SCHEDULED FOR GTUBE PLACEMENT THIS MORNING. NPO STATUS MAINTAINED SINCE MIDNIGHT. SURGICAL CHECKLIST COMPLETED BY THE NIGHTSHIFT NURSE. CONSENTS WILL BE SIGNED BY DR MAURER ONCE THE PT GOES TOWN TO THE OR ACCORDING TO THE NIGHTSHIFT NURSE. LEFT UPPER ARM MIDLINE NOTED TO BE PATENT AND INTACT. NO REDNESS OR SIGNS OF INFILTRATION NOTED. BED IN LOW LOCKED POSITION, SIDE RAILS UP X3, CALL LIGHT WITHIN REACH, BED ALARM ON. WILL CONTINUE TO MONITOR.
[2017-12-12 08:00] VITALS: BP 129/72
--- NOTE | 2017-12-12 08:49 | NUR ---
MS RN NOTES: SURGICAL CONSENTS DR. GRANT CALLED IN REGARDS TO OBTAINING PROCEDURAL CONSENTS. IT WAS RELAYED TO THE MD THAT HE WAS TO SIGN THE CONSENT HOWEVER, PER MD "THOSE CONSENTS NEED TO BE SIGNED BY THE PRIMARY AND ANOTHER MD. I DON'T SIGN THE CONSENTS OF THE PT THAT I AM OPERATING ON". THIS INFORMATION WAS TOLD TO AUBREE THE LEATHER CARVER AND DR. NOEL. EACH SIGNED THE PT'S PROCEDURAL CONSENT (S), CONSENT FOR ANESTHESIA, AND BLOOD.
--- NOTE | 2017-12-12 09:07 | NUR ---
MS RN NOTE DR. GRANT AND THE OR TEAM IN ROOM FOR BEDSIDE PROCEDURE. PT STABLE AT THIS TIME.
--- NOTE | 2017-12-12 10:03 | NUR ---
MS RN NOTES: POST OP PT REMAINS STABLE AFTER SURGICAL PROCEDURE. VITALS STABLE. ORDERS NOTED FROM MD TO RESUME MEDICATIONS VIA GTUBE. FEEDING HELD FOR THE FIRST 12-24HRS PER MD NOTE.
[2017-12-12] MEDS: LACTOBACILLUS RHAMNOSUS GG 1 EACH CAP.SPRINK PO SCH ×2 (10:06→16:25)
[2017-12-12] MEDS: FLUDROCORTISONE 0.1 MG TABLET GT SCH (10:06)
[2017-12-12] MEDS: DOCUSATE SODIUM LIQ 100 MG/10 ML UDC GT SCH (10:06)
[2017-12-12] MEDS: CARBIDOPA/LEVODOPA 25/100 MG 1 UDTAB GT SCH ×3 (10:06→16:25)
[2017-12-12] MEDS: NEOMY SULF/BACITRAC ZN/POLY 15 GM TUBE TP SCH (10:09)
[2017-12-12 16:00] VITALS: BP 131/70
[2017-12-12] MEDS ORDERED: HYDROGEL DRESSING 90 GM TUBE TP PRN (16:00)
--- NOTE | 2017-12-12 18:29 | NUR ---
MS RN CLOSING NOTES PT REMAINS IN STABLE. NO ACUTE CHANGES IN CONDITION THROUGHOUT SHIFT. ALL NEEDS WERE MET AND ORDERS CARRIED OUT ACCORDINGLY. ALL DUE MEDS GIVEN. PT WAS REPOSITIONED AND TURNED Q2HRS PER HOSPITAL PROTOCOL. GTUBE REMAINS IN PLACE AND PATENT. NO RESIDUALS AT THIS TIME. ORAL CARE PROVIDED. WOUND AND SKIN CARE RENDERED ORDERED. HEAD OF BED REMAINS ELEVATED FOR ASPIRATION PRECAUTIONS. IV REMAINS PATENT AND INTACT. PT KEPT CLEAN AND DRY THROUGHOUT SHIFT. WILL ENDORSE TO NIGHTSHIFT NURSE FOR JOE
--- NOTE | 2017-12-12 19:30 | NUR ---
MS RN OPENING NOTES RECEIVED PT SITTING UPRIGHT IN BED. AWAKE AND RESPONSIVE WITH SPONTANEOUS EYE OPENING. RESPIRATIONS ARE EVEN AND UNLABORED, NOT IN ANY ACUTE DISTRESS NOTED. IV ACCESS INTACT, DRESSING KEPT CLEAN AND DRY. NO INFILTRATION NOTED. SAFETY MEASURES ARE IN PLACE. WILL CONTINUE TO MONITOR THROUGHOUT SHIFT.
[2017-12-12 20:00] VITALS: BP 132/70
[2017-12-12] MEDS: ENOXAPARIN SODIUM 40 MG/0.4 ML DISP.SYRIN SQ SCH (20:53)
[2017-12-13] MEDS: JEVITY 1.2 CAL 1,000 ML BOTTLE GT PRN (00:53)
[2017-12-13] MEDS: PANTOPRAZOLE 40 MG VIAL IV SCH (04:06)
[2017-12-13] MEDS: VALPROIC ACID 250 MG/5 ML UDC GT SCH ×2 (04:06→12:22)
--- NOTE | 2017-12-13 06:27 | NUR ---
MS RN CLOSING NOTES ALL DUE MEDS GIVEN, NEEDS MET AND RENDERED. REMAINS NONVERBAL W/ SPONTANEOUS EYE OPENING. RESPIRATIONS ARE EVEN AND UNLABORED, NOT IN ANY ACUTE DISTRESS NOTED. SUCTIONED PRN, NOTED WITH WHITE THICK SECRETIONS.NO FACIAL GRIMACING OR MOANING NOTED. IV SITE INTACT, NO INFILTRATION NOTED. DRESSING KEPT CLEAN AND DRY. SAFETY MEASURES ARE IN PLACE. WILL ENDORSE TO NEXT SHIFT FOR CONTINUITY OF CARE.
--- NOTE | 2017-12-13 07:25 | NUR ---
MS RN OPENING NOTES PATIENT RECEIVE NONVERBAL W/ SPONTANEOUS EYE OPENING. RESPIRATIONS ARE EVEN AND UNLABORED, NOT IN ANY ACUTE DISTRESS NOTED. SUCTIONED PRN, NOTED WITH WHITE THICK SECRETIONS.NO FACIAL GRIMACING OR MOANING NOTED. IV SITE INTACT, NO INFILTRATION NOTED. DRESSING KEPT CLEAN AND DRY. SAFETY MEASURES ARE IN PLACE. WILL CONTINUE TO MONITOR
[2017-12-13 08:25] VITALS: BP 143/56
[2017-12-13] MEDS: DOCUSATE SODIUM LIQ 100 MG/10 ML UDC GT SCH (09:07)
[2017-12-13] MEDS: FLUDROCORTISONE 0.1 MG TABLET GT SCH (09:07)
[2017-12-13] MEDS: LACTOBACILLUS RHAMNOSUS GG 1 EACH CAP.SPRINK PO SCH (09:07)
[2017-12-13] MEDS: CARBIDOPA/LEVODOPA 25/100 MG 1 UDTAB GT SCH ×2 (09:07→12:22)
[2017-12-13] MEDS: NEOMY SULF/BACITRAC ZN/POLY 15 GM TUBE TP SCH (09:13)
[2017-12-13] MEDS ORDERED: NEOM15OI3 TP (10:01)
--- NOTE | 2017-12-13 13:10 | NUR ---
MS MEDICAL ASST NOTES PATIENT NONVERBAL W/ SPONTANEOUS EYE OPENING. RESPIRATIONS ARE EVEN AND UNLABORED, NOT IN ANY ACUTE DISTRESS NOTED. SUCTIONED PRN, NOTED WITH WHITE THICK SECRETIONS.NO FACIAL GRIMACING OR MOANING NOTED. IV SITE AND ID BAND REMOVED WITH NO ASE NOTED. DRESSING KEPT CLEAN AND DRY CHANGED ORDERED.ALL DUE MEDICATIONS GIVEN ORDERED. PATIENT WITH DISCHARGE ORDER, ALL DISCHARGE INSTRUCTIONS REVIEWED WITH SNF RN ATTEMPTED TO CONTACT DPOA NO ANSWER. PICTURES OF SKIN TAKEN AND PLACED IN CHART. 2 RN SIGNED DISCHARGE PAPERWORK PT DID NOT HAVE BELONGINGS. REPORT GIVEN TO EMT FOR CONTINUITY OF CARE, DISCHARGED IN STABLE CONDITION
== END 2017-12-13 13:05 | DRG 393 ==
LOC: ER 12:42 → MED 14:17
PROVIDERS: ADMIT Family Medicine; ATTEND Family Medicine
PROC: 05H633Z Insertion of Infusion Device into Left Subclavian Vein, Percutaneous Approach (ICD-10-PCS; principal; 2017-12-06)
PROC: B547ZZA Ultrasonography of Left Subclavian Vein, Guidance (ICD-10-PCS; 2017-12-06)
PROC: 0DH63UZ Insertion of Feeding Device into Stomach, Percutaneous Approach (ICD-10-PCS; 2017-12-12 09:10)
DX: K94.23 Gastrostomy malfunction (principal); R53.2 Functional quadriplegia; G93.41 Metabolic encephalopathy; E44.0 Moderate protein-calorie malnutrition; J96.11 Chronic respiratory failure with hypoxia; G81.91 Hemiplegia, unspecified affecting right dominant side; D68.59 Other primary thrombophilia; R13.10 Dysphagia, unspecified; Y83.3 Surgical operation with formation of external stoma as the cause of abnormal reaction of the patient, or of later complication, without mention of misadventure at the time of the procedure; Y92.129 Unspecified place in nursing home as the place of occurrence of the external cause; E03.9 Hypothyroidism, unspecified; E78.5 Hyperlipidemia, unspecified; Z88.5 Allergy status to narcotic agent; F02.80 Dementia in other diseases classified elsewhere, unspecified severity, without behavioral disturbance, psychotic disturbance, mood disturbance, and anxiety; Z79.899 Other long term (current) drug therapy; G20 Parkinson's disease; I10 Essential (primary) hypertension; D63.8 Anemia in other chronic diseases classified elsewhere; L98.9 Disorder of the skin and subcutaneous tissue, unspecified; F20.9 Schizophrenia, unspecified; Z73.6 Limitation of activities due to disability; K59.00 Constipation, unspecified
CPT/HCPCS: 31720; 36415; 71045-TC; 74018; 74150-TC; 80048-TC; 80053-TC; 82272-TC; 85025-TC; 85610-TC; 85730-TC; 87081-TC; 88305-TC; 88311-TC; 94640-TC; 99082-TC; A4606; A4623; A6248; C9113; J0360; J1650; J3480; J3490; J7030; J7042; J7060; Q9963; Z7610

== ENCOUNTER 2019-04-22 12:56 | Inpatient (IN) | payer MEDICARE, OTHER ==
[~2019-04-22] VITALS: Ht 154.9 cm; Wt 55.3 kg
[~2019-04-22 12:56] MED LIST changes: +BISA10SU11 RC; -BISA10SU8 RC; -CRAN450T3 GT; +HYDR-4075 GT; -METO-295 GT; +NEOM15OI3 TP; +TRAM50TA2 PO
--- NOTE | 2019-04-22 13:00 | NUR ---
PT BIB [facility] FOR G TUBE DISLODGEMENT AND POSSIBLE CELLULITS, PT IS AAOX0, NOT IN RESPIRATORY DISTRESS, ON OXYGEN VIA TRACH, HOOKE TO MONITOR, KEPT RESTED AND COMFORTABLE, WILL CONTINUE TO MONITOR.
[2019-04-22] MEDS ORDERED: CALC1TAB30 PO (13:16)
[2019-04-22] MEDS ORDERED: SODI50DR PO (13:16)
[2019-04-22] MEDS ORDERED: ZINC220C6 PO (13:16)
[2019-04-22] MEDS ORDERED: FERR325T23 PO (13:16)
[2019-04-22] MEDS ORDERED: ALBU2.5V13 IH ×2 (13:16)
[2019-04-22] MEDS ORDERED: ASCO500P18 PO (13:16)
--- NOTE | 2019-04-22 13:17 | NUR ---
AT BEDSIDE FOR EVAL.
--- NOTE | 2019-04-22 13:21 | NUR ---
IV LINE ESTABLISHED, BLOOD DRAWNED AND SENT TO LAB.
[2019-04-22] MEDS ORDERED: PIPERACILLIN /TAZOBACTAM 3.375 G in IV D5W 50 ML IV ONE (13:30)
[2019-04-22] MEDS ORDERED: IV NS 0.9% 1,000 ML BAG IV ONE (13:30)
[2019-04-22 13:33] LABS: BASOPHILS % (AUTO) 0.2 % (0.0-2.0); EOSINOPHILS % (AUTO) 0.5 % (0.0-6.0); HEMATOCRIT 25 % (33-45); HEMOGLOBIN 8.4 g/dL (11.5-14.8); LYMPHOCYTES # (AUTO) 1.6 /CMM (0.8-4.8); MEAN CORPUSCULAR HGB CONC 34 g/dl (31.0-36.0); MEAN CORPUSCULAR VOLUME 86 fL (82-100); MONOCYTES % (AUTO) 10.6 % (2.0-12.0); NEUTROPHILS # (AUTO) 6.8 /CMM (1.8-8.9); NEUTROPHILS % (AUTO) 71.7 % (43.0-81.0); PLATELET COUNT (AUTO) 348 /CMM (150-450); RED BLOOD CELL COUNT(AUTO) 2.89 MIL/uL (4.0-5.2); WHITE BLOOD COUNT (AUTO) 9.5 K/uL (4.3-11.0)
[2019-04-22 13:42] LABS: CALCIUM, SERUM 8.7 mg/dL (8.5-10.1); CARBON DIOXIDE 31 mmol/L (21-32); CHLORIDE 88 mmol/L (98-107); CREATININE 0.5 mg/dL (0.6-1.3); GLUCOSE 103 mg/dL (74-106); POTASSIUM 4.2 mmol/L (3.5-5.1); SODIUM SERUM 123 mmol/L (136-145); UREA NITROGEN, BLOOD 12 mg/dL (7-18)
[2019-04-22 13:48] LABS: ALANINE AMINOTRANSFERASE 7 U/L (12-78); ALKALINE PHOSPHATASE 101 U/L (46-116); ASPARTATE AMINOTRANSFERASE 16 U/L (15-37); BILIRUBIN,DIRECT 0.1 mg/dL (0.0-0.2); BILIRUBIN,TOTAL 0.3 mg/dL (0.2-1.0); TOTAL PROTEIN, SERUM 6.9 g/dL (6.4-8.2)
--- NOTE | 2019-04-22 13:58 | NUR ---
SHELLFISH DREDGE OPERATOR AT BEDSIDE FOR XRAY.
--- NOTE | 2019-04-22 14:22 | NUR ---
CALLED FOR BED, TURNED IN MOVE SHEET
--- NOTE | 2019-04-22 15:55 | NUR ---
BED 109
--- NOTE | 2019-04-22 16:15 | NUR ---
REPORT GIVEN TO MARIAA GALLAGHER FOR JOE.
[2019-04-22 16:28] LABS: APPEARANCE,URINE SLIGHTLY CLOUDY (CLEAR); COLOR,URINE Light yellow (YELLOW)
--- NOTE | 2019-04-22 16:30 | NUR ---
received patient via gurney, A/O x 0 ,non-verbal, obtunded , contracted. VS are stable and within baseline ,trach (t-piece) on 5l saturation 100%. Patient admitted to [facility] , currently Normal SR. Skin checked and multiple problems were found : pictures are taken and placed in the chart. PAtient cleaned and dressing on R elbow and g-tube aria changed. Patient has no belongings. Admitting MD Marin informed. Awaiting for adm. orders.
[2019-04-22 16:39] LABS: PH,URINE 7.5 (5.0-8.0); PROTEIN,URINE TRACE mg/dl (NEGATIVE); UGLUCOSE NEGATIVE (NEGATIVE)
[2019-04-22 16:42] LABS: BILIRUBIN,URINE NEGATIVE (NEGATIVE); KETONES,URINE NEGATIVE (NEGATIVE); LEUKOCYTE ESTERASE ,URINE 2+ (NEGATIVE); NITRITE, URINE POSITIVE (NEGATIVE); UROBILINOGEN,URINE NORMAL EU/dL (0.2)
[2019-04-22 16:43] LABS: BLOOD, URINE 1+ Ery/uL (NEGATIVE)
[2019-04-22 16:44] LABS: BACTERIA,URINE Moderate /HPF (None Seen); RBC,URINE 0-2 /HPF (0-2); SQUAMOUS EPITHELIAL CELL,UR Few /HPF (None Seen)
[2019-04-22 17:55] VITALS: BP 102/45
--- NOTE | 2019-04-22 18:58 | NUR ---
PATIENT IN STABLE CONDITION. SAFETY PRECAUTIONS MAINTAINED. PAGED AGAIN. AWAITING ADMITTING ORDERS
[2019-04-22] MEDS ORDERED: IV D5/0.45 NACL 1,000 ML IV PRN (22:25)
[2019-04-22 22:26] VITALS: BP 106/49
[2019-04-22] MEDS ORDERED: HYDROCODONE/APAP 5/325MG 1 EACH TABLET PO PRN (22:30)
[2019-04-22] MEDS ORDERED: Z GUARD REMEDY 2 OZ OINT TP PRN (22:30)
[2019-04-22] MEDS ORDERED: ONDANSETRON HCL/PF 4 MG/2 ML VIAL IVP PRN (22:30)
[2019-04-22] MEDS ORDERED: MAGNESIUM HYDROXIDE 30 ML UDC PO PRN (22:30)
[2019-04-22] MEDS ORDERED: MAG HYDROX/AL HYDROX/SIMETH 30 ML UDC PO PRN (22:30)
[2019-04-22] MEDS ORDERED: ACETAMINOPHEN 325 MG TABLET PO PRN (22:30)
[2019-04-22] MEDS ORDERED: VANCOMYCIN 1 GM in IV D5W 250ml IV SCH (23:00)
[2019-04-22] MEDS ORDERED: VANCOMYCIN 1 GM VIAL ONE (23:35)
[2019-04-23] VITALS: BP 106/47
[2019-04-23] MEDS ORDERED: CEPHALEXIN MONOHYDRATE 250 MG CAPSULE PO SCH
[2019-04-23 04:00] VITALS: BP 96/47
[2019-04-23] MEDS ORDERED: BISACODYL SUPP (10 MG) 10 MG/SUPP.RECT SUPP.RECT RC PRN (04:30)
--- NOTE | 2019-04-23 04:35 | NUR ---
CONSTRUCTION ASSISTANT NOTES RECEIVED PTS IN BED OBTUNDED NON VERBAL ON T-PIECE ORDERED SATING 99% on tele sr on the monitor , no sob no distress noted ,v/s stable afebrile , admission order done by jose luis holland , pts for gt placement , f/c inserted to stoma to keep open , pts on ivf of d5 1/2 ns at 75cc/hr infusing well, f/c inserted as ordered draining with yellowish urine output , all due meds given as ordered , turned and reposition, all needs attended too call light with in reach .hob elevated for aspiration precaution .kept pts clean dry and comfortable, will continue to monitor pts.
[2019-04-23] MEDS ORDERED: PIPERACILLIN /TAZOBACTAM 3.375 G VIAL IV ONE (05:43)
[2019-04-23] MEDS: PIPERACILLIN /TAZOBACTAM 3.375 G in IV D5W 50 ML IV SCH ×4 (06:07→23:05)
--- NOTE | 2019-04-23 07:21 | NUR ---
cable television installer notes received pts in bed obtunded , no sob no distress noted , pts remains on t piece well tolerated , sating 100% will endorse to rn day shift for continuity of care.
[2019-04-23 07:57] LABS: BASOPHILS % (AUTO) 0.2 % (0.0-2.0); EOSINOPHILS % (AUTO) 0.8 % (0.0-6.0); HEMATOCRIT 22 % (33-45); HEMOGLOBIN 7.4 g/dL (11.5-14.8); LYMPHOCYTES # (AUTO) 1.4 /CMM (0.8-4.8); LYMPHOCYTES % (AUTO) 19.1 % (20.0-44.0); MEAN CORPUSCULAR HGB CONC 34 g/dl (31.0-36.0); MEAN CORPUSCULAR VOLUME 85 fL (82-100); MONOCYTES # (AUTO) 0.8 /CMM (0.1-1.30); MONOCYTES % (AUTO) 10.9 % (2.0-12.0); NEUTROPHILS # (AUTO) 5.1 /CMM (1.8-8.9); PLATELET COUNT (AUTO) 333 /CMM (150-450); RED BLOOD CELL COUNT(AUTO) 2.54 MIL/uL (4.0-5.2); WHITE BLOOD COUNT (AUTO) 7.4 K/uL (4.3-11.0)
[2019-04-23 08:00] VITALS: BP 141/59
[2019-04-23 08:01] LABS: CHOLESTEROL 67 mg/dL (<200); HDL CHOLESTEROL 23 mg/dL (40-60); LDL 46 mg/dL (0-99); TRIGLYCERIDES 53 mg/dL (30-150)
[2019-04-23 08:03] LABS: CARBON DIOXIDE 24 mmol/L (21-32); CHLORIDE 90 mmol/L (98-107); CREATININE 0.5 mg/dL (0.6-1.3); GLUCOSE 101 mg/dL (74-106); MAGNESIUM 1.9 mg/dL (1.8-2.4); PHOSPHORUS 3.1 mg/dL (2.5-4.9); POTASSIUM 3.4 mmol/L (3.5-5.1); SODIUM SERUM 124 mmol/L (136-145); UREA NITROGEN, BLOOD 8 mg/dL (7-18)
[2019-04-23] MEDS: CARBIDOPA/LEVODOPA 25/100 MG 1 UDTAB GT SCH ×3 (09:00→17:00)
[2019-04-23] MEDS: ESOMEPRAZOLE MAGNESIUM 40 MG SUSPDR.PKT GT SCH (09:00)
[2019-04-23] MEDS: DOCUSATE SODIUM LIQ 100 MG/10 ML UDC GT SCH (09:00)
[2019-04-23] MEDS ORDERED: PANTOPRAZOLE 40 MG VIAL IV SCH (09:00)
[2019-04-23] MEDS: ZINC SULFATE 220 MG CAPSULE PO SCH (09:00)
[2019-04-23] MEDS: FERROUS SULFATE (325 MG) 325 MG/TAB TABLET PO SCH (09:00)
[2019-04-23] MEDS: VANCOMYCIN 0.75 GM in IV D5W 250 ML IV SCH ×2 (09:49→22:06)
[2019-04-23] MEDS ORDERED: FEE PK DOSING 1 MIN EA MC ONE (09:51)
--- NOTE | 2019-04-23 10:22 | NUR ---
rn telemetry notes dr dhaliwal replaced GT 20Fr at bedside. pt tolerated well. per brayan page to use.
[2019-04-23] MEDS ORDERED: DIATR MEGLU/DIATRIZOATE SODIUM 30 ML BOTTLE (GASTROGRAPHIN) ONE (10:52)
[2019-04-23] MEDS ORDERED: POTASSIUM CHLORIDE 20 MEQ POWDER PACKET GT SCH (11:00)
[2019-04-23] MEDS: DAKINS QUARTER STRENGTH (0.125%) 480 ML BOTTLE TOP SCH (12:11)
[2019-04-23] MEDS: VALPROIC ACID 250 MG/5 ML UDC GT SCH ×2 (12:12→20:01)
--- NOTE | 2019-04-23 14:00 | NUR ---
MS RN NOTES CALLED DR KING TO NOTIFY OF HGB TRENDING DOWN. ORDERED TO STOP ANY ANTICOAG AND TO RESTART FEEDING AT 10ML/HR WITH GOAL OF 50ML/HR. PER CHARGE NURSE ELVIA, INCREASE FEEDING RATE 10ML Q6H.
--- NOTE | 2019-04-23 15:42 | NUR ---
MS RN NOTES CONTACTED DR RICK RE: BLOOD AT GT SITE AND LEAKAGE. NOTHING ASPIRATED. ORDERED CT ABDOMEN WO CONTRAST. WILL NOTIFY MD WITH RESULTS.
[2019-04-23 16:00] VITALS: BP 125/55
--- NOTE | 2019-04-23 16:47 | NUR ---
Patient is trach dependent,non-verbal and totally dependent with adl's. She resides at [facility] [phone]. Her public guardian is Cynthia Vito [phone]. Current dc plan is to return to SNF,bedhold x7days. Addendum: 04/23/19 at 1648 by SEAN JIM RN Amended: Links added.
[2019-04-23] MEDS: NYSTATIN (PYXIS) 500,000 UNIT/5 ML ORAL.SUSP PO SCH (18:29)
--- NOTE | 2019-04-23 18:52 | NUR ---
MS RN NOTES RELAYED CT ABD RESULTS TO [facility]OCK TO USE GT FOR FEEDING IF NO BLOOD IN ASPIRATE.
[2019-04-23 20:00] VITALS: BP 110/58
[2019-04-23] MEDS: JEVITY 1.2 CAL 1,000 ML BOTTLE GT SCH (20:00)
--- NOTE | 2019-04-23 20:00 | NUR ---
MS RN NOTES RECEIVED PT ON BED. OBTUNDED. ON COOL AEROSOL 5LPM SATURATING 100%. IV ACCESS ON LEFT HAND G20 WITH NS RUNNING @ 100CC.HR. GTUBE SITE NOTED WITH SOME DRAINAGE. GALINDO CATH DRAINING YELLOW URINE. HEAD OF BED ELEVATED. SIDE RAILS UP. CALL LIGHT WITHIN REACH. BED ALARM ON. WILL CONTINUE TO MONITOR PT CLOSELY.
[2019-04-23] MEDS: IV NS 0.9% 1,000 ML IV PRN (20:01)
--- NOTE | 2019-04-23 20:10 | NUR ---
MS RN NOTES GTUBE FEEDING STARTED, NO RESIDUAL UPON INITIAL FEEDING. WILL MONITOR LEAKS AND RESIDUALS CLOSELY.
[2019-04-24 04:00] VITALS: BP 105/55
[2019-04-24] MEDS: PIPERACILLIN /TAZOBACTAM 3.375 G in IV D5W 50 ML IV SCH ×4 (05:02→23:00)
[2019-04-24] MEDS: VALPROIC ACID 250 MG/5 ML UDC GT SCH ×3 (05:02→20:37)
[2019-04-24 06:47] LABS: BASOPHILS % (AUTO) 0.4 % (0.0-2.0); EOSINOPHILS % (AUTO) 0.6 % (0.0-6.0); HEMATOCRIT 26 % (33-45); HEMOGLOBIN 8.5 g/dL (11.5-14.8); LYMPHOCYTES # (AUTO) 1.8 /CMM (0.8-4.8); LYMPHOCYTES % (AUTO) 24.9 % (20.0-44.0); MEAN CORPUSCULAR HGB CONC 33 g/dl (31.0-36.0); MEAN CORPUSCULAR VOLUME 86 fL (82-100); MONOCYTES # (AUTO) 0.7 /CMM (0.1-1.30); MONOCYTES % (AUTO) 9.5 % (2.0-12.0); NEUTROPHILS # (AUTO) 4.6 /CMM (1.8-8.9); NEUTROPHILS % (AUTO) 64.6 % (43.0-81.0); PLATELET COUNT (AUTO) 392 /CMM (150-450); RED BLOOD CELL COUNT(AUTO) 2.98 MIL/uL (4.0-5.2); WHITE BLOOD COUNT (AUTO) 7.2 K/uL (4.3-11.0)
[2019-04-24 06:56] LABS: CALCIUM, SERUM 8.2 mg/dL (8.5-10.1); CARBON DIOXIDE 28 mmol/L (21-32); CHLORIDE 93 mmol/L (98-107); CREATININE 0.5 mg/dL (0.6-1.3); GLUCOSE 98 mg/dL (74-106); MAGNESIUM 1.9 mg/dL (1.8-2.4); PHOSPHORUS 3.5 mg/dL (2.5-4.9); SODIUM SERUM 130 mmol/L (136-145); UREA NITROGEN, BLOOD 5 mg/dL (7-18)
[2019-04-24 07:19] LABS: FERRITIN 238 ng/mL (8-388); THYROID STIMULATING HORMONE 1.963 uIU/mL (0.358-3.74); URIC ACID 1.6 mg/dL (2.6-7.2)
--- NOTE | 2019-04-24 07:20 | NUR ---
MS RN OPENING NOTES RECEIVED REPORT FROM PM NURSE.PT IN BED. OBTUNDED. ON COOL AEROSOL 5LPM SATURATING 100%. NO SOB NO DISTRESS NOTED.IV ACCESS ON LEFT HAND G20 WITH NS @ 100CC/HR. G TUBE SITE NOTED MILD DARK BROWN DRAINAGE. DRESSING CHANGED.GTF @20CC/HR.GALINDO CATH DRAINING YELLOW URINE. HEAD OF BED ELEVATED. SIDE RAILSX3. CALL LIGHT WITHIN REACH. BED ALARM ON. WILL CONTINUE TO MONITOR.
--- NOTE | 2019-04-24 07:27 | NUR ---
MS RN NOTES NO ACUTE CHANGES NOTE DURING THE SHIFT. NO RESIDUAL ON GTUBE FEEDING. BLACK LEAKAGE NOTED IN GTUBE SITE. WILL ENDORSE TO THE AM NURSE FOR CONTINUITY OF CARE.
[2019-04-24 07:46] LABS: IRON, SERUM 16 ug/dl (50-175); TOTAL IRON BINDING CAPACITY 130 ug/dl (250-450)
[2019-04-24 08:00] VITALS: BP 126/59
[2019-04-24 08:08] LABS: URINE SODIUM, RANDOM 84 mmol/l (40-220)
[2019-04-24 08:20] LABS: OSMOLALITY,URINE 229 mOS/kg (340-1090)
[2019-04-24] MEDS: IV NS 0.9% 1,000 ML IV PRN ×2 (08:49→21:34)
[2019-04-24] MEDS: CARBIDOPA/LEVODOPA 25/100 MG 1 UDTAB GT SCH ×3 (08:50→16:26)
[2019-04-24] MEDS: DOCUSATE SODIUM LIQ 100 MG/10 ML UDC GT SCH (08:50)
[2019-04-24] MEDS: NYSTATIN (PYXIS) 500,000 UNIT/5 ML ORAL.SUSP PO SCH ×3 (08:50→16:25)
[2019-04-24] MEDS: ZINC SULFATE 220 MG CAPSULE PO SCH (08:50)
[2019-04-24] MEDS: FERROUS SULFATE (325 MG) 325 MG/TAB TABLET PO SCH (08:50)
[2019-04-24] MEDS: ESOMEPRAZOLE MAGNESIUM 40 MG SUSPDR.PKT GT SCH (08:50)
[2019-04-24] MEDS: DAKINS QUARTER STRENGTH (0.125%) 480 ML BOTTLE TOP SCH (08:51)
[2019-04-24] MEDS: VANCOMYCIN 0.75 GM in IV D5W 250 ML IV SCH ×2 (10:45→22:00)
[2019-04-24] MEDS: POTASSIUM CHLORIDE 20 MEQ POWDER PACKET GT SCH ×3 (11:31→15:26)
--- NOTE | 2019-04-24 11:55 | NUR ---
MS RN NOTE SEEN BY ,UPDATED ABOUT PATIENT CONDITION WITH LABS.GOT NEW ORDERS.MADE AWARE ABOUT GT LEAKING SECRETIONS.WILL F/U GI.
--- NOTE | 2019-04-24 13:54 | NUR ---
NS RN NOTE SEEN BY ,NNO.
[2019-04-24 16:00] VITALS: BP 123/62
--- NOTE | 2019-04-24 16:14 | NUR ---
MS RN NOTE TELEPHONIC VERBAL CONSENT OBTAINED FROM BROTHER KAYLI AYALA FOR SERIAL WOUND DEBRIDEMENT OF LEFT ELBOW. PER HIM HE IS PRIMARY RESPONSIBLE CONSTITUTION PARTY ,NOT CONSERVATOR.CONSENT VERIFIED BY 2 RN.
[2019-04-24] MEDS: LACTOBACILLUS RHAMNOSUS GG 1 EACH CAP.SPRINK PO SCH (16:26)
--- NOTE | 2019-04-24 17:53 | NUR ---
ME RN NOTE SEEN BY SUSHIL GUILLAUME FROM GI.UPDATED ABOUT PATIENT CONDITION WITH GT SITE DRAINAGE STATUS.SCANT DISCHARGE NOTED.GOT ORDER FOR GT SITE WOUND CULTURE.SPECIMEN COLLECTED AND LAB MADE AWARE TO POWER PLANT INSTALLER SPECIMEN.
--- NOTE | 2019-04-24 19:19 | NUR ---
MS RN CLOSING NOTES PT IN BED.NON VERBAL.OPEN EYES. ON COOL AEROSOL SATURATING 100%. NO SOB NO DISTRESS NOTED.IV ACCESS ON LEFT HAND G20 WITH NS @ 100CC/HR. G TUBE SITE NOTED WITH SCANT SEROSANGUINEOUS DRAINAGE. DRESSING INTACT.GTF @25CC/HR.GALINDO CATH DRAINING YELLOW URINE. HEAD OF BED ELEVATED. SIDE RAILSX3. CALL LIGHT WITHIN REACH. BED ALARM ON. BEDSIDE REPORT GIVEN TO PM NURSE FOR JOE.
--- NOTE | 2019-04-24 19:20 | NUR ---
MS RN OPENING NOTES Received patient A/O x1, non verbal, open eyes to stimuli. On cool aerosol with O2 @ 5LPM saturating 100%, breathing even and unlabored. With moderate secretions noted, suctioned PRN. With patent peripheral IV line LH #20 with NS infusing well @ 100ml/hr as ordered, no signs of infiltration noted. With FC indwelling well with clear yellow urine output noted. With GT in place, feeding on hold at this time, to resume at 2000 as ordered. No abdominal distention, no N/V noted. Kept on bed clean, dry and comfortable. Call light at bedside. Will continue to monitor accordingly.
[2019-04-24 20:00] VITALS: BP 112/59
[2019-04-25 04:00] VITALS: BP 126/83
[2019-04-25] MEDS: VALPROIC ACID 250 MG/5 ML UDC GT SCH ×3 (04:15→21:16)
[2019-04-25] MEDS: PIPERACILLIN /TAZOBACTAM 3.375 G in IV D5W 50 ML IV SCH ×3 (05:01→17:11)
--- NOTE | 2019-04-25 06:21 | NUR ---
MS RN CLOSING NOTES Patient intermittently asleep, on Prescott's position on bed. With cool aerosol with O2 @5LPM, saturating 100%, breathing even and unlabored, no SOB/respiratory distress noted. With occasional moderate thin secretions noted, suctioned PRN. Wound care done as ordered. All due meds given as ordered, no ASE noted. GTF tolerated well @ 50ml/hr as ordered, no abdominal distention noted, abdomen remained soft and non-tender, no leakage noted. With peripheral IV L Hand G#20 with NS infusing well @ 100ml/hr as ordered. With indwelling Carpenter catheter with clear yellow urine output noted. Afebrile the whole shift, no new unusualities noted. All nursing needs attended. Kept on bed clean, dry and comfortable. On fall precautions. Endorsed to the next shift.
[2019-04-25 06:32] LABS: BASOPHILS % (AUTO) 0.8 % (0.0-2.0); EOSINOPHILS % (AUTO) 1.7 % (0.0-6.0); HEMATOCRIT 25 % (33-45); HEMOGLOBIN 8.2 g/dL (11.5-14.8); LYMPHOCYTES # (AUTO) 1.1 /CMM (0.8-4.8); MEAN CORPUSCULAR HGB CONC 33 g/dl (31.0-36.0); MEAN CORPUSCULAR VOLUME 88 fL (82-100); MONOCYTES # (AUTO) 0.4 /CMM (0.1-1.30); MONOCYTES % (AUTO) 9.2 % (2.0-12.0); NEUTROPHILS # (AUTO) 2.9 /CMM (1.8-8.9); NEUTROPHILS % (AUTO) 64.3 % (43.0-81.0); PLATELET COUNT (AUTO) 326 /CMM (150-450); RED BLOOD CELL COUNT(AUTO) 2.83 MIL/uL (4.0-5.2); WHITE BLOOD COUNT (AUTO) 4.5 K/uL (4.3-11.0)
[2019-04-25 06:43] LABS: CALCIUM, SERUM 7.9 mg/dL (8.5-10.1); CARBON DIOXIDE 26 mmol/L (21-32); CHLORIDE 101 mmol/L (98-107); CREATININE 0.5 mg/dL (0.6-1.3); GLUCOSE 105 mg/dL (74-106); PHOSPHORUS 2.8 mg/dL (2.5-4.9); POTASSIUM 3.5 mmol/L (3.5-5.1); SODIUM SERUM 136 mmol/L (136-145); UREA NITROGEN, BLOOD 4 mg/dL (7-18)
--- NOTE | 2019-04-25 07:30 | NUR ---
RN NOTES RECEIVED PT ON BED, TRACH DEPENDENT, NONVERBAL ON COOL AEROSOL AT 5L , NO SOB NOTED, L HAND IV SITE G20 CLEAN, DRY AND INTACT, NS AT 100CC/HR RUNNING , GALINDO DRINING TO GRAVITY, TOLERATING TF WELL, NO RESIDUAL NOTED AT THIS TIME , SR UP x3 , CALL LIGHT WITHIN EASY REACH, BED LOCKED AND IN LOWEST POSITION, CONTINUE TO MONITOR.
[2019-04-25 08:00] VITALS: BP 115/70
[2019-04-25] MEDS: NYSTATIN (PYXIS) 500,000 UNIT/5 ML ORAL.SUSP PO SCH ×3 (08:39→16:05)
[2019-04-25] MEDS: LACTOBACILLUS RHAMNOSUS GG 1 EACH CAP.SPRINK PO SCH ×2 (08:39→16:05)
[2019-04-25] MEDS: ZINC SULFATE 220 MG CAPSULE PO SCH (08:39)
[2019-04-25] MEDS: CARBIDOPA/LEVODOPA 25/100 MG 1 UDTAB GT SCH ×3 (08:39→16:05)
[2019-04-25] MEDS: DOCUSATE SODIUM LIQ 100 MG/10 ML UDC GT SCH (08:39)
[2019-04-25] MEDS: ESOMEPRAZOLE MAGNESIUM 40 MG SUSPDR.PKT GT SCH (08:40)
[2019-04-25] MEDS: DAKINS QUARTER STRENGTH (0.125%) 480 ML BOTTLE TOP SCH (08:41)
--- NOTE | 2019-04-25 09:30 | NUR ---
RN NOTES REPORT GIVEN TO KRISTEN LEROY FOR CONTINUITY OF CARE .
[2019-04-25 10:00] VITALS: BP 115/70
[2019-04-25] MEDS: VANCOMYCIN 0.75 GM in IV D5W 250 ML IV SCH ×2 (10:20→23:01)
--- NOTE | 2019-04-25 11:48 | NUR ---
non-verbal, secondary to trach, eyes open, contracted both upper and lower extremities. NO VISITOR . Consent signed for Left elbow debridment with the agreement of brother, since patient also has Conservator, attempted x 2 to reach out, no answer, since this is the weekends. Oncoming shift to follow up with this on Friday. Patient on ABX, and iron, requested Midline insertion if possible when attending on rounds.
--- NOTE | 2019-04-25 12:52 | NUR ---
attending on round, agreed with midline insertion, texted to House [employer].
[2019-04-25] MEDS: SOD FERRIC GLUC 125 MG in IV NS 0.9% 100 ML IV SCH (13:15)
[2019-04-25 16:00] VITALS: BP 118/68
--- NOTE | 2019-04-25 17:16 | NUR ---
Until now, no Midline insertion done yet, Left hand HL #20 intact and patent. Left elbow, noticeable open area, oozy, and odorous. Culture obtained.
[2019-04-25 18:34] VITALS: BP 118/68
--- NOTE | 2019-04-25 19:39 | NUR ---
MS RN OPENING NOTES, RECEIVED PATIENT ON BED SLEEPING, TRACH DEPENDENT, NONVERBAL ON COOL AEROSOL AT 5L , NO SOB NOTED, L HAND IV SITE G20 CLEAN, DRY AND INTACT, NS AT 100CC/HR RUNNING , GALINDO DRAINING TO GRAVITY, TOLERATING TF WELL, NO RESIDUAL NOTED AT THIS TIME , SR UP x3 , CALL LIGHT WITHIN REACH, BED MAXWELL/LOW POSITION, WILL CONTINUE TO MONITOR.
[2019-04-25 20:00] VITALS: BP 139/79
--- NOTE | 2019-04-25 21:00 | NUR ---
MS RN NOTE, PATIENT HAD PICC LINE #18 PLACED AT 2100. ON LEFT UPPER ARM, LINE IS PATENT AND NO INFILTRATION NOTED.
[2019-04-26] MEDS: PIPERACILLIN /TAZOBACTAM 3.375 G in IV D5W 50 ML IV SCH ×4 (00:24→17:38)
[2019-04-26] MEDS: IV NS 0.9% 250 ML IV PRN (02:43)
[2019-04-26 04:00] VITALS: BP 137/77
[2019-04-26] MEDS: VALPROIC ACID 250 MG/5 ML UDC GT SCH ×3 (04:56→20:47)
[2019-04-26 06:20] LABS: BASOPHILS % (AUTO) 0.5 % (0.0-2.0); HEMATOCRIT 26 % (33-45); HEMOGLOBIN 8.7 g/dL (11.5-14.8); LYMPHOCYTES # (AUTO) 1.8 /CMM (0.8-4.8); LYMPHOCYTES % (AUTO) 32.2 % (20.0-44.0); MEAN CORPUSCULAR HGB CONC 34 g/dl (31.0-36.0); MEAN CORPUSCULAR VOLUME 86 fL (82-100); MONOCYTES # (AUTO) 0.4 /CMM (0.1-1.30); NEUTROPHILS # (AUTO) 3.1 /CMM (1.8-8.9); NEUTROPHILS % (AUTO) 57.3 % (43.0-81.0); PLATELET COUNT (AUTO) 420 /CMM (150-450); WHITE BLOOD COUNT (AUTO) 5.5 K/uL (4.3-11.0)
[2019-04-26 06:41] LABS: ALANINE AMINOTRANSFERASE 12 U/L (12-78); ALBUMIN 1.9 g/dL (3.4-5.0); ALKALINE PHOSPHATASE 100 U/L (46-116); ASPARTATE AMINOTRANSFERASE 11 U/L (15-37); BILIRUBIN,TOTAL 0.2 mg/dL (0.2-1.0); CALCIUM, SERUM 8.2 mg/dL (8.5-10.1); CARBON DIOXIDE 29 mmol/L (21-32); CHLORIDE 97 mmol/L (98-107); CREATININE 0.5 mg/dL (0.6-1.3); GLUCOSE 111 mg/dL (74-106); MAGNESIUM 1.8 mg/dL (1.8-2.4); PHOSPHORUS 2.5 mg/dL (2.5-4.9); POTASSIUM 3.1 mmol/L (3.5-5.1); SODIUM SERUM 134 mmol/L (136-145); TOTAL PROTEIN, SERUM 6.7 g/dL (6.4-8.2); UREA NITROGEN, BLOOD 5 mg/dL (7-18)
--- NOTE | 2019-04-26 07:25 | NUR ---
MS RN CLOSING NOTES PATIENT SLEEPING IN BED COMFORTABLY, SHOWS NO S/SX OF PAIN OR DISCOMFORT. SHE IS FC, NO ISOLATION, ALLERGIES TO CODEINE. SHE IS AOX1, NONVERBAL, BEDRIDDEN. SHE IS ON A TPIECE RUNNING 5L OF O2, SATING AT 100%. GALINDO CATHETER IS INTACT, CLEAR YELLOW. JEVITY RUNNING AT 50 ML/HR, 5ML OF RESIDUAL NOTED. L HAND 20 G RUNNING NS AT 100 ML/HR, RASHAWN PICC LINE INTACT. SAFETY MEASURES HAVE BEEN IMPLEMENTED, CALL LIGHT IS WITHIN REACH, BED IS IN LOWEST AND LOCKED POSITION, SIDE RAILS UP X2, WILL ENDORSE TO AM RN FOR JOE.
--- NOTE | 2019-04-26 07:48 | NUR ---
RN OPENING NOTES RECEIVED PATIENT SLEEPING IN BED COMFORTABLY, SHOWS NO S/SX OF PAIN OR DISCOMFORT. SHE IS FC, NO ISOLATION, ALLERGIES TO CODEINE. SHE IS AOX1, NONVERBAL, BEDRIDDEN. SHE IS ON A TPIECE RUNNING 5L OF O2, SATING AT 100%. GALINDO CATHETER IS INTACT, CLEAR YELLOW. JEVITY RUNNING AT 50 ML/HR, 5ML OF RESIDUAL NOTED. L HAND 20 G RUNNING NS AT 100 ML/HR, RASHAWN PICC LINE INTACT. SAFETY MEASURES HAVE BEEN IMPLEMENTED, CALL LIGHT IS WITHIN REACH, BED IS IN LOWEST AND LOCKED POSITION, SIDE RAILS UP X2, WILL CONTINUE TO MONITOR FOR ANY CHANGES
[2019-04-26 08:00] VITALS: BP 137/62
[2019-04-26] MEDS: DAKINS QUARTER STRENGTH (0.125%) 480 ML BOTTLE TOP SCH (09:00)
[2019-04-26] MEDS: ESOMEPRAZOLE MAGNESIUM 40 MG SUSPDR.PKT GT SCH ×2 (09:00→09:37)
[2019-04-26] MEDS: DOCUSATE SODIUM LIQ 100 MG/10 ML UDC GT SCH (09:37)
[2019-04-26] MEDS: LACTOBACILLUS RHAMNOSUS GG 1 EACH CAP.SPRINK PO SCH ×2 (09:37→16:29)
[2019-04-26] MEDS: CARBIDOPA/LEVODOPA 25/100 MG 1 UDTAB GT SCH ×3 (09:37→16:29)
[2019-04-26] MEDS: ZINC SULFATE 220 MG CAPSULE PO SCH (09:37)
[2019-04-26] MEDS: NYSTATIN (PYXIS) 500,000 UNIT/5 ML ORAL.SUSP PO SCH ×3 (09:37→16:29)
[2019-04-26] MEDS: POTASSIUM CHLORIDE 20 MEQ POWDER PACKET NG SCH ×2 (10:27→11:12)
[2019-04-26] MEDS: VANCOMYCIN 0.75 GM in IV D5W 250 ML IV SCH ×2 (10:28→23:17)
[2019-04-26] MEDS: NEXIUM 40 MG VIAL IV SCH ×2 (11:12→20:48)
--- NOTE | 2019-04-26 13:46 | NUR ---
CALLED CONSERVATOR ON FILE IN PT CHARTS TO GET CONSENT FORM SIGNED FOR SERIAL DEBRIDEMENT OF L ELBOW. UNABLE TO CONTACT THEM. WILL TRY AGAIN
[2019-04-26] MEDS: JEVITY 1.2 CAL 1,000 ML BOTTLE GT SCH (14:19)
[2019-04-26] MEDS: SOD FERRIC GLUC 125 MG in IV NS 0.9% 100 ML IV SCH (14:27)
--- NOTE | 2019-04-26 14:44 | NUR ---
WAS ABLE TO SPEAK WITH CONSERVATOR (WILBERTO DREW) CONSENT FORM HAS BEEN SIGNED AND IN PT CHART
[2019-04-26] MEDS ORDERED: LIDOCAINE 1%-EPI 1:100,000 20 ML VIAL TP STA (14:56)
[2019-04-26 16:00] VITALS: BP 134/65
--- NOTE | 2019-04-26 19:00 | NUR ---
MS MARIAA OPENING NOTES RECEIVED PATIENT SLEEPING IN BED, AROUSABLE THROUGH TOUCH, NONVERBAL. SHOWS NO S/SX OF PAIN OR DISCOMFORT. SHE JESUS A TPIECE OXYGEN 5LPM, SATURATING 100%. GALINDO CATHETER IN PLACE AND OFF THE FLOOR, DRAINING CLEAR YELLOW URINE NOTED. JEVITY RUNNING AT 50 ML/HR, 5ML OF RESIDUAL NOTED. L HAND 20 G RUNNING NS AT 100 ML/HR, RASHAWN PICC LINE INTACT. SAFETY MEASURES HAVE BEEN IMPLEMENTED, CALL LIGHT IS WITHIN REACH, BED IS IN LOWEST AND LOCKED POSITION, SIDE RAILS UP X2, WILL CONTINUE TO MONITOR FOR ANY CHANGES Addendum: 04/26/19 at 1940 by SUNNY MEDINA RN CLARIFICATION: IV SITE RASHAWN PICC LINE FLUSHING AND PATENT, SITE C/D/I, ON TKO 3ML/HR. PER REPORT, LEFT HAND 20G WAS INFILTRATED AND REMOVED. PATIENT NOTED TO HAVE A LOT OF ORAL SECRETIONS, ORAL CARE DONE, WILL SUCTION PRN. SAFETY MEASURES HAVE BEEN IMPLEMENTED, CALL LIGHT IS WITHIN REACH, BED IS IN LOWEST AND LOCKED POSITION, SIDE RAILS UP X2, HOB ELEVATED AT ALL TIMES. WILL CONTINUE TO MONITOR PT CLOSELY.
--- NOTE | 2019-04-26 19:20 | NUR ---
RN CLOSING NOTES PATIENT IS RESTING IN BED COMFORTABLY AT THIS TIME. PT O2 SATURATION HAS BEEN STABLE THROUGHOUT THE WHOLE DAY. PT WAS SUCTIONED ROUTINELY THROUGHOUT THE DAY. NO ACUTE CHANGES OCCURRED THROUGHOUT THE DAY. PT NEEDS HAVE BEEN MET. URINE SPECIMEN HAS BEEN SENT TO THE LAB ALONG WITH LEFT ELBOW WOUND CULTURE. SAFETY MEASURES HAVE BEEN IMPLEMENTED, CALL LIGHT IS WITHIN REACH, BED IS IN LOWEST AND LOCKED POSITION, SIDE RAILS UP X2, PT HAS BEEN ENDORSED TO NIGHTSHIFT RN FOR CONTINUAL CARE.
--- NOTE | 2019-04-26 19:35 | NUR ---
CLARIFICATION: IV SITE RASHAWN PICC LINE FLUSHING AND PATENT, SITE C/D/I, ON TKO 3ML/HR. PER REPORT, LEFT HAND 20G WAS INFILTRATED AND REMOVED. PATIENT NOTED TO HAVE A LOT OF ORAL SECRETIONS, ORAL CARE DONE, WILL SUCTION PRN. SAFETY MEASURES HAVE BEEN IMPLEMENTED, CALL LIGHT IS WITHIN REACH, BED IS IN LOWEST AND LOCKED POSITION, SIDE RAILS UP X2, HOB ELEVATED AT ALL TIMES. WILL CONTINUE TO MONITOR PT CLOSELY.
[2019-04-26 20:00] VITALS: BP 147/67
--- NOTE | 2019-04-27 | NUR ---
MS RN OPENING NOTES RECEIVED PATIENT IN BED SLEEPING. A/O X1, PATIENT IS NON-VERBAL. PATIENT ON T-PIECE OXYGEN 5LPM. F/C INTACT AND DRAINING CLEAR YELLOW URINE. JEVITY RUNNING AT 55 ML/HR, NO RESIDUAL NOTED. HOB ELEVATED AT ALL TIMES. NOTED WITH IV SITE RASHAWN PICC LINE. INTACT AND PATENT. FLUSHING WELL. CALL LIGHT WITHIN REACHED. BED LOCKED AND IN LOWEST POSITION. SAFETY MAINTAINED. WILL CONTINUE TO MONITOR CLOSELY.
[2019-04-27] MEDS: PIPERACILLIN /TAZOBACTAM 3.375 G in IV D5W 50 ML IV SCH ×4 (00:10→17:58)
[2019-04-27 04:00] VITALS: BP 108/55
[2019-04-27] MEDS: VALPROIC ACID 250 MG/5 ML UDC GT SCH ×3 (05:23→22:59)
[2019-04-27 06:37] LABS: BASOPHILS % (AUTO) 0.3 % (0.0-2.0); EOSINOPHILS % (AUTO) 2.4 % (0.0-6.0); HEMATOCRIT 25 % (33-45); HEMOGLOBIN 8.3 g/dL (11.5-14.8); LYMPHOCYTES # (AUTO) 2.1 /CMM (0.8-4.8); LYMPHOCYTES % (AUTO) 33.7 % (20.0-44.0); MEAN CORPUSCULAR HGB CONC 33 g/dl (31.0-36.0); MEAN CORPUSCULAR VOLUME 86 fL (82-100); MONOCYTES # (AUTO) 0.5 /CMM (0.1-1.30); MONOCYTES % (AUTO) 7.5 % (2.0-12.0); NEUTROPHILS # (AUTO) 3.5 /CMM (1.8-8.9); NEUTROPHILS % (AUTO) 56.1 % (43.0-81.0); PLATELET COUNT (AUTO) 398 /CMM (150-450); RED BLOOD CELL COUNT(AUTO) 2.88 MIL/uL (4.0-5.2); WHITE BLOOD COUNT (AUTO) 6.2 K/uL (4.3-11.0)
[2019-04-27 06:54] LABS: CREATININE 0.6 mg/dL (0.6-1.3); MAGNESIUM 1.9 mg/dL (1.8-2.4); PHOSPHORUS 2.9 mg/dL (2.5-4.9); POTASSIUM 3.6 mmol/L (3.5-5.1)
--- NOTE | 2019-04-27 07:11 | NUR ---
MS RN CLOSING NOTES PATIENT SLEEPING IN BED, AWAKE, NONVERBAL, OPENS EYES. NO ACUTE CHANGES THROUGHOUT SHIFT. SHOWS NO S/SX OF PAIN OR DISCOMFORT. ON A TPIECE OXYGEN 5LPM, SATURATING 100%. GALINDO CATHETER IN PLACE AND OFF THE FLOOR, DRAINING CLEAR YELLOW URINE. JEVITY RUNNING AT 55 ML/HR, MINIMAL RESIDUAL NOTED. IV SITE RASHAWN PICC LINE FLUSHING AND PATENT, SITE C/D/I, ON TKO 3ML/HR. ORAL CARE DONE PRN. ALL MD ORDERS ATTENDED, ALL NEEDS ANTICIPATED AND MET. SAFETY MEASURES MAINTAINED; CALL LIGHT WITHIN REACH, BED IS IN LOWEST AND LOCKED POSITION, SIDE RAILS UP X2, HOB ELEVATED AT ALL TIMES. REPOSITIONED Q2H. ENDORSED TO AM RN FOR JOE.
--- NOTE | 2019-04-27 07:25 | NUR ---
MS/RN OPENING NOTES RECEIVED PATIENT SLEEPING IN BED. EASILY AROUSABLE, ABLE TO OPENS EYES. ABLE TO RESPOND TO TACTILE STIMULI. NO FACIAL GRIMACING OR ACUTE DISTRESS AT THIS TIME. RESPIRATION EVEN AND UNLABORED. SKIN IS DRY WARM TO TOUCH. PATIENT ON TPIECE OXYGEN 5LPM, SAT OF100%. F/C INTACT AND DRAINING CLEAR YELLOW URINE. JEVITY RUNNING AT 55 ML/HR, NO RESIDUAL NOTED. HOB ELEVATED AT ALL TIMES. NOTED WITH IV SITE RASHAWN PICC LINE. INTACT AND PATENT. FLUSHING WELL. ALL NEEDS ANTICIPATED. CALL LIGHT WITHIN REACHED. BED LOCKED AND IN LOWEST POSITION. SAFETY MAINTAINED. WILL CONTINUE TO MONITOR CLOSELY.
[2019-04-27 08:00] VITALS: BP_SYST 124; BP_DIAS 59; BP_DIAS 64
[2019-04-27] MEDS: NYSTATIN (PYXIS) 500,000 UNIT/5 ML ORAL.SUSP PO SCH ×3 (08:59→16:38)
[2019-04-27] MEDS: ZINC SULFATE 220 MG CAPSULE PO SCH (08:59)
[2019-04-27] MEDS: DOCUSATE SODIUM LIQ 100 MG/10 ML UDC GT SCH (08:59)
[2019-04-27] MEDS: LACTOBACILLUS RHAMNOSUS GG 1 EACH CAP.SPRINK PO SCH ×2 (08:59→16:38)
[2019-04-27] MEDS: CARBIDOPA/LEVODOPA 25/100 MG 1 UDTAB GT SCH ×3 (08:59→16:38)
[2019-04-27] MEDS: NEXIUM 40 MG VIAL IV SCH (09:02)
[2019-04-27] MEDS: DAKINS QUARTER STRENGTH (0.125%) 480 ML BOTTLE TOP SCH (09:03)
[2019-04-27] MEDS: VANCOMYCIN 0.75 GM in IV D5W 250 ML IV SCH ×2 (10:39→23:44)
[2019-04-27] MEDS: JEVITY 1.2 CAL 1,000 ML BOTTLE GT SCH (10:58)
--- NOTE | 2019-04-27 13:00 | NUR ---
MS/RN NOTES COLLECTED BONE FOR CULTURE WITH ANUJ TUBBS. THE SPECIMEN WAS PLACED ON THE SPECIMEN FRIDGE AWAITING FOR ITS DRAIN LAYER.
[2019-04-27] MEDS: SOD FERRIC GLUC 125 MG in IV NS 0.9% 100 ML IV SCH (14:18)
[2019-04-27 16:00] VITALS: BP_SYST 105; BP_SYST 116; BP_DIAS 56; BP_DIAS 63
[2019-04-27] MEDS: PANTOPRAZOLE 40 MG VIAL IV SCH (16:38)
--- NOTE | 2019-04-27 18:34 | NUR ---
RT END OF THE SHIFT REPORT, PT 78 Y OLD FEMALE RECEIVED TRACHED PORTEX # 8 ON COOL AEROSOL 28% 5L/MIN EXTRA TRACH AMBUBAG AT BEDSIDE, PT SX'ED AND LAVAGED PRN FOR LARGE AMT. THICK WHITE SECRETIONS. B/S BILATERALLY EQUAL, RHONCHI. TRACH TUBE SECURED, TRACH CARE DONE, INNER CANNULA CHANGED. NO RESP DISTRESS NOTED. PT. CONTINUE CARE UNDER CURRENT MD ORDERS AND MONITOR FOR CHANGES. Addendum: 04/27/19 at 1838 by LEXUS MOYA RT Amended: Links added.
--- NOTE | 2019-04-27 19:25 | NUR ---
MS/RN CLOSING NOTES PATIENT CONTINUES TO REMAIN IN STABLE CONDITION. PROVIDED COMFORT AND SAFETY THROUGHOUT THE SHIFT. PATIENT ON TPIECE OXYGEN 5LPM. F/C INTACT AND DRAINING CLEAR YELLOW URINE. JEVITY RUNNING AT 55 ML/HR, NO RESIDUAL NOTED. HOB ELEVATED AT ALL TIMES. NOTED WITH IV SITE RASHAWN PICC LINE. INTACT AND PATENT. FLUSHING WELL. ALL NEEDS ANTICIPATED. CALL LIGHT WITHIN REACHED. BED LOCKED AND IN LOWEST POSITION. SAFETY MAINTAINED. WILL CONTINUE TO MONITOR CLOSELY. ENDORSED TO PM NURSE FOR JOE.
[2019-04-27 20:00] VITALS: BP 98/61
[2019-04-27] MEDS: FLUCONAZOLE (100 MG) 100 MG TABLET PO SCH (20:57)
[2019-04-28] MEDS: IV NS 0.9% 250 ML IV PRN (00:23)
[2019-04-28] MEDS: PIPERACILLIN /TAZOBACTAM 3.375 G in IV D5W 50 ML IV SCH ×4 (00:38→18:35)
[2019-04-28 04:00] VITALS: BP 118/58
[2019-04-28] MEDS: VALPROIC ACID 250 MG/5 ML UDC GT SCH ×3 (04:29→21:55)
[2019-04-28] MEDS: JEVITY 1.2 CAL 1,000 ML BOTTLE GT SCH (04:33)
[2019-04-28 06:27] LABS: BASOPHILS % (AUTO) 0.3 % (0.0-2.0); HEMATOCRIT 26 % (33-45); HEMOGLOBIN 8.6 g/dL (11.5-14.8); LYMPHOCYTES % (AUTO) 25.7 % (20.0-44.0); MEAN CORPUSCULAR HGB CONC 34 g/dl (31.0-36.0); MEAN CORPUSCULAR VOLUME 87 fL (82-100); MONOCYTES # (AUTO) 0.6 /CMM (0.1-1.30); MONOCYTES % (AUTO) 7.4 % (2.0-12.0); NEUTROPHILS % (AUTO) 64.6 % (43.0-81.0); PLATELET COUNT (AUTO) 388 /CMM (150-450); RED BLOOD CELL COUNT(AUTO) 2.95 MIL/uL (4.0-5.2); WHITE BLOOD COUNT (AUTO) 7.7 K/uL (4.3-11.0)
[2019-04-28 06:45] LABS: CALCIUM, SERUM 8.2 mg/dL (8.5-10.1); CREATININE 0.6 mg/dL (0.6-1.3); POTASSIUM 3.5 mmol/L (3.5-5.1)
[2019-04-28 08:00] VITALS: BP 103/54
--- NOTE | 2019-04-28 08:00 | NUR ---
MS RN NOTES OPENING RECEIVED PT IN BED SLEEPING COMFORTABLY. ABUSABLE BY TOUCH. NO SOB AND DISCOMFORT NOTED AT THIS TIME. IV SITE RASHAWN PICC LINE FLUSHED WELL, INTACT AND PATENT. NS 3ML /H RUNNING. PATIENT ON TPIECE OXYGEN 5LPM. JEVITY RUNNING AT 55 ML/HR, NO RESIDUAL NOTED. FOR PT SAFETY, HOB ELEVATED AT ALL TIMES. SAFETY MEASURES OBSERVED. SUCTION PERFORMED. CALL LIGHT WITHIN REACHED. BED LOCKED AND IN LOWEST POSITION. WILL CONTINUE TO MONITOR CLOSELY.
[2019-04-28] MEDS: ZINC SULFATE 220 MG CAPSULE PO SCH (10:19)
[2019-04-28] MEDS: CARBIDOPA/LEVODOPA 25/100 MG 1 UDTAB GT SCH ×3 (10:19→17:11)
[2019-04-28] MEDS: NYSTATIN (PYXIS) 500,000 UNIT/5 ML ORAL.SUSP PO SCH ×3 (10:19→17:11)
[2019-04-28] MEDS: FLUCONAZOLE (100 MG) 100 MG TABLET PO SCH (10:19)
[2019-04-28] MEDS: LACTOBACILLUS RHAMNOSUS GG 1 EACH CAP.SPRINK PO SCH ×2 (10:19→17:11)
[2019-04-28] MEDS: PANTOPRAZOLE 40 MG VIAL IV SCH ×2 (10:19→17:11)
[2019-04-28] MEDS: DOCUSATE SODIUM LIQ 100 MG/10 ML UDC GT SCH (10:20)
[2019-04-28] MEDS: VANCOMYCIN 0.75 GM in IV D5W 250 ML IV SCH ×2 (11:22→22:00)
[2019-04-28] MEDS: DAKINS QUARTER STRENGTH (0.125%) 480 ML BOTTLE TOP SCH (11:34)
[2019-04-28 12:00] VITALS: BP 103/54
[2019-04-28] MEDS ORDERED: SODI473S8 TOP (13:26)
[2019-04-28] MEDS ORDERED: LACT1CAP72 PO (13:26)
[2019-04-28] MEDS ORDERED: VANC750F IV (13:26)
[2019-04-28] MEDS ORDERED: FLUC100T8 PO (13:26)
[2019-04-28] MEDS ORDERED: RXVAN XX (13:26)
[2019-04-28] MEDS: SOD FERRIC GLUC 125 MG in IV NS 0.9% 100 ML IV SCH (15:20)
[2019-04-28 16:00] VITALS: BP 110/60
--- NOTE | 2019-04-28 17:07 | NUR ---
PER CM BED WILL BE AVAILABLE TOMMOROW.
--- NOTE | 2019-04-28 18:05 | NUR ---
gaurav baca notified patient in 109 discharge will be hold until am per case resource manager r/t bed availability from care home.
--- NOTE | 2019-04-28 19:20 | NUR ---
MS RN NOTES CLOSING PATIENT IS IN STABLE CONDITION. NO SIGNS OF DISCOMFORT NOTED AT THIS TIME. ALL COMFORT AND SAFETY MEASURES TAKEN THROUGHOUT THE SHIFT. PATIENT ON TPIECE OXYGEN 5LPM. F/C INTACT AND DRAINING CLEAR YELLOW URINE. JEVITY RUNNING AT 55 ML/HR, NO RESIDUAL NOTED. HOB ELEVATED AT ALL TIMES. NOTED WITH IV SITE RASHAWN PICC LINE FLUSHED WELL. INTACT AND PATENT. ALL NEEDS ANTICIPATED. CALL LIGHT WITHIN REACHED. BED LOCKED AND IN LOWEST POSITION. WILL ENDORSE TO GRADES 6 THROUGH 8 TEACHER NURSE.
--- NOTE | 2019-04-28 19:35 | NUR ---
MS RN NOTES RECEIVED PT ON BED. OBTUNDED. ON COOL AEROSOL 5LPM, NO RESPIRATORY DISTRESS NOTED. ON GALINDO CATH DRAINING YELLOW URINE. IV ACCESS ON RASHAWN MIDLINE TKO PATENT AND INTACT. ON GTUBE FEEDING NO RESIDUAL NOTED, MILD LEAKAGE NOTED. HEAD OF BED ELEVATED. SIDE RAILS UP. CALL LIGHT WITHIN REACH. BED ALARM ON. WILL CONTINUE TO MONITOR PT CLOSELY.
[2019-04-28 20:00] VITALS: BP 106/52
--- NOTE | 2019-04-28 22:33 | NUR ---
RECIEVED PT FROM DARYA TO CONTINUE PLAN OF CARE. PT CURRENTLY MS/STABLE.
--- NOTE | 2019-04-28 22:44 | NUR ---
MS RN NOTES REPORT GIVEN TO CHANNEL RN FOR REPORT.
--- NOTE | 2019-04-29 03:26 | NUR ---
PATIENT RECEIVED ON 28% AEROSOL T-TUBE, TOLERATING WITH NO DISTRESS/SOB NOTED. SUCTIONED WITH LAVAGE FOR MINIMAL, THIN, YELLOW SECRETIONS. AMBU BAG AT BEDSIDE. Addendum: 04/29/19 at 0327 by CATHERINE RUTHERFORD RT Amended: Links added.
[2019-04-29 04:00] VITALS: BP 111/45
[2019-04-29] MEDS: VALPROIC ACID 250 MG/5 ML UDC GT SCH ×2 (05:09→13:21)
[2019-04-29] MEDS: JEVITY 1.2 CAL 1,000 ML BOTTLE GT SCH (05:13)
[2019-04-29 06:26] LABS: CALCIUM, SERUM 8.4 mg/dL (8.5-10.1); CREATININE 0.6 mg/dL (0.6-1.3); POTASSIUM 3.6 mmol/L (3.5-5.1)
--- NOTE | 2019-04-29 06:42 | NUR ---
MS RN NOTES CLOSING NOTES: PATIENT STABLE DURING CONDITION. NO CHANGES DURING MY SHIFT. WOUND CARE DONE. NO SIGNS OF ACUTE DISTRESS. JEVITY RUNNING AT 55 ML/HR, NO RESIDUAL NOTED. HOB ELEVATED AT ALL TIMES, NO RESIDUAL NOTED. HOB ELEVATED AT ALL TIMES. FLUSHING WELLL. NO SOB ALL NEEDS MET, ALL MEDS GIVEN. BED IN IN LOW LOCKED POSITION SAFETY PRECAUTIONS IN PLACE. NOTED AT THIS TIME. ALL COMFORT AND SAFETY MEASURES TAKEN THROUGHOUT THE SHIFT. PATIENT ON TPIECE OXYGEN 5LPM.750 OUT FROM GALINDO CATH. IV SITE RASHAWN PICC LINE FLUSHED WELL. INTACT AND PATENT. ALL NEEDS ANTICIPATED. WILL ENDORSE TO AM SHIFT TO CAR5RY OUT PLAN OF CARE.
--- NOTE | 2019-04-29 07:10 | NUR ---
MS/RN OPENING NOTES RECEIVED PATIENT SLEEPING IN BED. EASILY AROUSABLE BY TOUCH AND WHEN CALLED BY NAME, ABLE TO OPENS EYES. ABLE TO RESPOND TO TACTILE STIMULI. NO SIGN OF ACUTE RESPIRATORY DISTRESS OR SOB AT THIS TIME. RESPIRATION EVEN AND UNLABORED. PATIENT ON TPIECE OXYGEN 5LPM, SAT OF100%. F/C INTACT AND DRAINING CLEAR YELLOW URINE. JEVITY RUNNING AT 55 ML/HR, NO RESIDUAL NOTED. HOB ELEVATED AT ALL TIMES. IV SITE RASHAWN MIDLINE. INTACT, PATENT AND FLUSHED WELL. FLUSHING WELL. CALL LIGHT WITHIN REACHED. BED LOCKED AND IN LOWEST POSITION. WALL SUCTION SET UP. SAFETY MAINTAINED. WILL CONTINUE TO MONITOR CLOSELY.
[2019-04-29 08:00] VITALS: BP 118/59
[2019-04-29] MEDS: FLUCONAZOLE (100 MG) 100 MG TABLET PO SCH (09:39)
[2019-04-29] MEDS: CARBIDOPA/LEVODOPA 25/100 MG 1 UDTAB GT SCH ×2 (09:39→13:21)
[2019-04-29] MEDS: LACTOBACILLUS RHAMNOSUS GG 1 EACH CAP.SPRINK PO SCH (09:40)
[2019-04-29] MEDS: DOCUSATE SODIUM LIQ 100 MG/10 ML UDC GT SCH (09:40)
[2019-04-29] MEDS: NYSTATIN (PYXIS) 500,000 UNIT/5 ML ORAL.SUSP PO SCH ×2 (09:40→13:21)
[2019-04-29] MEDS: ZINC SULFATE 220 MG CAPSULE PO SCH (09:41)
[2019-04-29] MEDS: DAKINS QUARTER STRENGTH (0.125%) 480 ML BOTTLE TOP SCH (09:41)
[2019-04-29] MEDS: PANTOPRAZOLE 40 MG VIAL IV SCH (10:14)
[2019-04-29] MEDS: VANCOMYCIN 0.75 GM in IV D5W 250 ML IV SCH (11:31)
[2019-04-29 12:00] VITALS: BP 118/59
--- NOTE | 2019-04-29 16:00 | NUR ---
MS RN NOTE PT GOT DISCHARGED TO THE [facility]. RT AT BEDSIDE AND DID SUCTION THE PT. REPORT GIVEN TO PARAMEDICS. PT VITAL SIGN STABLE, ON 2L OXYGEN SATURATING 100%. RASHAWN MIDLINE AND GALINDO CATHETER IN PLACE. REPORT GIVEN TO THE REHAB AND MED LIST FAXED OVER.
== END 2019-04-29 15:50 | DRG 981 ==
LOC: ER 12:59 → TELE1 16:21 → MEDSG1 04-23 11:08
PROVIDERS: ADMIT Internal Medicine; ATTEND Nurse Practitioner Acute Care
PROC: 0D20XUZ Change Feeding Device in Upper Intestinal Tract, External Approach (ICD-10-PCS; principal; 2019-04-23)
PROC: 05H533Z Insertion of Infusion Device into Right Subclavian Vein, Percutaneous Approach (ICD-10-PCS; 2019-04-25)
PROC: 0PBJ0ZZ Excision of Left Radius, Open Approach (ICD-10-PCS; 2019-04-26)
DX: K94.22 Gastrostomy infection (principal); L89.024 Pressure ulcer of left elbow, stage 4; E43 Unspecified severe protein-calorie malnutrition; G93.41 Metabolic encephalopathy; J18.9 Pneumonia, unspecified organism; L03.311 Cellulitis of abdominal wall; J96.11 Chronic respiratory failure with hypoxia; M86.8X2 Other osteomyelitis, upper arm; I69.351 Hemiplegia and hemiparesis following cerebral infarction affecting right dominant side; B37.49 Other urogenital candidiasis; Z99.11 Dependence on respirator [ventilator] status; E87.1 Hypo-osmolality and hyponatremia; E03.9 Hypothyroidism, unspecified; D63.8 Anemia in other chronic diseases classified elsewhere; Z93.0 Tracheostomy status; E87.6 Hypokalemia; E78.5 Hyperlipidemia, unspecified; R13.10 Dysphagia, unspecified; G40.909 Epilepsy, unspecified, not intractable, without status epilepticus; G20 Parkinson's disease; F02.80 Dementia in other diseases classified elsewhere, unspecified severity, without behavioral disturbance, psychotic disturbance, mood disturbance, and anxiety; I10 Essential (primary) hypertension; F20.9 Schizophrenia, unspecified; M24.574 Contracture, right foot; M24.575 Contracture, left foot; E86.1 Hypovolemia; D50.0 Iron deficiency anemia secondary to blood loss (chronic); Y83.3 Surgical operation with formation of external stoma as the cause of abnormal reaction of the patient, or of later complication, without mention of misadventure at the time of the procedure; Y73.8 Miscellaneous gastroenterology and urology devices associated with adverse incidents, not elsewhere classified; Y92.129 Unspecified place in nursing home as the place of occurrence of the external cause
CPT/HCPCS: 31720; 36415; 71045-TC; 73070-TC; 74018; 74150-TC; 80048-TC; 80053-TC; 80061-TC; 80076-TC; 80202-TC; 81000-TC; 82533; 82728-TC; 83540-TC; 83605-TC; 83735-TC; 83935-TC; 84100-TC; 84300-TC; 84443-TC; 84484-TC; 84550-TC; 85025-TC; 85730-TC; 87040-TC; 87070-TC; 87081-TC; 87086-TC; 87186-TC; 94640-TC; 94664-TC; 94760-TC; 94762-TC; A4217; A4623; A6253; A6403; C9113; G0378; J2543; J2916; J3370; J3490; J7030; J7050; J7060; Q9963

== ENCOUNTER 2019-05-28 23:32 | Emergency (ER) | payer MEDICARE, OTHER ==
[~2019-05-28] VITALS: Ht 152.4 cm; Wt 52.2 kg
[~2019-05-28 23:32] MED LIST changes: +ALBU2.5V13 IH; +ASCO500P18 PO; +CALC1TAB30 PO; +FERR325T23 PO; +FLUC100T8 PO; -FLUD0.1T GT; -HYDR-4075 GT; +LACT1CAP72 PO; -NEOM15OI3 TP; +RXVAN XX; -SACC250C PO; +SODI473S8 TOP; +SODI50DR PO; +VANC750F IV; +ZINC220C6 PO
--- NOTE | 2019-05-28 23:34 | NUR ---
TO BED 5 BIB EMS FROM [facility] FOR EVAL DUE TO PT WAS LABORED BREATHING. PER REPORT PT WAS WEANED OFF VENT A MONTH AGO AND TODAY SNF STAFF NOTED THAT THE PT WAS SOB AND WAS PLACE ON VENT BUT WAS ADVICED BY PMD TO TRANSFER PT TO ER FOR FURTHER EVAL. UPON ASSESSMENT PT AAOX1, NO ACUTE DISTRESS NOTED, RESP EVEN AND UNLABORED. LUNG SOUND MILD RHONCHI HEARD BILATERALLY ON AUSCULTATION. PLACE PT ON CARDIAC MONITORING, CONTINUOUS POX. ER MD AT BEDSIDE TO EVAL PT WITH ORDERS RECEIVED. WILL CARRY OUT ORDERS. RSAHAWN MIDLINE NOTED EGG TESTER.
--- NOTE | 2019-05-28 23:57 | NUR ---
SPOKE TO [facility] DOCTOR ASSISTANT [phone] FOR TRANSFER CLAIRFICATION, PT WAS WEENED OF VENT X 1 MONTH AGO, TODAY NOTED LABORED BREATHING ON ROOM AIR WITH TRACH, PER MD PROVIDED RN WITH VENT SETTINGS, STABLIZED, BUT REQESTED TO TRANSFER PT FOR FURTHER EVAL.
--- NOTE | 2019-05-29 00:13 | NUR ---
PT TOLERATING CURRENT VENT SETTING AC-16, TV-500, FIO2-40%, PEEP-5. NO ACUTE DISTRESS NOTED, RESP EVEN AND UNLABORED. CALL LIGHT WITHIN REACH. WILL CONTINUE TO MONITOR PT CLOSELY.
[2019-05-29 00:52] LABS: BASOPHILS % (AUTO) 0.5 % (0.0-2.0); EOSINOPHILS % (AUTO) 1.5 % (0.0-6.0); HEMATOCRIT 29 % (33-45); HEMOGLOBIN 9.6 g/dL (11.5-14.8); LYMPHOCYTES # (AUTO) 1.9 /CMM (0.8-4.8); LYMPHOCYTES % (AUTO) 24.2 % (20.0-44.0); MEAN CORPUSCULAR HGB CONC 33 g/dl (31.0-36.0); MEAN CORPUSCULAR VOLUME 88 fL (82-100); MONOCYTES # (AUTO) 0.6 /CMM (0.1-1.30); MONOCYTES % (AUTO) 7.2 % (2.0-12.0); NEUTROPHILS # (AUTO) 5.1 /CMM (1.8-8.9); NEUTROPHILS % (AUTO) 66.6 % (43.0-81.0); PLATELET COUNT (AUTO) 277 /CMM (150-450); RED BLOOD CELL COUNT(AUTO) 3.33 MIL/uL (4.0-5.2); WHITE BLOOD COUNT (AUTO) 7.7 K/uL (4.3-11.0)
[2019-05-29 01:03] LABS: CALCIUM, SERUM 8.8 mg/dL (8.5-10.1); CARBON DIOXIDE 31 mmol/L (21-32); CHLORIDE 99 mmol/L (98-107); CREATININE 0.5 mg/dL (0.6-1.3); GLUCOSE 113 mg/dL (74-106); POTASSIUM 3.5 mmol/L (3.5-5.1); SODIUM SERUM 137 mmol/L (136-145); UREA NITROGEN, BLOOD 23 mg/dL (7-18)
[2019-05-29 01:17] LABS: ALANINE AMINOTRANSFERASE 7 U/L (12-78); ALBUMIN 2.3 g/dL (3.4-5.0); ALKALINE PHOSPHATASE 90 U/L (46-116); ASPARTATE AMINOTRANSFERASE 11 U/L (15-37); B-TYPE NATRIURETIC PEPTIDE 670 PG/ML (0-125); BILIRUBIN,DIRECT 0.1 mg/dL (0.0-0.2); BILIRUBIN,TOTAL 0.2 mg/dL (0.2-1.0); TOTAL PROTEIN, SERUM 7.3 g/dL (6.4-8.2)
--- NOTE | 2019-05-29 01:32 | NUR ---
PT MEDICALLY CLEARED FOR DISCHARGE PER ER MD. WILL CALL FOR TRANSPORT.
--- NOTE | 2019-05-29 01:43 | NUR ---
CALLED [facility] SPOKE TO MARIAA MICHELE , AWARE PT CLEARED TO BE TRANSFERRED BACK TO SNF. SPOKE TO NICOLE FROM [facility]. ETA TRANSFER 3 HRS. TRIP [id number]
[2019-05-29 02:09] LABS: ABG BASE EXCESS 7.3 mmol/L; ABG OXYGEN SATURATION 98.6 % (92.0-98.5); ABG PCO2 35.5 mmHg (35.0-45.0); ABG PH 7.547 (7.350-7.450); ABG PO2 148.6 mmHg (75.0-100.0); AaDO2 95.8 mmHg; COHb 0.2 % (0.5-1.5); MetHb 0.4 % (0.0-1.5); SITE, ABG Right Brachial
--- NOTE | 2019-05-29 04:35 | NUR ---
TRANSPORT AT BEDSIDE REPORT GIVEN TO MARIAA GRANADOS.
[2019-05-29 04:37] VITALS: BP 127/69
== END 2019-05-29 04:40 | disposition home or self-care (01) ==
LOC: ER 23:33
DX: R06.4 Hyperventilation (principal); G20 Parkinson's disease; F02.80 Dementia in other diseases classified elsewhere, unspecified severity, without behavioral disturbance, psychotic disturbance, mood disturbance, and anxiety; I10 Essential (primary) hypertension; R53.1 Weakness; R26.2 Difficulty in walking, not elsewhere classified; E03.9 Hypothyroidism, unspecified; G93.41 Metabolic encephalopathy; E78.5 Hyperlipidemia, unspecified; Z93.1 Gastrostomy status; Z86.73 Personal history of transient ischemic attack (TIA), and cerebral infarction without residual deficits; Z88.5 Allergy status to narcotic agent
CPT/HCPCS: 36415; 36600; 71045-TC; 80048-TC; 80076-TC; 82803-TC; 83605-TC; 83880; 84484-TC; 85025-TC; 85730-TC; 87040-TC

== ENCOUNTER 2019-07-05 13:15 | Emergency (ER) | payer MEDICARE, OTHER ==
[~2019-07-05] VITALS: Ht 154.9 cm; Wt 52.2 kg
[~2019-07-05 13:15] MED LIST changes: +LACT-209; -LACT-209 GT
[2019-07-05] MEDS ORDERED: DIATR MEGLU/DIATRIZOATE SODIUM 30 ML BOTTLE (GASTROGRAPHIN) ONE ×4 (13:46→15:26)
[2019-07-05] MEDS ORDERED: SENN-18 GT (14:06)
[2019-07-05] MEDS ORDERED: MULT-865 GT (14:06)
[2019-07-05] MEDS ORDERED: PROT946L GT (14:06)
[2019-07-05] MEDS ORDERED: CRAN3875 PO (14:06)
[2019-07-05] MEDS ORDERED: NUTR1PAC14 GT (14:06)
[2019-07-05 16:14] VITALS: BP 150/64
--- NOTE | 2019-07-05 18:16 | NUR ---
[facility] ETA 1999 TRIP#[id number]
== END 2019-07-05 19:33 ==
LOC: ER 13:17
DX: K94.23 Gastrostomy malfunction (principal); G20 Parkinson's disease; F02.80 Dementia in other diseases classified elsewhere, unspecified severity, without behavioral disturbance, psychotic disturbance, mood disturbance, and anxiety; I10 Essential (primary) hypertension; M62.81 Muscle weakness (generalized); E03.9 Hypothyroidism, unspecified; E78.5 Hyperlipidemia, unspecified; Z88.5 Allergy status to narcotic agent; Z79.899 Other long term (current) drug therapy; Z86.73 Personal history of transient ischemic attack (TIA), and cerebral infarction without residual deficits
CPT/HCPCS: 43762; 74018 ×2; 99285; Q9963 ×3

== ENCOUNTER 2019-10-06 12:45 | Inpatient (IN) | payer MEDICARE, OTHER ==
[~2019-10-06] VITALS: Ht 167.6 cm; Wt 61.2 kg
[~2019-10-06 12:45] MED LIST changes: +CRAN3875 PO; -FLUC100T8 PO; -LACT1CAP72 PO; +MULT-865 GT; +NUTR1PAC14 GT; +PROT946L GT; -RXVAN XX; +SENN-18 GT; -SODI473S8 TOP; -VANC750F IV; -ZINC220C6 PO
--- NOTE | 2019-10-06 12:55 | NUR ---
tarik, from [facility], sent by PMD due to adnormal lab hgb/hct 6.7/22.4. PATIENT NON-VERBAL, ON TRACHE, ON O2 AT 4LPM.
--- NOTE | 2019-10-06 13:53 | NUR ---
GOT BED 320-2
[2019-10-06 13:54] LABS: BASOPHILS % (AUTO) 0.3 % (0.0-2.0); EOSINOPHILS % (AUTO) 2.2 % (0.0-6.0); HEMATOCRIT 21 % (33-45); LYMPHOCYTES % (AUTO) 34.2 % (20.0-44.0); MEAN CORPUSCULAR HGB CONC 33 g/dl (31.0-36.0); MEAN CORPUSCULAR VOLUME 94 fL (82-100); MONOCYTES # (AUTO) 0.7 /CMM (0.1-1.30); MONOCYTES % (AUTO) 8.2 % (2.0-12.0); NEUTROPHILS # (AUTO) 4.8 /CMM (1.8-8.9); NEUTROPHILS % (AUTO) 55.1 % (43.0-81.0); PLATELET COUNT (AUTO) 380 /CMM (150-450); RED BLOOD CELL COUNT(AUTO) 2.23 MIL/uL (4.0-5.2)
[2019-10-06] MEDS ORDERED: ENOX30DI SUBCUT (13:56)
[2019-10-06] MEDS ORDERED: ACET160S GT (13:56)
[2019-10-06] MEDS ORDERED: LEVE100S GT (13:56)
[2019-10-06] MEDS ORDERED: ZINC1CAP3 GT (13:56)
[2019-10-06] MEDS ORDERED: LORA2VIA11 IM (13:56)
[2019-10-06] MEDS ORDERED: FAMO20TA8 PO (13:56)
[2019-10-06] MEDS ORDERED: SILV20CR13 TP (13:56)
[2019-10-06] MEDS ORDERED: LACT1CAP61 GT (13:56)
[2019-10-06 13:57] LABS: HEMOGLOBIN 6.8 g/dL (11.5-14.8)
[2019-10-06 14:00] LABS: CALCIUM, SERUM 8.4 mg/dL (8.5-10.1); CREATININE 0.6 mg/dL (0.6-1.3); POTASSIUM 4.3 mmol/L (3.5-5.1)
[2019-10-06 14:05] LABS: ALBUMIN 1.9 g/dL (3.4-5.0); BILIRUBIN,DIRECT 0.7 mg/dL (0.0-0.2); BILIRUBIN,TOTAL 0.9 mg/dL (0.2-1.0); TOTAL PROTEIN, SERUM 6.8 g/dL (6.4-8.2)
--- NOTE | 2019-10-06 14:07 | NUR ---
REPORT GIVEN TO KAMALJIT LEROY.
--- NOTE | 2019-10-06 14:17 | NUR ---
PATIENT TRANSFERRED TO ROOM 320-2 IN STABLE CONDITION. NO DISTRESS NOTED.
[2019-10-06 14:34] LABS: IRON, SERUM 27 ug/dl (50-175); TOTAL IRON BINDING CAPACITY 123 ug/dl (250-450)
[2019-10-06 16:00] VITALS: BP 107/54
--- NOTE | 2019-10-06 16:13 | NUR ---
MS/RN NOTES CHEST X RAY RESULT MD IS AWARE.
--- NOTE | 2019-10-06 16:14 | NUR ---
MS/RN NOTES RECEIVED REPORT FROM A ER. ADMITTED A FEMALE, 78 Y/O PATIENT ACCOMPANIED BY 2 ER NURSE VIA [facility]. PATIENT WITH TRACHEOSTOMY TUBE IN PLACED, G TUBE. SKIN ASSESSMENT WAS DONE. VITAL SIGN TAKEN AND RECORDED. WILL CONTINUE TO MONITOR.
[2019-10-06 16:37] LABS: EOSINOPHILS % (MANUAL) 4 % (0-4); LYMPHOCYTES % (MANUAL) 26 % (16-48); MONOCYTES % (MANUAL) 4 % (0-11.0); NEUTROPHILS % (MANUAL) 66 (42-76)
[2019-10-06] MEDS ORDERED: ALBUTEROL FS 2.5 MG/0.5 ML VIAL.NEB NEB PRN (17:00)
[2019-10-06] MEDS ORDERED: MORPHINE SULFATE INJ 2 MG/ML DISP.SYRIN IV PRN (17:00)
[2019-10-06] MEDS ORDERED: BISACODYL SUPP (10 MG) 10 MG/SUPP.RECT SUPP.RECT RC PRN (17:00)
[2019-10-06] MEDS ORDERED: TEMAZEPAM 15 MG CAPSULE GT PRN (17:00)
[2019-10-06] MEDS ORDERED: NUTR150016 GT (17:10)
[2019-10-06] MEDS: PANTOPRAZOLE 40 MG VIAL IV SCH (17:54)
[2019-10-06] MEDS: JEVITY 1.2 CAL 1,000 ML BOTTLE GT SCH (19:01)
--- NOTE | 2019-10-06 19:09 | NUR ---
MS/RN CLOSING NOTES PATIENT IS LYING ON BED COMFORTABLY ALERT AND ORIENTED X 1. PATIENT IS OBTUNDED. DENIES PAIN AT THIS TIME. NO RESPIRATORY DISTRESS NOTED. KEPT PATIENT DRY AND COMFORTABLE THE WHOLE TIME. SEEN AND EXAMINED BY MD WITH ORDERS MADE. SAFETY PRECAUTION IS IN PLACED. BED IN LOWEST POSITION. CALL LIGHT WITHIN REACH. WILL ENDORSED TO SILO WORKER.
--- NOTE | 2019-10-06 19:11 | NUR ---
MS RN NOTES: RECEIVED PATIENT Patient in bed, non verbal, eyes open. Trach intact. Gtube feeding Jevity 1.2 at 55 ml/hr, minimal gastric residual. Hgb 6.8 no active bleeding per report, will monitor. Fall precaution maintained.
[2019-10-06 20:00] VITALS: BP 125/74
[2019-10-06 21:15] VITALS: BP 117/53
[2019-10-06 23:55] VITALS: BP 98/51
[2019-10-07] VITALS (8 sets, daily range): BP systolic 95–152; BP diastolic 40–99
--- NOTE | 2019-10-07 00:04 | NUR ---
MS RN NOTES: BLOOD TRANSFUSION VS taken BP in low 9o's. Blood transfusion assessment check list reviewed with MARIAA Flores. Consent form in the chart. Started blood transfusion PRBC 1unit. Will monitor patient closely.
--- NOTE | 2019-10-07 01:02 | NUR ---
RT NOTE PLACED PT ON CA 35% 8LPM. RN SIMONE Menjivar NOTIFIED. HR 99 SPO2 92-94%. SMALL SCANT WHITE NON FOUL SECREATIONS. CLEAR BILATERAL BS. WILL CONTINUE TO MONITOR
--- NOTE | 2019-10-07 03:06 | NUR ---
MS RN NOTES: BLOOD TRANSFUSION DONE 1 unit PRBC infused. BP improved. No noted bleeding, no s/s of adverse reaction, Afebrile, no chills, appears no pain. Will cont to monitor closely.
--- NOTE | 2019-10-07 06:17 | NUR ---
MS RN NOTES: SHIFT REPORT Patient in bed. Trach intact, T Piece to cool aerosol, settings per RT. Suction secretion frequently PRN. S/P blood transfusion 1 unit PRBC with no adverse reaction. Stool, Urine, MRSA surveillance specimen collected and send to lab for test. Plan for GI, PULMO, Wound consult today. Fall/SKIN precaution maintained. Lio cardenas, will endorse to Oncoming RN. llllllllllllllllllllllllllllllllllllllllllllllllllllllllllllllllllllllllllllllllllllllllllll llllllllllllllllllllllllllllllllllllllllllllllllllllllllllllllllllllllllllllllllllllllllllll llllllllllllllllllllllllllllllllllllllllllllllllllllllllllllllllllllllllllllllllllllllllllll llllllllllllllllllllllllllllllll
[2019-10-07 06:29] LABS: BASOPHILS % (AUTO) 0.3 % (0.0-2.0); EOSINOPHILS % (AUTO) 0.4 % (0.0-6.0); HEMATOCRIT 24 % (33-45); HEMOGLOBIN 8.1 g/dL (11.5-14.8); LYMPHOCYTES % (AUTO) 21.9 % (20.0-44.0); MEAN CORPUSCULAR HGB CONC 34 g/dl (31.0-36.0); MEAN CORPUSCULAR VOLUME 91 fL (82-100); MONOCYTES # (AUTO) 0.6 /CMM (0.1-1.30); MONOCYTES % (AUTO) 6.4 % (2.0-12.0); NEUTROPHILS # (AUTO) 6.4 /CMM (1.8-8.9); PLATELET COUNT (AUTO) 388 /CMM (150-450); RED BLOOD CELL COUNT(AUTO) 2.64 MIL/uL (4.0-5.2)
[2019-10-07 07:01] LABS: CALCIUM, SERUM 8.2 mg/dL (8.5-10.1); CREATININE 0.6 mg/dL (0.6-1.3); PHOSPHORUS 3.6 mg/dL (2.5-4.9); POTASSIUM 3.6 mmol/L (3.5-5.1)
--- NOTE | 2019-10-07 07:10 | NUR ---
MS RN OPENING NOTES RECEIVED PATIENT IN BED WITH EPISODES OF ON AND OFF TWITCHING. PATIENT NON-VERNAL, RESPONSIVE TO VERBAL AND TACTILE STIMULI. HOB ELEVATED. NO SOB. TRACH INTACT SERENITY CA ORDERED. GT INTACT AND PATENT SERENITY JEVITY 1.5 @ 55ML/HR. NO RESIDUAL NOTED. BED IN LOWEST POSITION, LOCKED. BED ALARM ON. CALL LIGHT WITHIN REACH.
[2019-10-07 08:18] LABS: APPEARANCE,URINE CLOUDY (CLEAR); BILIRUBIN,URINE NEGATIVE (NEGATIVE); BLOOD, URINE SMALL Ery/uL (NEGATIVE); COLOR,URINE YELLOW (YELLOW); KETONES,URINE NEGATIVE (NEGATIVE); LEUKOCYTE ESTERASE ,URINE LARGE (NEGATIVE); NITRITE, URINE NEGATIVE (NEGATIVE); PROTEIN,URINE 30 mg/dl (NEGATIVE); UGLUCOSE NEGATIVE (NEGATIVE)
[2019-10-07 08:19] LABS: OCCULT BLOOD STOOL NEGATIVE (NEGATIVE)
[2019-10-07] MEDS ORDERED: JEVITY 1.2 CAL 1,000 ML BOTTLE GT PRN (08:30)
[2019-10-07 08:38] LABS: BACTERIA,URINE Many /HPF (None Seen); SQUAMOUS EPITHELIAL CELL,UR Few /HPF (None Seen); WBC,URINE TOO NUMEROUS TO COUN /HPF (0-3)
[2019-10-07] MEDS: JEVITY 1.2 CAL 1,000 ML BOTTLE GT SCH (08:57)
[2019-10-07] MEDS: DOCUSATE SODIUM LIQ 100 MG/10 ML UDC GT SCH (09:27)
[2019-10-07] MEDS: LEVETIRACETAM SOL (5 ML) 100 MG/ML UDC GT SCH (09:27)
[2019-10-07] MEDS: ZINC SULFATE 220 MG CAPSULE GT SCH (09:28)
[2019-10-07] MEDS: ASCORBIC ACID 500 MG TABLET GT SCH (09:28)
[2019-10-07] MEDS: PROSOURCE / PROSTAT (PYXIS) 30 ML UDC GT SCH (09:28)
[2019-10-07] MEDS: PANTOPRAZOLE 40 MG VIAL IV SCH ×2 (09:28→17:10)
[2019-10-07] MEDS: TRAMADOL HCL 50 MG TABLET PO PRN (09:28)
[2019-10-07] MEDS: MULTIVITAMINS,THERAGRAN 1 UDTAB TABLET GT SCH (09:28)
[2019-10-07] MEDS: ACETAMINOPHEN 325 MG TABLET MC PRN ×2 (09:47→17:10)
[2019-10-07] MEDS: ONDANSETRON HCL/PF 4 MG/2 ML VIAL IVP PRN (09:51)
--- NOTE | 2019-10-07 09:51 | NUR ---
MS RN NOTES ULTRAM NOT ADMINISTERED, FELL ON FLOOR
--- NOTE | 2019-10-07 10:00 | NUR ---
MS RN NOTES NOTED PATIENT WITH EPISODE OF EMESIS LARGE AMOUNT WITH TEMP OF 102.3, B/P 134/82 HR: 120 O2 SAT 93% ON CA @ 8L/MIN. SAAD MADE AWARE, AWAITING FOR RESPONSE. TYLENOL GIVEN, COOLING MEASURES INITIATED. GT INTACT AND PATENT. NO RESIDUAL OBSERVED. SUCTIONED TRACH AND OBTAINED MOD AMOUNT OF THIN SECRETIONS GREEN IN COLOR.
--- NOTE | 2019-10-07 10:10 | NUR ---
RN NOTES RECEIVED ORDERS ORDERS FROM SAAD, NOTED AND CARRIED OUT
[2019-10-07] MEDS: LORAZEPAM INJ 2 MG/ML VIAL IV PRN ×2 (10:22→21:06)
[2019-10-07] MEDS: IPRATROPIUM NEB FS 0.5 MG/2.5 ML AMPUL.NEB NEB SCH ×5 (11:30→23:40)
[2019-10-07] MEDS: ALBUTEROL HALF STRENGTH 1.25 MG/3 ML VIAL.NEB NEB SCH ×5 (11:30→23:40)
--- NOTE | 2019-10-07 11:55 | NUR ---
MS RN NOTES RECEIVED LACTIC ACID RESULT 2.7. RELAYED TO SAAD
[2019-10-07] MEDS: IV NS 0.9% 1,000 ML IV PRN (12:40)
[2019-10-07] MEDS ORDERED: FEE PK DOSING 1 MIN EA MC ONE (12:57)
[2019-10-07] MEDS ORDERED: MEROPENEM 1 G in IV NS 0.9% 100 ML IV ONE (13:00)
[2019-10-07] MEDS ORDERED: VANCOMYCIN HCL 1 GM in IV D5W 260 ML IV ONE (13:00)
--- NOTE | 2019-10-07 13:30 | NUR ---
MS RN NOTES RECEIVED IV MERREM FROM PHARMACY, GIVEN ORDERED PER DR. LEGGETT
--- NOTE | 2019-10-07 14:30 | NUR ---
MS RN NOTES RELAYED LACTIC ACID REPEAT LACTIC ACID TO SAAD 0.8.
--- NOTE | 2019-10-07 19:10 | NUR ---
MS RN CLOSING NOTES PATIENT RESTING COMFORTABLY IN BED. OBSERVED PATIENT DURING THE SHIFT, EPISODES OF BODY TWITCHING IS WHEN CARE IS BEING RENDERED TO THE PATIENT. NO EPISODE OF EMESIS NOR TEMP OBSERVED. NO EVIDENCE OF PAIN NOR DISCOMFORT. HOB ELEVATED. NO SOB. TRACH INTACT SERENITY CA ORDERED. GT INTACT AND PATENT SERENITY JEVITY 1.5 @ 55ML/HR. NOTED PATIENT WITH 2 LARGE BOWEL MOVEMENT DURING THE SHIFT. NO RESIDUAL NOTED. LEFT FA # 20 INTACT AND PATENT INFUSING NS @ 75ML/HR. BED IN LOWEST POSITION, LOCKED. BED ALARM ON. CALL LIGHT WITHIN REACH. IN NO APPARENT DISTRESS.
--- NOTE | 2019-10-07 21:06 | NUR ---
RN NOTES ADMINISTERED ATIVAN 1MG ORDERED FOR ANXIETY. PATIENT PRESENTS WITH EPISODES OF TWITCHING WHEN TRYING TO ADMINISTER CARE. PATIENT TOLERATED WELL. VSS. WILL CONTINUE TO MONITOR.
[2019-10-08 00:40] VITALS: BP 103/51
[2019-10-08] MEDS: MEROPENEM 1 G in IV NS 0.9% 100 ML IV SCH ×2 (01:05→14:05)
[2019-10-08 04:00] VITALS: BP 121/45
[2019-10-08] MEDS: ALBUTEROL HALF STRENGTH 1.25 MG/3 ML VIAL.NEB NEB SCH ×6 (04:31→23:00)
[2019-10-08] MEDS: IPRATROPIUM NEB FS 0.5 MG/2.5 ML AMPUL.NEB NEB SCH ×6 (04:31→23:00)
[2019-10-08] MEDS: JEVITY 1.2 CAL 1,000 ML BOTTLE GT SCH (05:39)
--- NOTE | 2019-10-08 06:51 | NUR ---
RN CLOSING NOTES PATIENT RESTING COMFORTABLY IN BED, EASILY AROUSABLE. NON-VERBAL. EYE-OPENING RESPONSE TO NAME. NO SIGNS OF DISTRESS OR DISCOMFORT. BREATHING EVEN AND UNLABORED. HAS T-PIECE TO COOL AEROSOL @ 8LPM O2. IV ACCESS IN LFA WITH NS INFUSING, PATENT AND INTACT, NO SIGNS OF REDNESS OR INFILTRATION. HAS GTUBE INTACT WITH FEEDING RUNNING, PATIENT TOLERATING WELL. ALL NEEDS MET. NO SIGNIFICANT CHANGES THROUGH THE NIGHT. PATIENT KEPT CLEAN DRY AND COMFORTABLE. BED IN LOW LOCKED POSITION WITH SIDE RAILS X2. HOB ELEVATED. CALL LIGHT WITHIN REACH. WILL ENDORSE TO AM SHIFT FOR JOE.
[2019-10-08 06:58] LABS: BASOPHILS % (AUTO) 0.4 % (0.0-2.0); EOSINOPHILS % (AUTO) 0.7 % (0.0-6.0); HEMATOCRIT 22 % (33-45); HEMOGLOBIN 7.5 g/dL (11.5-14.8); LYMPHOCYTES # (AUTO) 1.8 /CMM (0.8-4.8); MEAN CORPUSCULAR HGB CONC 34 g/dl (31.0-36.0); MEAN CORPUSCULAR VOLUME 93 fL (82-100); MONOCYTES # (AUTO) 0.6 /CMM (0.1-1.30); MONOCYTES % (AUTO) 6.5 % (2.0-12.0); NEUTROPHILS # (AUTO) 6.5 /CMM (1.8-8.9); NEUTROPHILS % (AUTO) 72.4 % (43.0-81.0); PLATELET COUNT (AUTO) 359 /CMM (150-450); RED BLOOD CELL COUNT(AUTO) 2.41 MIL/uL (4.0-5.2)
[2019-10-08 07:20] LABS: CALCIUM, SERUM 7.8 mg/dL (8.5-10.1); CREATININE 0.7 mg/dL (0.6-1.3); POTASSIUM 3.5 mmol/L (3.5-5.1)
--- NOTE | 2019-10-08 07:20 | NUR ---
RN OPENING NOTES RECEIVED PATIENT AWAKE IN BED, NON-VERBAL. EYE-OPENING RESPONSE TO NAME. NO SIGNS OF DISTRESS OR DISCOMFORT. BREATHING EVEN AND UNLABORED. HAS T-PIECE ON COOL AEROSOL 8LPM O2. IV ACCESS IN LFA WITH NS INFUSING, PATENT AND INTACT, NO SIGNS OF REDNESS OR INFILTRATION. HAS GTUBE INTACT WITH FEEDING RUNNING, PATIENT TOLERATING WELL. BED IN LOW LOCKED POSITION WITH SIDE RAILS X2. HOB ELEVATED. CALL LIGHT WITHIN REACH. WILL CONTINUE TO MONITOR..
[2019-10-08 08:00] VITALS: BP 142/84
[2019-10-08] MEDS: VANCOMYCIN HCL 0.75 GM in IV D5W 250 ML IV SCH ×2 (09:00→20:12)
[2019-10-08] MEDS: MULTIVITAMINS,THERAGRAN 1 UDTAB TABLET GT SCH (09:40)
[2019-10-08] MEDS: ZINC SULFATE 220 MG CAPSULE GT SCH (09:40)
[2019-10-08] MEDS: PANTOPRAZOLE 40 MG VIAL IV SCH ×2 (09:40→17:41)
[2019-10-08] MEDS: DOCUSATE SODIUM LIQ 100 MG/10 ML UDC GT SCH (09:40)
[2019-10-08] MEDS: ASCORBIC ACID 500 MG TABLET GT SCH (09:40)
[2019-10-08] MEDS: LEVETIRACETAM SOL (5 ML) 100 MG/ML UDC GT SCH (09:40)
[2019-10-08] MEDS: PROSOURCE / PROSTAT (PYXIS) 30 ML UDC GT SCH (09:42)
[2019-10-08 09:45] LABS: ABG BASE EXCESS 3.1 mmol/L; ABG OXYGEN SATURATION 94.9 % (92.0-98.5); ABG PH 7.478 (7.350-7.450); ABG PO2 80.1 mmHg (75.0-100.0); AaDO2 126.4 mmHg; COHb 0.6 % (0.5-1.5); O2Hb 93.4 % (94.0-97.0); SITE, ABG Right Radial; VENT MODE, BG COOL AERO 35%
[2019-10-08] MEDS ORDERED: VANCOMYCIN HCL 0.75 GM in IV D5W 250 ML IV SCH (13:00)
[2019-10-08] MEDS: SILVER SULFADIAZINE 50 GM JAR TP SCH (14:05)
[2019-10-08] MEDS: IV NS 0.9% 1,000 ML IV PRN (14:05)
[2019-10-08] MEDS: LORAZEPAM INJ 2 MG/ML VIAL IV PRN (14:33)
[2019-10-08 16:00] VITALS: BP 116/54
--- NOTE | 2019-10-08 19:00 | NUR ---
RN medsurg opening notes Received Pt from morning nurse. Pt is resting in bed comfortably, and non verbal and eye opening response to name. Respiration is normal in t-piece cool aerosol 8 L. No SOB. No S/S of distress noted. LFA# 20 is clean, intact and infusing well NS @ 75 ml/hr. G-tube feeding is intact, clean and running jevity 1.2 sekou 55 ml/hrX 20 hr. Turning and repositioning Q 2 HR. Safety precaution is maintained. Bed at low position, brakes locked, side rails UpX3 and call light is within reach. HOB elevated. Will continue to monitor.
--- NOTE | 2019-10-08 19:36 | NUR ---
RN CLOSING NOTES PATIENT IN STABLE CONDITION. ALL DUE MEDS GIVEN ORDERED. ASSISTED PATIENT WITH ADLS. KEPT PATIENT SKIN CLEAN AND DRY. TURNED AND REPOSITIONED PATIENT EVERY 2 HRS AND NEEDED. WOUND CARE RENDERED BED IN LOW/LOCKED POSITION, SIDERAILS UPX2, CALL LIGHT IN REACH. ENDORSED ACCORDINGLY.
[2019-10-08 20:00] VITALS: BP_SYST 121; BP_SYST 154; BP_DIAS 100; BP_DIAS 66
[2019-10-09] VITALS (11 sets, daily range): BP systolic 73–170; BP diastolic 48–111
[2019-10-09] MEDS ORDERED: MUPIROCIN OINT 2% 22 GM TUBE TP SCH
[2019-10-09] MEDS: MEROPENEM 1 G in IV NS 0.9% 100 ML IV SCH ×2 (00:11→13:02)
[2019-10-09] MEDS: ALBUTEROL HALF STRENGTH 1.25 MG/3 ML VIAL.NEB NEB SCH ×5 (03:24→20:27)
[2019-10-09] MEDS: IPRATROPIUM NEB FS 0.5 MG/2.5 ML AMPUL.NEB NEB SCH ×5 (03:24→20:27)
[2019-10-09] MEDS: JEVITY 1.2 CAL 1,000 ML BOTTLE GT SCH (05:42)
--- NOTE | 2019-10-09 05:43 | NUR ---
MARIAA medsurmarychuy notes Started tube feeding Jevity 1.2 sekou 55 ml/hr X 20 HR. 0 residual. Pt tolerated well. Will continue to monitor.
--- NOTE | 2019-10-09 06:52 | NUR ---
RN medsurg closing notes Pt is resting in bed comfortably. Respiration is normal with T-piece to cool aerosol @ 8 LPM. No SOB. No S/S of distress noted. VS is stable. LFA # 20 is clean, intact and infusing well NS@ 75 ml/hr. Routine meds were given as ordered. G-tube feeding is intact, patent and running jevity 1.2 sekou at 55ml/hr x20 hr. Pt tolerated well. Turned and repositioned Q 2HR. Suctioned as needed. Wound care provided as ordered. Kept Pt clean, dry and comfortable. All needs met and attended. Safety precautions is maintained. Bed at low position, brakes locked, side rails upX3 and call light is within reach. Will endorse to morning nurse for JOE.
[2019-10-09 07:16] LABS: BASOPHILS % (AUTO) 0.4 % (0.0-2.0); HEMATOCRIT 22 % (33-45); HEMOGLOBIN 7.5 g/dL (11.5-14.8); LYMPHOCYTES # (AUTO) 2.3 /CMM (0.8-4.8); MEAN CORPUSCULAR HGB CONC 34 g/dl (31.0-36.0); MEAN CORPUSCULAR VOLUME 92 fL (82-100); MONOCYTES # (AUTO) 0.4 /CMM (0.1-1.30); MONOCYTES % (AUTO) 4.6 % (2.0-12.0); NEUTROPHILS # (AUTO) 5.7 /CMM (1.8-8.9); PLATELET COUNT (AUTO) 374 /CMM (150-450); WHITE BLOOD COUNT (AUTO) 8.6 K/uL (4.3-11.0)
[2019-10-09 07:30] LABS: CARBON DIOXIDE 28 mmol/L (21-32); CHLORIDE 103 mmol/L (98-107); CREATININE 0.5 mg/dL (0.6-1.3); GLUCOSE 103 mg/dL (74-106); POTASSIUM 3.2 mmol/L (3.5-5.1); SODIUM SERUM 138 mmol/L (136-145); UREA NITROGEN, BLOOD 12 mg/dL (7-18)
--- NOTE | 2019-10-09 07:43 | NUR ---
MS RN OPENING NOTE PATIENT IN BED RESTING COMFORTABLY. PATIENT IN NO ACUTE DISTRESS. NO SOB NOTED. PATIENT BREATHING IS EVEN AND UNLABORED WITH T PIECE TO COOL AEROSOL AT 8 LPM. PATIENT GTUBE PATENT AND INTACT. PATIENT HOB IS ELEVATED. PATIENT SAFETY PRECAUTIONS IN PLACE. ISOLATION PRECAUTIONS IN PLACE. PATIENT BED IS LOCKED AND IN LOWEST POSITION. CALL LIGHT WITHIN REACH. WILL CONTINUE TO MONITOR.
[2019-10-09] MEDS: VANCOMYCIN HCL 0.75 GM in IV D5W 250 ML IV SCH ×2 (08:57→19:44)
[2019-10-09] MEDS: ASCORBIC ACID 500 MG TABLET GT SCH (09:06)
[2019-10-09] MEDS: PROSOURCE / PROSTAT (PYXIS) 30 ML UDC GT SCH (09:06)
[2019-10-09] MEDS: PANTOPRAZOLE 40 MG VIAL IV SCH ×2 (09:06→17:03)
[2019-10-09] MEDS: DOCUSATE SODIUM LIQ 100 MG/10 ML UDC GT SCH (09:06)
[2019-10-09] MEDS: LEVETIRACETAM SOL (5 ML) 100 MG/ML UDC GT SCH (09:06)
[2019-10-09] MEDS: MULTIVITAMINS,THERAGRAN 1 UDTAB TABLET GT SCH (09:06)
[2019-10-09] MEDS: ZINC SULFATE 220 MG CAPSULE GT SCH (09:06)
[2019-10-09] MEDS: MUPIROCIN OINT 2% 22 GM TUBE TP SCH ×2 (09:07→21:47)
[2019-10-09] MEDS: SILVER SULFADIAZINE 50 GM JAR TP SCH (09:13)
[2019-10-09] MEDS: IV NS 0.9% 1,000 ML IV PRN (09:16)
[2019-10-09] MEDS ORDERED: POTASSIUM CHLORIDE 20 MEQ TAB.PRT.SR PO SCH (11:30)
[2019-10-09] MEDS: POTASSIUM CHLORIDE 20 MEQ POWDER PACKET GT SCH ×2 (11:35→13:01)
[2019-10-09] MEDS ORDERED: IV NS 0.9% 500 ML BAG IV STA (12:07)
[2019-10-09] MEDS: ACETAMINOPHEN 325 MG TABLET MC PRN (12:13)
--- NOTE | 2019-10-09 12:28 | NUR ---
MS RN NOTE PATIENT EXPERIENCING LABORED BREATHING, BP IS 73/51, TEMPERATURE 99.0. NOTIFIED SAAD LEGGETT, ORDERS FOR BOLUS 500 ML NS. IMPLEMENTED COOLING MEASURES AND ADMINISTERED TYLENOL 650 MG PRN.
--- NOTE | 2019-10-09 13:20 | NUR ---
MS RN NOTE PATIENT EXPERIENCING LABORED BREATHING, PATIENT TEMPERATURE AT THIS TIME IS 99.3F. NOTIFIED SAAD LEGGETT OF PATIENT CONDITION. PATIENT BP FLUCTUATING SYSTOLICALLY BETWEEN 100-130. PATIENT EXPERIENCING MOMENTS OF DESATURATING SPO2 TO 87-94. PER SAAD LEGGETT TRANSFER TO ICU AND PLACE ON VENTILATION.
[2019-10-09] MEDS ORDERED: NOREPINEPHRINE 8 MG in IV D5W 500 ML IV PRN (13:30)
--- NOTE | 2019-10-09 13:59 | NUR ---
MS SOUBRETTE NOTE PATIENT EXPERIENCING LABORED BREATHING, PATIENT WITH T PIECE ON 8L COOL AEROSOL. PATIENT KEPT CLEAN DRY AND COMFORTABLE DURING MY SHIFT. PATIENT GTUBE PATENT AND INTACT. PATIENT IV PATENT AND INTACT. SAAD LEGGETT MADE AWARE AND NOTIFIED. PER SAAD WILL CONTINUE TO PUT HIS ORDERS IN. PATIENT TO BE TRANSFERRED TO ICU. GIVEN REPORT AND ENDORSED CARE TO CLOTH MERCERIZING SUPERVISOR MAYNOR.
--- NOTE | 2019-10-09 14:00 | NUR ---
RECEIVED PT TRANSFERRED FROM [facility]. PT TRANSFERRED TO ICU DUE TO HYPOTENSION BP 70/44. PT ON VENT, TOLERATING SETTINGS WELL. SINUS RHYTHM ON MONITOR. PEG TUBE INTACT, PATENT, JEVITY 1.2 INFUSING AT 55CC/HR, TOLERATING FEEDING WELL. LEFT FOREARM G20 INTACT, PATENT, NS INFUSING AT 75CC/HR, NO SIGNS OF INFILTRATION NOTED. PT CONTRACTED. AXILLARY TEMP 100.6, COOLING MEASURES INITIATED. CONTACT PRECAUTIONS IN PLACE FOR MRSA OF RIGHT NARES. BED IN LOW POSITION, LOCKED, CALL LIGHT WITHIN REACH. WILL CONTINUE TO MONITOR.
--- NOTE | 2019-10-09 14:02 | NUR ---
PATIENT PRESENTS WITH EPISODES OF TWITCHING, JERKING AND SHAKING WHEN TRYING TO ADMINISTER CARE. PER SNF AND PRIMARY NURSE ON [facility] "THIS IS PATIENT'S BASELINE."
--- NOTE | 2019-10-09 14:05 | NUR ---
RT PT ON CA 35% 8L TRACHED INTACT AND SECURED PORTEX 8, LABORED BREATHING WITH TEMP TRANSFERED TO ICU PLACED ON MECH VENT ON FOLLOWING SETTINGS
--- NOTE | 2019-10-09 17:30 | NUR ---
TRANSFERRED PT VIA ACLS PROTOCOL TO [facility], ROOM 106.
[2019-10-09] MEDS: CEFTRIAXONE 1 G in IV D5W 50 ML IV SCH (18:04)
[2019-10-09] MEDS: LORAZEPAM INJ 2 MG/ML VIAL IV PRN (20:01)
[2019-10-10] VITALS (7 sets, daily range): BP systolic 96–134; BP diastolic 50–76
[2019-10-10] MEDS: ACETAMINOPHEN 325 MG TABLET MC PRN ×3 (00:08→16:19)
[2019-10-10] MEDS: ALBUTEROL HALF STRENGTH 1.25 MG/3 ML VIAL.NEB NEB SCH ×7 (00:11→23:02)
[2019-10-10] MEDS: IPRATROPIUM NEB FS 0.5 MG/2.5 ML AMPUL.NEB NEB SCH ×7 (00:11→23:02)
--- NOTE | 2019-10-10 01:08 | NUR ---
RN NOTE RECHECKED TEMP POST ADMINISTRATION OF TYLENOL FOR MILD FEVER. TEMP IS 98.7 AXILLARY
[2019-10-10] MEDS: TRAMADOL HCL 50 MG TABLET PO PRN (01:48)
[2019-10-10] MEDS: IV NS 0.9% 1,000 ML IV PRN (04:27)
[2019-10-10] MEDS: LORAZEPAM INJ 2 MG/ML VIAL IV PRN ×2 (04:43→16:19)
[2019-10-10] MEDS: JEVITY 1.2 CAL 1,000 ML BOTTLE GT SCH (06:20)
--- NOTE | 2019-10-10 06:50 | NUR ---
RN CLOSING NOTE PT IN BED IN SEMI MARROQUIN'S POSITION. OBTUNDED. ON MECHANICAL VENTILATOR AND TOLERATING SETTINGS WELL. RESPIRATIONS EVEN AND UNLABORED. ON TUBE FEEDING AND TOLERATING WELL. NO GASTRIC RESIDUAL NOTED. CALL LIGHT WITHIN REACH, SAFETY MEASURES IN PLACE, WILL ENDORSE TO MORNING SHIFT FOR CONTINUATION OF CARE.
--- NOTE | 2019-10-10 07:49 | NUR ---
RN NOTES RECEIVED PT IN BED IN SEMI MARROQUIN'S POSITION. PT IS OBTUNDED. ON MECHANICAL VENTILATOR AND TOLERATING SETTINGS WELL. NO INDICATIONS OF DISTRESS OR DISCOMFORT. PT PRESENTS WITH TWITCHING LIKE ACTIVITY AT BASELINE. FOR CONTACT ISOLATION FOR MRSA OF THE NARES. ON IVF AND TOLERATING WELL. ON TUBE FEEDING. NO GASTRIC RESIDUAL NOTED. GT PLACEMENT CONFIRMED VIA AUSCULTATION. CALL LIGHT WITHIN REACH, SAFETY MEASURES IN PLACE. WILL MONITOR PT.
[2019-10-10 07:55] LABS: CALCIUM, SERUM 7.7 mg/dL (8.5-10.1); CARBON DIOXIDE 26 mmol/L (21-32); CHLORIDE 103 mmol/L (98-107); CREATININE 0.5 mg/dL (0.6-1.3); GLUCOSE 77 mg/dL (74-106); POTASSIUM 3.5 mmol/L (3.5-5.1); SODIUM SERUM 137 mmol/L (136-145); UREA NITROGEN, BLOOD 13 mg/dL (7-18)
[2019-10-10] MEDS: VANCOMYCIN HCL 0.75 GM in IV D5W 250 ML IV SCH ×2 (08:16→20:23)
[2019-10-10] MEDS: LEVETIRACETAM SOL (5 ML) 100 MG/ML UDC GT SCH (08:17)
[2019-10-10] MEDS: ZINC SULFATE 220 MG CAPSULE GT SCH (08:19)
[2019-10-10] MEDS: ASCORBIC ACID 500 MG TABLET GT SCH (08:19)
[2019-10-10] MEDS: MULTIVITAMINS,THERAGRAN 1 UDTAB TABLET GT SCH (08:19)
[2019-10-10] MEDS: DOCUSATE SODIUM LIQ 100 MG/10 ML UDC GT SCH (08:19)
[2019-10-10] MEDS: PROSOURCE / PROSTAT (PYXIS) 30 ML UDC GT SCH (08:20)
[2019-10-10] MEDS: PANTOPRAZOLE 40 MG VIAL IV SCH ×2 (08:20→18:05)
[2019-10-10] MEDS: SILVER SULFADIAZINE 50 GM JAR TP SCH ×2 (09:00→13:57)
--- NOTE | 2019-10-10 09:00 | NUR ---
RN NOTES MEDICATION NOT AVAILABLE. CALLED PHARMACY REGARDING BACTROBAN AND SILVER SULFADIAZINE, THEY SAID TO CALL ICU, CALLED ICU AND WAITING FOR CALL BACK. WILL F/U.
[2019-10-10 09:50] LABS: ABG BASE EXCESS 0.1 mmol/L; ABG OXYGEN SATURATION 98.4 % (92.0-98.5); ABG PH 7.472 (7.350-7.450); ABG PO2 145.9 mmHg (75.0-100.0); COHb 0.3 % (0.5-1.5); MetHb 0.2 % (0.0-1.5); O2Hb 97.9 % (94.0-97.0); PEEP,BG 5 cm H2O; SITE, ABG Left Brachial; VT, ABG 450 mL
[2019-10-10] MEDS: MUPIROCIN OINT 2% 22 GM TUBE TP SCH ×2 (11:35→22:15)
--- NOTE | 2019-10-10 17:10 | NUR ---
RN NOTES UNABLE TO INSERT MIDLINE, TELEPHONE ORDER FROM DR. SAAD LEGGETT FOR PICC LINE INSERTION, PATIENT IS A STATE APPOINTMENT CONSERVED. CONSENT SIGNED WITH MARIAA PINEDA. WILL CONTINUE TO MONITOR.
--- NOTE | 2019-10-10 18:00 | NUR ---
RN NOTES PICC LINE WAS INSERTED ON RIGHT FEMORAL, 40CM, X-RAY TO CONFIRMED LOCATION. LINE IS OKAY TO USE. WILL CONTINUE TO MONITOR.
[2019-10-10] MEDS: CEFTRIAXONE 1 G in IV D5W 50 ML IV SCH (18:07)
--- NOTE | 2019-10-10 18:22 | NUR ---
RT END OF THE SHIFT REPORT, PT. 79 Y OLD FEMALE REC. IN AM TRACH'D PORTEX # 8 ON VENT WITH NOTED SETTINGS, ALARMS ARE SET AND FUNCTIONAL, HHN INLINE TX'S GIVEN Q4 NO ADVERSE REACTION NOTED. B/S BILATERALLY RHONCHI SUX'S FOR MOD AMT SECRETIONS, HME CHANGED, EARTH BURNER DONE NO DISTRESS NOTED T/O DAY NO CHANGES, AMBU BAG AT THE BEDSIDE. VENT PLUGGED INTO RED OUTLET. CONTINUE TO MONITOR AND REPORT WILL PASS TO PM SHIFT. Addendum: 10/10/19 at 1825 by LEXUS MOYA RT Amended: Links added.
--- NOTE | 2019-10-10 18:39 | NUR ---
RN NOTES PT IN BED IN SEMI MARROQUIN'S POSITION. PT IS OBTUNDED. ON MECHANICAL VENTILATOR AND TOLERATING SETTINGS WELL. NO INDICATIONS OF DISTRESS OR DISCOMFORT. PT PRESENTS WITH TWITCHING LIKE ACTIVITY AT BASELINE. FOR CONTACT ISOLATION FOR MRSA OF THE NARES. PICC LINE ON RIGHT FEMORAL, INTACT AND PATENT AND TOLERATING WELL. ON TUBE FEEDING. NO GASTRIC RESIDUAL NOTED. CALL LIGHT WITHIN REACH, SAFETY MEASURES IN PLACE. WILL ENDORSE TO VICE PRESIDENT OF PRODUCT MARKETING NURSE FOR JOE.
--- NOTE | 2019-10-10 19:45 | NUR ---
DRINK BOX MECHANIC OPENING NOTE, RECEIVED PATIENT IN BED, OBTUNDED, ON MECH VENT, TOLERATING WELL. NO SOB OR ACUTE DISTRESS NOTED AT THIS TIME. ON G-TUBE FEEDING, JEVITY @55CC/HR. TOLERATING WELL. NO GASTRIC RESIDUAL NOTED. RIGHT FEMORAL PICC-LINE INTACT AND PATENT, RUNNING NS @75 ML/HR. AND # 22. BED IN LOW/LOCKED POSITION, CALL LIGHT WITHIN REACH, SAFETY MEASURES IN PLACE, WILL CONTINUE TO MONITOR.
[2019-10-11] VITALS: BP 95/47
[2019-10-11] MEDS: IV NS 0.9% 1,000 ML IV PRN ×2 (00:43→19:13)
[2019-10-11] MEDS: ALBUTEROL HALF STRENGTH 1.25 MG/3 ML VIAL.NEB NEB SCH ×5 (03:30→20:06)
[2019-10-11] MEDS: IPRATROPIUM NEB FS 0.5 MG/2.5 ML AMPUL.NEB NEB SCH ×5 (03:30→20:06)
[2019-10-11 04:00] VITALS: BP 95/58
[2019-10-11] MEDS: JEVITY 1.2 CAL 1,000 ML BOTTLE GT SCH (04:26)
--- NOTE | 2019-10-11 07:30 | NUR ---
CIRCULAR SHEAR OPERATOR OPENING NOTE RECEIVED BEDSIDE REPORT. PATIENT IN BED, OBTUNDED, ON MECH VENT, TOLERATING WELL. NO SOB OR ACUTE DISTRESS NOTED AT THIS TIME. ON G-TUBE FEEDING, JEVITY @55CC/HR. TOLERATING WELL. NO GASTRIC RESIDUAL NOTED. RIGHT FEMORAL TLC INTACT AND PATENT, RUNNING NS @75 ML/HR. IV SITE ON LEFT HAND # 22 WITH HEP LOCK IN PLACE. SINUS RHYTHM ON TELE MONITOR HR 88 . BED IN LOW/LOCKED POSITION, CALL LIGHT WITHIN REACH, SAFETY MEASURES IN PLACE.
--- NOTE | 2019-10-11 07:40 | NUR ---
CONCRETE POURER CLOSING NOTE, PATIENT IN BED, OBTUNDED, ON MECH VENT, TOLERATING WELL. NO SOB OR ACUTE DISTRESS NOTED AT THIS TIME. ON G-TUBE FEEDING, JEVITY @55CC/HR. TOLERATING WELL. NO GASTRIC RESIDUAL NOTED. RIGHT FEMORAL PICC-LINE INTACT AND PATENT, RUNNING NS @75 ML/HR. AND # 22. BED IN LOW/LOCKED POSITION, CALL LIGHT WITHIN REACH, SAFETY MEASURES IN PLACE, ENDORSED THE PATIENT TO AM RN FOR JOE.
[2019-10-11 07:50] LABS: CREATININE 0.6 mg/dL (0.6-1.3); POTASSIUM 3.7 mmol/L (3.5-5.1)
[2019-10-11] MEDS: VANCOMYCIN HCL 0.75 GM in IV D5W 250 ML IV SCH ×2 (07:50→20:16)
[2019-10-11 08:00] VITALS: BP 112/63
[2019-10-11 08:11] LABS: BASOPHILS # (AUTO) 0.1 /CMM (0.0-0.2); BASOPHILS % (AUTO) 0.7 % (0.0-2.0); EOSINOPHILS % (AUTO) 3.6 % (0.0-6.0); HEMATOCRIT 22 % (33-45); HEMOGLOBIN 7.2 g/dL (11.5-14.8); LYMPHOCYTES # (AUTO) 2.6 /CMM (0.8-4.8); LYMPHOCYTES % (AUTO) 28.3 % (20.0-44.0); MEAN CORPUSCULAR HGB CONC 33 g/dl (31.0-36.0); MEAN CORPUSCULAR VOLUME 94 fL (82-100); MONOCYTES # (AUTO) 0.4 /CMM (0.1-1.30); MONOCYTES % (AUTO) 3.9 % (2.0-12.0); NEUTROPHILS # (AUTO) 5.8 /CMM (1.8-8.9); NEUTROPHILS % (AUTO) 63.5 % (43.0-81.0); PLATELET COUNT (AUTO) 345 /CMM (150-450); WHITE BLOOD COUNT (AUTO) 9.1 K/uL (4.3-11.0)
[2019-10-11] MEDS: ZINC SULFATE 220 MG CAPSULE GT SCH (08:11)
[2019-10-11] MEDS: MULTIVITAMINS,THERAGRAN 1 UDTAB TABLET GT SCH (08:11)
[2019-10-11] MEDS: PANTOPRAZOLE 40 MG VIAL IV SCH ×2 (08:11→16:13)
[2019-10-11] MEDS: ASCORBIC ACID 500 MG TABLET GT SCH (08:11)
[2019-10-11] MEDS: LEVETIRACETAM SOL (5 ML) 100 MG/ML UDC GT SCH (08:11)
[2019-10-11] MEDS: DOCUSATE SODIUM LIQ 100 MG/10 ML UDC GT SCH (08:11)
[2019-10-11] MEDS: PROSOURCE / PROSTAT (PYXIS) 30 ML UDC GT SCH ×3 (08:14→16:12)
[2019-10-11] MEDS: SILVER SULFADIAZINE 50 GM JAR TP SCH (08:14)
--- NOTE | 2019-10-11 08:27 | NUR ---
RT NOTE RECEIVED PT MECHANICALLY VENTILATED VIA CUFFED TRACHEOSTOMY TUBE. CUFFED INFLATED. TRACH TUBE MIDLINE AND SECURE. VENTILATOR SETTINGS PRESCRIBED. ALARMS SET PER PROTOCOL AND AUDIBLE. VENT PLUGGED IN TO RED OUTLET. AMBU BAG AT BED SIDE. NO DISTRESS NOTED AT MOMENT. Addendum: 10/11/19 at 0829 by MIGDALIA UREÑA RT Amended: Links added.
[2019-10-11] MEDS: MUPIROCIN OINT 2% 22 GM TUBE TP SCH ×2 (09:36→22:35)
[2019-10-11 12:00] VITALS: BP 105/72
[2019-10-11] MEDS ORDERED: JEVITY 1.2 CAL 1,000 ML BOTTLE GT SCH (13:30)
[2019-10-11 16:00] VITALS: BP_SYST 108; BP_SYST 121; BP_DIAS 54; BP_DIAS 70
[2019-10-11] MEDS: CEFTRIAXONE 1 G in IV D5W 50 ML IV SCH (16:15)
--- NOTE | 2019-10-11 19:00 | NUR ---
RN OPENING NOTES PATIENT SLEEPING IN BED, OBTUNDED, ON [facility] VENT SETTINGS ORDERED, TOLERATING WELL. NO SOB OR ACUTE DISTRESS NOTED AT THIS TIME. ON TELE MONITOR SR WITH HR 100'S. ON G-TUBE FEEDING, JEVITY @55ML/HR, MINIMAL RESIDUAL NOTED. RIGHT FEMORAL TLC INTACT AND PATENT, RUNNING NS @75 ML/HR, TOLERATING WELL. IV SITE ON LEFT HAND#22, FLUSHING AND PATENT, SALINE LOCKED. KEPT PT CLEAN, DRY, AND COMFORTABLE. ALL MD ORDERS ATTENDED. SAFETY MEASURES IN PLACE; BED IN LOW AND LOCKED POSITION, CALL LIGHT WITHIN REACH, SIDE RAILS UP X2, HOB ELEVATED. PER REPORT, PATIENT HAS EPISODES OF SHAKING/SEIZURE LIKE MOVEMENTS WHEN BEING MOVED. WILL CONT TO MONITOR CLOSELY.
[2019-10-11 20:00] VITALS: BP 125/45
--- NOTE | 2019-10-11 20:30 | NUR ---
RN NOTES PATIENT TEMP 100.9 VIA AXILLARY. COOLING MEASURES IN PLACE. WILL CONT TO MONITOR CLOSELY.
[2019-10-11] MEDS: ONDANSETRON HCL/PF 4 MG/2 ML VIAL IVP PRN (22:41)
--- NOTE | 2019-10-11 22:41 | NUR ---
RN NOTES PATIENT NOTED WITH A LOT OF MUCOUS AND VOMIT. PRN ZOFRAN GIVEN. PLACED GTF ON HOLD FOR NOW. WILL CONT TO MONITOR CLOSELY.
[2019-10-12] VITALS (10 sets, daily range): BP systolic 102–126; BP diastolic 44–100
[2019-10-12] MEDS: IPRATROPIUM NEB FS 0.5 MG/2.5 ML AMPUL.NEB NEB SCH ×7 (00:05→23:51)
[2019-10-12] MEDS: ALBUTEROL HALF STRENGTH 1.25 MG/3 ML VIAL.NEB NEB SCH ×7 (00:05→23:51)
[2019-10-12] MEDS: ACETAMINOPHEN 325 MG TABLET MC PRN (00:11)
--- NOTE | 2019-10-12 00:21 | NUR ---
RN NOTES PATIENT TEMP 102.7 VIA AXILLARY. COOLING MEASURES IN PLACE. TYLENOL PRN GIVEN. WILL CONT TO MONITOR CLOSELY.
--- NOTE | 2019-10-12 01:15 | NUR ---
RN NOTES RECHECKED PT TEMP NOW 101. COOLING MEASURES KEPT IN PLACE. WILL CONT TO MONITOR.
[2019-10-12] MEDS: LORAZEPAM INJ 2 MG/ML VIAL IV PRN ×2 (02:51→12:13)
[2019-10-12 06:20] LABS: BASOPHILS % (AUTO) 0.2 % (0.0-2.0); LYMPHOCYTES # (AUTO) 2.4 /CMM (0.8-4.8); LYMPHOCYTES % (AUTO) 26.9 % (20.0-44.0); MEAN CORPUSCULAR HGB CONC 33 g/dl (31.0-36.0); MEAN CORPUSCULAR VOLUME 94 fL (82-100); MONOCYTES # (AUTO) 0.4 /CMM (0.1-1.30); MONOCYTES % (AUTO) 4.9 % (2.0-12.0); PLATELET COUNT (AUTO) 311 /CMM (150-450); RED BLOOD CELL COUNT(AUTO) 2.13 MIL/uL (4.0-5.2); WHITE BLOOD COUNT (AUTO) 8.9 K/uL (4.3-11.0)
[2019-10-12 06:44] LABS: CALCIUM, SERUM 8.1 mg/dL (8.5-10.1); CARBON DIOXIDE 24 mmol/L (21-32); CHLORIDE 103 mmol/L (98-107); CREATININE 0.5 mg/dL (0.6-1.3); GLUCOSE 95 mg/dL (74-106); POTASSIUM 3.2 mmol/L (3.5-5.1); SODIUM SERUM 136 mmol/L (136-145); UREA NITROGEN, BLOOD 13 mg/dL (7-18)
[2019-10-12 07:20] LABS: HEMATOCRIT 20 % (33-45); HEMOGLOBIN 6.6 g/dL (11.5-14.8)
--- NOTE | 2019-10-12 07:22 | NUR ---
RN CLOSING NOTES PATIENT SLEEPING IN BED, OBTUNDED, ON [facility] VENT SETTINGS ORDERED, TOLERATING WELL. NO SOB OR ACUTE DISTRESS NOTED AT THIS TIME. ON TELE MONITOR SR WITH HR 70'S. ON G-TUBE FEEDING, JEVITY @55ML/HR, MINIMAL RESIDUAL NOTED. RIGHT FEMORAL TLC INTACT AND PATENT, RUNNING NS @75 ML/HR, TOLERATING WELL. IV SITE ON LEFT HAND#22, FLUSHING AND PATENT, SALINE LOCKED. KEPT PT CLEAN, DRY, AND COMFORTABLE. ALL MD ORDERS ATTENDED. SAFETY MEASURES IN PLACE; BED IN LOW AND LOCKED POSITION, CALL LIGHT WITHIN REACH, SIDE RAILS UP X2, HOB ELEVATED. MOST RECENT TEMP 99.5, KEPT COOLING MEASURES IN PLACE. ENDORSED TO AM RN FOR JOE.
--- NOTE | 2019-10-12 07:25 | NUR ---
RN NOTES PATIENT CRITICAL LAB HG 6.6 AND HCT 20. ENDORSED TO MARIAA RODRIGUEZ.
--- NOTE | 2019-10-12 08:03 | NUR ---
RN OPENING NOTES RECEIVED PATIENT RESTING IN BED COMFORTABLY, NO S/SX OF DISTRESS AT THIS TIME. PT IS OBTUNDED, NON-VERBAL, AND BEDBOUND. SHE IS ON MECHANICAL VENT VIA PORTEX 8 TRACH, TOLERATING VENT SETTINGS WELL. 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 TELE MONITOR SHOWING SR. MULTIPLE SKIN ISSUES, WILL ADDRESS PER WOUND CARE PLAN. SHE IS ON TUBEFEEDING VIA GTUBE, JEVITY 55 ML/HR, TOLERATING WELL. SHE HAS R FEMORAL TLC, NS AT 75 ML/HR. SAFETY MEASURES HAVE BEEN IMPLEMENTED, CALL LIGHT IS WITHIN REACH, BED IS IN LOWEST AND LOCKED POSITION, SIDE RAILS UP X2, WILL CONTINUE TO MONITOR FOR OTHER CHANGES.
[2019-10-12 08:12] LABS: EOSINOPHILS % (MANUAL) 1 % (0-4); LYMPHOCYTES % (MANUAL) 20 % (16-48); MONOCYTES % (MANUAL) 6 % (0-11.0); NEUTROPHILS % (MANUAL) 73 (42-76)
[2019-10-12] MEDS: VANCOMYCIN HCL 0.75 GM in IV D5W 250 ML IV SCH ×2 (08:42→19:54)
[2019-10-12] MEDS: DOCUSATE SODIUM LIQ 100 MG/10 ML UDC GT SCH (09:13)
[2019-10-12] MEDS: LEVETIRACETAM SOL (5 ML) 100 MG/ML UDC GT SCH (09:13)
[2019-10-12] MEDS: ASCORBIC ACID 500 MG TABLET GT SCH (09:14)
[2019-10-12] MEDS: PROSOURCE / PROSTAT (PYXIS) 30 ML UDC GT SCH ×2 (09:14→16:50)
[2019-10-12] MEDS: MULTIVITAMINS,THERAGRAN 1 UDTAB TABLET GT SCH (09:14)
[2019-10-12] MEDS: ZINC SULFATE 220 MG CAPSULE GT SCH (09:14)
[2019-10-12] MEDS: PANTOPRAZOLE 40 MG VIAL IV SCH ×2 (09:14→16:50)
[2019-10-12] MEDS: SILVER SULFADIAZINE 50 GM JAR TP SCH (09:15)
[2019-10-12] MEDS: MUPIROCIN OINT 2% 22 GM TUBE TP SCH ×2 (09:16→22:14)
--- NOTE | 2019-10-12 09:48 | NUR ---
POULTRY BUYER NOTE PAGED DR. SANCHEZ REG CRITICAL HGB LEVEL. RECEIVED ORDER FOR 1 UNIT OF RBC. NNO FOR ELAINE POTASSIUM AT THIS TIME. WILL CONT TO MONITOR.
[2019-10-12] MEDS: POTASSIUM CHLORIDE 20 MEQ POWDER PACKET GT SCH ×2 (11:46→12:52)
[2019-10-12] MEDS: IV NS 0.9% 1,000 ML IV PRN (12:13)
--- NOTE | 2019-10-12 13:44 | NUR ---
RT NOTE: PATIENT RECEIVED WITH #[address] ON PB 840 VENT. VENT ALARMS VERIFIED AND AUDIBLE. SUCTIONED AND LAVAGED SMALL-MOD AMOUNT OF THIN WHITE SECRETIONS. VENT IS PLUGGED INTO RED OUTLET. AMBU BAG AT [facility].
--- NOTE | 2019-10-12 13:55 | NUR ---
MARIAA NOTES PATIENT HAS LEFT AMA, IV SITE WAS REMOVED, BELONINGS WERE RETURNED. MADE AWARE. INCIDENT REPORT HAS BEEN DONE Addendum: 10/12/19 at 1930 by NORM BARBER RN WRONG NOTE FOR WRONG PATIENT
[2019-10-12] MEDS: CEFTRIAXONE 1 G in IV D5W 50 ML IV SCH (16:59)
[2019-10-12] MEDS: Z GUARD REMEDY 2 OZ OINT TP SCH ×2 (17:45→20:15)
--- NOTE | 2019-10-12 19:15 | NUR ---
RN OPENING NOTES PATIENT SLEEPING IN BED, OBTUNDED, ON [facility] VENT SETTINGS ORDERED, TOLERATING WELL. NO SOB OR ACUTE DISTRESS NOTED AT THIS TIME. ON TELE MONITOR SR WITH HR 90'S. ON G-TUBE FEEDING, JEVITY @55ML/HR, MINIMAL RESIDUAL NOTED. RIGHT FEMORAL TLC INTACT AND PATENT, RUNNING NS @75 ML/HR, TOLERATING WELL. IV SITE ON LEFT HAND#22, FLUSHING AND PATENT, SALINE LOCKED. KEPT PT CLEAN, DRY, AND COMFORTABLE. ALL MD ORDERS ATTENDED. SAFETY MEASURES IN PLACE; BED IN LOW AND LOCKED POSITION, CALL LIGHT WITHIN REACH, SIDE RAILS UP X2, HOB ELEVATED. PER REPORT, PATIENT HAS EPISODES OF SHAKING/SEIZURE LIKE MOVEMENTS WHEN BEING MOVED.1 UNIT PRBC TRANSFUSED NO SIGN AND SYMPTOMS OF TRANSFUSION REACTION WILL CONT TO MONITOR CLOSELY.
--- NOTE | 2019-10-12 19:30 | NUR ---
RN CLOSING NOTES PATIENT IS RESTING IN BED COMFORTABLY AT THIS TIME. PT IS ON MECH VENT VIA TRACH, TOLERATING WELL NO SOB OR RESP DISTESS. PT IS S/P ONE OF PRBC, TOLERATED WELL, NO ADVERSE REACTIONS. PT NEEDS HAVE BEEN MET, VITAL SIGNS ARE STABLE, NO ACUTE CHANGES OCCURRED THROUGHOUT THE SHIFT. SAFETY MEASURES HAVE BEEN IMPLEMENTED, CALL LIGHT IS WITHIN REACH, BED IS IN LOWEST AND LOCKED POSITION, SIDE RAILS UP X2, PT HAS BEEN ENDORSED TO NIGHTSHIFT RN FOR JOE.
[2019-10-13] VITALS: BP 101/51
[2019-10-13] MEDS: IPRATROPIUM NEB FS 0.5 MG/2.5 ML AMPUL.NEB NEB SCH ×4 (03:11→14:41)
[2019-10-13] MEDS: ALBUTEROL HALF STRENGTH 1.25 MG/3 ML VIAL.NEB NEB SCH ×4 (03:11→14:41)
[2019-10-13] MEDS: IV NS 0.9% 1,000 ML IV PRN (03:35)
[2019-10-13 04:00] VITALS: BP 107/65
[2019-10-13 06:31] LABS: BASOPHILS % (AUTO) 0.3 % (0.0-2.0); EOSINOPHILS % (AUTO) 8.9 % (0.0-6.0); HEMATOCRIT 22 % (33-45); HEMOGLOBIN 7.4 g/dL (11.5-14.8); LYMPHOCYTES # (AUTO) 1.9 /CMM (0.8-4.8); LYMPHOCYTES % (AUTO) 28.9 % (20.0-44.0); MEAN CORPUSCULAR HGB CONC 34 g/dl (31.0-36.0); MEAN CORPUSCULAR VOLUME 93 fL (82-100); MONOCYTES # (AUTO) 0.3 /CMM (0.1-1.30); MONOCYTES % (AUTO) 4.6 % (2.0-12.0); NEUTROPHILS # (AUTO) 3.8 /CMM (1.8-8.9); NEUTROPHILS % (AUTO) 57.3 % (43.0-81.0); PLATELET COUNT (AUTO) 239 /CMM (150-450); RED BLOOD CELL COUNT(AUTO) 2.35 MIL/uL (4.0-5.2); WHITE BLOOD COUNT (AUTO) 6.7 K/uL (4.3-11.0)
[2019-10-13 06:46] LABS: CALCIUM, SERUM 7.6 mg/dL (8.5-10.1); CARBON DIOXIDE 25 mmol/L (21-32); CHLORIDE 103 mmol/L (98-107); CREATININE 0.5 mg/dL (0.6-1.3); GLUCOSE 81 mg/dL (74-106); POTASSIUM 3.6 mmol/L (3.5-5.1); SODIUM SERUM 136 mmol/L (136-145); UREA NITROGEN, BLOOD 14 mg/dL (7-18)
--- NOTE | 2019-10-13 07:12 | NUR ---
N CLOSING NOTES PATIENT SLEEPING IN BED, OBTUNDED, ON [facility] VENT SETTINGS ORDERED, TOLERATING WELL. NO SOB OR ACUTE DISTRESS NOTED AT THIS TIME. ON TELE MONITOR SR WITH HR 80'S. ON G-TUBE FEEDING, JEVITY @55ML/HR, MINIMAL RESIDUAL NOTED. RIGHT FEMORAL TLC INTACT AND PATENT, RUNNING NS @75 ML/HR, TOLERATING WELL. IV SITE ON LEFT HAND#22, FLUSHING AND PATENT, SALINE LOCKED. KEPT PT CLEAN, DRY, AND COMFORTABLE. ALL NEEDS ORDERS ATTENDED. SAFETY MEASURES IN PLACE; BED IN LOW AND LOCKED POSITION, CALL LIGHT WITHIN REACH, SIDE RAILS UP X2, HOB ELEVATED. MOST RECENT TEMP 99.6, KEPT COOLING MEASURES IN PLACE. ENDORSED TO AM RN FOR JOE.
--- NOTE | 2019-10-13 07:42 | NUR ---
RN NOTES RECEIVED PATIENT IN BED OBTUNDED NON-VERNAL ON MECHANICAL VENTILATOR SETTING ORDERED TOLERATING WELL. HOB ELEVATED. BREATHING NORMAL NO SOB. TRACH INTACT SERENITY CA ORDERED. CONTINUES ON GT FEEDING INTACT AND PATENT TOLERATED WELL ON JEVITY 1.5 @ 55ML/HR. NO RESIDUAL NOTED. LEFT HAND IV #22 INTACT FLUSHED WELL. BED IN LOWEST POSITION, LOCKED. BED ALARM ON. CALL LIGHT WITHIN REACH. WILL CONTINUES WITH PLAN OF CARE.
[2019-10-13 08:00] VITALS: BP 121/57
--- NOTE | 2019-10-13 08:20 | NUR ---
RN NOTES CALLED PHARMACY REGARDING NO NEW VANCO THROUGH LEVEL. LAST VANCO WAS 2 DAYS AGO. PER PHARMACY OK TO GIVE VANCO NOW.
[2019-10-13] MEDS: VANCOMYCIN HCL 0.75 GM in IV D5W 250 ML IV SCH (08:31)
[2019-10-13] MEDS: DOCUSATE SODIUM LIQ 100 MG/10 ML UDC GT SCH (08:31)
[2019-10-13] MEDS: PANTOPRAZOLE 40 MG VIAL IV SCH ×2 (08:32→17:15)
[2019-10-13] MEDS: LEVETIRACETAM SOL (5 ML) 100 MG/ML UDC GT SCH (08:32)
[2019-10-13] MEDS: ASCORBIC ACID 500 MG TABLET GT SCH (08:32)
[2019-10-13] MEDS: MULTIVITAMINS,THERAGRAN 1 UDTAB TABLET GT SCH (08:32)
[2019-10-13] MEDS: ZINC SULFATE 220 MG CAPSULE GT SCH (08:32)
[2019-10-13] MEDS: PROSOURCE / PROSTAT (PYXIS) 30 ML UDC GT SCH ×2 (08:34→17:10)
[2019-10-13] MEDS: Z GUARD REMEDY 2 OZ OINT TP SCH (08:38)
[2019-10-13] MEDS: SILVER SULFADIAZINE 50 GM JAR TP SCH (08:38)
[2019-10-13] MEDS: MUPIROCIN OINT 2% 22 GM TUBE TP SCH (09:00)
[2019-10-13] MEDS: ACETAMINOPHEN 325 MG TABLET MC PRN (11:33)
--- NOTE | 2019-10-13 11:33 | NUR ---
RN NOTES PATIENT NOTED WITH TEMP-99.2. PRN TYLENOL 650MG VIA GT GIVEN ORDERED. WILL CONT TO MONITOR.
[2019-10-13 12:00] VITALS: BP 117/64
--- NOTE | 2019-10-13 12:33 | NUR ---
RN NOTES PRN TYLENOL WAS EFFECTIVE TEMP LOWER TO 98.8.
--- NOTE | 2019-10-13 15:00 | NUR ---
RN NOTES CALLED PATIENT'S BROTHER RAFA NOTIFIED ABOUT PATIENT DISCHARGE.
[2019-10-13 16:00] VITALS: BP 109/59
[2019-10-13] MEDS: CEFTRIAXONE 1 G in IV D5W 50 ML IV SCH (17:09)
--- NOTE | 2019-10-13 19:43 | NUR ---
DIRECTOR OF VIDEO ANALYTICS NOTES PATIENT RESTING IN BED, OBTUNDED NON VERBAL , ON [facility] VENT SETTINGS ORDERED, TOLERATING WELL. BREATHING NORMAL NO SOB NOTED OR ACUTE DISTRESS NOTED AT THIS TIME. ON TELE MONITOR SR WITH HR 70'S. B/P- 115/62, HR- 74, D8ACH-36, TEMP-98.8EXIT CARE PACKET GIVEN DISCHARGE INSTRUCTIONS PROVIDED PATIENT UNABLE TO COMPREHEND. PATIENT UNABLE TO SIGN PAPER WORK SIGNED AND DATED BY TWO NURSES. REPORT GIVEN TO JANETTE. FAMILY NOTIFIED. IV INTACT, FLUSHED WELL. LEFT VIA AMBULANCE IN STABLE CONDITION TO ORD REHAB.
== END 2019-10-13 19:44 | DRG 871 ==
LOC: ER 12:56 → MED 14:05 → TELE 10-07 20:12 → MED 10-08 08:54 → ICU 10-09 13:52 → TELE1 10-09 17:34
PROVIDERS: ADMIT Nurse Practitioner Acute Care; ATTEND Internal Medicine
PROC: 30233N1 Transfusion of Nonautologous Red Blood Cells into Peripheral Vein, Percutaneous Approach (ICD-10-PCS; principal; 2019-10-06)
PROC: 06H033Z Insertion of Infusion Device into Inferior Vena Cava, Percutaneous Approach (ICD-10-PCS; 2019-10-10)
PROC: B549ZZA Ultrasonography of Inferior Vena Cava, Guidance (ICD-10-PCS; 2019-10-10)
DX: A41.9 Sepsis, unspecified organism (principal); L89.024 Pressure ulcer of left elbow, stage 4; L89.513 Pressure ulcer of right ankle, stage 3; G93.41 Metabolic encephalopathy; R53.2 Functional quadriplegia; J96.10 Chronic respiratory failure, unspecified whether with hypoxia or hypercapnia; Z99.11 Dependence on respirator [ventilator] status; J96.11 Chronic respiratory failure with hypoxia; N39.0 Urinary tract infection, site not specified; I69.351 Hemiplegia and hemiparesis following cerebral infarction affecting right dominant side; E87.2 Acidosis; D68.69 Other thrombophilia; R40.3 Persistent vegetative state; K21.9 Gastro-esophageal reflux disease without esophagitis; Z93.1 Gastrostomy status; D63.8 Anemia in other chronic diseases classified elsewhere; Z93.0 Tracheostomy status; E03.9 Hypothyroidism, unspecified; E78.5 Hyperlipidemia, unspecified; M20.41 Other hammer toe(s) (acquired), right foot; M20.42 Other hammer toe(s) (acquired), left foot; I10 Essential (primary) hypertension; G20 Parkinson's disease; M21.171 Varus deformity, not elsewhere classified, right ankle; R13.10 Dysphagia, unspecified; F20.9 Schizophrenia, unspecified; M24.542 Contracture, left hand; M24.541 Contracture, right hand; M24.571 Contracture, right ankle; M24.572 Contracture, left ankle; Z22.322 Carrier or suspected carrier of Methicillin resistant Staphylococcus aureus; B96.4 Proteus (mirabilis) (morganii) as the cause of diseases classified elsewhere; B96.89 Other specified bacterial agents as the cause of diseases classified elsewhere; F02.80 Dementia in other diseases classified elsewhere, unspecified severity, without behavioral disturbance, psychotic disturbance, mood disturbance, and anxiety; D64.9 Anemia, unspecified; G58.8 Other specified mononeuropathies
CPT/HCPCS: 31720; 36415; 36600; 71045-TC; 74018; 80048-TC; 80076-TC; 80202-TC; 81000-TC; 82272-TC; 82803-TC; 83540-TC; 83605-TC; 83690-TC; 83735-TC; 84100-TC; 85025-TC; 85730-TC; 86850-TC; 86921-TC; 87040-TC; 87081-TC; 87086-TC; 87186-TC; 94002-TC; 94003-TC; 94640-TC; 94760-TC; 94762-TC; 94799-TC; 99082-TC; A4623; A6403; C1751; C9113; G0378; J0696; J1953; J2060; J2185; J2405; J3370; J7030; J7050; J7060; P9016-BL

== ENCOUNTER 2020-09-19 10:58 | Emergency (ER) | payer MEDICARE, OTHER ==
[~2020-09-19] VITALS: Ht 139.7 cm; Wt 56.7 kg
[~2020-09-19 10:58] MED LIST changes: +ACET160S GT; -CALC1TAB30 PO; -CARB-93 GT; -CRAN3875 PO; +ENOX30DI SUBCUT; +FAMO20TA8 PO; -FERR325T23 PO; -LACT-209; +LACT1CAP61 GT; +LEVE100S GT; +LORA2VIA11 IM; +NUTR150016 GT; -NUTR1PAC14 GT; -SENN-18 GT; +SILV20CR13 TP; -SODI50DR PO; -TRAM50TA2 PO; -VALP250S3 GT; +ZINC1CAP3 GT
--- NOTE | 2020-09-19 11:15 | NUR ---
ERIKA Claros professional unit 315 From [facility], H/H 6.02/06. On vent and trach, connected to the monitor and pulse ox, kept comfortable, will continue to monitor accordingly.
[2020-09-19 11:52] LABS: BASOPHILS # (AUTO) 0.1 /CMM (0.0-0.2); BASOPHILS % (AUTO) 0.8 % (0.0-2.0); EOSINOPHILS % (AUTO) 7.3 % (0.0-6.0); HEMATOCRIT 24 % (33-45); HEMOGLOBIN 7.6 g/dL (11.5-14.8); LYMPHOCYTES # (AUTO) 2.3 /CMM (0.8-4.8); LYMPHOCYTES % (AUTO) 25.8 % (20.0-44.0); MEAN CORPUSCULAR HGB CONC 32 g/dl (31.0-36.0); MEAN CORPUSCULAR VOLUME 95 fL (82-100); MONOCYTES # (AUTO) 0.7 /CMM (0.1-1.30); MONOCYTES % (AUTO) 7.4 % (2.0-12.0); NEUTROPHILS # (AUTO) 5.3 /CMM (1.8-8.9); NEUTROPHILS % (AUTO) 58.7 % (43.0-81.0); PLATELET COUNT (AUTO) 189 /CMM (150-450); RED BLOOD CELL COUNT(AUTO) 2.47 MIL/uL (4.0-5.2)
[2020-09-19 12:03] LABS: CALCIUM, SERUM 8.6 mg/dL (8.5-10.1); POTASSIUM 3.9 mmol/L (3.5-5.1)
[2020-09-19] MEDS ORDERED: IV NS 0.9% 1,000 ML BAG IV ONE (12:30)
[2020-09-19] MEDS ORDERED: MULT9LIQ5 GT (12:58)
[2020-09-19] MEDS ORDERED: ASCO500T10 GT (12:58)
[2020-09-19] MEDS ORDERED: BISA10SU11 RC (12:58)
[2020-09-19] MEDS ORDERED: IPRA12.9 IH ×2 (12:58)
[2020-09-19] MEDS ORDERED: CHLO473M5 MM (12:58)
[2020-09-19] MEDS ORDERED: FERR300L GT (12:58)
[2020-09-19] MEDS ORDERED: ALBU8.5H8 IH ×2 (12:58)
[2020-09-19] MEDS ORDERED: AMIN30LI2 GT (12:58)
[2020-09-19] MEDS ORDERED: LORA-259 GT (12:59)
[2020-09-19] MEDS ORDERED: SODI1TAB66 GT (12:59)
[2020-09-19] MEDS ORDERED: NITR50CA4 GT (12:59)
[2020-09-19] MEDS ORDERED: SENN-261 GT (12:59)
[2020-09-19] MEDS ORDERED: CALC1TAB30 GT (12:59)
[2020-09-19] MEDS ORDERED: CRAN3875 GT (12:59)
[2020-09-19] MEDS ORDERED: FOLI0.4T2 GT (12:59)
[2020-09-19] MEDS ORDERED: VALP250S4 GT (12:59)
[2020-09-19] MEDS ORDERED: TRAM50TA2 GT (12:59)
[2020-09-19] MEDS ORDERED: OMEP20CA15 GT (12:59)
[2020-09-19] MEDS ORDERED: LACT10SO3 GT (12:59)
[2020-09-19] MEDS ORDERED: HYDR-4075 GT (12:59)
[2020-09-19] MEDS ORDERED: CARB-93 GT (12:59)
--- NOTE | 2020-09-19 13:34 | NUR ---
[facility] ETA 1500
--- NOTE | 2020-09-19 13:52 | NUR ---
CALLED [facility], FOR RT UNIT ETA [id number]
[2020-09-19 15:29] VITALS: BP 123/65
--- NOTE | 2020-09-19 15:30 | NUR ---
discharged patient back to SNF accompanied by RT and 2 emt in no distress.
== END 2020-09-19 15:30 ==
LOC: ER 11:01
DX: E87.0 Hyperosmolality and hypernatremia (principal); I10 Essential (primary) hypertension; E03.9 Hypothyroidism, unspecified; E78.5 Hyperlipidemia, unspecified; D63.8 Anemia in other chronic diseases classified elsewhere; Z86.73 Personal history of transient ischemic attack (TIA), and cerebral infarction without residual deficits; Z93.1 Gastrostomy status; Z88.5 Allergy status to narcotic agent; Z79.899 Other long term (current) drug therapy
CPT/HCPCS: 36415; 80048; 85025; 86850; 96360; 99283; J7030

== ENCOUNTER 2020-10-02 07:00 | Inpatient (IN) | payer MEDICARE, OTHER ==
[2020-10-02] VITALS (45 sets, daily range): BP systolic 70–153; BP diastolic 35–71
[~2020-10-02] VITALS: Ht 134.6 cm; Wt 62.8 kg
[~2020-10-02 07:00] MED LIST changes: -ALBU2.5V13 IH; +ALBU8.5H8 IH; +AMIN30LI2 GT; -ASCO500P18 PO; +ASCO500T10 GT; +CALC1TAB30 GT; +CARB-93 GT; +CHLO473M5 MM; +CRAN3875 GT; -ENOX30DI SUBCUT; -FAMO20TA8 PO; +FERR300L GT; +FOLI0.4T6 GT; +HYDR-4075 GT; +IPRA12.9 IH; +LACT10SO3 GT; -LACT1CAP61 GT; +LORA-259 GT; -MULT-865 GT; +MULT9LIQ5 GT; +NITR50CA4 GT; +OMEP20CA15 GT; -PROT946L GT; +SENN-261 GT; -SILV20CR13 TP; +SODI1TAB66 GT; +TRAM50TA2 GT; +VALP250S4 GT
[2020-10-02] MEDS ORDERED: DEXAMETHASONE SOD PHOSPHATE 10 MG/ML VIAL ONE (07:13)
--- NOTE | 2020-10-02 07:23 | NUR ---
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 02 @ 91%. connected to the monitor and pulse ox. will continue to monitor accordingly.
--- NOTE | 2020-10-02 07:28 | NUR ---
rt note patient rec'd from [facility]s trach tube size portex 8. vent settings per facility. no sob noted at this time. will continue to monitor.
[2020-10-02] MEDS ORDERED: DEXAMETHASONE SOD PHOSPHATE 10 MG/ML VIAL IV ONE (07:30)
[2020-10-02] MEDS ORDERED: VANCOMYCIN 1 GM in IV D5W 250 ML IV ONE ×2 (07:30→10:00)
[2020-10-02] MEDS ORDERED: IV NS 0.9% 1,000 ML BAG IV ONE (07:30)
[2020-10-02] MEDS ORDERED: MEROPENEM 1 G in IV NS 0.9% 100 ML IV ONE (07:30)
[2020-10-02] MEDS ORDERED: NOREPINEPHRINE 8 MG in IV NS 0.9% 242 ML IV PRN ×2 (07:30→13:30)
--- NOTE | 2020-10-02 07:40 | NUR ---
MOVE SHEET SUBMITTED AND CALLED FOR ICU BED.
[2020-10-02] MEDS ORDERED: ACET-2605 GT (07:44)
[2020-10-02] MEDS ORDERED: MERO500V23 IV (07:44)
[2020-10-02] MEDS ORDERED: VANC750V IV (07:44)
--- NOTE | 2020-10-02 08:06 | NUR ---
merrem given at the facility around 6am MD aware.
--- NOTE | 2020-10-02 08:09 | NUR ---
covid 19 swab collected and sent to lab
[2020-10-02 09:49] LABS: CALCIUM, SERUM 7.8 mg/dL (8.5-10.1); CARBON DIOXIDE 16 mmol/L (21-32); CHLORIDE 100 mmol/L (98-107); CREATININE 2.7 mg/dL (0.6-1.3); GLUCOSE 54 mg/dL (74-106); SODIUM SERUM 130 mmol/L (136-145); UREA NITROGEN, BLOOD 77 mg/dL (7-18)
[2020-10-02 09:54] LABS: POTASSIUM 2.6 mmol/L (3.5-5.1)
[2020-10-02 09:55] LABS: ALKALINE PHOSPHATASE 196 U/L (46-116); ASPARTATE AMINOTRANSFERASE 51 U/L (15-37); BILIRUBIN,DIRECT 0.2 mg/dL (0.0-0.2); BILIRUBIN,TOTAL 0.4 mg/dL (0.2-1.0); TOTAL PROTEIN, SERUM 5.3 g/dL (6.4-8.2)
--- NOTE | 2020-10-02 09:55 | NUR ---
LAB CALLED POTASSIUM 2.6
--- NOTE | 2020-10-02 09:59 | NUR ---
[facility] CALLED DISTANCE LEARNING COORDINATOR PAGED.
[2020-10-02] MEDS: POTASSIUM CL. PREMIX PERIPHER. 50 ML IV SCH ×4 (10:00→13:40)
[2020-10-02] MEDS ORDERED: HEPARIN SODIUM, PORCINE 5000 UNITS/1 ML VIAL SQ SCH (10:00)
[2020-10-02 10:06] LABS: ALANINE AMINOTRANSFERASE < 6 U/L (12-78)
[2020-10-02 10:13] LABS: ALBUMIN 0.8 g/dL (3.4-5.0)
[2020-10-02] MEDS ORDERED: POTASSIUM CL. PREMIX PERIPHER. 200 ML ONE (10:14)
--- NOTE | 2020-10-02 11:05 | NUR ---
room 257
[2020-10-02 11:09] LABS: ABG BASE EXCESS -18.6 mmol/L; ABG OXYGEN SATURATION 77.4 % (92.0-98.5); ABG PCO2 49.1 mmHg (35.0-45.0); ABG PO2 58.3 mmHg (75.0-100.0); AaDO2 315.5 mmHg; MetHb 0.6 % (0.0-1.5); O2Hb 76.9 % (94.0-97.0); SITE, ABG Left Brachial; VENT MODE, BG AC 12 350 60% +0
--- NOTE | 2020-10-02 11:28 | NUR ---
RECEIVED CALL FROM LAB. PATIENT IS COVID NEGATIVE.
[2020-10-02 11:38] LABS: BASOPHILS # (AUTO) 0.1 /CMM (0.0-0.2); BASOPHILS % (AUTO) 0.2 % (0.0-2.0); EOSINOPHILS % (AUTO) 0.2 % (0.0-6.0); HEMATOCRIT 27 % (33-45); HEMOGLOBIN 8.1 g/dL (11.5-14.8); LYMPHOCYTES # (AUTO) 0.6 /CMM (0.8-4.8); LYMPHOCYTES % (AUTO) 2.7 % (20.0-44.0); MEAN CORPUSCULAR HGB CONC 30 g/dl (31.0-36.0); MEAN CORPUSCULAR VOLUME 101 fL (82-100); MONOCYTES # (AUTO) 0.2 /CMM (0.1-1.30); MONOCYTES % (AUTO) 0.8 % (2.0-12.0); NEUTROPHILS # (AUTO) 21.8 /CMM (1.8-8.9); NEUTROPHILS % (AUTO) 96.1 % (43.0-81.0); RED BLOOD CELL COUNT(AUTO) 2.65 MIL/uL (4.0-5.2); WHITE BLOOD COUNT (AUTO) 22.7 K/uL (4.3-11.0)
--- NOTE | 2020-10-02 11:45 | NUR ---
REPORT GIVEN TO JOHANNE LEROY TO RESUME CARE.
--- NOTE | 2020-10-02 12:03 | NUR ---
PATIENT TRANSFERRED TO ROOM 257. RN AT BEDSIDE TO CONTINUE CARE. POTASSIUM INFUSING DURING TRANSPORT.
[2020-10-02 12:14] LABS: BAND % (MANUAL) 9 % (0.0-5.0); LYMPHOCYTES % (MANUAL) 3 % (16-48); METAMYELOCYTES % 1 % (0-0); MONOCYTES % (MANUAL) 1 % (0-11.0); MYELOCYTES % 1 % (0-0); NEUTROPHILS % (MANUAL) 85 (42-76)
[2020-10-02 12:15] LABS: PLATELET COUNT (AUTO) 25 /CMM (150-450)
[2020-10-02] MEDS ORDERED: Z GUARD REMEDY 2 OZ OINT TP PRN (13:00)
[2020-10-02] MEDS ORDERED: ZOLPIDEM TARTRATE 5 MG TABLET PO PRN (13:00)
[2020-10-02] MEDS ORDERED: ONDANSETRON HCL/PF 4 MG/2 ML VIAL IVP PRN (13:00)
[2020-10-02] MEDS ORDERED: SODIUM BICARBONATE SYR 50 MEQ/50 ML DISP.SYRIN IV ONE (13:00)
[2020-10-02] MEDS ORDERED: ACETAMINOPHEN 325 MG TABLET PO PRN (13:00)
[2020-10-02] MEDS: IV NS 0.9% 1,000 ML IV PRN ×2 (13:02→22:59)
--- NOTE | 2020-10-02 14:00 | NUR ---
PT RECEIVED FROM ED ON TRACH VENT, NO RESPIRATORY DISTRESS. PT HAS MULTIPLE SKIN ISSUES, PICTURES PLACED IN CHART, WOUND CONSULT TO BE ORDERED. PT HAS RASHAWN PICC LINE NO BLOOD RETURN, NS RUNNING AT 100 ML/HR, LEVO RUNNING AT O.4. PT HYPOTHERMIC WITH RECTAL TEMP 93, BAIRHUGGER APPLIED. PT HAS GT ACCESS CLAMPED. TEMP NOTED TO BE SLOWLY INCREASING. ALL SAFETY MEASURES IN PLACE. WILL CONT TO MONITOR
[2020-10-02 14:08] LABS: ABG BASE EXCESS -14.3 mmol/L; ABG OXYGEN SATURATION 99.1 % (92.0-98.5); ABG PCO2 31.7 mmHg (35.0-45.0); ABG PO2 187.7 mmHg (75.0-100.0); AaDO2 493.6 mmHg; COHb 0.3 % (0.5-1.5); MetHb 0.1 % (0.0-1.5); O2Hb 98.7 % (94.0-97.0); SITE, ABG Left Radial
--- NOTE | 2020-10-02 18:00 | NUR ---
CRITICAL LAB OF GLUCOSE 31 REPORTED BY LAB. ILIANA HERNANDEZ NOTIFIED, NPO SLIDING SCALE ORDERED, D50 GIVEN PER PROTOCOL. PER ILIANA HERNANDEZ, NO NEED TO ADJUST FLUIDS, OK TO RESUME TF. DUE TO PATIENT HAVING DIFFERENT TUBE FEEDING AT THE [facility], WILL START JEVITY 1.2 AT 35 ML/HR WITH AN FNS CONSULT FOR THE MORNING.
[2020-10-02 18:09] LABS: CALCIUM, SERUM 7.3 mg/dL (8.5-10.1); CARBON DIOXIDE 14 mmol/L (21-32); CHLORIDE 101 mmol/L (98-107); CREATININE 2.6 mg/dL (0.6-1.3); POTASSIUM 3.9 mmol/L (3.5-5.1); SODIUM SERUM 131 mmol/L (136-145); UREA NITROGEN, BLOOD 74 mg/dL (7-18)
[2020-10-02 18:11] LABS: GLUCOSE 31 mg/dL (74-106)
[2020-10-02] MEDS ORDERED: DEXTROSE 50%-WATER 50 ML DISP.SYRIN IV PRN (18:30)
[2020-10-02 18:57] LABS: IRON, SERUM 74 ug/dl (50-175); TOTAL IRON BINDING CAPACITY 69 ug/dl (250-450)
[2020-10-02] MEDS ORDERED: JEVITY 1.2 CAL 1,000 ML BOTTLE NG PRN (19:00)
--- NOTE | 2020-10-02 19:00 | NUR ---
PT TEMP NOW 96 AND RISING, BLOOD SUGAR RECHECKED AT 123, ENDORSED TO ONCOMING RN TO START TUBE FEEDINGS. ALL SAFETY MEASURES IN PLACE. REPORT GIVEN TO SARI FOR JOE
--- NOTE | 2020-10-02 19:46 | NUR ---
AUTOCAD DRAFTSMAN NOTES PATIENT CURRENTLY ON LEVOPHED DRIP FOR BP SUPPORT DUE TO HYPOTENSION. HOWEVER, HR IS ELEVATED, ST 120-[address] BLUMOTIFIED, WITH ORDER TO CHANGE PRESSOR SUPPORT TO NEOSYNEPHRINE INSTEAD TO HELP WITH HR. WILL CARRY OUT NEW ORDERS
[2020-10-02] MEDS: MEROPENEM 500 MG in IV NS 0.9% 50 ML IV SCH (20:06)
[2020-10-02] MEDS: PHENYLEPHRINE 100 MG in IV NS 0.9% 240 ML IV PRN (20:25)
[2020-10-02 21:34] LABS: FERRITIN 49365 ng/mL (8-388)
[2020-10-03] VITALS (98 sets, daily range): BP systolic 47–144; BP diastolic 20–85
[2020-10-03] MEDS: BLOOD SUGAR DIAGNOSTIC 1 EACH STRIP IN SCH ×4 (00:39→18:44)
[2020-10-03] MEDS: NOREPINEPHRINE 32 MG in IV NS 0.9% 218 ML IV PRN ×2 (01:02→22:51)
[2020-10-03] MEDS: PHENYLEPHRINE 100 MG in IV NS 0.9% 240 ML IV PRN ×3 (04:52→22:50)
[2020-10-03 05:12] LABS: BASOPHILS % (AUTO) 0.1 % (0.0-2.0); EOSINOPHILS % (AUTO) 0.2 % (0.0-6.0); HEMATOCRIT 26 % (33-45); LYMPHOCYTES # (AUTO) 0.8 /CMM (0.8-4.8); LYMPHOCYTES % (AUTO) 2.5 % (20.0-44.0); MEAN CORPUSCULAR HGB CONC 31 g/dl (31.0-36.0); MEAN CORPUSCULAR VOLUME 95 fL (82-100); MONOCYTES # (AUTO) 0.1 /CMM (0.1-1.30); MONOCYTES % (AUTO) 0.4 % (2.0-12.0); NEUTROPHILS # (AUTO) 30.4 /CMM (1.8-8.9); NEUTROPHILS % (AUTO) 96.8 % (43.0-81.0); RED BLOOD CELL COUNT(AUTO) 2.69 MIL/uL (4.0-5.2)
[2020-10-03 05:26] LABS: PLATELET COUNT (AUTO) 29 /CMM (150-450); WHITE BLOOD COUNT (AUTO) 31.4 K/uL (4.3-11.0)
[2020-10-03 05:27] LABS: CARBON DIOXIDE 13 mmol/L (21-32); CHLORIDE 101 mmol/L (98-107); CREATININE 2.6 mg/dL (0.6-1.3); GLUCOSE 77 mg/dL (74-106); PHOSPHORUS 3.7 mg/dL (2.5-4.9); POTASSIUM 3.8 mmol/L (3.5-5.1); SODIUM SERUM 130 mmol/L (136-145); UREA NITROGEN, BLOOD 73 mg/dL (7-18)
[2020-10-03 05:36] LABS: CHOLESTEROL 50 mg/dL (<200); LDL 13 mg/dL (0-99); TRIGLYCERIDES 93 mg/dL (30-150)
[2020-10-03 05:47] LABS: HDL CHOLESTEROL < 10 mg/dL (40-60)
[2020-10-03 06:12] LABS: BAND % (MANUAL) 7 % (0.0-5.0); LYMPHOCYTES % (MANUAL) 3 % (16-48); MONOCYTES % (MANUAL) 9 % (0-11.0); NEUTROPHILS % (MANUAL) 81 (42-76)
--- NOTE | 2020-10-03 07:55 | NUR ---
RT PATIENT REC'D TRACHED ON [facility] VENT WITH ORDERED SETTINGS SERENITY WELL. VENT ALARMS CHECKED + AUDIBLE. TRACH SECURE AND IN PROPER POSITION. AMBU BAG AT [facility]. AIRWAY CHECKED AND PATENT. Addendum: 10/03/20 at 1450 by SUSAN LACKEY RT Amended: Links added.
[2020-10-03 08:09] LABS: ABG BASE EXCESS -10.7 mmol/L; ABG OXYGEN SATURATION 94.3 % (92.0-98.5); ABG PH 7.365 (7.350-7.450); ABG PO2 73.3 mmHg (75.0-100.0); AaDO2 184.3 mmHg; COHb 0.9 % (0.5-1.5); MetHb 0.1 % (0.0-1.5); O2Hb 93.4 % (94.0-97.0); SITE, ABG Right Radial
--- NOTE | 2020-10-03 08:10 | NUR ---
WOUND CARE CONSULT: REVIEWED CHART, NURSING DOCUMENTATION ANDPHOTOS WHICH INDICATE MULTIPLE WOUNDS PRESENT ON ADMISSION INCLUDING ABDOMINAL WOUND, SACRAL INTACT DEEP TISSUE INJURY, LEFT KNEE WOUND AND FOOT WOUNDS. DR DOVER AND DR PICHARDO NOTIFIED OF SURGICAL AND DPM CONSULTS. PT IS ON OCALA ISOFLEX LOW AIRLOSS BED. IN AGREEMENT WITH PLAN OF CARE. DISCUSSED SKIN PROTECTION WITH NURSING STAFF.
[2020-10-03] MEDS: DEXAMETHASONE SOD PHOSPHATE 10 MG/ML VIAL IV SCH (08:18)
[2020-10-03] MEDS: MEROPENEM 500 MG in IV NS 0.9% 50 ML IV SCH ×2 (08:18→21:34)
[2020-10-03] MEDS ORDERED: MAGNESIUM HYDROXIDE 30 ML UDC GT PRN (09:30)
[2020-10-03] MEDS ORDERED: LORAZEPAM 1 MG TABLET GT PRN (09:30)
[2020-10-03] MEDS ORDERED: ALBUTEROL SULFATE INH 18 GM HFA.AER.AD IH PRN (09:30)
[2020-10-03] MEDS ORDERED: hydrALAZINE HCL 10 MG TABLET GT PRN (09:30)
[2020-10-03] MEDS ORDERED: BISACODYL SUPP (10 MG) 10 MG/SUPP.RECT SUPP.RECT RC PRN (09:30)
[2020-10-03] MEDS ORDERED: ALBUTEROL FS 2.5 MG/0.5 ML VIAL.NEB NEB PRN (09:30)
[2020-10-03] MEDS: CARBIDOPA/LEVODOPA 25/100 MG 1 UDTAB GT SCH ×3 (09:42→17:28)
[2020-10-03] MEDS: LEVETIRACETAM SOL (5 ML) 100 MG/ML UDC GT SCH ×2 (09:42→21:33)
[2020-10-03] MEDS ORDERED: IV D5/0.45 NACL 1,000 ML IV ONE (11:00)
--- NOTE | 2020-10-03 11:00 | NUR ---
MD SANCHEZ NOTIFIED OF STOMA MOST LIKELY FROM PREVIOUS G-TUBE THAT IS LEAKING STOMACH CONTENTS. MD SANCHEZ STATES HE WILL F/U WITH SURGERY. IVF CHANGED FROM NS TO D51/2 NS AT 80 ML/HR, TF HELD.
[2020-10-03] MEDS ORDERED: ALBUTEROL SULFATE INH 18 GM HFA.AER.AD IH SCH (12:00)
[2020-10-03] MEDS: VALPROIC ACID 250 MG/5 ML UDC GT SCH ×2 (12:17→21:33)
[2020-10-03] MEDS: ALBUTEROL FS 2.5 MG/0.5 ML VIAL.NEB NEB SCH ×2 (13:30→19:30)
--- NOTE | 2020-10-03 16:00 | NUR ---
MD GODFREY NOTIFIED OF PT LEAKING STOMA FROM PREVIOUS PEG TUBE, STATES HE WILL LOOK INTO THE CASE, BUT DID NOT HEAR FROM MD SANCHEZ.
[2020-10-03] MEDS: SENNOSIDES 8.6 MG TABLET GT SCH (17:28)
[2020-10-03] MEDS: DOCUSATE SODIUM LIQ 100 MG/10 ML UDC GT SCH (17:28)
[2020-10-03] MEDS: ASCORBIC ACID 500 MG TABLET GT SCH (17:28)
[2020-10-03] MEDS: ZINC SULFATE 220 MG CAPSULE GT SCH (17:28)
[2020-10-03] MEDS: FERROUS SULFATE UDC 300 MG/5 ML UDC GT SCH (17:30)
--- NOTE | 2020-10-03 18:00 | NUR ---
DICUSSED WITH CONSERVATOR OVER THE PHONE; FORMS FOR DNR FAXXED OVER, TO BE SIGNED BY MD, THEN FAXXED BACK TO CONSERVATOR, WHO WILL SUBMIT FORMS FOR THE COURT. CONSERVATOR STATES THAT PROCESS TAKES APPROXIMATELY 1 WEEK, AND INCLUDES PROCEDURES THAT REQUIRE INFORMED CONSENT. CONSENT FOR SERIAL WOUND DEBRIDEMENT ORDERED, WILL ENDORSE TO ONCOMING RN TO HAVE MD SIGN FORMS
[2020-10-03] MEDS ORDERED: MEROPENEM 500 MG VIAL IV SCH (21:00)
[2020-10-03] MEDS: TRAMADOL HCL 50 MG TABLET GT SCH (21:34)
[2020-10-03] MEDS: VANCOMYCIN HCL 0.75 GM in IV D5W 250 ML IV SCH (22:48)
[2020-10-04] VITALS (81 sets, daily range): BP systolic 101–151; BP diastolic 53–85
[2020-10-04] MEDS: BLOOD SUGAR DIAGNOSTIC 1 EACH STRIP IN SCH ×5 (00:32→23:27)
[2020-10-04] MEDS: INSULIN REGULAR, HUMAN 100 UNIT/ML 3 ML VIAL SQ PRN (00:34)
[2020-10-04] MEDS: IV D5/0.45 NACL 1,000 ML IV PRN ×2 (00:49→13:46)
[2020-10-04] MEDS: ALBUTEROL FS 2.5 MG/0.5 ML VIAL.NEB NEB SCH ×4 (01:30→19:55)
[2020-10-04 04:49] LABS: CALCIUM, SERUM 6.3 mg/dL (8.5-10.1); CARBON DIOXIDE 13 mmol/L (21-32); CHLORIDE 100 mmol/L (98-107); CREATININE 2.6 mg/dL (0.6-1.3); GLUCOSE 122 mg/dL (74-106); POTASSIUM 3.4 mmol/L (3.5-5.1); SODIUM SERUM 129 mmol/L (136-145); UREA NITROGEN, BLOOD 77 mg/dL (7-18)
[2020-10-04] MEDS: VALPROIC ACID 250 MG/5 ML UDC GT SCH ×3 (06:41→20:28)
[2020-10-04] MEDS: PHENYLEPHRINE 100 MG in IV NS 0.9% 240 ML IV PRN ×2 (08:19→19:38)
[2020-10-04] MEDS: SENNOSIDES 8.6 MG TABLET GT SCH ×2 (08:32→17:28)
[2020-10-04] MEDS: CARBIDOPA/LEVODOPA 25/100 MG 1 UDTAB GT SCH ×3 (08:33→17:28)
[2020-10-04] MEDS: TRAMADOL HCL 50 MG TABLET GT SCH ×2 (08:33→20:28)
[2020-10-04] MEDS: DEXAMETHASONE SOD PHOSPHATE 10 MG/ML VIAL IV SCH (08:34)
[2020-10-04] MEDS: LEVETIRACETAM SOL (5 ML) 100 MG/ML UDC GT SCH ×2 (08:35→20:28)
[2020-10-04] MEDS: MEROPENEM 500 MG in IV NS 0.9% 50 ML IV SCH ×2 (08:49→20:28)
[2020-10-04 09:10] LABS: ABG BASE EXCESS -11.4 mmol/L; ABG OXYGEN SATURATION 96.3 % (92.0-98.5); ABG PH 7.341 (7.350-7.450); ABG PO2 89.4 mmHg (75.0-100.0); AaDO2 167.1 mmHg; MetHb 0.3 % (0.0-1.5); PEEP,BG 5 cm H2O; SITE, ABG Right Brachial; VT, ABG 500 mL
[2020-10-04] MEDS: THERAHONEY GEL 1.5 OZ TUBE TP SCH (09:11)
[2020-10-04 11:54] LABS: BASOPHILS # (AUTO) 0.1 /CMM (0.0-0.2); BASOPHILS % (AUTO) 0.3 % (0.0-2.0)
[2020-10-04 12:04] LABS: EOSINOPHILS % (AUTO) 0.1 % (0.0-6.0); HEMATOCRIT 24 % (33-45); HEMOGLOBIN 7.3 g/dL (11.5-14.8); LYMPHOCYTES # (AUTO) 1.4 /CMM (0.8-4.8); LYMPHOCYTES % (AUTO) 7.1 % (20.0-44.0); MEAN CORPUSCULAR HGB CONC 31 g/dl (31.0-36.0); MEAN CORPUSCULAR VOLUME 96 fL (82-100); MONOCYTES # (AUTO) 0.3 /CMM (0.1-1.30); MONOCYTES % (AUTO) 1.4 % (2.0-12.0); NEUTROPHILS # (AUTO) 18.4 /CMM (1.8-8.9); NEUTROPHILS % (AUTO) 91.1 % (43.0-81.0); RED BLOOD CELL COUNT(AUTO) 2.44 MIL/uL (4.0-5.2); WHITE BLOOD COUNT (AUTO) 20.2 K/uL (4.3-11.0)
[2020-10-04 12:08] LABS: PLATELET COUNT (AUTO) 18 /CMM (150-450)
[2020-10-04] MEDS: HYDROCORTISONE SOD SUCCINATE 100 MG/2 ML VIAL IV SCH ×2 (12:37→20:28)
--- NOTE | 2020-10-04 12:45 | NUR ---
RN NOTES DR SANCHEZ MADE AWARE OF PLATELET RESULT OF 18 WITH NO NEW ORDERS AT THIS TIME.
[2020-10-04 13:19] LABS: LYMPHOCYTES % (MANUAL) 9 % (16-48); METAMYELOCYTES % 1 % (0-0); MONOCYTES % (MANUAL) 4 % (0-11.0); NEUTROPHILS % (MANUAL) 86 (42-76)
[2020-10-04] MEDS: ASCORBIC ACID 500 MG TABLET GT SCH (17:28)
[2020-10-04] MEDS: DOCUSATE SODIUM LIQ 100 MG/10 ML UDC GT SCH (17:28)
[2020-10-04] MEDS: FERROUS SULFATE UDC 300 MG/5 ML UDC GT SCH (17:28)
[2020-10-04] MEDS: ZINC SULFATE 220 MG CAPSULE GT SCH (17:29)
--- NOTE | 2020-10-04 18:45 | NUR ---
AWAITING FOR MD TO COMPLETE CONSENT FORMS, TO BE FAXED TO CONSERVATOR AND WILL BE SENT BY CONSERVATOR TO COURT FOR APPROVAL. SUSHIL, OLEKSANDR NASH AWARE, AND WILL FOLLOW UP TO SNF AND SUPERVISOR [employer] FOR ASSISTANCE IN OBTAINING CONSENT.
--- NOTE | 2020-10-04 19:20 | NUR ---
RN NOTE RECEIVED PT IN BED IN SEMI MARROQUIN'S POSITION. PT IS OBTUNDED BUT PHYSICALLY RESPONSIVE TO VEBAL AND TACTILE STIMULI. WITH TRACH CONNECTED TO VENT. TOLERATING VENT SETTINGS PRESCRIBED. NO SIGNS OF PAIN OR DISCOMFORT. VITAL SIGNS STABLE VIA BEDSIDE MONITOR. BARE HUGGER ON LOW SETTING FOR TEMPERATURE SUPPORT. SR ON THE LUBRICATION EQUIPMENT SERVICER. GT CLAMPED. FLUSHING WELL. CURRENTLY NPO STATUS EXCEPT FOR MEDS. GALINDO CATHETER PATENT AND IN PLACE DRAINING URINE VIA GRAVITY. URINE NOTED WITH DARK CLOUDY OUTPUT. RIGHT UPPER ARM PICC LINE PATENT AND INTACT. FLUSHED WITHOUT COMPLICATIONS NOTED AT SITES. CURRENTLY WITH D5 1/2 NS @ 80CC/HOUR RUNNING ORDERED. ALARMS ON AND AUDIBLE, VENT PLUGGED INTO RED OUTLET, AMBU BAG AT BEDSIDE, SAFETY MEASURES IN PLACE PER PROTOCOL, BED ALARM ON, BED LOCKED AND IN LOW POSITION, SIDE RAILS UP X 2, WILL MONITOR PATIENT AND CARRY OUT ACTIVE MD ORDERS
[2020-10-04] MEDS: IV NS 0.9% 250 ML IV PRN (20:56)
[2020-10-05] VITALS (101 sets, daily range): BP systolic 81–142; BP diastolic 40–75
--- NOTE | 2020-10-05 | NUR ---
RN NOTE COMPLETE BED BATH/AM CARE COMPLETE. PT TOLERATED WELL. VITAL SIGNS STABLE VIA BEDSIDE MONITOR. WILL CONTINUE TO MONITOR.
--- NOTE | 2020-10-05 00:39 | NUR ---
RN NOTE RECEIVED ALERT FOR BLOOD CULTURES POSITIVE FOR GRAM (-) RODS. PT IS ALREADY ON VANCOMYCIN AND MERREM IV. DR. ANTONY NOTIFIED WITH NO NEW ORDERS.
[2020-10-05] MEDS: IV D5/0.45 NACL 1,000 ML IV PRN ×2 (01:32→15:46)
[2020-10-05] MEDS: ALBUTEROL FS 2.5 MG/0.5 ML VIAL.NEB NEB SCH ×4 (01:39→19:48)
[2020-10-05] MEDS: HYDROCORTISONE SOD SUCCINATE 100 MG/2 ML VIAL IV SCH ×3 (04:29→20:16)
[2020-10-05] MEDS: VALPROIC ACID 250 MG/5 ML UDC GT SCH ×3 (04:29→20:17)
[2020-10-05 05:06] LABS: CALCIUM, SERUM 7.1 mg/dL (8.5-10.1); CARBON DIOXIDE 13 mmol/L (21-32); CHLORIDE 101 mmol/L (98-107); CREATININE 2.5 mg/dL (0.6-1.3); GLUCOSE 128 mg/dL (74-106); POTASSIUM 3.2 mmol/L (3.5-5.1); SODIUM SERUM 131 mmol/L (136-145); UREA NITROGEN, BLOOD 79 mg/dL (7-18)
[2020-10-05] MEDS: INSULIN REGULAR, HUMAN 100 UNIT/ML 3 ML VIAL SQ PRN (05:12)
[2020-10-05] MEDS: BLOOD SUGAR DIAGNOSTIC 1 EACH STRIP IN SCH ×4 (05:13→23:40)
--- NOTE | 2020-10-05 06:49 | NUR ---
RN NOTE NO ACUTE CHANGES OBSERVED OVERNIGHT. PT REMAINS IN BED IN SEMI MARROQUIN'S POSITION. PT IS OBTUNDED BUT PHYSICALLY RESPONSIVE TO VERBAL AND TACTILE STIMULI. WITH TRACH CONNECTED TO VENT. TOLERATING VENT SETTINGS PRESCRIBED. TRACH MID LINE AND IN PLACE. NO SIGNS OF PAIN OR DISCOMFORT. VITAL SIGNS STABLE VIA BEDSIDE MONITOR. BARE HUGGER ON LOW SETTING FOR TEMPERATURE SUPPORT. SR ON THE OCCUPATIONAL THERAPY AIDE. GT CLAMPED. FLUSHING WELL. CURRENTLY NPO STATUS EXCEPT FOR MEDS. GALINDO CATHETER PATENT AND IN PLACE DRAINING URINE VIA GRAVITY. URINE NOTED WITH DARK CLOUDY OUTPUT WITH SEDIMENT. RIGHT UPPER ARM PICC LINE PATENT AND INTACT. FLUSHED WITHOUT COMPLICATIONS NOTED AT SITE. CURRENTLY WITH D5 1/2 NS @ 80CC/HOUR RUNNING ORDERED. WITH KARINA RUNNING AT 0.6MCG FOR BLOOD PRESSURE SUPPORT. ALARMS ON AND AUDIBLE, VENT PLUGGED INTO RED OUTLET, AMBU BAG AT BEDSIDE, SAFETY MEASURES IN PLACE PER PROTOCOL, BED ALARM ON, BED LOCKED AND IN LOW POSITION, SIDE RAILS UP X 2, WILL ENDORSE TO MORNING RN FOR JOE.
--- NOTE | 2020-10-05 07:30 | NUR ---
RN OPENING NOTES PATIENT IN BED, NO SEDATION, ON MECH VENT, TOLERATING SETTINGS WELL, NSR ON TELEMONITOR, IV DRIPS OF KARINA AT 0.6 MCG, TO RASHAWN PICC LINE, SITE CLEAR. GALINDO CATH IN PLACE DRAINING YELLOW URINE BY GRAVITY, NPO FOR NOW, LEAKING GT SITE. OLD STOMA WITH OSTOMY BAG IN PLACE. SEE NURSING FLOWSHEET FOR SKIN ISSUES. SAFETY MEASURES IN PLACE, BED IS LOCKED IN LOWEST POSITION, WILL CONT TO MONITOR
[2020-10-05] MEDS: SENNOSIDES 8.6 MG TABLET GT SCH ×2 (09:25→17:29)
[2020-10-05] MEDS: CARBIDOPA/LEVODOPA 25/100 MG 1 UDTAB GT SCH ×3 (09:25→17:29)
[2020-10-05] MEDS: LEVETIRACETAM SOL (5 ML) 100 MG/ML UDC GT SCH ×2 (09:25→20:17)
[2020-10-05] MEDS: MEROPENEM 500 MG in IV NS 0.9% 50 ML IV SCH ×2 (09:29→20:05)
--- NOTE | 2020-10-05 09:30 | NUR ---
RN NOTES DUE MEDS GIVEN
[2020-10-05] MEDS: VANCOMYCIN HCL 0.75 GM in IV D5W 250 ML IV SCH ×2 (09:35→10:00)
[2020-10-05] MEDS: TRAMADOL HCL 50 MG TABLET GT SCH ×2 (09:36→20:17)
[2020-10-05] MEDS: THERAHONEY GEL 1.5 OZ TUBE TP SCH (09:37)
[2020-10-05 09:49] LABS: ALKALINE PHOSPHATASE 112 U/L (46-116); ASPARTATE AMINOTRANSFERASE 18 U/L (15-37); BILIRUBIN,DIRECT 0.2 mg/dL (0.0-0.2); BILIRUBIN,TOTAL 0.4 mg/dL (0.2-1.0); TOTAL PROTEIN, SERUM 4.9 g/dL (6.4-8.2)
[2020-10-05 09:58] LABS: ALANINE AMINOTRANSFERASE < 6 U/L (12-78)
[2020-10-05 10:13] LABS: ALBUMIN 0.8 g/dL (3.4-5.0)
[2020-10-05 11:45] LABS: BASOPHILS # (AUTO) 0.1 /CMM (0.0-0.2); BASOPHILS % (AUTO) 0.5 % (0.0-2.0); EOSINOPHILS % (AUTO) 0.1 % (0.0-6.0); LYMPHOCYTES # (AUTO) 1.2 /CMM (0.8-4.8); LYMPHOCYTES % (AUTO) 8.6 % (20.0-44.0); MEAN CORPUSCULAR HGB CONC 32 g/dl (31.0-36.0); MEAN CORPUSCULAR VOLUME 93 fL (82-100); MONOCYTES # (AUTO) 0.2 /CMM (0.1-1.30); NEUTROPHILS % (AUTO) 89.8 % (43.0-81.0); RED BLOOD CELL COUNT(AUTO) 2.07 MIL/uL (4.0-5.2); WHITE BLOOD COUNT (AUTO) 14.4 K/uL (4.3-11.0)
[2020-10-05 12:08] LABS: HEMATOCRIT 19 % (33-45); HEMOGLOBIN 6.2 g/dL (11.5-14.8); PLATELET COUNT (AUTO) 16 /CMM (150-450)
--- NOTE | 2020-10-05 12:08 | NUR ---
RN NOTES DR. ROD NOTIFIED ABOUT HEMOGLOBIN/HEMATOCRIT 6.10/06 . PLATELET OF 16.
--- NOTE | 2020-10-05 12:12 | NUR ---
RN NOTES PER DR. ROD, TRANSFUSE 1 UNIT PRBC AND 1 UNIT PLATELET. ORDER CARRIED OUT.
--- NOTE | 2020-10-05 12:55 | NUR ---
RN NOTES NOTIFIED ABOUT SITUATION, PER PUBLIC GUARDIAN VIKI LADD [[phone]] SHE CAN NOT GIVE CONSENT FOR BLOOD TRANSFUSION OR ANY INVASIVE PROCEDURE AND WILL HAVE TO GO BY HOSPITALS EMERGENCY PROTOCOL. SPOKE WITH BROTHER WELL, AND ACCORDING TO HIM HE CAN NOT GIVE CONSENT EITHER. PER DR. ROD, GIVE BLOOD TRANSFUSION AND HE WILL SIGN CONSENT.
[2020-10-05] MEDS: POTASSIUM CL. PREMIX PERIPHER. 50 ML IV SCH ×3 (13:01→15:00)
[2020-10-05 13:07] LABS: LYMPHOCYTES % (MANUAL) 9 % (16-48); METAMYELOCYTES % 1 % (0-0); MONOCYTES % (MANUAL) 3 % (0-11.0); MYELOCYTES % 1 % (0-0); NEUTROPHILS % (MANUAL) 86 (42-76)
[2020-10-05] MEDS: ASCORBIC ACID 500 MG TABLET GT SCH (17:29)
[2020-10-05] MEDS: ZINC SULFATE 220 MG CAPSULE GT SCH (17:29)
[2020-10-05] MEDS: DOCUSATE SODIUM LIQ 100 MG/10 ML UDC GT SCH (17:29)
--- NOTE | 2020-10-05 19:51 | NUR ---
RN CLOSING NOTES ALL NEEDS MET. PATIENT RESTING. NOT IN ANY DISTRESS, NO OTHER SIGNIFICANT CHANGE IN CONDITION. WILL ENDORSE TO NEXT SHIFT FOR JOE.
--- NOTE | 2020-10-05 20:00 | NUR ---
RN NOTE RECEIVED PT IN BED IN SEMI MARROQUIN'S POSITION. PT IS OBTUNDED BUT PHYSICALLY RESPONSIVE TO VERBAL AND TACTILE STIMULI. WITH TRACH CONNECTED TO VENT. TOLERATING VENT SETTINGS PRESCRIBED. TRACH MID LINE AND IN PLACE. NO SIGNS OF PAIN OR DISCOMFORT AT THIS TIME. VITAL SIGNS STABLE VIA BEDSIDE MONITOR. SR ON THE STRUCTURAL ARCHITECT. GT CLAMPED. GLAINDO CATHETER PATENT AND IN PLACE DRAINING URINE VIA GRAVITY. URINE NOTED WITH DARK CLOUDY OUTPUT WITH SEDIMENT. RIGHT UPPER ARM PICC LINE PATENT AND INTACT. FLUSHED WITHOUT COMPLICATIONS NOTED AT SITE. CURRENTLY WITH D5 1/2 NS @ 80CC/HOUR RUNNING ORDERED. WITH KARINA RUNNING AT 0.6MCG FOR BLOOD PRESSURE SUPPORT. ALARMS ON AND AUDIBLE, VENT PLUGGED INTO RED OUTLET, AMBU BAG AT BEDSIDE, SAFETY MEASURES IN PLACE PER PROTOCOL, BED ALARM ON, BED LOCKED AND IN LOW POSITION, SIDE RAILS UP X 2, WILL MONITOR PT AND CARRY OUT ACTIVE MD ORDERS.
--- NOTE | 2020-10-05 20:17 | NUR ---
RN NOTE PT PENDING PRBC AND PLATELET INFUSION, WILL ADMINISTER AFTER ADMINISTRATION OF MERREM INFUSION.
--- NOTE | 2020-10-05 21:25 | NUR ---
MARIAA NOTE PLATELET TRANSFUSION STARTED. WILL MONITOR PT CLOSELY. Addendum: 10/05/20 at 2259 by NICOLE MILAN RN PLATELET TRANSFUSION COMPLETED. NO ADVERSE REACTIONS NOTED. VITAL SIGNS STABLE. WILL MONITOR.
--- NOTE | 2020-10-05 23:26 | NUR ---
MARIAA NOTE BLOOD TRANSFUSION STARTED. WILL MONITOR FOR ADVERSE EFFECTS. Addendum: 10/06/20 at 0228 by NICOLE MILAN RN BLOOD TRANSFUSION COMPLETED. NO ADVERSE EFFECTS NOTED, VITAL SIGNS STABLE, WILL CONTINUE TO MONITOR
[2020-10-05] MEDS: PHENYLEPHRINE 100 MG in IV NS 0.9% 240 ML IV PRN (23:38)
[2020-10-06] VITALS (59 sets, daily range): BP systolic 96–138; BP diastolic 46–68
--- NOTE | 2020-10-06 | NUR ---
RN NOTE COMPLETE BED BATH/AM CARE COMPLETE. PT TOLERATED WELL. VITAL SIGNS STABLE VIA BEDSIDE MONITOR. NO BOWEL MOVEMENT NOTED, WOUND CARE RENDERED ORDERED, WILL CONTINUE TO MONITOR.
[2020-10-06] MEDS: ALBUTEROL FS 2.5 MG/0.5 ML VIAL.NEB NEB SCH ×4 (01:41→19:53)
[2020-10-06] MEDS: IV D5/0.45 NACL 1,000 ML IV PRN (03:05)
[2020-10-06] MEDS: VALPROIC ACID 250 MG/5 ML UDC GT SCH ×3 (04:17→21:04)
[2020-10-06] MEDS: HYDROCORTISONE SOD SUCCINATE 100 MG/2 ML VIAL IV SCH ×3 (04:17→21:04)
[2020-10-06 04:35] LABS: BASOPHILS % (AUTO) 0.2 % (0.0-2.0); HEMATOCRIT 22 % (33-45); HEMOGLOBIN 7.2 g/dL (11.5-14.8); LYMPHOCYTES % (AUTO) 4.9 % (20.0-44.0); MEAN CORPUSCULAR HGB CONC 33 g/dl (31.0-36.0); MEAN CORPUSCULAR VOLUME 88 fL (82-100); MONOCYTES # (AUTO) 0.2 /CMM (0.1-1.30); MONOCYTES % (AUTO) 0.9 % (2.0-12.0); NEUTROPHILS # (AUTO) 18.1 /CMM (1.8-8.9); RED BLOOD CELL COUNT(AUTO) 2.47 MIL/uL (4.0-5.2); WHITE BLOOD COUNT (AUTO) 19.2 K/uL (4.3-11.0)
[2020-10-06 04:47] LABS: CALCIUM, SERUM 6.4 mg/dL (8.5-10.1); CARBON DIOXIDE 12 mmol/L (21-32); CHLORIDE 102 mmol/L (98-107); CREATININE 2.3 mg/dL (0.6-1.3); GLUCOSE 120 mg/dL (74-106); SODIUM SERUM 132 mmol/L (136-145); UREA NITROGEN, BLOOD 79 mg/dL (7-18)
[2020-10-06 05:09] LABS: D-DIMER 5.82 mg/L(FEU (0.17-0.50)
[2020-10-06 05:40] LABS: ABG BASE EXCESS -13.4 mmol/L; ABG OXYGEN SATURATION 95.9 % (92.0-98.5); ABG PCO2 21.6 mmHg (35.0-45.0); ABG PH 7.329 (7.350-7.450); ABG PO2 88.4 mmHg (75.0-100.0); COHb 0.8 % (0.5-1.5); MetHb 0.3 % (0.0-1.5); O2Hb 94.8 % (94.0-97.0); PEEP,BG 5 cm H2O; SITE, ABG Left Radial; VT, ABG 500 mL
[2020-10-06] MEDS: BLOOD SUGAR DIAGNOSTIC 1 EACH STRIP IN SCH ×3 (06:02→17:30)
[2020-10-06 06:08] LABS: PLATELET COUNT (AUTO) 65 /CMM (150-450)
--- NOTE | 2020-10-06 06:56 | NUR ---
RN NOTE NO ACTUE CHANGES NOTED. PT IN BED IN SEMI MARROQUIN'S POSITION. PT IS OBTUNDED BUT PHYSICALLY RESPONSIVE TO VERBAL AND TACTILE STIMULI. WITH TRACH CONNECTED TO VENT. TOLERATING VENT SETTINGS PRESCRIBED. TRACH MID LINE AND IN PLACE. NO SIGNS OF PAIN OR DISCOMFORT AT THIS TIME. VITAL SIGNS STABLE VIA BEDSIDE MONITOR. SR ON THE ZOOKEEPER. GT CONNECTED TO SEPARATE GALINDO BAG FOR DRAINAGE MONITORING. GALINDO CATHETER PATENT AND IN PLACE DRAINING URINE VIA GRAVITY. URINE NOTED WITH DARK CLOUDY OUTPUT WITH SEDIMENT. RIGHT UPPER ARM PICC LINE PATENT AND INTACT. FLUSHED WITHOUT COMPLICATIONS NOTED AT SITE. CURRENTLY WITH D5 1/2 NS @ 80CC/HOUR RUNNING ORDERED. WITH KARINA RUNNING AT 0.3MCG FOR BLOOD PRESSURE SUPPORT. PT IS STATUS POST BLOOD TRANSUFUSION AND PLATELET TRANSFUSION. ALARMS ON AND AUDIBLE, VENT PLUGGED INTO RED OUTLET, AMBU BAG AT BEDSIDE, SAFETY MEASURES IN PLACE PER PROTOCOL, BED ALARM ON, BED LOCKED AND IN LOW POSITION, SIDE RAILS UP X 2, WILL ENDORSE TO MORNING RN FOR JOE.
--- NOTE | 2020-10-06 07:51 | NUR ---
RN NOTES RECEIVED PT OBTUNDED, ON TRACH AND TOLERATED VENT SETTINGS OF 40% FIO2 WITH PEEP OF 5. GT CONNECTED TO GALINDO, GALINDO DRAINING MIX OF URINE AND FECAL MATTER, OLD GT STOMA ATTCHED TO A BAG, RASHAWN PICC INTACT WITH D5 1/2N/S AND KARINA @0.5, KEPT NPO EXCEPT MEDS, SIDE RAILSX3 UP, BED LOCKED AND KEPT IN LOWEST POSITION, CONTINUED CARES TODAY.
[2020-10-06] MEDS: LEVETIRACETAM SOL (5 ML) 100 MG/ML UDC GT SCH ×2 (08:12→21:04)
[2020-10-06] MEDS: TRAMADOL HCL 50 MG TABLET GT SCH ×2 (08:13→21:05)
[2020-10-06] MEDS: MEROPENEM 500 MG in IV NS 0.9% 50 ML IV SCH ×2 (08:13→21:04)
[2020-10-06] MEDS: CARBIDOPA/LEVODOPA 25/100 MG 1 UDTAB GT SCH ×3 (08:13→17:29)
[2020-10-06] MEDS: SENNOSIDES 8.6 MG TABLET GT SCH ×2 (08:13→17:00)
[2020-10-06] MEDS: THERAHONEY GEL 1.5 OZ TUBE TP SCH (08:13)
--- NOTE | 2020-10-06 09:12 | NUR ---
Bioethics Note Spoke with Dr Small who says that Epic must please document that care is futile in this case. Conservator wants any decision-making forms faxed to courts for approval. This could take time.
[2020-10-06] MEDS ORDERED: POTASSIUM CL. PREMIX PERIPHER. 50 ML IV SCH (09:30)
[2020-10-06] MEDS: POTASSIUM CHLORIDE 20 MEQ POWDER PACKET GT SCH ×3 (12:04→12:46)
[2020-10-06] MEDS: Sodium Bicarbonate 75 MEQ in IV 1/2NS 1000 ML 1,000 ML IV SCH (14:55)
[2020-10-06] MEDS: DOCUSATE SODIUM LIQ 100 MG/10 ML UDC GT SCH (17:30)
[2020-10-06] MEDS: ZINC SULFATE 220 MG CAPSULE GT SCH (17:32)
[2020-10-06] MEDS: ASCORBIC ACID 500 MG TABLET GT SCH (17:32)
--- NOTE | 2020-10-06 18:00 | NUR ---
RN NOTES NO SIGNIFCANT CHANGES NOTED ON THIS SHIFT, PT REMANINS OBTUNDED , OFF KARINA , BP STABLE, IVF WITH BICARB RUNNING AT T75 CC. WILL ENDORSE TO DRIVER TRAINEE NURSE FOR CONTINUITY OF CARE .
--- NOTE | 2020-10-06 20:30 | NUR ---
Received patient obtunded.Trach to vent on full vent support.Tolerating vent settings well. VSS.SR.GT to coe bag draining pink/yellow drainage.FC draining small brownish fecaloid output.Bicarb gtt infusing well.Turned and repositioned.No acute distress noted.
[2020-10-06] MEDS: IV NS 0.9% 250 ML IV PRN (21:54)
[2020-10-07] VITALS (41 sets, daily range): BP systolic 92–143; BP diastolic 49–87
[2020-10-07] MEDS: BLOOD SUGAR DIAGNOSTIC 1 EACH STRIP IN SCH ×4 (00:23→17:11)
[2020-10-07] MEDS: ALBUTEROL FS 2.5 MG/0.5 ML VIAL.NEB NEB SCH ×4 (01:36→20:21)
--- NOTE | 2020-10-07 02:00 | NUR ---
Patient incontinent of liquid stool.Kept clean and dry.Bed bath rendered.Wound dressing done. RASHAWN PICC LINE dressing done.Turned and repositioned.VS stable.No distress noted.
--- NOTE | 2020-10-07 04:00 | NUR ---
Hypothermic.Temp 95.1.Kept warm with JASON Hugger.Continue monitoring.
[2020-10-07] MEDS: Sodium Bicarbonate 75 MEQ in IV 1/2NS 1000 ML 1,000 ML IV SCH ×2 (04:44→18:52)
[2020-10-07] MEDS: VALPROIC ACID 250 MG/5 ML UDC GT SCH ×3 (04:45→20:38)
[2020-10-07] MEDS: HYDROCORTISONE SOD SUCCINATE 100 MG/2 ML VIAL IV SCH ×3 (04:45→20:39)
[2020-10-07 05:24] LABS: CALCIUM, SERUM 6.3 mg/dL (8.5-10.1); CARBON DIOXIDE 15 mmol/L (21-32); CHLORIDE 103 mmol/L (98-107); GLUCOSE 86 mg/dL (74-106); SODIUM SERUM 135 mmol/L (136-145)
[2020-10-07 05:44] LABS: D-DIMER 5.51 mg/L(FEU (0.17-0.50)
[2020-10-07 05:50] LABS: POTASSIUM 2.4 mmol/L (3.5-5.1); UREA NITROGEN, BLOOD 82 mg/dL (7-18)
--- NOTE | 2020-10-07 06:00 | NUR ---
PATIENT CONTINUES TO TOLERATE VENTILATOR SETTINGS. VSS. REPOSITIONED. PATIENT IN NO ACUTE DISTRESS AT THIS TIME. BLOOD SUGAR 77.
--- NOTE | 2020-10-07 06:50 | NUR ---
SPOKE WITH DR ANTONY TO REPORT CRITICAL POTASSIUM 2.4. RECEIVED ORDERS FOR POTASSIUM 80 MEQ IV. ENDORSED TO DAY SHIFT RN.
[2020-10-07] MEDS: POTASSIUM CL. PREMIX PERIPHER. 50 ML IV SCH ×8 (07:30→14:52)
[2020-10-07 08:14] LABS: ABG BASE EXCESS -8.2 mmol/L; ABG OXYGEN SATURATION 98.1 % (92.0-98.5); ABG PCO2 22.3 mmHg (35.0-45.0); ABG PH 7.444 (7.350-7.450); ABG PO2 109.3 mmHg (75.0-100.0); AaDO2 150.3 mmHg; COHb 1.7 % (0.5-1.5); MetHb 0.3 % (0.0-1.5); O2Hb 96.1 % (94.0-97.0); PEEP,BG 5 cm H2O; SITE, ABG Right Radial; VT, ABG 500 mL
[2020-10-07] MEDS: TRAMADOL HCL 50 MG TABLET GT SCH ×2 (08:15→20:40)
[2020-10-07] MEDS: CARBIDOPA/LEVODOPA 25/100 MG 1 UDTAB GT SCH ×3 (08:15→17:11)
[2020-10-07] MEDS: LEVETIRACETAM SOL (5 ML) 100 MG/ML UDC GT SCH ×2 (08:15→20:39)
[2020-10-07] MEDS: MEROPENEM 500 MG in IV NS 0.9% 50 ML IV SCH ×2 (08:15→20:41)
[2020-10-07] MEDS: HYDROGEL DRESSING 90 GM TUBE TP SCH (08:16)
[2020-10-07] MEDS: THERAHONEY GEL 1.5 OZ TUBE TP SCH (08:17)
[2020-10-07] MEDS: SENNOSIDES 8.6 MG TABLET GT SCH ×2 (08:18→16:10)
--- NOTE | 2020-10-07 16:00 | NUR ---
RN NOTES T=95.5, PT PLACED ON WARM BLANKET , CONTINUE TO MONITOR .
[2020-10-07] MEDS: ASCORBIC ACID 500 MG TABLET GT SCH (17:10)
[2020-10-07] MEDS: ZINC SULFATE 220 MG CAPSULE GT SCH (17:10)
[2020-10-07] MEDS: DOCUSATE SODIUM LIQ 100 MG/10 ML UDC GT SCH (17:11)
--- NOTE | 2020-10-07 18:00 | NUR ---
RN NOTES VSS STABLE, IVF , BICARB AT 75CC/HR RUNNING , WOUND CARE DONE, DR BALL AWARE OF NO URINE OUTPUT ON THIS SHIFT, NO SIGNIFICANT CHANGES NOTED ON THIS SHIFT, WILL ENDOSE TO SPA THERAPIST NURSE FOR CONTINUITY OF CARE .
--- NOTE | 2020-10-07 20:00 | NUR ---
RN NOTES RECEIVED PT OBTUNDED , PT IS ON VENT VIA TRACH WITH FIO2 30% SATING 100%. PT HAS GALINDO WHICH DRAINS URINE AND FECAL MATTER. PT HAS G TUBE CLAMPED ,CHECKED FOR PLACEMENT. SAFETY MEASURES IN PLACE.
[2020-10-07] MEDS: IV NS 0.9% 250 ML IV PRN (21:46)
[2020-10-07] MEDS ORDERED: PHYTONADIONE INJ 10 MG/1 ML AMPUL SQ SCH (22:30)
[2020-10-07] MEDS ORDERED: PHYTONADIONE INJ 1 MG/0.5 ML AMPUL ONE (22:52)
[2020-10-08] VITALS (71 sets, daily range): BP systolic 101–140; BP diastolic 49–70
[2020-10-08] MEDS: BLOOD SUGAR DIAGNOSTIC 1 EACH STRIP IN SCH ×4 (00:06→17:31)
[2020-10-08] MEDS: ALBUTEROL FS 2.5 MG/0.5 ML VIAL.NEB NEB SCH ×4 (02:02→19:38)
[2020-10-08] MEDS: VALPROIC ACID 250 MG/5 ML UDC GT SCH ×3 (05:24→21:01)
[2020-10-08] MEDS: HYDROCORTISONE SOD SUCCINATE 100 MG/2 ML VIAL IV SCH ×3 (05:24→21:01)
[2020-10-08 05:25] LABS: BASOPHILS % (AUTO) 0.1 % (0.0-2.0); LYMPHOCYTES # (AUTO) 1.1 /CMM (0.8-4.8); MEAN CORPUSCULAR HGB CONC 33 g/dl (31.0-36.0); MEAN CORPUSCULAR VOLUME 86 fL (82-100); MONOCYTES # (AUTO) 0.2 /CMM (0.1-1.30); MONOCYTES % (AUTO) 1.1 % (2.0-12.0); NEUTROPHILS # (AUTO) 20.6 /CMM (1.8-8.9); NEUTROPHILS % (AUTO) 93.8 % (43.0-81.0); PLATELET COUNT (AUTO) 81 /CMM (150-450); RED BLOOD CELL COUNT(AUTO) 2.16 MIL/uL (4.0-5.2)
[2020-10-08 05:44] LABS: HEMATOCRIT 19 % (33-45); HEMOGLOBIN 6.2 g/dL (11.5-14.8)
[2020-10-08 05:45] LABS: ALANINE AMINOTRANSFERASE 7 U/L (12-78); ALKALINE PHOSPHATASE 113 U/L (46-116); ASPARTATE AMINOTRANSFERASE 18 U/L (15-37); BILIRUBIN,TOTAL 0.4 mg/dL (0.2-1.0); CARBON DIOXIDE 19 mmol/L (21-32); CHLORIDE 106 mmol/L (98-107); CREATININE 1.8 mg/dL (0.6-1.3); GLUCOSE 89 mg/dL (74-106); MAGNESIUM 1.5 mg/dL (1.8-2.4); PHOSPHORUS 5.2 mg/dL (2.5-4.9); POTASSIUM 2.9 mmol/L (3.5-5.1); SODIUM SERUM 138 mmol/L (136-145); TOTAL PROTEIN, SERUM 4.5 g/dL (6.4-8.2)
[2020-10-08 05:49] LABS: UREA NITROGEN, BLOOD 81 mg/dL (7-18)
[2020-10-08 05:53] LABS: D-DIMER 3.86 mg/L(FEU (0.17-0.50)
[2020-10-08 06:49] LABS: BAND % (MANUAL) 6 % (0.0-5.0); LYMPHOCYTES % (MANUAL) 4 % (16-48); METAMYELOCYTES % 2 % (0-0); MYELOCYTES % 1 % (0-0); NEUTROPHILS % (MANUAL) 84 (42-76); PROMYELOCYTES % 1 % (0-0); REACTIVE LYMPHOCYTES 2 % (0-0)
--- NOTE | 2020-10-08 07:22 | NUR ---
RN NOTE NO ACUTE CHANGES DURING MY SHIFT PT REMAINED STABLE REPORT GIVEN TO INCOMING SHIFT.
--- NOTE | 2020-10-08 07:30 | NUR ---
STAVE LOG CUT OFF SAW OPERATOR OPENING NOTE PT OBTUNDED ON VENT SETTINGS TRACH [place] #8, AC 22, TV 500, FIO2 30%, PEEP 5, NO SIGNS OF RESP DISTRESS, SPO2 95%, BREATHING EVEN AND UNLABORED. GTUBE (CONNECTED TO CONT SUCTION) AND AGLINDO CONNECTED AND DRAINING MIXTURE OF URINE AND FECAL MATTER. OLDER GTUBE STOMA ATTACHED TO COLOSTOMY BAG WITH NO CONTENTS INSIDE. RASHAWN PICC LINE FLUSHED AND PATENT, NO SIGNS OF INFECTION OR INFILTRATION, RUNNING SODIUM BICARD @ 75ML/HR. PT HAS BEARHUGGER IN PLACE, SURRENT TEMP 97.4 F. ALL PT SAFETY PRECAUTIONS IN PLACE. WILL CONT TO MONITOR
[2020-10-08 08:26] LABS: ABG BASE EXCESS -4.7 mmol/L; ABG OXYGEN SATURATION 94.2 % (92.0-98.5); ABG PCO2 24.6 mmHg (35.0-45.0); ABG PO2 72.3 mmHg (75.0-100.0); AaDO2 112.7 mmHg; COHb 1.9 % (0.5-1.5); MetHb 0.6 % (0.0-1.5); O2Hb 91.8 % (94.0-97.0); PEEP,BG 5 cm H2O; SITE, ABG Right Radial; VT, ABG 500 mL
[2020-10-08] MEDS: MEROPENEM 500 MG in IV NS 0.9% 50 ML IV SCH ×2 (08:58→21:02)
[2020-10-08] MEDS: LEVETIRACETAM SOL (5 ML) 100 MG/ML UDC GT SCH ×2 (08:58→21:01)
[2020-10-08] MEDS: TRAMADOL HCL 50 MG TABLET GT SCH ×2 (08:59→21:02)
[2020-10-08] MEDS: CARBIDOPA/LEVODOPA 25/100 MG 1 UDTAB GT SCH ×3 (08:59→17:30)
[2020-10-08] MEDS: HYDROGEL DRESSING 90 GM TUBE TP SCH (08:59)
[2020-10-08] MEDS: SENNOSIDES 8.6 MG TABLET GT SCH ×2 (08:59→17:30)
[2020-10-08] MEDS: THERAHONEY GEL 1.5 OZ TUBE TP SCH (09:00)
--- NOTE | 2020-10-08 10:00 | NUR ---
RN NOTE PT TRANSFUSING 1 UNIT PRBC AT 0949. WILL MONITOR FOR ANY REACTIONS
[2020-10-08] MEDS: Sodium Bicarbonate 75 MEQ in IV 1/2NS 1000 ML 1,000 ML IV SCH (10:21)
--- NOTE | 2020-10-08 10:28 | NUR ---
RN NOTE VIT K 1MG WAS GIVEN LAST NIGHT AT 2300 INSTEAD OF ORDERED 10MG INR VALUE DID NOT CHANGE MUCH PER PHARMACIST. INFORMED DR MENDEZ AND HE ORDERED VIT K 10MG DOSE ONE TIME. ORDERED PUT INTO SYSTEM
[2020-10-08] MEDS ORDERED: POTASSIUM CHLORIDE 20 MEQ POWDER PACKET GT ONE (11:00)
[2020-10-08] MEDS: POTASSIUM CHLORIDE 20 MEQ POWDER PACKET GT SCH ×2 (11:19→12:00)
[2020-10-08] MEDS ORDERED: Magnesium 1GM/D5W 100ML PREMIX 100 ML IV SCH (11:30)
--- NOTE | 2020-10-08 13:20 | NUR ---
RN NOTE 1 UNIT PRBC INFUSED WITH NO COMPLICATIONS TO PT, IN STABLE CONDITION, VS WNL
[2020-10-08] MEDS ORDERED: ACETAMINOPHEN 325 MG TABLET PO ONE (15:00)
[2020-10-08] MEDS ORDERED: diphenhydrAMINE HCL 50 MG/ML VIAL IV ONE (15:00)
[2020-10-08] MEDS: ZINC SULFATE 220 MG CAPSULE GT SCH (17:30)
[2020-10-08] MEDS: DOCUSATE SODIUM LIQ 100 MG/10 ML UDC GT SCH (17:30)
[2020-10-08] MEDS: ASCORBIC ACID 500 MG TABLET GT SCH (17:30)
--- NOTE | 2020-10-08 17:30 | NUR ---
RN NOTE 1 UNIT FFP TRANSFUSING INTO PT. WILL MONITOR
[2020-10-08] MEDS ORDERED: PHYTONADIONE INJ 10 MG/1 ML AMPUL SQ ONE (17:45)
--- NOTE | 2020-10-08 18:20 | NUR ---
RN NOTE 1 UNIT FFP TRANSFUSED, NO COMPLICATION, PT STABLE
--- NOTE | 2020-10-08 18:30 | NUR ---
RN NOTE VIT K 10MG GIVEN
--- NOTE | 2020-10-08 19:30 | NUR ---
DIE BAKER CLOSING NOTE PT ON VENT SETTINGS PER MD ORDER, NO SIGNS OF RESP DISTRESS, SPO2 96%. PT SURRENTLY RUNNING NA BICARB 75 ML/HR. ALL PT SAFETY PRECAUTIONS IN PLACE. WILL ENDORSE JOE TO ONCOMING RN
--- NOTE | 2020-10-08 20:00 | NUR ---
RN NOTES RECEIVED PT OBTUNDED , PT IS ON VENT VIA TRACH WITH FIO2 30% SATING 100%. PT HAS G TUBE CONNECTED TO GALINDO DRAINING STOMACH CONTENT, OLD G TUBE CONNECTED TO COLOSTOMY BAG.SAFETY MEASURE IN PLACE.
[2020-10-09] VITALS (26 sets, daily range): BP systolic 107–151; BP diastolic 49–71
[2020-10-09] MEDS: Sodium Bicarbonate 75 MEQ in IV 1/2NS 1000 ML 1,000 ML IV SCH ×2 (00:01→13:28)
[2020-10-09] MEDS: BLOOD SUGAR DIAGNOSTIC 1 EACH STRIP IN SCH ×5 (00:01→23:30)
[2020-10-09] MEDS: ALBUTEROL FS 2.5 MG/0.5 ML VIAL.NEB NEB SCH ×4 (01:45→20:18)
[2020-10-09 05:24] LABS: CALCIUM, SERUM 7.7 mg/dL (8.5-10.1); CARBON DIOXIDE 19 mmol/L (21-32); CHLORIDE 107 mmol/L (98-107); CREATININE 1.5 mg/dL (0.6-1.3); GLUCOSE 94 mg/dL (74-106); MAGNESIUM 1.9 mg/dL (1.8-2.4); SODIUM SERUM 142 mmol/L (136-145); UREA NITROGEN, BLOOD 73 mg/dL (7-18)
[2020-10-09 05:29] LABS: POTASSIUM 2.7 mmol/L (3.5-5.1)
[2020-10-09] MEDS: VALPROIC ACID 250 MG/5 ML UDC GT SCH ×3 (05:45→20:44)
[2020-10-09] MEDS: HYDROCORTISONE SOD SUCCINATE 100 MG/2 ML VIAL IV SCH ×3 (05:45→20:47)
[2020-10-09 06:01] LABS: BASOPHILS % (AUTO) 0.1 % (0.0-2.0); HEMATOCRIT 23 % (33-45); HEMOGLOBIN 7.7 g/dL (11.5-14.8); LYMPHOCYTES # (AUTO) 0.9 /CMM (0.8-4.8); MEAN CORPUSCULAR HGB CONC 34 g/dl (31.0-36.0); MEAN CORPUSCULAR VOLUME 86 fL (82-100); MONOCYTES # (AUTO) 0.1 /CMM (0.1-1.30); MONOCYTES % (AUTO) 0.4 % (2.0-12.0); NEUTROPHILS # (AUTO) 16.7 /CMM (1.8-8.9); NEUTROPHILS % (AUTO) 94.5 % (43.0-81.0); PLATELET COUNT (AUTO) 92 /CMM (150-450); RED BLOOD CELL COUNT(AUTO) 2.61 MIL/uL (4.0-5.2); WHITE BLOOD COUNT (AUTO) 17.7 K/uL (4.3-11.0)
[2020-10-09] MEDS: POTASSIUM CHLORIDE 20 MEQ POWDER PACKET GT SCH ×2 (07:00→08:42)
--- NOTE | 2020-10-09 07:49 | NUR ---
RN NOTE REPORT GIVEN TO INCOMING SHIFT FOR JOE.
[2020-10-09] MEDS: MEROPENEM 500 MG in IV NS 0.9% 50 ML IV SCH ×2 (08:29→20:45)
[2020-10-09] MEDS: LEVETIRACETAM SOL (5 ML) 100 MG/ML UDC GT SCH ×2 (08:33→20:45)
[2020-10-09] MEDS: TRAMADOL HCL 50 MG TABLET GT SCH ×2 (08:34→20:45)
[2020-10-09] MEDS: CARBIDOPA/LEVODOPA 25/100 MG 1 UDTAB GT SCH ×3 (08:34→17:00)
[2020-10-09] MEDS: SENNOSIDES 8.6 MG TABLET GT SCH ×2 (08:34→17:00)
[2020-10-09] MEDS: THERAHONEY GEL 1.5 OZ TUBE TP SCH (08:42)
[2020-10-09] MEDS: HYDROGEL DRESSING 90 GM TUBE TP SCH (08:42)
--- NOTE | 2020-10-09 09:00 | NUR ---
ICU/RN PT IS TRACH ON THE VENT AC MODE,FIO2-40%,SAT O2-98%.V/S STABLE ,AFEBRILE. OFF PRESSORS.OPEN EYES,RESPONSIVE ON PAIN STIMULATION. NOT FOLLOWS COMMANDS.CONTRACTED,PICC LINE ON THE RIGHT UPPER ARM.IV INFUSING ORDERED.PT HAS OLD G-TUBE SIDE WITH BLOODY OUTPUT COVERED WITH COLOSTOMY BAG.G TUBE DRAINING WITH WITH DARK BLOODY DRAINAGE BY GRAVITY.F/C DRAINING WITH DARK URINE.GENERALIZED EDEMA PRESENT.MULTIPLY WOUNDS ,J CARLOS TEARS AND BRUISES NOTED ALL OVER THE BODY,LABS REVIEW.MD NOTIFIED. PT IS NPO.K-2.7.REPLACED WITH 50 MEQ KCL IV.SUCTION PROVIDED.AM CARE PROVIDED.REPOSITION FOR COMFORT.
[2020-10-09] MEDS: POTASSIUM CL. PREMIX PERIPHER. 50 ML IV SCH ×5 (09:08→13:28)
[2020-10-09] MEDS: PANTOPRAZOLE 40 MG VIAL IV SCH (09:08)
--- NOTE | 2020-10-09 14:40 | NUR ---
ICU/RN TALK TO WILBERTO CORDOBA. [phone] PT IS FULL CODE STATUS.FAMILY MEMBERS CAN NOT MAKE ANY DECISIONS FOR THIS PATIENT. FOR ANY CHANGES OF CODE STATUS NEED TO HAVE APPROVAL FROM THE COURT.
[2020-10-09] MEDS: ZINC SULFATE 220 MG CAPSULE GT SCH (18:00)
[2020-10-09] MEDS: DOCUSATE SODIUM LIQ 100 MG/10 ML UDC GT SCH (18:00)
--- NOTE | 2020-10-09 19:10 | NUR ---
SEC ACCOUNTANT OPENING NOTES: Rec'd pt in bed, obtunded on mechanical ventilation. Tolerating vent settings well. SR on tele monitor. RASHAWN PICC line patent and flushed w/ Bicarb drip infusing at 75ml/hr. GT site connected to coe, monitoring for drainage. NPO dx. Coe catheter in place patent and draining urine via gravity. Flexiseal in place patent and draining stool. Safety measures in place. Will continue to monitor.
[2020-10-09] MEDS: MICAFUNGIN SODIUM 100 MG in IV NS 0.9% 100 ML IV SCH (21:30)
[2020-10-09] MEDS: INSULIN REGULAR, HUMAN 100 UNIT/ML 3 ML VIAL SQ PRN (23:30)
[2020-10-10] VITALS (15 sets, daily range): BP systolic 121–138; BP diastolic 27–76
[2020-10-10] MEDS: ALBUTEROL FS 2.5 MG/0.5 ML VIAL.NEB NEB SCH ×4 (02:19→20:04)
[2020-10-10] MEDS: Sodium Bicarbonate 75 MEQ in IV 1/2NS 1000 ML 1,000 ML IV SCH ×2 (03:55→19:04)
--- NOTE | 2020-10-10 04:07 | NUR ---
AQUATICS DIRECTOR NOTE: Pt had episode of a-fib, not sustained w/ HR in 120-128 at 0400. Charge nurse aware. Will continue to monitor.
[2020-10-10] MEDS: VALPROIC ACID 250 MG/5 ML UDC GT SCH (05:00)
[2020-10-10 05:14] LABS: D-DIMER 3.25 mg/L(FEU (0.17-0.50)
[2020-10-10] MEDS: HYDROCORTISONE SOD SUCCINATE 100 MG/2 ML VIAL IV SCH ×3 (05:19→22:43)
[2020-10-10] MEDS: INSULIN REGULAR, HUMAN 100 UNIT/ML 3 ML VIAL SQ PRN (05:25)
[2020-10-10] MEDS: BLOOD SUGAR DIAGNOSTIC 1 EACH STRIP IN SCH ×3 (05:25→17:24)
[2020-10-10] MEDS: IV NS 0.9% 250 ML IV PRN (05:47)
[2020-10-10 07:38] LABS: ABG BASE EXCESS -3.7 mmol/L; ABG OXYGEN SATURATION 98.2 % (92.0-98.5); ABG PH 7.496 (7.350-7.450); ABG PO2 128.2 mmHg (75.0-100.0); AaDO2 128.3 mmHg; COHb 0.2 % (0.5-1.5); MetHb 0.3 % (0.0-1.5); O2Hb 97.7 % (94.0-97.0); SITE, ABG Right Radial
[2020-10-10] MEDS: SENNOSIDES 8.6 MG TABLET GT SCH (08:30)
--- NOTE | 2020-10-10 08:30 | NUR ---
WOUND CARE FOLLOW UP: PT SEEN FOR FOLLOW UP OF SACRAL DEEP TISSUE INJURY, ABDOMINAL WOUND (PREVIOUS G TUBE SITE) AND LEFT KNEE WOUND. RECOMMENDATIONS MADE FOR SKIN PROTECTION AND DISCUSSED WITH NURSING STAFF AND Onel BALES, SURGICAL N.P. CURRENTLY ON CASE. PT IS ON ANKITA ISOFLEX LOW AIRLOSS BED. MD IN AGREEMENT WITH PLAN OF CARE. PT NOTED TO HAVE SEVERE LOWER EXTREMITY CONTRACTURES AND GENERALIZED EDEMA.
[2020-10-10] MEDS: TRAMADOL HCL 50 MG TABLET GT SCH (08:31)
[2020-10-10] MEDS: CARBIDOPA/LEVODOPA 25/100 MG 1 UDTAB GT SCH (08:31)
[2020-10-10] MEDS: PANTOPRAZOLE 40 MG VIAL IV SCH (08:32)
[2020-10-10] MEDS: MEROPENEM 500 MG in IV NS 0.9% 50 ML IV SCH ×2 (08:32→22:35)
[2020-10-10] MEDS: HYDROGEL DRESSING 90 GM TUBE TP SCH (08:33)
[2020-10-10] MEDS: THERAHONEY GEL 1.5 OZ TUBE TP SCH (08:33)
[2020-10-10] MEDS: LEVETIRACETAM (500MG) 500 MG in IV NS 0.9% 100 ML IV SCH ×2 (08:53→22:05)
--- NOTE | 2020-10-10 12:00 | NUR ---
ICU/RN PT TRANSFERED TO TELE UNIT.ON THE VENT AC MODE,FIO2-30%,SATO2-98%.V/S STABLE AFEBRILE. DUE MEDS ARE GIVEN ORDERED.WOUND DRESSING DONE ORDERED.SUCTION PROVIDED.REPOSITION FOR COMFORT. REPORT GIVEN TO MARYJANE /RN.
--- NOTE | 2020-10-10 12:00 | NUR ---
transferred via bed to rm. 320-1.hooked up to tele.at this time uncontrolled a-fib rate of 124.rn spoke to icu nurse and informed pt. in and out of a-fib last night.
--- NOTE | 2020-10-10 12:30 | NUR ---
dr. knowles notified of uncontrolled a-fib.now rate 104.no orders given.
[2020-10-10 12:51] LABS: POTASSIUM 1.5 mmol/L (3.5-5.1)
[2020-10-10 12:52] LABS: CALCIUM, SERUM 5.8 mg/dL (8.5-10.1)
--- NOTE | 2020-10-10 13:00 | NUR ---
Nj BHATIA INFORMED OF LATEST LABS,ORDERS IN AND REPLACEMENTS TO START.
--- NOTE | 2020-10-10 13:15 | NUR ---
layne avery np informed of abn. labs on pt.to reorder labs stat.
[2020-10-10 13:36] LABS: BASOPHILS % (AUTO) 0.1 % (0.0-2.0); HEMATOCRIT 22 % (33-45); HEMOGLOBIN 7.1 g/dL (11.5-14.8); LYMPHOCYTES # (AUTO) 0.6 /CMM (0.8-4.8); LYMPHOCYTES % (AUTO) 2.7 % (20.0-44.0); MEAN CORPUSCULAR HGB CONC 33 g/dl (31.0-36.0); MEAN CORPUSCULAR VOLUME 88 fL (82-100); MONOCYTES # (AUTO) 0.1 /CMM (0.1-1.30); MONOCYTES % (AUTO) 0.5 % (2.0-12.0); NEUTROPHILS # (AUTO) 22.4 /CMM (1.8-8.9); NEUTROPHILS % (AUTO) 96.7 % (43.0-81.0); PLATELET COUNT (AUTO) 120 /CMM (150-450); RED BLOOD CELL COUNT(AUTO) 2.44 MIL/uL (4.0-5.2); WHITE BLOOD COUNT (AUTO) 23.1 K/uL (4.3-11.0)
[2020-10-10 14:19] LABS: CREATININE 1.2 mg/dL (0.6-1.3)
[2020-10-10 14:24] LABS: POTASSIUM 1.9 mmol/L (3.5-5.1)
[2020-10-10 14:32] LABS: CALCIUM, SERUM 7.4 mg/dL (8.5-10.1)
[2020-10-10] MEDS ORDERED: POTASSIUM CHLORIDE 10 MEQ/50 ML PREMIXED IVPB FOR PERIPHERAL LINE IV ONE (15:35)
[2020-10-10] MEDS ORDERED: POTASSIUM CHLORIDE 10 MEQ/50 ML PREMIXED IVPB FOR PERIPHERAL LINE IV SCH (16:00)
[2020-10-10] MEDS ORDERED: Magnesium 1GM/D5W 100ML PREMIX 100 ML IV SCH (16:00)
[2020-10-10] MEDS ORDERED: Calcium Gluconate 1GM/10ML 4.65 MEQ in IV D5W 50 ML IV ONE (16:00)
[2020-10-10] MEDS: ZINC SULFATE 220 MG CAPSULE GT SCH (17:23)
[2020-10-10] MEDS: POTASSIUM CL. PREMIX PERIPHER. 50 ML IV SCH ×4 (17:44→21:03)
--- NOTE | 2020-10-10 18:00 | NUR ---
NO CHANGE IN STATUS.
--- NOTE | 2020-10-10 19:30 | NUR ---
TELEVISION ENGINEER OPENING NOTE REEIVED PATIENT IN BED. OPENS EYES, DOESN'T TRACK WITH EYES. NONVERBAL. ON MECHANICAL VENT, PORTE 8, AC 16, TV 450, FIO2 30%,, PEEP 5. RESPIRATIONS ARE EVEN AND UNLABORED. NO S/S RESP DISTRESS. NO S/S PAIN AT THIS TIME. EXTERNAL TELE MONITOR RADS UNCONTROLLED AFIB HR 110. IN NO APPARENT DISTRESS. IV ACCESS IN RASHAWN PICC LINE RUNNING NA BICARB @75ML.HR WITH POTASSIUM AT 50LML/HR. GALINDO CATHETER IS PRESENT, DRAINING TO GRAVITY, URINE IS BROWN WITH FECAL MATTER. FLEXASEAL ALSO PRESENT. OLD GTUBE SITE PRESENT WITH COLOSTOMY BAG DRAINING TO IT. 2ND GTUBE SITE PRESENT, CURRENTLY NOT IN USE D/T LEAKING. MD ORDER STATES HOLD ALL MEDS AND FEEDINGS. BED IS LOW ND LOCKED, HOB ELEVATED IN SEMI FOWLERS, SIDE RIALS UP X3, CALL LIGHT WITHIN REACH. BED ALARM ON. SPECIALTY MATTRESS ON. WILL CONTINUE TO MONITOR THROUGHOUT SHIFT.
--- NOTE | 2020-10-10 20:30 | NUR ---
LEAFLET OR NEWSPAPER DELIVERER NOTE SUPPLY CHAIN PROGRAM MANAGER INFORMED ME PATIENT HAS CONVERTED TO SINUS RHYTHM HR 80S.
[2020-10-11] VITALS: BP 133/65
[2020-10-11] MEDS: MICAFUNGIN SODIUM 100 MG in IV NS 0.9% 100 ML IV SCH ×2 (00:03→22:36)
[2020-10-11] MEDS: BLOOD SUGAR DIAGNOSTIC 1 EACH STRIP IN SCH ×5 (00:11→23:11)
[2020-10-11] MEDS: POTASSIUM CL. PREMIX PERIPHER. 50 ML IV SCH ×10 (00:13→23:37)
--- NOTE | 2020-10-11 00:30 | NUR ---
ETHYLENE PLANT OPERATOR NOTE APPLIED WARRM BLANKET. TEMP 96.4. TURNED ROOM HEATER ON
[2020-10-11] MEDS: ALBUTEROL FS 2.5 MG/0.5 ML VIAL.NEB NEB SCH ×4 (02:12→19:58)
[2020-10-11 04:00] VITALS: BP 141/89
[2020-10-11] MEDS: HYDROCORTISONE SOD SUCCINATE 100 MG/2 ML VIAL IV SCH ×3 (06:02→21:32)
--- NOTE | 2020-10-11 07:06 | NUR ---
SPACE SYSTEMS OPERATIONS MANAGER CLOSING NOTE PATIENT RESTING IN BED. NONVERBAL. ON MECHANICAL VENT,, NO CHANGES IN SETTINGS. NO RESP DISTRESS. NO S/S PAIN . TELE MONITOR READ NSR. NO DISTRESS. IV ACCESS MAINTAINED IN RASHAWN PICC LINE RUNNING NA BICARB @75ML/HR . GALINDO CATHETER IS MAINTAINED, DRAINING TO GRAVITY, URINE IS BROWN WITH FECAL MATTER, ,LITTLE OUTPUT 30ML. FLEXASEAL MAINTAINED. OL. 2ND GTUBE SITE DRAINING INTO BAG. NO SUFFICIENT OUTPUT NOTED. BED REMAINS LOW ND LOCKED, HOB ELEVATED IN SEMI FOWLERS, SIDE RIALS UP X3, CALL LIGHT WITHIN REACH. WILL ENDORSE TO NEXT SHIFT
--- NOTE | 2020-10-11 07:30 | NUR ---
ms rn received on bed, vent dependent patient,non verbal,flexiseal intact w/ brownish/greenish color output,colostomy w/ no output, g tube intact connected to drain, no output noted, will monitor patient.
[2020-10-11 08:00] VITALS: BP 174/57
[2020-10-11] MEDS: PANTOPRAZOLE 40 MG VIAL IV SCH (08:28)
[2020-10-11] MEDS: LEVETIRACETAM (500MG) 500 MG in IV NS 0.9% 100 ML IV SCH ×2 (08:28→21:33)
[2020-10-11] MEDS: MEROPENEM 500 MG in IV NS 0.9% 50 ML IV SCH ×2 (08:28→22:04)
[2020-10-11] MEDS: Sodium Bicarbonate 75 MEQ in IV 1/2NS 1000 ML 1,000 ML IV SCH ×2 (09:00→23:37)
--- NOTE | 2020-10-11 09:00 | NUR ---
ms lanza npo at this time.
[2020-10-11 09:50] LABS: HEMATOCRIT 23 % (33-45); LYMPHOCYTES # (AUTO) 0.5 /CMM (0.8-4.8); LYMPHOCYTES % (AUTO) 2.1 % (20.0-44.0); MONOCYTES # (AUTO) 0.2 /CMM (0.1-1.30); MONOCYTES % (AUTO) 0.7 % (2.0-12.0)
[2020-10-11 09:55] LABS: BASOPHILS % (AUTO) 0.1 % (0.0-2.0); HEMOGLOBIN 7.6 g/dL (11.5-14.8); MEAN CORPUSCULAR HGB CONC 33 g/dl (31.0-36.0); MEAN CORPUSCULAR VOLUME 88 fL (82-100); NEUTROPHILS # (AUTO) 21.4 /CMM (1.8-8.9); NEUTROPHILS % (AUTO) 97.1 % (43.0-81.0); PLATELET COUNT (AUTO) 139 /CMM (150-450); RED BLOOD CELL COUNT(AUTO) 2.58 MIL/uL (4.0-5.2)
--- NOTE | 2020-10-11 09:56 | NUR ---
Office of Public Guardian: JACKI faxed End-of-Life packet completed by Aydee Rodrigez NP on 10/10/2020 to Office of the Public Guardian FAX:[phone] TEL: [phone] ATTN: Lorena Garcia. JCAKI received completed fax receipt. JACKI will be available as needed.
[2020-10-11 10:19] LABS: LYMPHOCYTES % (MANUAL) 1 % (16-48); NEUTROPHILS % (MANUAL) 99 (42-76)
[2020-10-11] MEDS: HYDROGEL DRESSING 90 GM TUBE TP SCH (11:34)
[2020-10-11] MEDS: THERAHONEY GEL 1.5 OZ TUBE TP SCH (11:35)
--- NOTE | 2020-10-11 12:00 | NUR ---
ms rn [id number]-no coverage given, no s/s of hypoglycemia noted.
[2020-10-11] MEDS: INSULIN REGULAR, HUMAN 100 UNIT/ML 3 ML VIAL SQ PRN (12:13)
[2020-10-11 13:06] LABS: D-DIMER 1.65 mg/L(FEU (0.17-0.50)
[2020-10-11 13:53] LABS: CALCIUM, SERUM 7.4 mg/dL (8.5-10.1); CREATININE 1.1 mg/dL (0.6-1.3)
[2020-10-11 13:56] LABS: POTASSIUM 2.5 mmol/L (3.5-5.1)
--- NOTE | 2020-10-11 15:00 | NUR ---
ms rn s/p debridement of left lower extremity,all needs attended.
[2020-10-11] MEDS ORDERED: MGSO4/D5W 100 ML IV SCH (15:30)
[2020-10-11] MEDS ORDERED: Magnesium 1 GM/2 ML VIAL IV ONE (15:30)
[2020-10-11 16:00] VITALS: BP 180/77
[2020-10-11] MEDS: ZINC SULFATE 220 MG CAPSULE GT SCH (18:00)
--- NOTE | 2020-10-11 19:00 | NUR ---
ms rn on bed, no distress noted.
--- NOTE | 2020-10-11 19:30 | NUR ---
CLOCK REPAIRER OPENING NOTE RECEIVED PATIENT IN BED. OPENS EYES, DOESN'T TRACK WITH EYES. NONVERBAL. ON MECHANICAL VENT, PORTE 8, AC 16, TV 450, FIO2 30%,, PEEP 5. RESPIRATIONS ARE EVEN AND UNLABORED. NO S/S RESP DISTRESS. NO S/S PAIN AT THIS TIME. EXTERNAL TELE MONITOR READ SINUS RHYTHM HR IN 70S. IN NO APPARENT DISTRESS. IV ACCESS IN RASHAWN PICC LINE RUNNING NA BICARB @75MLHR WITH POTASSIUM AT 50LML/HR. GALINDO CATHETER IS PRESENT, DRAINING TO GRAVITY, URINE IS BROWN WITH FECAL MATTER. FLEXASEAL ALSO PRESENT. OLD GTUBE SITE PRESENT WITH COLOSTOMY BAG . GTUBE SITE IS LEAKING AND DRAINING INTO A DRAINAGE BAG TO GRAVITY. BED IS LOW ND LOCKED, HOB ELEVATED IN SEMI FOWLERS, SIDE RIALS UP X3, CALL LIGHT WITHIN REACH, ON SPECIALTY MATRASS. WILL CONTINUE TO MONITOR THROUGHOUT SHIFT.
[2020-10-11 20:00] VITALS: BP 143/86
--- NOTE | 2020-10-11 22:00 | NUR ---
rn tele note received a call from lab to notify me cryoprecipitate is ready. blood bank staff informed me it expires at 0400.
[2020-10-12] VITALS (14 sets, daily range): BP systolic 124–168; BP diastolic 71–88
--- NOTE | 2020-10-12 01:14 | NUR ---
telephone coin box collector note when going to blood bank to get cryo to transfuse. the blood bank staff saw there was 2 orders for cryo but only one available. she stated she will [facility] now to have another cryo ordered for this patient. will only transfuse one bag of cryo (5 units) now.
--- NOTE | 2020-10-12 01:39 | NUR ---
telephone recorder note cryoprecipitate transfused with no adverse reactions noted. will continue to monitor throughout shift.
[2020-10-12] MEDS: ALBUTEROL FS 2.5 MG/0.5 ML VIAL.NEB NEB SCH ×4 (01:53→19:47)
[2020-10-12] MEDS: BLOOD SUGAR DIAGNOSTIC 1 EACH STRIP IN SCH ×4 (05:02→23:12)
[2020-10-12] MEDS: HYDROCORTISONE SOD SUCCINATE 100 MG/2 ML VIAL IV SCH ×3 (05:04→22:42)
--- NOTE | 2020-10-12 06:35 | NUR ---
VIOLENT CRIMES DETECTIVE NOTE TEMP 96.5 PRIOR TO TRANSFUSING CRYO BAG #2. PATIENT JUST RECEIVED A BED BATH. WARM BLANKETS WERE PLACED ON PATIENT. HEATER TURNED ON.
--- NOTE | 2020-10-12 06:54 | NUR ---
SWIMMING POOL MAINTENANCE CLOSING NOTE PATIENT RESTING IN BED. NONVERBAL. ON MECHANICAL VENT.NO CHANGES IN SETTINGS. NO RESP DISTRESS. NO S/S PAIN . TELE MONITOR READ NSR. NO DISTRESS. IV ACCESS MAINTAINED IN RASHAWN PICC LINE RUNNING NA BICARB @75ML/HR . GALINDO CATHETER IS MAINTAINED, DRAINING TO GRAVITY, NO OUTPUT NOTED. FLEXISEAL MAINTAINED 750ML. GTUBE SITES GIVEN WOUND CARE, NO DRAINAGE NOTED. COLOSTOMY BAG ON GTUBE SITE SHOWS NO OUT PUT. BED REMAINS LOW AND LOCKED, HOB ELEVATED IN SEMI FOWLERS, SIDE RIALS UP X3, WILL ENDORSE TO NEXT SHIFT
[2020-10-12] MEDS: HYDROGEL DRESSING 90 GM TUBE TP SCH (08:13)
[2020-10-12] MEDS: THERAHONEY GEL 1.5 OZ TUBE TP SCH (08:13)
[2020-10-12] MEDS: MEROPENEM 500 MG in IV NS 0.9% 50 ML IV SCH ×2 (08:14→23:12)
[2020-10-12] MEDS: PANTOPRAZOLE 40 MG VIAL IV SCH (08:21)
[2020-10-12 09:18] LABS: BASOPHILS # (AUTO) 0.1 /CMM (0.0-0.2); BASOPHILS % (AUTO) 0.6 % (0.0-2.0); EOSINOPHILS % (AUTO) 0.5 % (0.0-6.0); HEMATOCRIT 22 % (33-45); HEMOGLOBIN 7.4 g/dL (11.5-14.8); LYMPHOCYTES # (AUTO) 0.8 /CMM (0.8-4.8); MEAN CORPUSCULAR HGB CONC 33 g/dl (31.0-36.0); MEAN CORPUSCULAR VOLUME 90 fL (82-100); MONOCYTES # (AUTO) 0.2 /CMM (0.1-1.30); MONOCYTES % (AUTO) 0.8 % (2.0-12.0); NEUTROPHILS # (AUTO) 18.1 /CMM (1.8-8.9); NEUTROPHILS % (AUTO) 94.1 % (43.0-81.0); PLATELET COUNT (AUTO) 136 /CMM (150-450); RED BLOOD CELL COUNT(AUTO) 2.48 MIL/uL (4.0-5.2); WHITE BLOOD COUNT (AUTO) 19.3 K/uL (4.3-11.0)
[2020-10-12] MEDS: LEVETIRACETAM (500MG) 500 MG in IV NS 0.9% 100 ML IV SCH ×2 (09:37→22:29)
--- NOTE | 2020-10-12 09:42 | NUR ---
Clinical Social Work Note Per request of [phone] case management meeting, Dr Murray will see this patient as conservatorship papers faxed are requesting that he see patient and provide documentation. Order for consult will be placed for Dr Murray to see this patient.
--- NOTE | 2020-10-12 09:49 | NUR ---
TNT LINE SUPERVISOR OPENING NOTE PT RECEIVED IN BED, SLEEPING BUT AROUSABLE. PT IS NON-VERBAL BUT RESPONDS TO TOUCH AND OPENS EYES. PT IS ON A MECHANICAL VENT WITH SETTINGS AC 16, FIO2 30%, TV 450, AND PEEP 5. NO S/SX OF SOB, LABORED BREATHING OR RESPIRATORY DISTRESS NOTED AT THIS TIME. NO S/SX FACIAL GRIMACING OR PAIN NOTED AT THIS TIME. PT IS ON A TELE MONITOR SHOWING NSR 73 BPM AT THIS TIME WITH NO S/SX CARDIAC DISTRESS. PT HAS A BLADDER/RECTAL FISTULA, DRAINING BROWN, LIQUID/SOFT STOOL, FLUSHING WELL. PT ALSO HAS A GALINDO CATHETER DRAINING TIFFANIE URINE. PT HAS A GT IN PLACE, BUT IS NPO AND HOLDING MEDICATION AND FEEDING DUR TO LEAKING. PT HAS A RASHAWN PICC LINE WHICH IS PATENT, INTACT AND FLUSHING WELL WITH NO S/SX OF INFILTRATION OR INFECTION. SAFETY MEASURES IN PLACE: BED IN LOWEST, LOCKED POSITION AND HAS BOTH UPPER SIDE RAILS X2 UP. CALL LIGHT PLACED WITHIN REACH. WILL CONTINUE TO MONITOR.
[2020-10-12 11:38] LABS: CALCIUM, SERUM 7.7 mg/dL (8.5-10.1); CREATININE 0.9 mg/dL (0.6-1.3)
[2020-10-12 11:40] LABS: D-DIMER 2.78 mg/L(FEU (0.17-0.50)
[2020-10-12 11:50] LABS: POTASSIUM 2.1 mmol/L (3.5-5.1)
[2020-10-12] MEDS ORDERED: MORPHINE SULFATE INJ 2 MG/ML DISP.SYRIN IV PRN (15:30)
[2020-10-12] MEDS: POTASSIUM CL. PREMIX PERIPHER. 50 ML IV SCH ×6 (15:45→21:29)
[2020-10-12] MEDS: ZINC SULFATE 220 MG CAPSULE GT SCH (16:09)
[2020-10-12] MEDS ORDERED: LORAZEPAM INJ 2 MG/ML VIAL IV PRN (17:00)
[2020-10-12] MEDS: MORPHINE SULFATE INJ 2 MG/ML DISP.SYRIN IV PRN (17:12)
--- NOTE | 2020-10-12 18:32 | NUR ---
MDS NURSE CLOSING NOTE PT REMAINS IN BED WITH EYES OPEN, AROUSABLE. PT IS NON-VERBAL BUT RESPONDS TO TOUCH WITH SPONTANEOUS EYE OPENING. PT'S MECHANICAL VENT REMAINS WITH SETTINGS AC 16, FIO2 30%, TV 450, AND PEEP 5 WITH NO S/SX OF SOB, LABORED BREATHING OR RESPIRATORY DISTRESS NOTED AT THIS TIME. NO S/SX FACIAL GRIMACING OR PAIN NOTED AT THIS TIME. PT'S ON A TELE MONITOR SHOWING SINUS TACHY AT 113 BPM WITH NO S/SX CARDIAC DISTRESS. PT'S BLADDER/RECTAL FISTULA AND GALINDO CATHETER REMAIN PATENT, INTACT AND FLUSHING WELL. PT'S A GT IN PLACE, CLAMPED AND INTACT. PT HAS A RASHAWN PICC LINE WHICH IS PATENT, INTACT AND FLUSHING WELL WITH NO S/SX OF INFILTRATION OR INFECTION. SAFETY MEASURES MAINTAINED: BED IN LOWEST, LOCKED POSITION WITH BOTH UPPER SIDE RAILS X2 UP. CALL LIGHT PLACED WITHIN REACH. WILL ENDORSE TO COREMAKER NURSE.
--- NOTE | 2020-10-12 19:40 | NUR ---
TELE/RN OPENING NOTE RECEIVED PATIENT RESTING IN BED. NON-VERBAL AT BASELINE. EYES OPEN AT THIS TIME. NO SIGNS OR SYMPTOMS OF DISCOMFORT OR PAIN NOTED. CONTINUES ON MECHANICAL VENT WITH PATIENT TOLERATING SETTINGS WELL. NO SIGNS OR SYMPTOMS OF RESPIRATORY DISTRESS NOTED. FLEXASEAL INTACT. GALINDO CATHETER INTACT. CONTINUES ON NPO STATUS AND NO MEDS OR FEED THROUGH GTUBE. IV ACCESS TO RIGHT UPPER ARM INTACT AND PATENT. CONTINUES ON IV POTASSIUM FOR HYPOKALEMIA. CALL LIGHT WITHIN REACH. ASPIRATION, FALL AND SAFETY PRECAUTIONS MAINTAINED. WILL CONTINUE TO MONITOR.
--- NOTE | 2020-10-12 20:30 | NUR ---
TELE/RN NOTE PATIENT WITH BP 168/88 WITH AUTOMATIC CUFF. BP RECHECK WITH MANUAL CUFF 149/71. NO SIGNS OR SYMPTOMS OF DISTRESS. CONTINUES WITH 4+ PITTING EDEMA TO RUE AND GENERALIZED EDEMA THROUGHOUT BODY. WILL CONTINUE TO MONITOR.
[2020-10-12] MEDS: IV NS 0.9% 250 ML IV PRN (22:35)
[2020-10-12] MEDS: MICAFUNGIN SODIUM 100 MG in IV NS 0.9% 100 ML IV SCH (23:54)
[2020-10-13] VITALS: BP_SYST 155; BP_SYST 169; BP_DIAS 80
[2020-10-13] MEDS: ALBUTEROL FS 2.5 MG/0.5 ML VIAL.NEB NEB SCH ×4 (01:35→19:27)
[2020-10-13 04:00] VITALS: BP 142/54
[2020-10-13] MEDS: HYDROCORTISONE SOD SUCCINATE 100 MG/2 ML VIAL IV SCH ×4 (04:23→20:43)
[2020-10-13] MEDS: BLOOD SUGAR DIAGNOSTIC 1 EACH STRIP IN SCH ×4 (05:13→23:33)
--- NOTE | 2020-10-13 06:10 | NUR ---
TELE/RN CLOSING NOTE PATIENT CURRENTLY RESTING IN BED. NON-VERBAL AT BASELINE. NO SIGNS OR SYMPTOMS OF PAIN NOTED THIS SHIFT. CONTINUES ON MECHANICAL VENT WITH PATIENT TOLERATING SETTINGS WELL. CONTINUES WITH FLEXISEAL (OUTPUT 700CC) AND GALINDO (400CC) WITH BOTH REMAINING INTACT AND PATENT. IV ACCESS TO RASHAWN INTACT AND PATENT. STARTED ON IV K 20MEQ/0.45% NS @ 75ML/HR WITH PATIENT TOLERATING. CONTINUE TO HOLD GT FEEDING AND MEDS DUE TO LEAKAGE. SMALL AMOUNT OF DRAINAGE AROUND NEW GTUBE SITE - AREA CLEANED AND NEW DRESSING APPLIED. BLOOD GLUCOSE THIS AM WAS 85. PATIENT TURNED AND REPOSITIONED Q2HR. CALL LIGHT WITHIN REACH. ASPIRATION, FALL AND SAFETY PRECAUTIONS MAINTAINED. WILL ENDORSE PLAN OF CARE TO ONCOMING RN. Addendum: 10/13/20 at 0626 by SHIRA TREVINO RN TELE MONITOR READING SR 85
--- NOTE | 2020-10-13 07:25 | NUR ---
CONTRACT ADMINISTRATOR OPENING NOTE RECEIVED PT SLEEPING IN BED. PT IS NON-VERBAL BUT AROUSABLE AND RESPONSIVE TO TOUCH WITH SPONTANEOUS OPENING OF THE EYES. NO S/SX OF PAIN OR FACIAL GRIMACING NOTED AT THIS TIME. PT'S MECHANICAL VENT SETTINGS ARE AC 16, FIO2 30%, TV 450, AND PEEP 5 WITH NO SOB, LABORED BREATHING OR S/SX RESPIRATORY DISTRESS NOTED AT THIS TIME. PT'S TELE MONITOR SHOWS NSR 85 BPM WITH NO S/SX CARDIAC DISTRESS. PT HAS A BLADDER/RECTAL FISTULA, PATENT AND INTACT, DRAINING BROWN, LIQUID/SOFT STOOL MIXED WITH URINE. PT ALSO HAS A GALINDO CATHETER, PATENT AND INTACT. PT HAS A GT IN PLACE, BUT IS CLAMPED DUE TO NPO STATUS DUE TO LEAKING. PT'S RASHAWN PICC LINE IS PATENT, INTACT AND FLUSHING WELL WITH NO S/SX OF INFILTRATION/INFECTION. SAFETY MEASURES IN PLACE: BED IN LOWEST POSITION AND LOCKED AND HAS BOTH UPPER SIDE RAILS X2 UP. CALL LIGHT PLACED WITHIN REACH. WILL CONTINUE TO MONITOR.
[2020-10-13 08:00] VITALS: BP 143/69
[2020-10-13] MEDS: MEROPENEM 500 MG in IV NS 0.9% 50 ML IV SCH ×2 (08:32→20:08)
[2020-10-13] MEDS: PANTOPRAZOLE 40 MG VIAL IV SCH (08:33)
[2020-10-13] MEDS: THERAHONEY GEL 1.5 OZ TUBE TP SCH (08:33)
[2020-10-13] MEDS: HYDROGEL DRESSING 90 GM TUBE TP SCH (08:33)
[2020-10-13 09:20] LABS: CALCIUM, SERUM 7.5 mg/dL (8.5-10.1); CREATININE 0.8 mg/dL (0.6-1.3)
[2020-10-13 09:33] LABS: POTASSIUM 2.2 mmol/L (3.5-5.1)
[2020-10-13] MEDS: LEVETIRACETAM (500MG) 500 MG in IV NS 0.9% 100 ML IV SCH ×2 (09:34→20:43)
[2020-10-13 09:45] LABS: BASOPHILS # (AUTO) 0.1 /CMM (0.0-0.2); BASOPHILS % (AUTO) 0.3 % (0.0-2.0); EOSINOPHILS % (AUTO) 0.1 % (0.0-6.0); HEMATOCRIT 32 % (33-45); HEMOGLOBIN 10.5 g/dL (11.5-14.8); LYMPHOCYTES # (AUTO) 1.3 /CMM (0.8-4.8); LYMPHOCYTES % (AUTO) 6.3 % (20.0-44.0); MEAN CORPUSCULAR HGB CONC 33 g/dl (31.0-36.0); MEAN CORPUSCULAR VOLUME 90 fL (82-100); MONOCYTES # (AUTO) 0.2 /CMM (0.1-1.30); MONOCYTES % (AUTO) 1.2 % (2.0-12.0); NEUTROPHILS # (AUTO) 18.6 /CMM (1.8-8.9); NEUTROPHILS % (AUTO) 92.1 % (43.0-81.0); PLATELET COUNT (AUTO) 99 /CMM (150-450); RED BLOOD CELL COUNT(AUTO) 3.54 MIL/uL (4.0-5.2); WHITE BLOOD COUNT (AUTO) 20.2 K/uL (4.3-11.0)
[2020-10-13] MEDS: POTASSIUM CL. PREMIX PERIPHER. 50 ML IV SCH ×6 (10:38→15:53)
--- NOTE | 2020-10-13 10:49 | NUR ---
RESEARCH PSYCHOLOGIST NOTE RECEIVED CALL FROM SHIPPER/RECEIVER RAMY KIRBY THAT PT HAS A CRITICAL LAB VALUE OF PT SODIUM 157 AND POTASSIUM 2.2. PRODUCT OPERATIONS ASSOCIATE MAGED BHATIA MADE AWARE WITH NEW ORDERS OF POTASSIUM 60 MEQ IV. WILL CONTINUE TO MONITOR.
[2020-10-13] MEDS ORDERED: POTASSIUM CHLORIDE 10 MEQ/50 ML PREMIXED IVPB FOR PERIPHERAL LINE IV SCH (11:00)
[2020-10-13] MEDS: INSULIN REGULAR, HUMAN 100 UNIT/ML 3 ML VIAL SQ PRN ×2 (11:41→17:22)
[2020-10-13] MEDS: SPIRONOLACTONE 25 MG TABLET PO SCH (13:00)
[2020-10-13] MEDS ORDERED: LORAZEPAM INJ 2 MG/ML VIAL IV PRN (15:00)
[2020-10-13] MEDS: FLUCONAZOLE IN NS 100 MG in PREMIX 1 EA IV SCH ×2 (16:32)
[2020-10-13] MEDS: MORPHINE SULFATE INJ 2 MG/ML DISP.SYRIN IV PRN ×2 (16:45→21:08)
[2020-10-13] MEDS: Potassium Chloride 40 MEQ in IV D5W 1,000 ML IV PRN (17:07)
[2020-10-13] MEDS: ZINC SULFATE 220 MG CAPSULE GT SCH (17:18)
--- NOTE | 2020-10-13 18:32 | NUR ---
STUDENT RECORDS SPECIALIST CLOSING NOTE PT REMAINS IN BED, NON-VERBAL BUT AROUSABLE AND RESPONSIVE TO TOUCH WITH SPONTANEOUS OPENING OF THE EYES. PT'S MECHANICAL VENT SETTINGS REMAIN AT AC 16, FIO2 30%, TV 450, AND PEEP 5 WITH NO SOB, LABORED BREATHING OR S/SX RESPIRATORY DISTRESS NOTED. PT'S TELE MONITOR SHOWS NSR AT 67 BPM WITH NO S/SX CARDIAC DISTRESS. PT HAS A BLADDER/RECTAL FISTULA AND GALINDO CATHETER ARE BOTH PATENT AND INTACT. PT'S RASHAWN PICC LINE IS PATENT, INTACT AND FLUSHING WELL WITH NO S/SX OF INFILTRATION/INFECTION. SAFETY MEASURES MAINTAINED: BED IN LOWEST, LOCKED AND HAS BOTH UPPER SIDE RAILS X2 UP. CALL LIGHT PLACED WITHIN REACH. WILL ENDORSE TO [place]HALT PLANT WORKER NURSE.
--- NOTE | 2020-10-13 19:30 | NUR ---
FOREST RANGER TECHNICIAN NOTE: PATIENT RESTING IN BED, NO ACUTE DISTRESS NOTED. BREATHING EVEN AND UNLABORED, NO SOB NOTED. VENT SETTINGS IN PLACE. GALINDO CATHETER IN PLACE, EMPTY AT THIS TIME. RECTAL TUBE IN PLACE. PICC LINE TO RASHAWN IN PLACE INFUSING D5W WITH 40 MEQ KCL AT 75ML/HR. G-TUBE CLAMPED AT THIS TIME. HOB ELEVATED. BED LOCKED AND IN LOWEST POSITION, CALL LIGHT IN REACH. WILL CONTINUE TO MONITOR THROUGHOUT SHIFT.
[2020-10-13 20:00] VITALS: BP 156/80
--- NOTE | 2020-10-13 21:10 | NUR ---
EQUIPMENT MAINT TECH NOTE: PATIENT NOTED WITH ELEVATED HEART RATE AND FACIAL GRIMACE, MORPHINE 2MG IV GIVEN PER MD ORDER. WILL CONTINUE TO MONITOR THROUGHOUT SHIFT.
--- NOTE | 2020-10-13 23:35 | NUR ---
SUSTAINABILITY COMMUNICATOR NOTE: PATIENT BLOOD SUGAR LEVEL 125MG/DL, NO INSULIN NEEDED PER SLIDING SCALE AND SINCE PATIENT IS NPO WITH FEEDING HELD AT THIS TIME. NO S/S OF HYPER/HYPOGLYCEMIA NOTED. PATIENT CURRENTLY ON D5W WITH 40MEQ KCL AT 75ML/HR. WILL CONTINUE TO MONITOR THROUGHOUT SHIFT.
[2020-10-14] VITALS: BP 134/89
[2020-10-14] MEDS: ALBUTEROL FS 2.5 MG/0.5 ML VIAL.NEB NEB SCH ×4 (01:31→19:07)
[2020-10-14 04:00] VITALS: BP 141/79
[2020-10-14] MEDS: BLOOD SUGAR DIAGNOSTIC 1 EACH STRIP IN SCH ×3 (05:09→17:52)
[2020-10-14] MEDS: HYDROCORTISONE SOD SUCCINATE 100 MG/2 ML VIAL IV SCH ×3 (05:09→20:32)
--- NOTE | 2020-10-14 05:40 | NUR ---
PATIENT RECEIVED ON TRACH TO VENT WITH SETTINGS OF AC 16, 500 Vt, 30%, +5. SUCTIONED FOR MINIMAL, THICK, YELLOW SECRETIONS. GIVEN IN-LINE TREATMENTS WITH NO ADVERSE REACTIONS. AMBU BAG AT BEDSIDE. VENT AND PULSE OXIMETER ALARMS AUDIBLE AND VISIBLE. NO DISTRESS/SOB NOTED. Addendum: 10/14/20 at 0540 by CATHERINE RUTHERFORD RT Amended: Links added.
--- NOTE | 2020-10-14 06:15 | NUR ---
CHEST PAIN COORDINATOR NOTE: PATIENT RESTING IN BED, NO ACUTE DISTRESS NOTED. BREATHING EVEN AND UNLABORED, NO SOB NOTED. VENT SETTINGS IN PLACE. GALINDO CATHETER IN PLACE. RECTAL TUBE IN PLACE. PICC LINE TO RASHAWN IN PLACE INFUSING D5W WITH 40 MEQ KCL AT 75ML/HR. G-TUBE CLAMPED AT THIS TIME. HOB ELEVATED. PATIENT BLOOD SUGAR LEVEL 159MG/DL, NO INSULIN GIVEN SINCE PATIENT IS NPO WITHOUT G-TUBE FEEDING AT THIS TIME. NO S/S OF HYPER/HYPOGLYCEMIA NOTED. BED LOCKED AND IN LOWEST POSITION, CALL LIGHT IN REACH. WILL ENDORSE TO DAY NURSE TO CONTINUE WITH PLAN OF CARE.
[2020-10-14 07:08] LABS: BASOPHILS % (AUTO) 0.1 % (0.0-2.0); EOSINOPHILS % (AUTO) 0.1 % (0.0-6.0); HEMATOCRIT 23 % (33-45); HEMOGLOBIN 7.5 g/dL (11.5-14.8); LYMPHOCYTES # (AUTO) 0.8 /CMM (0.8-4.8); LYMPHOCYTES % (AUTO) 4.4 % (20.0-44.0); MEAN CORPUSCULAR HGB CONC 33 g/dl (31.0-36.0); MEAN CORPUSCULAR VOLUME 89 fL (82-100); MONOCYTES # (AUTO) 0.3 /CMM (0.1-1.30); MONOCYTES % (AUTO) 1.4 % (2.0-12.0); NEUTROPHILS # (AUTO) 18.1 /CMM (1.8-8.9); PLATELET COUNT (AUTO) 91 /CMM (150-450); RED BLOOD CELL COUNT(AUTO) 2.55 MIL/uL (4.0-5.2); WHITE BLOOD COUNT (AUTO) 19.3 K/uL (4.3-11.0)
--- NOTE | 2020-10-14 07:10 | NUR ---
RESISTANCE BRAZER OPENING NOTES RECEIVED PATIENT IN BED. NON VERBAL, OPENS EYES. NO SOB NOTED. IN NO APPARENT DISTRESS. BREATHING IS EVEN AND UNLABORED. PORTEX #8 WITH VENT SETTINGS AC 16 TV 450 FiO2 30% PEEP 5. GALINDO CATHETER IN PLACE. FLEXI SEAL IN PLACE. IV ACCESS ON RASHAWN PICC LINE, INTACT AND PATENT, D5W WITH 40 MEQ KCL RUNNING @ 75ML/HR. G-TUBE CLAMPED AT THIS TIME. SAFETY MEASURES MAINTAINED. BED LOCKED AND IN LOWEST POSITION, CALL LIGHT WITHIN REACH. WILL CONTINUE PLAN OF CARE.
--- NOTE | 2020-10-14 07:40 | NUR ---
CASE MANAGEMENT SPECIALIST NOTES LAB CALLED TO [facility] WITH A CRITICAL LAB VALUE OF K+ 2.6 Na 156 Mg 1.1 IS MADE AWARE.
[2020-10-14 07:43] LABS: ALBUMIN 1.5 g/dL (3.4-5.0); BILIRUBIN,TOTAL 0.8 mg/dL (0.2-1.0); CALCIUM, SERUM 7.1 mg/dL (8.5-10.1); CREATININE 0.6 mg/dL (0.6-1.3); PHOSPHORUS 2.9 mg/dL (2.5-4.9); TOTAL PROTEIN, SERUM 5.2 g/dL (6.4-8.2)
[2020-10-14 07:47] LABS: POTASSIUM 2.6 mmol/L (3.5-5.1)
[2020-10-14 07:48] LABS: MAGNESIUM 1.1 mg/dL (1.8-2.4)
[2020-10-14 08:00] VITALS: BP 141/71
[2020-10-14] MEDS: HYDROGEL DRESSING 90 GM TUBE TP SCH (08:13)
[2020-10-14] MEDS: THERAHONEY GEL 1.5 OZ TUBE TP SCH (08:13)
[2020-10-14] MEDS: SPIRONOLACTONE 25 MG TABLET PO SCH (08:14)
[2020-10-14 08:16] LABS: LYMPHOCYTES % (MANUAL) 3 % (16-48); MONOCYTES % (MANUAL) 1 % (0-11.0); NEUTROPHILS % (MANUAL) 96 (42-76)
[2020-10-14] MEDS: PANTOPRAZOLE 40 MG VIAL IV SCH (08:17)
[2020-10-14] MEDS: MEROPENEM 500 MG in IV NS 0.9% 50 ML IV SCH ×2 (08:20→21:48)
[2020-10-14] MEDS: Potassium Chloride 40 MEQ in IV D5W 1,000 ML IV PRN (08:25)
[2020-10-14] MEDS: LEVETIRACETAM (500MG) 500 MG in IV NS 0.9% 100 ML IV SCH ×2 (08:57→20:33)
[2020-10-14] MEDS: POTASSIUM CL. PREMIX PERIPHER. 50 ML IV SCH ×10 (09:12→18:56)
[2020-10-14] MEDS: Magnesium 1GM/D5W 100ML PREMIX 100 ML IV SCH ×3 (09:39→11:44)
[2020-10-14 12:08] VITALS: BP 137/73
[2020-10-14] MEDS: IV NS 0.9% 250 ML IV PRN (15:51)
[2020-10-14] MEDS: FLUCONAZOLE IN NS 100 MG in PREMIX 1 EA IV SCH ×2 (15:51)
[2020-10-14 16:00] VITALS: BP 145/79
[2020-10-14] MEDS: ZINC SULFATE 220 MG CAPSULE GT SCH (17:52)
[2020-10-14] MEDS: MORPHINE SULFATE INJ 2 MG/ML DISP.SYRIN IV PRN (18:04)
--- NOTE | 2020-10-14 18:10 | NUR ---
RIB KNITTER CLOSING NOTE PATIENT IN BED. NON VERBAL. NO SOB NOTED. NO S/S OF RESPIRATORY DISTRESS. PORTEX #8 WITH VENT SETTINGS AC 16 TV 450 FiO2 30% PEEP 5. GALINDO CATHETER IN PLACE, 300 OUTPUT. FLEXI SEAL IN PLACE, LIQUID IN APPEARANCE, 1500 CC OUTPUT. IV ACCESS ON RASHAWN PICC LINE, INTACT AND PATENT. G-TUBE CLAMPED AT THIS TIME. ROUTINE MEDS WERE GIVEN ORDERED. SAFETY MEASURES MAINTAINED. BED LOCKED AND IN LOWEST POSITION, CALL LIGHT WITHIN REACH. WILL ENDORSE TO COMMERCIAL SOLAR SALES CONSULTANT FOR JOE.
--- NOTE | 2020-10-14 19:54 | NUR ---
BRICKLAYER: CONTINUITY OF CARE Patient in bed, eyes open, non verbal. On mechanical vent. RASHAWN PICC line. NPO. Gtube clamped. Turned and repositioned, made comfortable in bed.
[2020-10-14 20:00] VITALS: BP 155/100
[2020-10-15] VITALS (10 sets, daily range): BP systolic 132–192; BP diastolic 75–93
[2020-10-15] MEDS: BLOOD SUGAR DIAGNOSTIC 1 EACH STRIP IN SCH ×5 (00:21→23:07)
[2020-10-15] MEDS: INSULIN REGULAR, HUMAN 100 UNIT/ML 3 ML VIAL SQ PRN ×5 (00:21→23:09)
[2020-10-15] MEDS: ALBUTEROL FS 2.5 MG/0.5 ML VIAL.NEB NEB SCH ×4 (01:06→19:50)
--- NOTE | 2020-10-15 04:42 | NUR ---
EQUINE MANAGER: URINE WITH LARGE BROWN SEDIMENTS. Old Gtube has no gastric drainage, covered with dry gauze as per order wound care. New Gtube site connected to coe cath to allow diversion of gastric fluid has no drainage. Urinary coe cath dislodged, re inserted new Irish #16 coe cath with returned of yellow urine with sediments brown color large amount. Notified Bailey/CAMP NURSE with new orders placed. Urine specimen collected and send to lab.
[2020-10-15] MEDS: HYDROCORTISONE SOD SUCCINATE 100 MG/2 ML VIAL IV SCH ×3 (05:21→20:40)
--- NOTE | 2020-10-15 06:58 | NUR ---
ALTERATION HAND: END OF SHIFT REPORT Trach intact, mechanical vent remains the same. Sinus rhythm HR 77 in the Tele monitor. Wound dressing done, turned and repositioned. Awaiting conservatorship decision. Will endorse to oncoming RN.
[2020-10-15 06:59] LABS: BASOPHILS % (AUTO) 0.1 % (0.0-2.0); EOSINOPHILS % (AUTO) 0.1 % (0.0-6.0); HEMATOCRIT 23 % (33-45); HEMOGLOBIN 7.7 g/dL (11.5-14.8); LYMPHOCYTES # (AUTO) 0.7 /CMM (0.8-4.8); MEAN CORPUSCULAR HGB CONC 34 g/dl (31.0-36.0); MEAN CORPUSCULAR VOLUME 89 fL (82-100); MONOCYTES # (AUTO) 0.3 /CMM (0.1-1.30); MONOCYTES % (AUTO) 1.8 % (2.0-12.0); NEUTROPHILS # (AUTO) 15.4 /CMM (1.8-8.9); PLATELET COUNT (AUTO) 62 /CMM (150-450); RED BLOOD CELL COUNT(AUTO) 2.55 MIL/uL (4.0-5.2); WHITE BLOOD COUNT (AUTO) 16.3 K/uL (4.3-11.0)
[2020-10-15 07:15] LABS: D-DIMER 4.02 mg/L(FEU (0.17-0.50)
--- NOTE | 2020-10-15 07:15 | NUR ---
QUALITY LAB TECHNICIAN NOTES BEDSIDE ENDORSEMENT DONE. PATIENT IN BED, EYES CLOSED, OBTUNDED. CURRENTLY ON TRACH/VENT W/ CURRENT SETTINGS: PORTEX #8, AC 16, TV 450 FiO2 30% PEEP 5. RASHAWN PICC LINE INTACT AND PATENT. GALINDO CATHETER REPLACED BY PREVIOUS SHIFT RN, DRAINING YELLOW-COLORED URINE. FLEXI SEAL IN PLACE, W/ LIQUID STOOL IN COLLECTION BAG. G-TUBE IS INTACT, CURRENTLY IN PLACE AND USED FOR DRAINING GASTRIC FLUID, COLLECTED VIA GALINDO CATH BAG SET-UP BY PREVIOUS SHIFT RN WELL. SAFETY MEASURES IN PLACE. WILL CONTINUE TO MONITOR.
[2020-10-15 07:25] LABS: ALBUMIN 1.5 g/dL (3.4-5.0); BILIRUBIN,TOTAL 1.1 mg/dL (0.2-1.0); CALCIUM, SERUM 7.3 mg/dL (8.5-10.1); CREATININE 0.6 mg/dL (0.6-1.3)
[2020-10-15 07:30] LABS: POTASSIUM 2.5 mmol/L (3.5-5.1)
[2020-10-15] MEDS: THERAHONEY GEL 1.5 OZ TUBE TP SCH (08:21)
[2020-10-15] MEDS: HYDROGEL DRESSING 90 GM TUBE TP SCH (08:21)
[2020-10-15] MEDS: LEVETIRACETAM (500MG) 500 MG in IV NS 0.9% 100 ML IV SCH ×2 (08:25→20:35)
[2020-10-15] MEDS: PANTOPRAZOLE 40 MG VIAL IV SCH (08:25)
[2020-10-15] MEDS: SPIRONOLACTONE 25 MG TABLET PO SCH (08:33)
[2020-10-15] MEDS: MEROPENEM 500 MG in IV NS 0.9% 50 ML IV SCH ×2 (09:21→21:23)
[2020-10-15] MEDS: POTASSIUM CL. PREMIX PERIPHER. 50 ML IV SCH ×12 (09:58→20:33)
[2020-10-15 10:37] LABS: LYMPHOCYTES % (MANUAL) 3 % (16-48); MONOCYTES % (MANUAL) 3 % (0-11.0); NEUTROPHILS % (MANUAL) 94 (42-76)
[2020-10-15] MEDS: IV D5W 1,000 ML IV PRN (11:24)
[2020-10-15] MEDS: FLUCONAZOLE IN NS 100 MG in PREMIX 1 EA IV SCH ×2 (15:07)
[2020-10-15] MEDS: ZINC SULFATE 220 MG CAPSULE GT SCH (17:35)
--- NOTE | 2020-10-15 18:30 | NUR ---
RN NOTES WOUND CARE/TREATMENT DONE ON SKIN ISSUES. PROCEDURE TOLERATED WELL BY PATIENT. WILL CONTINUE TO MONITOR.
--- NOTE | 2020-10-15 19:03 | NUR ---
WELCOME CENTER AGENT NOTES PATIENT IS IN BED, NOTED OCCASIONALLY OPENS EYES, OBTUNDED. CONTINUES ON TRACH/VENT W/ CURRENT SETTINGS TOLERATED. RASHAWN PICC LINE INTACT AND PATENT. GALINDO CATHETER IN PLACE, DRAINING YELLOW-COLORED URINE.. FLEXI SEAL IN PLACE AND PATENT, LIQUID STOOL NOTED IN COLLECTION BAG. G-TUBE IS INTACT AND CLAMPED, NO DRAINAGE NOTED. CONTINUE TO BE NPO, D5W RUNNING AT 100CC/HR. REPOSITIONED FOR COMFORT. SAFETY MEASURES MAINTAINED. WILL ENDORSE TO SENIOR PUBLICATIONS SPECIALIST RN FOR JOE.
--- NOTE | 2020-10-15 19:35 | NUR ---
certified flex endoscope reprocessor opening notes Received Pt from morning nurse. Pt is resting in bed comfortably. Pt is obtunded and able to open eyes. Pt is on mec. vent with O2 sat is 100%. Tolerating well. Tele monitor showed SR hr at 83 bpm. RASHAWN Piccline is clean, intact and infusing well potassium 10 meq@ 50 ml/hr. Carpenter cath is intact and draining yellow urine. Rectal tube is in placed, intact and draining liquid stool. G-tube is in placed, intact and currently used for draining gastric fluids. Safety precautions is maintained. Bed at low position, brakes locked, side railsupX2, hob elevated and call light is within reach. Will continue to monitor.
[2020-10-16] VITALS: BP 147/82
--- NOTE | 2020-10-16 | NUR ---
livestock feeder notes Wound care provided as ordered. Pt tolerated activity well.
[2020-10-16] MEDS: IV D5W 1,000 ML IV PRN ×2 (01:24→18:40)
[2020-10-16] MEDS: ALBUTEROL FS 2.5 MG/0.5 ML VIAL.NEB NEB SCH ×4 (01:59→20:26)
[2020-10-16 04:00] VITALS: BP 131/88
[2020-10-16] MEDS: HYDROCORTISONE SOD SUCCINATE 100 MG/2 ML VIAL IV SCH ×3 (04:00→23:00)
[2020-10-16] MEDS: BLOOD SUGAR DIAGNOSTIC 1 EACH STRIP IN SCH ×4 (05:22→23:43)
[2020-10-16] MEDS: INSULIN REGULAR, HUMAN 100 UNIT/ML 3 ML VIAL SQ PRN (05:23)
--- NOTE | 2020-10-16 06:50 | NUR ---
configuration release manager closing notes Pt is resting in bed comfortably. Pt is obtunded and able to open eyes. Pt is on mec. vent with O2 sat is 100%. Tolerating well. Tele monitor showed SR hr at 81 bpm. RASHAWN Piccline is clean, intact and infusing well D5W @ 100 ml/hr. Carpenter cath is intact and draining yellow urine 650 ml. Rectal tube is in placed, intact and draining liquid stool. G-tube is in placed, intact and currently used for draining gastric fluids. Safety precautions is maintained. Bed at low position, brakes locked, side railsupX2, hob elevated and call light is within reach. Will endorse to morning nurse for JOE.
--- NOTE | 2020-10-16 06:52 | NUR ---
nurse assessor notes Received a phone call critical lab from ilia Gayle. Lab informed that Pt's platelet is 50. Informed and notified CONSTRUCTION ESTIMATOR regarding platelet 50. Awaiting for orders. Charge nurse is aware and informed. Will endorse to morning nurse.
[2020-10-16 06:58] LABS: BASOPHILS % (AUTO) 0.1 % (0.0-2.0); HEMATOCRIT 23 % (33-45); HEMOGLOBIN 7.5 g/dL (11.5-14.8); LYMPHOCYTES # (AUTO) 0.7 /CMM (0.8-4.8); LYMPHOCYTES % (AUTO) 4.2 % (20.0-44.0); MEAN CORPUSCULAR HGB CONC 33 g/dl (31.0-36.0); MEAN CORPUSCULAR VOLUME 90 fL (82-100); MONOCYTES # (AUTO) 0.2 /CMM (0.1-1.30); MONOCYTES % (AUTO) 1.4 % (2.0-12.0); NEUTROPHILS # (AUTO) 15.5 /CMM (1.8-8.9); NEUTROPHILS % (AUTO) 94.3 % (43.0-81.0); PLATELET COUNT (AUTO) 51 /CMM (150-450); RED BLOOD CELL COUNT(AUTO) 2.53 MIL/uL (4.0-5.2); WHITE BLOOD COUNT (AUTO) 16.4 K/uL (4.3-11.0)
[2020-10-16 07:08] LABS: D-DIMER 2.41 mg/L(FEU (0.17-0.50)
--- NOTE | 2020-10-16 07:30 | NUR ---
Recieved Patient RN Note Patient laying in bed. A&Ox2 some forgetfulness noted. Respirations even and unlabored. No distress noted. Patient stable at this time. Addendum: 10/16/20 at 0758 by NILS ELISE RN ORIGINAL NOTE WRITTEN IN ERROR ON WRONG PATIENT. RN RECEIVED PATIENT BEDSIDE REPORT COMPLETE. PATIENT IN BED. PT CONTINUES CURRENTLY ON TRACH/VENT W/ CURRENT SETTINGS: PORTEX #8, AC 16, TV 450 FiO2 30% PEEP 5. RASHAWN PICC LINE INTACT AND PATENT. GALINDO CATHETER, NOTED IN PLACE DRAINING YELLOW-COLORED URINE. FLEXI SEAL IN PLACE, W/ LIQUID STOOL IN COLLECTION BAG. G-TUBE IS INTACT, CURRENTLY IN PLACE AND USED FOR DRAINING GASTRIC FLUID. SAFETY MEASURES IN PLACE. WILL CONTINUE TO MONITOR
[2020-10-16 07:59] LABS: ALBUMIN 1.5 g/dL (3.4-5.0); BILIRUBIN,TOTAL 1.1 mg/dL (0.2-1.0); CALCIUM, SERUM 7.5 mg/dL (8.5-10.1); CREATININE 0.6 mg/dL (0.6-1.3); POTASSIUM 3.2 mmol/L (3.5-5.1)
[2020-10-16 08:00] VITALS: BP 147/86
[2020-10-16] MEDS: MEROPENEM 500 MG in IV NS 0.9% 50 ML IV SCH ×2 (08:46→22:54)
[2020-10-16] MEDS: PANTOPRAZOLE 40 MG VIAL IV SCH (08:47)
[2020-10-16] MEDS: HYDROGEL DRESSING 90 GM TUBE TP SCH (08:59)
[2020-10-16] MEDS: SPIRONOLACTONE 25 MG TABLET PO SCH (08:59)
[2020-10-16] MEDS: THERAHONEY GEL 1.5 OZ TUBE TP SCH (09:00)
[2020-10-16 09:44] LABS: BAND % (MANUAL) 1 % (0.0-5.0); LYMPHOCYTES % (MANUAL) 2 % (16-48); MONOCYTES % (MANUAL) 2 % (0-11.0); NEUTROPHILS % (MANUAL) 95 (42-76)
[2020-10-16] MEDS: POTASSIUM CL. PREMIX PERIPHER. 50 ML IV SCH ×4 (10:01→13:10)
[2020-10-16] MEDS: LEVETIRACETAM (500MG) 500 MG in IV NS 0.9% 100 ML IV SCH ×2 (10:13→22:54)
--- NOTE | 2020-10-16 10:18 | NUR ---
[facility] Note ( [facility] Left message for Nichelle burkett ( [phone]) at [phone] since documentation signed by physicians was faxed to conservator. This manager social requested a callback regarding code status and all decisions. Will update notes as soon as a determination or callback is received.
--- NOTE | 2020-10-16 10:47 | NUR ---
SS Note: SW followed up and had Dr. Rosado and Dr. Essence Murray complete new End-of-Life packet. JACKI refaxed completed End-of-Life packet to Public Guardian ConservatorNichelle [phone] fax: [phone]
[2020-10-16 12:00] VITALS: BP 139/72
--- NOTE | 2020-10-16 14:35 | NUR ---
Called conservator for phone consent no answer voicemail left Addendum: 10/16/20 at 1435 by NILS ELISE RN Amended: Links added.
[2020-10-16] MEDS: FLUCONAZOLE IN NS 100 MG in PREMIX 1 EA IV SCH ×2 (15:27)
[2020-10-16 16:00] VITALS: BP 149/95
[2020-10-16 16:03] LABS: MAGNESIUM 1.3 mg/dL (1.8-2.4); PHOSPHORUS 2.7 mg/dL (2.5-4.9)
[2020-10-16] MEDS: ZINC SULFATE 220 MG CAPSULE GT SCH (18:00)
[2020-10-16 20:00] VITALS: BP 151/89
[2020-10-17] VITALS (9 sets, daily range): BP systolic 143–153; BP diastolic 72–89
[2020-10-17] MEDS: ALBUTEROL FS 2.5 MG/0.5 ML VIAL.NEB NEB SCH ×4 (01:31→20:19)
[2020-10-17] MEDS: BLOOD SUGAR DIAGNOSTIC 1 EACH STRIP IN SCH ×3 (06:00→18:42)
[2020-10-17 06:32] LABS: BASOPHILS % (AUTO) 0.2 % (0.0-2.0); LYMPHOCYTES # (AUTO) 0.8 /CMM (0.8-4.8); LYMPHOCYTES % (AUTO) 7.8 % (20.0-44.0); MEAN CORPUSCULAR HGB CONC 35 g/dl (31.0-36.0); MEAN CORPUSCULAR VOLUME 89 fL (82-100); MONOCYTES # (AUTO) 0.1 /CMM (0.1-1.30); MONOCYTES % (AUTO) 1.4 % (2.0-12.0); NEUTROPHILS # (AUTO) 9.3 /CMM (1.8-8.9); NEUTROPHILS % (AUTO) 90.6 % (43.0-81.0); RED BLOOD CELL COUNT(AUTO) 2.25 MIL/uL (4.0-5.2); WHITE BLOOD COUNT (AUTO) 10.3 K/uL (4.3-11.0)
[2020-10-17 06:38] LABS: D-DIMER 1.9 mg/L(FEU (0.17-0.50)
[2020-10-17 06:45] LABS: HEMATOCRIT 20 % (33-45); HEMOGLOBIN 6.9 g/dL (11.5-14.8); PLATELET COUNT (AUTO) 46 /CMM (150-450)
[2020-10-17 07:13] LABS: ALBUMIN 1.5 g/dL (3.4-5.0); BILIRUBIN,TOTAL 1.1 mg/dL (0.2-1.0); CREATININE 0.6 mg/dL (0.6-1.3); PHOSPHORUS 2.7 mg/dL (2.5-4.9); POTASSIUM 2.9 mmol/L (3.5-5.1); TOTAL PROTEIN, SERUM 4.9 g/dL (6.4-8.2)
[2020-10-17 07:23] LABS: MAGNESIUM 1.1 mg/dL (1.8-2.4)
--- NOTE | 2020-10-17 07:30 | NUR ---
MS/TELE OPENING NOTE RECEIVED PATIENT IN BED. PT NON VERBAL, OPENS EYES. NO SOB NOTED. NO APPARENT DISTRESS NOTED. RESPIRATIONS EVEN UNLABORED. PORTEX #8 WITH VENT SETTINGS AC 16 TV 450 FiO2 30% PEEP 5. GALINDO CATHETER IN PLACE. FLEXI SEAL IN PLACE. IV ACCESS ON RASHAWN PICC LINE, INTACT AND PATENT. SAFETY MEASURES MAINTAINED. BED LOCKED AND IN LOWEST POSITION, CALL LIGHT WITHIN REACH. WILL CONTINUE PLAN OF CARE.
[2020-10-17] MEDS: HYDROCORTISONE SOD SUCCINATE 100 MG/2 ML VIAL IV SCH ×3 (07:50→23:13)
--- NOTE | 2020-10-17 07:50 | NUR ---
MS/TELE NOTE ALERTED BY LAB PT MG WAS 1.1 NOTIFIED PHYSICIAN AT 0744 PER TEXT. RESPONSE @9762 NNO. LAB NOTIFIED OF PHYSICIAN DISPOSITION.
[2020-10-17] MEDS: SPIRONOLACTONE 25 MG TABLET PO SCH (08:26)
--- NOTE | 2020-10-17 08:55 | NUR ---
SS Note: JACKI called Public Guardian Laborer High Density Press/Conservator, Nichelle [phone] to confirm that she received the updated end-of-life packet for this pt. as decision to change code status to DNR and place pt. on comfort care is dire. Nichelle confirmed that she did received the paperwork and will review it today to make sure it is complete and if so, will submit it to the court. JACKI asked Nichelle for a more definite timeline of the events. Per Nichelle, she believes the court will schedule a date for a hearing to determine if comfort care and DNR status should be granted. However, per Nichelle she has not completed this process before and is not sure of how the event will take place. JACKI asked Nichelle to keep SO updated. SW facilitated video call between patient and Conservator, Nichelle. Nichelle stated that she noted the pt. opens eyes but does not respond to verbal cues. SW encouraged Nichelle to expedite the process as to not prolong the pt.'s suffering. Nichelle expressed understanding and will keep SW updated.
[2020-10-17] MEDS: PANTOPRAZOLE 40 MG VIAL IV SCH (08:56)
[2020-10-17] MEDS: MEROPENEM 500 MG in IV NS 0.9% 50 ML IV SCH (08:57)
[2020-10-17] MEDS ORDERED: ACETAMINOPHEN 325 MG TABLET PO ONE (09:00)
[2020-10-17] MEDS: diphenhydrAMINE HCL 50 MG/ML VIAL IV ONE ×2 (09:00→13:58)
[2020-10-17] MEDS: LEVETIRACETAM (500MG) 500 MG in IV NS 0.9% 100 ML IV SCH ×2 (09:06→23:20)
[2020-10-17] MEDS: HYDROGEL DRESSING 90 GM TUBE TP SCH (09:06)
[2020-10-17] MEDS: THERAHONEY GEL 1.5 OZ TUBE TP SCH (09:06)
--- NOTE | 2020-10-17 10:44 | NUR ---
SS Note: JACKI notified by Public Guardian's Office Materials Technician/Conservator, Nichelle [phone] that the End-of-life packet cannot be completed by an COUNTER STITCHER and must be completed by a MD and faxed back. JACKI will follow up accordingly. Addendum: 10/17/20 at 1047 by MARIANELA ECHEVERRIA Late entry for 10/12/2020
--- NOTE | 2020-10-17 11:05 | NUR ---
SS Note: JACKI called & spoke to the Public Guardians Officer of the Day, Behzad [phone] who elaborated that changing the pt.s code status to DNR and placing the pt. on comfort care will not be a speedy process. Per Behzad, once the end-of-life packet is submitted to the Conservator it must then be reviewed by the chain of command before it reaches the court. The court will then set a court date for a hearing to determine if DNR code status and comfort care measures should be approved. Also, if the taper operator has any objections it will delay the process, per Behzad. Plan: Case management to assist with placement for the pt. while the court process continues.
[2020-10-17] MEDS: POTASSIUM CL. PREMIX PERIPHER. 50 ML IV SCH ×4 (11:37→14:35)
[2020-10-17] MEDS: Potassium Chloride 20 MEQ in IV D5W 1,000 ML IV SCH (12:50)
[2020-10-17] MEDS ORDERED: ACETAMINOPHEN 650 MG/SUPP.RECT RC ONE (13:00)
[2020-10-17] MEDS ORDERED: Magnesium 1GM/D5W 100ML PREMIX 100 ML IV SCH (13:00)
[2020-10-17] MEDS ORDERED: diphenhydrAMINE HCL 50 MG/ML VIAL IV ONE (14:00)
[2020-10-17] MEDS: Magnesium 1GM/D5W 100ML PREMIX 100 ML IV SCH ×4 (15:30→18:30)
[2020-10-17] MEDS: FLUCONAZOLE IN NS 100 MG in PREMIX 1 EA IV SCH ×2 (16:00)
[2020-10-17] MEDS: ZINC SULFATE 220 MG CAPSULE GT SCH (18:00)
--- NOTE | 2020-10-17 18:05 | NUR ---
OUTSIDE SALES REPRESENTATIVE INSURANCE NOTE RETRIEVED BLOOD PRODUCTS FROM LAB AT 1400. GAVE PRE TRANSFUSION MEDIATIONS AND VERIFIED BLOOD PRODUCT PER TWO NURSE VERIFICATION. BLOOD PRODUCT WAS STARTED AT 1419. BLOOD PRODUCTS STARTED OFF AT 60ML/HOUR AND BEGAN TO INFUSE. NURSE STAYED AT BEDSIDE TO WATCH FOR REACTION. AFTER 15MINUTES VITALS WERE RECHECK NO REACTION NOTED. MIDLINE TO UPPER RIGHT ARM DRESSING DRY AND INTACT. AT 1440 OTHER NURSE RAY ENTERED ROOM TO LET NURSE KNOW ANOTHER PATIENT WAS CALLING OUT. NURSE LEFT ROOM TO ASSIST OTHER PATIENT, OTHER NURSE RAY STAYED IN ROOM. 1450 NURSE REENTERED ROOM TO CHECK ON PATIENT, NURSE RAY AT BEDSIDE STATED PT MIDLINE DRESSING NEEDED TO BE CHANGED. UPON ASSESSMENT MIDLINE DRESSING SEEN SOILED WITH BLOOD. NURSE RAY ADVISE NURSE TO CHANGE DRESSING SO AREA COULD BE INSPECTED FURTHER HE THEN LEFT ROOM AND RETRIEVED MIDLINE DRESSING. THIS NURSE THEN PROCEEDED TO CHANGE DRESSING USING STERILE TECHNIQUE. ONCE REMOVING OLD DRESSING BLOOD WAS SEEN POURING OUT FROM MIDLINE DRESSING AND UP PATIENTS ARM. BLOOD PRODUCT WAS THEN PAUSED AND LINE WAS FLUSHED LINE FLUSHED FINE. BLOOD PRODUCTS RESTARTED AND NEW DRESSING WAS PLACED. AFTER FEW MINUTES OF BLOOD BEING RESTARTED DRESSING BECAME SOILED AGAIN AND BLOOD WAS SEEN POURING OUT FROM UNDER DRESSING AND UP PATIENTS ARM. NURSE THEN SLOWED BLOOD DOWN TO 40ML/HR AND WENT TO GET CHARGE NURSE. CHARGE NURSE STATED SHE WAS BUSY AT THE MOMENT ASSISTING ANOTHER PT AND TO ASK ANOTHER NURSE. OTHER RN STATED TO RESTART A NEW LINE. THIS RN MADE 2 ATTEMPTS FIRST ATTEMPT UNSUCCESSFUL. SECOND ATTEMPT 18 GAUGE IN RIGHT HAND WAS SUCCESSFUL AND BLOOD WAS RESTARTED. AFTER 37 MINUTES AT 60 ML/HOUR NEW LINE BEGAN TO SWELL AT SITE BLOOD PRODUCT WAS THEN PAUSED AND NURSE WENT TO ASK OTHER NURSE FOR HELP. OTHER RN ASSISTED BUT NO FURTHER ATTEMPTS WERE MADE TO RESTICK PT DUE TO PT ARM BEING EDEMATOUS AND OTHER EXTREMITIES BEING CONTRACTED. THIS RN THEN NOTIFIED MD @ 1724 OF INABILITY TO RESTART BLOOD AND ANTIBIOTICS DUE TO INABILITY TO GET IV ACCESS. MD ANTONY STATED TO GET PT A NEW MIDLINE. SENIOR BENEFITS SPECIALIST YONY CASTILLO CALCULUS PROFESSOR THEN NOTIFIED AT 1727 OF INABILITY TO FINISH BLOOD PRODUCTS SHE STATED ONCE MIDLINE WAS PLACED TO RESTART BLOOD AND REDO LABS IN AM. CHARGE NURSE INFORMED OF CHANGES AND STATED SHE WOULD HANDLE ORDERS FOR MIDLINE. ALL INTRAVENOUS PRODUCTS FROM 1400 UNTIL PRESENT HELD UNTIL NEW IV ACCESS CAN BE GAINED. NO FURTHER INSTRUCTION GIVEN AT THIS TIME.
--- NOTE | 2020-10-17 19:20 | NUR ---
TELE/RN OPENING NOTE RECEIVED PATIENT RESTING IN BED. NON-VERBAL AT BASELINE. NO SIGNS OR SYMPTOMS OF PAIN NOTED AT THIS TIME. OBTAINED REPORT FROM AM NURSE WHO STATES PATIENT IS TO HAVE MIDLINE PLACED. PER MD QUIROZ, ONCE NEW MIDLINE IS PLACED RESTART BLOOD PRODUCTS AND REPEAT LABS IN AM. HOLDING IV MEDICATIONS UNTIL LINE IS PLACED. NO SIGNS OR SYMPTOMS OF RESPIRATORY DISTRESS NOTED. PATIENT ON MECHANICAL VENT AND TOLERATING SETTINGS WELL. PATIENT REMAINS NPO. CALL LIGHT WITHIN REACH. ASPIRATION, FALL AND SAFETY PRECAUTIONS MAINTAINED. WILL CONTINUE TO MONITOR.
[2020-10-17] MEDS ORDERED: PHYTONADIONE INJ 10 MG/1 ML AMPUL SQ ONE (22:30)
--- NOTE | 2020-10-17 23:00 | NUR ---
TELE/RN NOTE UNABLE TO PLACE MIDLINE IN PATIENT. IV STAFF STATES PATIENT IS NOT A CANDIDATE FOR MIDLINE OR PICC LINE. PERIPHERAL IV PLACED TO RIGHT UPPER ARM #20G. IV LINE INTACT AND PATENT.
[2020-10-17] MEDS: IV NS 0.9% 250 ML IV PRN (23:25)
[2020-10-18] VITALS (12 sets, daily range): BP systolic 130–157; BP diastolic 68–85
[2020-10-18] MEDS: BLOOD SUGAR DIAGNOSTIC 1 EACH STRIP IN SCH ×4 (00:08→18:00)
[2020-10-18] MEDS: MEROPENEM 500 MG in IV NS 0.9% 50 ML IV SCH ×2 (00:11→09:39)
[2020-10-18] MEDS: Magnesium 1GM/D5W 100ML PREMIX 100 ML IV SCH ×2 (01:03→02:10)
[2020-10-18] MEDS ORDERED: Magnesium 1GM/D5W 100ML PREMIX PIGGYBACK IV ONE (02:30)
[2020-10-18] MEDS: ALBUTEROL FS 2.5 MG/0.5 ML VIAL.NEB NEB SCH ×4 (02:35→19:29)
[2020-10-18] MEDS ORDERED: Magnesium 1 GM/2 ML VIAL IV ONE (03:30)
[2020-10-18] MEDS ORDERED: Magnesium 1GM/D5W 100ML PREMIX 100 ML IV ONE ×3 (04:30→06:00)
[2020-10-18] MEDS: HYDROCORTISONE SOD SUCCINATE 100 MG/2 ML VIAL IV SCH ×3 (04:52→20:30)
--- NOTE | 2020-10-18 06:30 | NUR ---
TELE/RN CLOSING NOTE PATIENT IS CURRENTLY RESTING IN BED. NON-VERBAL AT BASELINE. CONTINUES ON MECHANICAL VENT WITH PATIENT TOLERATING SETTINGS WELL. NO SIGNS OR SYMPTOMS OF RESPIRATORY DISTRESS NOTED. GALINDO CATHETER PATENT WITH OUTPUT OF 350CC THIS SHIFT. FLEXISEAL PATENT WITH 200CC OUTPUT. PERIPHERAL IV TO RASHAWN INTACT AND PATENT. PATIENT RECEIVED MAGNESIUM X 6 BAGS THIS SHIFT. CONTINUES ON IV ABX. BLOOD GLUCOSE AT 0600 WAS 113. CALL LIGHT WITHIN REACH. ASPIRATION, FALL AND SAFETY PRECAUTIONS MAINTAINED. WILL ENDORSE PLAN OF CARE TO ONCOMING SHIFT.
[2020-10-18 06:41] LABS: BASOPHILS % (AUTO) 0.5 % (0.0-2.0); EOSINOPHILS % (AUTO) 0.1 % (0.0-6.0); HEMATOCRIT 22 % (33-45); HEMOGLOBIN 7.5 g/dL (11.5-14.8); LYMPHOCYTES # (AUTO) 0.9 /CMM (0.8-4.8); LYMPHOCYTES % (AUTO) 8.2 % (20.0-44.0); MEAN CORPUSCULAR HGB CONC 34 g/dl (31.0-36.0); MEAN CORPUSCULAR VOLUME 90 fL (82-100); MONOCYTES # (AUTO) 0.2 /CMM (0.1-1.30); MONOCYTES % (AUTO) 1.9 % (2.0-12.0); NEUTROPHILS # (AUTO) 9.6 /CMM (1.8-8.9); NEUTROPHILS % (AUTO) 89.3 % (43.0-81.0); RED BLOOD CELL COUNT(AUTO) 2.46 MIL/uL (4.0-5.2); WHITE BLOOD COUNT (AUTO) 10.7 K/uL (4.3-11.0)
[2020-10-18 06:53] LABS: ALBUMIN 1.5 g/dL (3.4-5.0); BILIRUBIN,TOTAL 1.1 mg/dL (0.2-1.0); CALCIUM, SERUM 7.5 mg/dL (8.5-10.1); CREATININE 0.6 mg/dL (0.6-1.3); MAGNESIUM 2.9 mg/dL (1.8-2.4); PHOSPHORUS 2.7 mg/dL (2.5-4.9); TOTAL PROTEIN, SERUM 5.1 g/dL (6.4-8.2)
[2020-10-18 06:59] LABS: POTASSIUM 2.8 mmol/L (3.5-5.1)
--- NOTE | 2020-10-18 07:00 | NUR ---
TELE/RN NOTE RECEIVED CALL FROM LAB WITH CRITICAL POTASSIUM LEVEL OF 2.8. PATIENT SCHEDULED TO RECEIVE IV POTASSIUM THIS MORNING. WILL ENDORSE CRITICAL LAB LEVEL TO ONCOMING SHIFT.
[2020-10-18 07:16] LABS: PLATELET COUNT (AUTO) 42 /CMM (150-450)
[2020-10-18] MEDS: Potassium Chloride 20 MEQ in IV D5W 1,000 ML IV SCH ×3 (07:19→17:20)
--- NOTE | 2020-10-18 08:00 | NUR ---
MORTGAGE LOAN ORIGINATOR OPENING NOTE RECEIVED PATIENT RESTING IN BED. NON-VERBAL, OBTUNDED. NO SIGNS OR SYMPTOMS OF PAIN NOTED AT THIS TIME. IV IN RIGHT UPPER ARM INFUSING POTASSIUM CHLORIDE 20MEQ @ 100ML/HR. NO SIGNS OR SYMPTOMS OF RESPIRATORY DISTRESS NOTED. PATIENT ON MECHANICAL VENT AND TOLERATING SETTINGS WELL. PATIENT REMAINS NPO. CALL LIGHT WITHIN REACH. ASPIRATION, FALL AND SAFETY PRECAUTIONS MAINTAINED. WILL CONTINUE TO MONITOR.
--- NOTE | 2020-10-18 08:20 | NUR ---
NOTIFIED DR WALLACE OF PT'S HGB/HCT 7.5, PLATELET 42 WITH NO ORDER TO TRANSFUSE PRBC AT THIS TIME ,STILL AWAITING FOR FIBRINOGEN LEVEL RESULT FOR TODAY PRIOR TO ADMINISTERING CRYOPRECIPITATE.ALSO NOTIFIED DR WALLACE OF PT'S LOW K+ LEVEL OF 2.8 .
[2020-10-18 08:54] LABS: D-DIMER 1.82 mg/L(FEU (0.17-0.50)
[2020-10-18] MEDS: LEVETIRACETAM (500MG) 500 MG in IV NS 0.9% 100 ML IV SCH ×2 (08:56→22:11)
[2020-10-18] MEDS: SPIRONOLACTONE 25 MG TABLET PO SCH (09:00)
[2020-10-18] MEDS: PANTOPRAZOLE 40 MG VIAL IV SCH (09:01)
[2020-10-18] MEDS: THERAHONEY GEL 1.5 OZ TUBE TP SCH (09:02)
[2020-10-18] MEDS: HYDROGEL DRESSING 90 GM TUBE TP SCH (09:02)
--- NOTE | 2020-10-18 11:15 | NUR ---
RT NOTE: PATIENT'S TRACH WAS CHANGED TO #8 SHILEY PROXIMAL XLT DUE TO LEAKING PER . PATIENT TOLERATED WELL. NO BLOOD NOTED. PATIENT PLACED BACK ON MECHANICAL VENT. ALARMS VERIFIED AND AUDIBLE. AMBU BAG AT [facility]. NURSE NOTIFIED.
--- NOTE | 2020-10-18 11:30 | NUR ---
SEEN BY DR CHASE WITH ORDERS TO CHANGED TRACH PORTEX 8 TO SHILEY 8 XLT. Fany POPE CHANGED THE TRACH PORTEX TO SHILEY 8 XLT ORDERED
[2020-10-18 11:37] LABS: CHLORIDE,URINE RANDOM 140 mmol/L (55-125); POTASSIUM RNDM,URINE 34 mmol/L (25-125); URINE SODIUM, RANDOM 80 mmol/l (40-220)
[2020-10-18 11:57] LABS: LYMPHOCYTES % (MANUAL) 9 % (16-48); MONOCYTES % (MANUAL) 3 % (0-11.0); NEUTROPHILS % (MANUAL) 88 (42-76)
[2020-10-18] MEDS: INSULIN REGULAR, HUMAN 100 UNIT/ML 3 ML VIAL SQ PRN (12:09)
[2020-10-18] MEDS: POTASSIUM CL. PREMIX PERIPHER. 50 ML IV SCH ×5 (12:24→20:12)
--- NOTE | 2020-10-18 13:17 | NUR ---
STARTED INFUSING FIRST BAG OF CRYOPRECIPITATE.WITH STABLE V/S AND WILL MONITOR FOR ANY ADVERSE REACTIONS.
--- NOTE | 2020-10-18 15:14 | NUR ---
FINISH PATCHER NOTE FIRST BAG OF CRYOPRECIPITATE INFUSED. NO ADVERSE REACTIONS. VITALS STABLE. STARTED INFUSING SECOND BAG OF CRYOPRECIPITATE, VITALS STABLE. WILL CONTINUE TO MONITOR FOR ADVERSE REACTION.
--- NOTE | 2020-10-18 16:00 | NUR ---
DR WILCOX CAME TO SEE PT AND RECOMMENDS PALLIATIVE CARE.
--- NOTE | 2020-10-18 16:04 | NUR ---
ARTISTIC ASSOCIATE NOTE SECOND BAG OF CRYOPRECIPITATE TRANSFUSED WITH NO ADVERSE REACTION. VITALS STABLE, IV SITE INTACT. PT IS RESTING COMFORTABLY.
[2020-10-18] MEDS: FLUCONAZOLE IN NS 100 MG in PREMIX 1 EA IV SCH ×2 (16:43)
--- NOTE | 2020-10-18 17:30 | NUR ---
D5W + 20 meq KCL IVF held due to ongoing K+ IV piggyback.Will resume after administering the K+ IV piggybacks.
[2020-10-18] MEDS: ZINC SULFATE 220 MG CAPSULE GT SCH (17:42)
--- NOTE | 2020-10-18 18:50 | NUR ---
ADMINISTRATIVE CLERK CLOSING NOTE PATIENT IS CURRENTLY RESTING IN BED. NON-VERBAL AT BASELINE. CONTINUES ON MECHANICAL VENT WITH PATIENT TOLERATING SETTINGS WELL. NO SIGNS OR SYMPTOMS OF RESPIRATORY DISTRESS NOTED. GALINDO CATHETER PATENT WITH OUTPUT OF 460CC THIS SHIFT. FLEXISEAL PATENT WITH 100CC OUTPUT. PT RECEIEVED 10 UNITS CRYOPRECIPITATE WITH NO ADVERSE REACTION. PERIPHERAL IV RASHAWN INTACT AND PATENT CURRENTLY INFUSING POTASSIUM 10MEQ @100ML/HR. 4 MORE BAGS TO BE ENDORSED TO MANAGER WORK NURSE. BLOOD GLUCOSE AT 1800 WAS 82, NO INSULIN GIVEN. ASPIRATION, FALL AND SAFETY PRECAUTIONS MAINTAINED. WILL ENDORSE PLAN OF CARE TO ONCOMING SHIFT.
[2020-10-19] VITALS (11 sets, daily range): BP systolic 125–168; BP diastolic 71–96
[2020-10-19] MEDS: POTASSIUM CL. PREMIX PERIPHER. 50 ML IV SCH ×3 (00:47→03:18)
[2020-10-19] MEDS: ALBUTEROL FS 2.5 MG/0.5 ML VIAL.NEB NEB SCH ×4 (01:10→19:33)
[2020-10-19] MEDS: MEROPENEM 500 MG in IV NS 0.9% 50 ML IV SCH ×3 (03:16→21:38)
[2020-10-19] MEDS: Potassium Chloride 20 MEQ in IV D5W 1,000 ML IV SCH (03:26)
[2020-10-19] MEDS: HYDROCORTISONE SOD SUCCINATE 100 MG/2 ML VIAL IV SCH ×3 (06:14→20:57)
[2020-10-19] MEDS: BLOOD SUGAR DIAGNOSTIC 1 EACH STRIP IN SCH ×4 (06:45→16:59)
[2020-10-19 07:13] LABS: EOSINOPHILS % (AUTO) 0.4 % (0.0-6.0); LYMPHOCYTES # (AUTO) 0.1 /CMM (0.8-4.8); LYMPHOCYTES % (AUTO) 1.8 % (20.0-44.0); MEAN CORPUSCULAR HGB CONC 36 g/dl (31.0-36.0); MEAN CORPUSCULAR VOLUME 86 fL (82-100); MONOCYTES # (AUTO) 0.1 /CMM (0.1-1.30); MONOCYTES % (AUTO) 1.9 % (2.0-12.0); NEUTROPHILS # (AUTO) 3.1 /CMM (1.8-8.9); NEUTROPHILS % (AUTO) 95.9 % (43.0-81.0); WHITE BLOOD COUNT (AUTO) 3.2 K/uL (4.3-11.0)
[2020-10-19 07:37] LABS: RED BLOOD CELL COUNT(AUTO) 1.41 MIL/uL (4.0-5.2)
[2020-10-19 07:40] LABS: HEMATOCRIT 12 % (33-45); HEMOGLOBIN 4.4 g/dL (11.5-14.8)
[2020-10-19 07:41] LABS: PLATELET COUNT (AUTO) 11 /CMM (150-450)
--- NOTE | 2020-10-19 08:00 | NUR ---
BRAILLE PROOFREADER OPENING NOTE RECEIVED PATIENT RESTING IN BED. NON-VERBAL, OBTUNDED. NO SIGNS OR SYMPTOMS OF PAIN NOTED AT THIS TIME. IV IN RIGHT UPPER ARM INFUSING POTASSIUM CHLORIDE 20MEQ @ 100ML/HR. NO SIGNS OR SYMPTOMS OF RESPIRATORY DISTRESS NOTED. PATIENT ON MECHANICAL VENT AND TOLERATING SETTINGS WELL. PATIENT REMAINS NPO. CALL LIGHT WITHIN REACH. ASPIRATION, FALL AND SAFETY PRECAUTIONS MAINTAINED. WILL CONTINUE TO MONITOR.
[2020-10-19 08:28] LABS: LYMPHOCYTES % (MANUAL) 4 % (16-48); NEUTROPHILS % (MANUAL) 96 (42-76)
[2020-10-19] MEDS: LEVETIRACETAM (500MG) 500 MG in IV NS 0.9% 100 ML IV SCH ×2 (08:57→20:51)
[2020-10-19] MEDS: PANTOPRAZOLE 40 MG VIAL IV SCH (08:57)
[2020-10-19] MEDS ORDERED: diphenhydrAMINE HCL 50 MG/ML VIAL IV ONE ×2 (09:00→11:30)
[2020-10-19] MEDS ORDERED: ACETAMINOPHEN 325 MG TABLET PO ONE ×2 (09:00→11:30)
[2020-10-19] MEDS: SPIRONOLACTONE 25 MG TABLET PO SCH (09:00)
[2020-10-19] MEDS: THERAHONEY GEL 1.5 OZ TUBE TP SCH (09:15)
[2020-10-19] MEDS: HYDROGEL DRESSING 90 GM TUBE TP SCH (09:15)
--- NOTE | 2020-10-19 09:42 | NUR ---
CLARIFIED WITH DONALD WALLACE DNP TRANSFUSING 2 UNITS PRBC WHICH HE APPROVED AND CARRIED OUT DUE TO HGB 4.4
--- NOTE | 2020-10-19 09:43 | NUR ---
PLATELET STILL HAS TO BE ORDERED AT [facility] PER BLOOD BANK.
[2020-10-19 09:54] LABS: ALBUMIN 1.8 g/dL (3.4-5.0); BILIRUBIN,TOTAL 1.4 mg/dL (0.2-1.0); CREATININE 0.8 mg/dL (0.6-1.3); MAGNESIUM 2.2 mg/dL (1.8-2.4); PHOSPHORUS 2.8 mg/dL (2.5-4.9); POTASSIUM 4.5 mmol/L (3.5-5.1); TOTAL PROTEIN, SERUM 5.6 g/dL (6.4-8.2)
--- NOTE | 2020-10-19 10:53 | NUR ---
JACKI Note: JACKI faxed over corrected note by Kai Case ROUTER OPERATOR PIN [phone] that states "DNR/ Comfort Care/No Hospice" to Office of the Public Guardian FAX: [phone] ATTN: Nichelle.
[2020-10-19 11:13] LABS: D-DIMER 1.87 mg/L(FEU (0.17-0.50)
--- NOTE | 2020-10-19 11:41 | NUR ---
PHYSICIAN ASSISTANT NOTE BEGAN TRANSFUSING FIRST BAG OF PRBC @ 1139. VITALS STABLE. WILL CONTINUE TO MONITOR FOR ADVERSE REACTION.
--- NOTE | 2020-10-19 11:42 | NUR ---
APPLICATIONS COORDINATOR NOTE 0900 DOSE OF TYLENOL AND BENEDRYL WERE CANCELLED - TRANSFUSION DID NOT START UNTIL 1139. NEW ORDERS PUT IN.
[2020-10-19] MEDS ORDERED: ACETAMINOPHEN 650 MG/SUPP.RECT RC ONE (12:00)
[2020-10-19] MEDS: IV D5W 1,000 ML IV SCH (14:57)
--- NOTE | 2020-10-19 15:05 | NUR ---
SUPERVISOR PARTICLEBOARD NOTE FIRST BAG OF PRBC'S TRANSFUSED. VITALS STABLE. PENDING CBC.
[2020-10-19] MEDS: FLUCONAZOLE IN NS 100 MG in PREMIX 1 EA IV SCH ×2 (15:07)
[2020-10-19 15:55] LABS: EOSINOPHILS % (AUTO) 0.1 % (0.0-6.0); HEMOGLOBIN 9.6 g/dL (11.5-14.8); LYMPHOCYTES # (AUTO) 0.6 /CMM (0.8-4.8); MONOCYTES # (AUTO) 0.1 /CMM (0.1-1.30); RED BLOOD CELL COUNT(AUTO) 3.25 MIL/uL (4.0-5.2)
[2020-10-19] MEDS: ZINC SULFATE 220 MG CAPSULE GT SCH (16:05)
[2020-10-19 16:06] LABS: BASOPHILS % (AUTO) 0.2 % (0.0-2.0); HEMATOCRIT 28 % (33-45); LYMPHOCYTES % (AUTO) 9.1 % (20.0-44.0); MEAN CORPUSCULAR HGB CONC 34 g/dl (31.0-36.0); MEAN CORPUSCULAR VOLUME 88 fL (82-100); MONOCYTES % (AUTO) 1.9 % (2.0-12.0); NEUTROPHILS # (AUTO) 5.5 /CMM (1.8-8.9); NEUTROPHILS % (AUTO) 88.7 % (43.0-81.0); WHITE BLOOD COUNT (AUTO) 6.2 K/uL (4.3-11.0)
[2020-10-19 16:19] LABS: PLATELET COUNT (AUTO) 37 /CMM (150-450)
--- NOTE | 2020-10-19 16:20 | NUR ---
PT'S HGB/HCT 9.6/[address] OF 37 POST TRANSFUSION OF 1 UNIT PRBC.PAGED SKYE WALLACE NP AND SUSHIL WILSON OF THE RESULTS.AWAITING TO RETURN CALL.
[2020-10-19 16:21] LABS: BAND % (MANUAL) 3 % (0.0-5.0); LYMPHOCYTES % (MANUAL) 5 % (16-48); MONOCYTES % (MANUAL) 4 % (0-11.0); NEUTROPHILS % (MANUAL) 88 (42-76)
--- NOTE | 2020-10-19 17:00 | NUR ---
SUSHIL WILSON HEMATOLOGY GAVE ORDERS TO HOLD ALL TRANSFUSIONS FOR BOTH PLATELETS AND PRBC DUE TO LATEST LAB RESULTS H/H/ 9.02/[address] 37. NOTIFIED BLOOD BANK AND SPOKE TO ELANABLOOD BANK [facility].
--- NOTE | 2020-10-19 18:29 | NUR ---
TELE/RN CLOSING NOTE PATIENT IS CURRENTLY RESTING IN BED. NON-VERBAL, OBTUNDED. CONTINUES ON MECHANICAL VENT WITH PATIENT TOLERATING SETTINGS WELL. NO SIGNS OR SYMPTOMS OF RESPIRATORY DISTRESS NOTED. GALINDO CATHETER PATENT WITH 650CC OUTPUT. FLEXISEAL PATENT WITH 50CC OUTPUT. PERIPHERAL IV TO RASHAWN INTACT AND PATENT RUNNING D5W @ 100ML/HR. PATIENT RECEIVED 1 UNIT PRBC'S THIS SHIFT. SECOND UNIT PRBC NOT GIVEN DUE TO HGB @ 9.6. DOCTOR NOTIFIED. CONTINUES ON IV ABX. ASPIRATION, FALL AND SAFETY PRECAUTIONS MAINTAINED. WILL ENDORSE PLAN OF CARE TO ONCOMING SHIFT.
--- NOTE | 2020-10-19 19:10 | NUR ---
JAVA SOFTWARE DEVELOPER OPENING NOTES: RECEIVED PT IN BED, OBTUNDED. NO S/S OF DISTRESS NOTED. HOB ELEVATED AT 30 DEGREES AT ALL TIMES. BED ALARM ON. BED IN LOWEST AND LOCKED POSITION. NPO. G-TUBE INTACT, CONNECTED TO THE GALINDO BAB, NO OUTPUT. ARMS AND LEGS ARE CONTRACTED. WITH GALINDO CATHETER INTACT, DRAINING TO CLEAR LIGHT TIFFANIE COLOR URINE OUTPUT. WITH RECTSL TUBE INTACT, NO OUTPUT. WITH TRACH INTACT, DRESSING IS CLEAN,DRY, AND INTACT CONNECTED TO THE VENT. WITH RIGHT ARM SWOLLEN AND WITH REDNESS, RIGHT HAND BRUISE.
[2020-10-20] VITALS (7 sets, daily range): BP systolic 111–160; BP diastolic 60–94
--- NOTE | 2020-10-20 00:05 | NUR ---
blood sugar checked; 123, no coverage needed.
[2020-10-20] MEDS: ALBUTEROL FS 2.5 MG/0.5 ML VIAL.NEB NEB SCH ×3 (01:18→13:16)
[2020-10-20] MEDS: HYDROCORTISONE SOD SUCCINATE 100 MG/2 ML VIAL IV SCH ×2 (05:42→12:49)
[2020-10-20] MEDS: IV D5W 1,000 ML IV SCH (05:42)
[2020-10-20] MEDS: BLOOD SUGAR DIAGNOSTIC 1 EACH STRIP IN SCH ×3 (05:51→12:33)
--- NOTE | 2020-10-20 05:51 | NUR ---
BLOOD SUGAR [id number], NO COVERAGE GIVEN
[2020-10-20 06:58] LABS: CALCIUM, SERUM 7.7 mg/dL (8.5-10.1); CREATININE 0.7 mg/dL (0.6-1.3); MAGNESIUM 1.7 mg/dL (1.8-2.4)
--- NOTE | 2020-10-20 07:00 | NUR ---
RECEIVED A CRITICAL LAB RESULT POTASSIUM 2.6, ENDORSED TO THE NEXT SHIFT RN.
[2020-10-20 07:05] LABS: BASOPHILS % (AUTO) 0.5 % (0.0-2.0); EOSINOPHILS % (AUTO) 0.4 % (0.0-6.0); HEMATOCRIT 26 % (33-45); HEMOGLOBIN 8.7 g/dL (11.5-14.8); LYMPHOCYTES % (AUTO) 15.9 % (20.0-44.0); MEAN CORPUSCULAR HGB CONC 34 g/dl (31.0-36.0); MEAN CORPUSCULAR VOLUME 87 fL (82-100); MONOCYTES # (AUTO) 0.1 /CMM (0.1-1.30); MONOCYTES % (AUTO) 2.1 % (2.0-12.0); NEUTROPHILS # (AUTO) 5.4 /CMM (1.8-8.9); NEUTROPHILS % (AUTO) 81.1 % (43.0-81.0); POTASSIUM 2.6 mmol/L (3.5-5.1); RED BLOOD CELL COUNT(AUTO) 2.94 MIL/uL (4.0-5.2); WHITE BLOOD COUNT (AUTO) 6.6 K/uL (4.3-11.0)
[2020-10-20 07:19] LABS: PLATELET COUNT (AUTO) 32 /CMM (150-450)
--- NOTE | 2020-10-20 07:22 | NUR ---
CRITICAL LAB RESULT POTASSIUM 2.[address] WALLACE NOTIFIED AND YONY LING NOTIFIED.
[2020-10-20 07:51] LABS: BAND % (MANUAL) 2 % (0.0-5.0); EOSINOPHILS % (MANUAL) 1 % (0-4); LYMPHOCYTES % (MANUAL) 15 % (16-48); NEUTROPHILS % (MANUAL) 82 (42-76)
--- NOTE | 2020-10-20 08:00 | NUR ---
ENVIRONMENTAL PROJECTS ADVISOR OPENING NOTES RECEIVED PT IN BED, OBTUNDED. NO S/S OF DISTRESS NOTED. HOB ELEVATED AT 30 DEGREES AT ALL TIMES. BED ALARM ON. BED IN LOWEST AND LOCKED POSITION. NPO. G-TUBE INTACT, CONNECTED TO GALINDO FOR DRAINAGE, NO OUTPUT. ARMS AND LEGS ARE CONTRACTED. WITH GALINDO CATHETER INTACT. RECTAL TUBE INTACT, NO OUTPUT. TRACH INTACT, DRESSING IS CLEAN, DRY AND CONNECTED TO VENT. RIGHT ARM SWOLLEN WITH REDNESS, RIGHT HAND BRUISE.
[2020-10-20] MEDS: HYDROGEL DRESSING 90 GM TUBE TP SCH (08:29)
[2020-10-20] MEDS: THERAHONEY GEL 1.5 OZ TUBE TP SCH (08:30)
[2020-10-20] MEDS: MEROPENEM 500 MG in IV NS 0.9% 50 ML IV SCH (08:32)
[2020-10-20] MEDS: PANTOPRAZOLE 40 MG VIAL IV SCH (08:42)
[2020-10-20] MEDS: SPIRONOLACTONE 25 MG TABLET PO SCH (08:43)
[2020-10-20] MEDS: LEVETIRACETAM (500MG) 500 MG in IV NS 0.9% 100 ML IV SCH (09:00)
[2020-10-20] MEDS: Magnesium 1GM/D5W 100ML PREMIX 100 ML IV SCH ×2 (11:30→12:33)
[2020-10-20] MEDS: INSULIN REGULAR, HUMAN 100 UNIT/ML 3 ML VIAL SQ PRN (12:34)
[2020-10-20 12:57] LABS: CHLORIDE,URINE RANDOM 145 mmol/L (55-125); POTASSIUM RNDM,URINE 29 mmol/L (25-125); URINE SODIUM, RANDOM 109 mmol/l (40-220)
[2020-10-20] MEDS ORDERED: LORAZEPAM INJ 2 MG/ML VIAL IV PRN (14:00)
[2020-10-20] MEDS ORDERED: SCOPOLAMINE PATCH 1 MG/72HR TD SCH (14:00)
--- NOTE | 2020-10-20 18:02 | NUR ---
TELE/RN CLOSING NOTE PATIENT IS CURRENTLY RESTING IN BED. NON-VERBAL, OBTUNDED. CONTINUES ON MECHANICAL VENT, TOLERATING SETTINGS WELL. NO SIGNS OR SYMPTOMS OF RESPIRATORY DISTRESS NOTED. GALINDO CATHETER PATENT. FLEXISEAL PATENT. PERIPHERAL IV TO RASHAWN INTACT AND PATENT. PT WAS PUT ON DNR CODE STATUS AND COMFORT CARE. ASPIRATION, FALL AND SAFETY PRECAUTIONS MAINTAINED. WILL ENDORSE PLAN OF CARE TO ONCOMING SHIFT.
--- NOTE | 2020-10-20 19:48 | NUR ---
BED CONTROL SPECIALIST OPENING NOTE PATIENT RESTING IN BED; NON-VERBAL, OBTUNDED. ON MECHANICAL VENT, TOLERATING SETTINGS WELL; NO SIGNS OR SYMPTOMS OF RESPIRATORY DISTRESS NOTED. EXTERNAL FLAME BURNER READS SR AT 64. GALINDO CATHETER PATENT AND INTACT; DRAINING CLEAR YELLOW URINE. FLEXISEAL PATENT AND INTACT; NO OUTPUT NOTED. GTUBE INTACT; CONNECTED TO DRAINAGE WITH SOME YELLOW RESIDUAL. PERIPHERAL IV TO RASHAWN #20G; INTACT AND PATENT. PT ON DNR CODE STATUS AND COMFORT CARE MEASURES. ASPIRATION, FALL AND SAFETY PRECAUTIONS MAINTAINED; BED IN LOWEST LOCKED POSITION, SIDE RAILS UPX2, BED ALARMS ON.
--- NOTE | 2020-10-20 21:30 | NUR ---
HEAD CHARGER NOTES - TEMP PATIENT NOTED WITH AXILLARY TEMP OF 94.4F AND RECTAL TEMP OF 94.3. WARMING MEASURES APPLIED, PUT ON JASON HUGGER BLANKET. CHARGE NURSE AWARE. WILL CONTINUE TO ASSESS TEMP.
[2020-10-21] VITALS: BP 135/71
[2020-10-21] MEDS: MORPHINE SULFATE INJ 2 MG/ML DISP.SYRIN IV PRN ×2 (02:22→10:54)
[2020-10-21 04:00] VITALS: BP 128/74
--- NOTE | 2020-10-21 06:44 | NUR ---
PARKING ANALYST OPENING NOTE PATIENT RESTING IN BED; NON-VERBAL, OBTUNDED. ON MECHANICAL VENT, TOLERATING SETTINGS WELL; NO SIGNS OR SYMPTOMS OF RESPIRATORY DISTRESS NOTED. EXTERNAL ADMITTING OFFICE ESCORT READS SR AT 100'S. GALINDO CATHETER PATENT AND INTACT; DRAINING CLEAR YELLOW URINE WITH BROWN SEDIMENT. RECTAL TUBE PATENT AND INTACT; NO OUTPUT NOTED. GTUBE INTACT; CONNECTED TO GALINDO DRAINAGE WITH SOME YELLOW RESIDUAL. PERIPHERAL IV TO RASHAWN #20G; INTACT AND PATENT. PT ON DNR CODE STATUS AND COMFORT CARE MEASURES. ASPIRATION, FALL AND SAFETY PRECAUTIONS MAINTAINED; BED IN LOWEST LOCKED POSITION, SIDE RAILS UPX2, BED ALARMS ON. WILL ENDORSE JOE TO ONCOMING RN.
--- NOTE | 2020-10-21 06:46 | NUR ---
CLINICAL NUTRITIONIST CLOSING NOTE PATIENT RESTING IN BED; NON-VERBAL, OBTUNDED. ON MECHANICAL VENT, TOLERATING SETTINGS WELL; NO SIGNS OR SYMPTOMS OF RESPIRATORY DISTRESS NOTED. EXTERNAL DATA COMMUNICATIONS ANALYST READS SR AT 100'S. GALINDO CATHETER PATENT AND INTACT; DRAINING CLEAR YELLOW URINE WITH BROWN SEDIMENT. RECTAL TUBE PATENT AND INTACT; NO OUTPUT NOTED. GTUBE INTACT; CONNECTED TO GALINDO DRAINAGE WITH SOME YELLOW RESIDUAL. PERIPHERAL IV TO RASHAWN #20G; INTACT AND PATENT. PT ON DNR CODE STATUS AND COMFORT CARE MEASURES. ASPIRATION, FALL AND SAFETY PRECAUTIONS MAINTAINED; BED IN LOWEST LOCKED POSITION, SIDE RAILS UPX2, BED ALARMS ON. WILL ENDORSE JOE TO ONCOMING
[2020-10-21 07:32] LABS: CALCIUM, SERUM 7.9 mg/dL (8.5-10.1); CREATININE 0.7 mg/dL (0.6-1.3); PHOSPHORUS 3.5 mg/dL (2.5-4.9)
[2020-10-21 07:36] LABS: POTASSIUM 2.4 mmol/L (3.5-5.1)
--- NOTE | 2020-10-21 07:41 | NUR ---
PRESTRESSED CONCRETE LABORER OPENING NOTE PATIENT IN BED; NON-VERBAL, OBTUNDED. ON MECHANICAL VENT, TOLERATING SETTINGS WELL; NO SIGNS OR SYMPTOMS OF RESPIRATORY DISTRESS NOTED. EXTERNAL HYGIENE ASSISTANT READS SR AT 100'S. GALINDO CATHETER PATENT AND INTACT; DRAINING CLEAR YELLOW URINE WITH BROWN SEDIMENT. RECTAL TUBE PATENT AND INTACT; NO OUTPUT NOTED. GTUBE INTACT; CONNECTED TO GALINDO DRAINAGE WITH SOME YELLOW RESIDUAL. PERIPHERAL IV TO RASHAWN #20G; INTACT AND PATENT. PT ON DNR CODE STATUS AND COMFORT CARE MEASURES. ASPIRATION, FALL AND SAFETY PRECAUTIONS MAINTAINED; BED IN LOWEST LOCKED POSITION, SIDE RAILS UPX2, BED ALARMS ON. WILL ENDORSE JOE TO ONCOMING RN.
[2020-10-21 08:00] VITALS: BP 141/73
--- NOTE | 2020-10-21 09:36 | NUR ---
RN NOTES DR. SKYE WALLACE IN THE UNIT MAKING ROUNDS AND MADE AWARE OF PATIENT'S POTASSIUM LEVEL AND GLUCOSE LEVEL. PHARMACY AWARE WELL. PATIENT'S FAMILY CALLED EARLIER AND INQUIRED ABOUT PATIENT'S VENTILATOR REMOVAL; INFORMED DR. WALLACE ABOUT IT AND HE STATED THAT PATIENT'S STATUS IS UNDER BIOETHICS COMMITTEE AND WILL CONSULT WITH ANOTHER DOCTOR ABOUT THE SITUATION. WILL CONTINUE TO MONITOR.
--- NOTE | 2020-10-21 10:20 | NUR ---
RN NOTES Spoke with Dr. Kai Case, informed about family/conservators concern about taking patient off ventilator. Per Dr.Daniel Case patient is on comfort care, patient will stay on trach and ventilator as discussed with , also stated will find appropriate placement for patient. Made aware of potassium and glucose levels, no new orders for now per Dr. Kai Case
[2020-10-21 12:00] VITALS: BP 115/56
--- NOTE | 2020-10-21 14:21 | NUR ---
RN NOTES DR. WALLACE MADE ROUNDS TODAY AND SEEN PATIENT AGAIN; MADE AWARE THAT PRN MORPHINE AND PRN ATIVAN ARE APPROPRIATE AT THIS TIME FOR PATIENT'S COMFORT MEASURE/CARE MGT. PER DR. WALLACE, HE SPOKE W/ ROBI, PROCESSING INSPECTOR, AND WAS INFORMED THAT PATIENT CANNOT BE PLACED AT ANY OUTSIDE FACILITY GIVEN PATIENT'S CURRENT CONDITION. WILL CONTINUE TO MONITOR.
--- NOTE | 2020-10-21 16:39 | NUR ---
RN NOTES PATIENT ROUNDS DONE, NOTED THAT PATIENT'S O2 SAT SENSOR IS NOT READING. PLACEMENT CHECKED AND WAS FOUND TO BE IN PLACE. CHECKED HEART MONITOR AND READING OF ASYSTOLE WAS NOTED. VS ATTEMPTED TO BE TAKEN X4 BUT UNABLE TO OBTAIN VS; NO CORNEAL REFLEX NOTED. AUSCULTATED FOR HEART RATE AND PULSE BUT UNABLE TO OBTAIN WELL. ELANA, CHARGE NURSE, MADE AWARE FOR CONFIRMATION. CONFIRMED TIME OF AT 1637. DR. SKYE WALLACE MADE AWARE OF PATIENT'S EXPIRATION. WILL PROCEED W/ POST-MORTEM CARE PER HOSPITAL POLICY.
--- NOTE | 2020-10-21 16:48 | NUR ---
RN NOTES CALLED [facility] AND SPOKE W/ DOOR REPAIRER BUS TAMY Falk; PER TAMY, [facility] WILL NOT PURSUE WITH CASE FURTHER. OBTAINED CASE# [id number].
--- NOTE | 2020-10-21 16:57 | NUR ---
RN NOTES CALLED WILBERTO DREW, CONSERVATOR OF PATIENT, AND MADE AWARE OF PATIENT'S EXPIRATION TODAY. PER WILBERTO, SHE WILL INFORM NEXT OF KIN ABOUT INCIDENT BUT WE HAVE TO CALL [facility] TO TRAVERTINE INSTALLER BODY.
--- NOTE | 2020-10-21 17:09 | NUR ---
RN NOTES [facility]POKE [facility]S OFFICE DATA SCIENCES DIRECTOR, KAYLYN, AND INFORMED ABOUT PATIENT'S CASE; PER KAYLYN, SINCE PATIENT IS CONSERVED, REMAINS WILL NOT BE PICKED UP AND PATIENT'S CONSERVATOR HAS RESPONSIBILITY TO ARRANGE FOR MORTUARY OF CHOICE. WILL CALL CONSERVATOR REGARDING INFORMATION.
--- NOTE | 2020-10-21 17:17 | NUR ---
RN NOTES CALLED WILBERTO, CONSERVATOR OF PATIENT, AND INFORMED ABOUT CLINICAL ADMINISTRATOR'S OFFICE DECISION. PER WILBERTO, HOSPITAL SHOULD CALL [facility] AFTER-HOURS ([phone]) FOR ADDITIONAL GUIDANCE ON HANDLING THE CASE CONSERVATOR IS TECHNICALLY NOT WORKING TODAY AND HAS NO ACCESS TO HER WORKSTATION.
--- NOTE | 2020-10-21 17:32 | NUR ---
RN NOTES CALLED [facility] AFTER HOURS AND WAS CONNECTED W/ DARWIN MOSER; INFORMED DARWIN OF SITUATION AND OBTAINED PATIENT INFORMATION WELL MADE HIM AWARE OF HOSPITAL'S POLICY OF HOLDING PATIENT'S REMAINS. PER DARWIN, HE WILL CONTACT FAMILY ABOUT MORTUARY OF CHOICE AND CALL HOSPITAL FOR ANY INFORMATION AND IF HE NEEDS TO BE CONTACTED, HOSPITAL CAN CALL THE AFTER HOURS NUMBER AND ASK TO BE CONNECTED TO HIM.
--- NOTE | 2020-10-21 18:42 | NUR ---
RN NOTES POST-MORTEM CARE DONE BY ME SUSAN, AND VANESSA. LINES AND TUBINGS REMOVED EXCEPT FOR TRACH AND G-TUBE. PATIENT CLEANED. PATIENT TAGS ATTACHED PER POLICY. PATIENT HAS NO BELONGINGS. REMAINS PICKED UP BY SECURITY AND PLACED IN HOSPITAL'S MORGUE. PATIENT CHART GIVEN TO AIR CONDITIONING COIL ASSEMBLER'S OFFICE.
== END 2020-10-21 16:37 | disposition expired | DRG 356 ==
LOC: ER 07:05 → ICU 11:18 → TELE 10-10 12:14
PROVIDERS: ADMIT Nurse Practitioner Acute Care; ATTEND Nurse Practitioner Family
PROC: 5A1955Z Respiratory Ventilation, Greater than 96 Consecutive Hours (ICD-10-PCS; principal; 2020-10-02)
PROC: 0JBP0ZZ Excision of Left Lower Leg Subcutaneous Tissue and Fascia, Open Approach (ICD-10-PCS; 2020-10-05)
PROC: 30233N1 Transfusion of Nonautologous Red Blood Cells into Peripheral Vein, Percutaneous Approach (ICD-10-PCS; 2020-10-05)
PROC: 30233R1 Transfusion of Nonautologous Platelets into Peripheral Vein, Percutaneous Approach (ICD-10-PCS; 2020-10-05)
PROC: 0QBM0ZZ Excision of Left Tarsal, Open Approach (ICD-10-PCS; 2020-10-06)
PROC: 30233K1 Transfusion of Nonautologous Frozen Plasma into Peripheral Vein, Percutaneous Approach (ICD-10-PCS; 2020-10-08)
PROC: 30233M1 Transfusion of Nonautologous Plasma Cryoprecipitate into Peripheral Vein, Percutaneous Approach (ICD-10-PCS; 2020-10-11)
PROC: 0DJ08ZZ Inspection of Upper Intestinal Tract, Via Natural or Artificial Opening Endoscopic (ICD-10-PCS; 2020-10-17)
DX: K94.22 Gastrostomy infection (principal); A41.50 Gram-negative sepsis, unspecified; L89.893 Pressure ulcer of other site, stage 3; L89.514 Pressure ulcer of right ankle, stage 4; E43 Unspecified severe protein-calorie malnutrition; J96.21 Acute and chronic respiratory failure with hypoxia; N17.0 Acute kidney failure with tubular necrosis; R65.21 Severe sepsis with septic shock; J18.9 Pneumonia, unspecified organism; D65 Disseminated intravascular coagulation [defibrination syndrome]; E87.1 Hypo-osmolality and hyponatremia; L03.311 Cellulitis of abdominal wall; N39.0 Urinary tract infection, site not specified; K31.6 Fistula of stomach and duodenum; I69.351 Hemiplegia and hemiparesis following cerebral infarction affecting right dominant side; Z99.11 Dependence on respirator [ventilator] status; E27.40 Unspecified adrenocortical insufficiency; E87.0 Hyperosmolality and hypernatremia; J95.851 Ventilator associated pneumonia; G93.49 Other encephalopathy; D68.9 Coagulation defect, unspecified; B49 Unspecified mycosis; Z51.5 Encounter for palliative care; Z66 Do not resuscitate; Y83.3 Surgical operation with formation of external stoma as the cause of abnormal reaction of the patient, or of later complication, without mention of misadventure at the time of the procedure; Y82.9 Unspecified medical devices associated with adverse incidents; Y92.9 Unspecified place or not applicable; E03.9 Hypothyroidism, unspecified; G20 Parkinson's disease; E87.6 Hypokalemia; Z20.822 Contact with and (suspected) exposure to COVID-19; R13.10 Dysphagia, unspecified; Y95 Nosocomial condition; M20.41 Other hammer toe(s) (acquired), right foot; M20.42 Other hammer toe(s) (acquired), left foot; F02.80 Dementia in other diseases classified elsewhere, unspecified severity, without behavioral disturbance, psychotic disturbance, mood disturbance, and anxiety; I25.10 Atherosclerotic heart disease of native coronary artery without angina pectoris; R26.9 Unspecified abnormalities of gait and mobility; F20.9 Schizophrenia, unspecified; D63.8 Anemia in other chronic diseases classified elsewhere; E78.5 Hyperlipidemia, unspecified; Z88.5 Allergy status to narcotic agent; Z79.51 Long term (current) use of inhaled steroids; Z79.899 Other long term (current) drug therapy; E83.42 Hypomagnesemia; E86.1 Hypovolemia; I70.0 Atherosclerosis of aorta; I10 Essential (primary) hypertension; M89.9 Disorder of bone, unspecified; M21.171 Varus deformity, not elsewhere classified, right ankle; Z87.440 Personal history of urinary (tract) infections; Y84.9 Medical procedure, unspecified as the cause of abnormal reaction of the patient, or of later complication, without mention of misadventure at the time of the procedure; Z87.19 Personal history of other diseases of the digestive system; F09 Unspecified mental disorder due to known physiological condition; N13.9 Obstructive and reflux uropathy, unspecified; M62.561 Muscle wasting and atrophy, not elsewhere classified, right lower leg; M62.562 Muscle wasting and atrophy, not elsewhere classified, left lower leg; Z74.09 Other reduced mobility; Z87.448 Personal history of other diseases of urinary system
CPT/HCPCS: 31720; 36415; 36600; 43246; 71045-TC; 73610-TC; 73630-TC; 80048-TC; 80053-TC; 80061-TC; 80076-TC; 80202-TC; 82140-TC; 82436-TC; 82533; 82728-TC; 82803-TC; 82962-TC; 83540-TC; 83605-TC; 83735-TC; 84100-TC; 84133-TC; 84300-TC; 84478-TC; 84484-TC; 85025-TC; 85396; 85730-TC; 86850-TC; 87040-TC; 87081-TC; 87086-TC; 87186-TC; 94003-TC; 94760-TC; 94762-TC; 94799-TC; 99082-TC; A4216; A4623; A6248; A6253; A6403; C1751; C9113; G0378; J0610; J1100; J1200; J1450; J1720; J1815; J1953; J2060; J2185; J2248; J2270; J2370; J2704; J3370; J3430; J3475; J3480; J3490; J7030; J7040; J7050; J7060; J7070; P9012; P9016-BL; P9017-BL; P9034-BL; U0003